=== PATIENT | male | born 1945 | race Caucasian/White ===

== ENCOUNTER 2024-11-03 14:09 | Inpatient (IN) | payer MEDICARE, SELFPAY ==
[2024-11-03] VITALS (10 sets, daily range): BP systolic 109–179; BP diastolic 77–110; PULSE 98–126; RESP 17–32; TEMP 36–40; O2SAT 94–100; BMI 33.7
--- NOTE | 2024-11-03 14:10 | PC.NURSE ---
Pt. arrived from home, pt. taken straight to CT.
--- NOTE | 2024-11-03 14:15 | PC.NURSE ---
Dr. Barrera Valdovinos is on tele monitor, Dr. Valdovinos trying to speak to pt. and pt. just keeps stating Malik.
--- NOTE | 2024-11-03 14:16 | PC.NURSE ---
Pt. in CT on CT table and being combative and uncooperative, called Dr. Flannery to come to CT.
--- NOTE | 2024-11-03 14:16 | EKG_ITS ---
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
--- NOTE | 2024-11-03 14:16 | EDNOTE_ITS ---
Neuro Symptoms Deficit-RME/HPI General Chief Complaint: Neuro Symptoms/Deficit Stated Complaint: STROKE Time Seen by Provider: 11/03/24 14:16 Arrival date/time: 11/03/24 14:09 RME / HPI RME / HPI Narrative: DR. FLANNERY MAIN ED EVALUATION: 79 year old male presents to the Emergency Department [facility] with complaints of altered mental status and slurred speech, sudden onset. Symptoms are moderate. Patient also feels hot to the touch. Last well known time 1100 hours today. 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 Social Hx: No tobacco, alcohol, or substance use. Related Data Home Medications ?Medication ?Instructions ?Recorded ?Confirmed Bromocriptine Mesylate 2.5 mg PO BID ##0 09/15/16 Levothyroxine * (SYNTHROID *) 50 mcg PO QDAY #0 tabs 09/15/16 allopurinol 300 mg tablet 300 mg PO QDAY #0 tabs 09/15/16 (Zyloprim) atorvastatin 80 mg tablet (Lipitor) 80 mg PO HS #0 tabs 09/15/16 fluoxetine 20 mg capsule (Prozac) 20 mg PO QAM #0 caps 09/15/16 lisinopril 20 mg tablet 20 mg PO QDAY #0 tabs 09/15/16 loratadine 10 mg tablet 10 mg PO QDAY ##0 09/15/16 (Allerclear) nitroglycerin 0.4 mg sublingual 0.4 mg SL PRN PRN CHEST PAIN #0 09/15/16 tablet (Nitrostat) tabs omeprazole 40 mg capsule,delayed 40 mg PO QDAY ##0 09/15/16 release clopidogrel 75 mg tablet 75 mg PO DAILY 01/28/23 01/28/23 clopidogrel 75 mg tablet (Plavix) 75 mg PO QDAY 01/28/23 01/28/23 Allergies Allergy/AdvReac Type Severity Reaction Status Date / Time Penicillins Allergy Severe RASH/ Verified 01/25/23 15:32 REDNESS Review of Systems Review of Systems ROS Unobtainable: unobtainable due to mental status Past Medical History Past Medical History CARDIAC: Positive Cardiac Disorders, Myocardial Infarction, Coronary Artery Disease, Hypercholesterolemia, Congestive Heart Failure and Hypertension GENITOURINARY: Positive Genitourinary Disorders, Renal Disease and Benign Prostatic Hyperplasia MUSCULOSKELETAL: Positive Musculoskeletal Disorders, Gout and Carpal Tunnel Syndrome ENDOCRINE: Positive Endocrine Disorders, Hypothyroidism and Pituitary Disease (pituitary tumor) Surgical History SURGICAL: Positive Cardiac Surgery, Open Heart Surgery and Coronary Artery Bypass Graft Social History SMOKING STATUS: Never smoker SUBSTANCE USE: does not use ALCOHOL: Never Past Medical History Comments PMH COMMENT: end stage renal failure on dialysis, fistula, hyperlipidemia, depression, htn ED Exam Narrative Physical exam: Physical Exam: General: The vital signs were reviewed. Patient arrived warm no obvious focal deficit slurring of his words obviously confused felt very warm to touch but the story was a sudden onset of loss of neurologic function just prior to arrival so a stroke alert was called and patient was quickly escorted to the CAT scanner. Patient is an obese male unable to provide any history. He moves his arms and legs around without any obvious deficit. He has a patent airway, no respiratory distress and has no apparent circulatory problems. Head & Scalp: Normocephalic, atraumatic. Face: Appears normal and is without lesions, deformity. Ears: Left external pinna appears normal. Right external pinna appears normal. Eyes: The sclera is anicteric. No obvious photophobia. The Left and Right Orbit/Lid/Conjunctiva appears normal without swelling, discoloration or injection. Nose: The nose is without deformity, discharge or tenderness; Throat: Appears normal. The mucous membranes are pink and moist without exudates, redness or mass seen. The tongue appears normal. Neck: The neck is supple and no apparent mass or adenopathy. Chest: The chest wall is normal in size and symmetry and has no chest wall tenderness or crepitus. The patient displays normal ventilator effort without retractions, accessory muscle use and has adequate air movement bilaterally with no wheezes and no rales. Cardiovascular: Regular rate and rhythm; No murmurs, rubs, or gallops; Gastrointestinal: The abdomen appears normal. No obvious hernias or mass. The abdomen is soft and benign, non-distended, with no pain, no guarding and no rebound tenderness. Bowel sounds are present and normal sounding. No CVA tenderness. Genitourinary: Back/Spine: Nontender Extremities/Musculoskeletal/lymphatic: The bilateral upper and lower extremities are very warm warm. There is no evidence of arterial insufficiency. There is no evidence of venous insufficiency/edema. The patient spontaneously moves bilateral upper and lower extremities with no pain and no limitation of movement. There is no apparent, injury or trauma. Skin: The skin is warm, dry and intact. No rashes. No petechia. No purpura. No abnormal bruising. The color is appropriate with no cyanosis. Mental status/Psychiatric: Mental status is confused slurring his words Neurological: The patient is awake, alert, interactive, confused agitated The patient does not follow any commands. His pupils are equal and react to light. Moves all his extremities spontaneously with purposeful movements in arms and legs as he is trying to get himself off the gurney and off the CT scan table when he was over there. Clearly has an abnormal mental status Course Course Course Narrative: 1406: Stroke alert initiated. Orders made at this time are congruent stroke protocol. 1430: Code dunn was called. Ativan was given for CT, partially worked. 1442: Sepsis alert initiated. Orders made at this time are congruent with ED Adult Sepsis Order List. Re-evaluation is to be completed. 1524: Fluids started. 1600: Sepsis reassessment performed consisting of lab review, vitals, physical exam including auscultation of heart, lungs, and visual evaluation of capillary refills, mucosal membranes and extremities. Quality Measures Current suspected stage: sepsis Possible source: unknown Blood cultures ordered: yes Antibiotic ordered: Yes Pertinent labs: 11/03/24 14:12 Lactic Acid 1.8 mMol/L (0.4-2.0) Procalcitonin 0.27 ng/ml (0.0-0.49) sepsis Orders Category Date Time Status 24 HR Medical Restraints Q2HR Care 11/03/24 18:07 Active Bedside Blood Glucose NOW Care 11/03/24 14:16 Active Applications Project Manager NOW Care 11/03/24 14:16 Active Continuous Pulse Oximetry NOW Care 11/03/24 14:16 Completed EKG (ED ONLY) *Do not use* NOW Care 11/03/24 14:16 Completed In and Out Catheter NEEDED Care 11/03/24 14:16 Completed Insert IV NOW Care 11/03/24 14:16 Active NIH Stroke Scale now Care 11/03/24 14:16 Active NPO NOW Care 11/03/24 14:16 Active Nurse Swallow Screen x1 Care 11/03/24 14:16 Active Consult to Neurology / Tele-Neurology Routine Cons 11/03/24 14:[address] angio stroke protocol Stat Exams 11/03/24 14:[address] stroke protocol Stat Exams 11/03/24 14:16 Completed EKG (ED Only) Stat Exams 11/03/24 14:16 Draft XR chest 1V portable Stat Exams 11/03/24 16:51 Completed Alcohol, Blood Medical Stat Lab 11/03/24 14:12 Completed Ammonia Stat Lab 11/03/24 14:12 Completed Blood Culture (Lab) Stat Lab 11/03/24 15:00 Received CBC Stat Lab 11/03/24 14:12 Completed Comprehensive Metabolic Panel Stat Lab 11/03/24 14:12 Completed Drug Screen,Urine Stat Lab 11/03/24 15:20 Completed Lactate (Lactic Acid) Stat Lab 11/03/24 14:12 Completed Magnesium Stat Lab 11/03/24 14:12 Completed Partial Thromboplastin Time Stat Lab 11/03/24 14:12 Completed Procalcitonin Stat Lab 11/03/24 14:12 Completed Prothrombin Time with INR Stat Lab 11/03/24 14:12 Completed Troponin I Stat Lab 11/03/24 14:12 Completed Urinalysis Stat Lab 11/03/24 15:20 Completed Urine Culture Stat Lab 11/03/24 15:20 Received Venous Blood Gas Stat Lab 11/03/24 14:12 Completed Acetaminophen Supp [Tylenol Supp] Med 11/03/24 14:58 Discontinued 1,000 mg ID X1 ONE LORazepam [Ativan Inj] Med 11/03/24 14:17 Discontinued 2 mg .ROUTE .STK-MED ONE LORazepam [Ativan Inj] Med 11/03/24 14:39 Discontinued 2 mg IVP X1 ONE LORazepam [Ativan Inj] Med 11/03/24 16:48 Discontinued 2 mg IVP X1 ONE LORazepam [Ativan Inj] Med 11/03/24 17:06 Discontinued 2 mg IVP X1 ONE LORazepam [Ativan Inj] Med 11/03/24 17:57 Discontinued 2 mg IVP X1 ONE Meropenem Inj [Merrem Inj] 1,000 mg Med 11/03/24 14:42 Discontinued Sodium Chloride 0.9% (P) [Ns 0.9% (P)] 50 ml IV X1 Morphine Inj Med 11/03/24 17:21 Discontinued 4 mg IVP X1 ONE Ondansetron Inj [Zofran Inj] Med 11/03/24 14:16 Active 4 mg IV Q4HR PRN Ondansetron Inj [Zofran Inj] Med 11/03/24 14:39 Discontinued 4 mg IV X1 ONE Ondansetron Inj [Zofran Inj] Med 11/03/24 17:22 Discontinued 4 mg IV X1 ONE Sodium Chloride 0.9% 500 ml [Ns] 500 ml Med 11/03/24 14:40 Discontinued IV 999 mls/hr Vancomycin Inj 1,000 mg Med 11/03/24 14:41 Discontinued Sodium Chloride 0.9% 250 ml [Ns] 250 ml IV X1 Oxygen Delivery NOW RT 11/03/24 14:16 Active Vital Signs Vital signs: Vital Signs Temperature 104.0 F H 11/03/24 14:10 Pulse Rate 123 H 11/03/24 14:10 Respiratory Rate 19 11/03/24 14:10 Blood Pressure 121/110 H 11/03/24 14:10 Pulse Oximetry (%) 94 L 11/03/24 14:10 Oxygen Delivery Method Room Air 11/03/24 14:10 Neuro Symptoms / Deficit MDM Narrative MDM Narrative:: I, Leanne Hickman am scribing for and in the presence of Dr. Flannery. Initially patient was billed as a stroke alert prior to arriving by EMS. We continued with a stroke alert and patient went to the scanner as soon as possible but over there he was agitated and unable to hold still we brought 2 mg of Ativan stat and it was given IV while he was on the scanner table. He calm down to what appeared to be good enough to get a initial scan. Note detail he teleneurologist was on the line observing are patient at that time. We were able to get a noncontrast scan but there was lots of motion artifact and clearly a repeat will need to be done but we rolled him and did a rectal temp in the x- ray suite and found him to have a temperature 104.2. At this point it is obvious that he is either septic and we initiated septic workup. Because he is a dialysis patient he was given Vanco and Zosyn. I discussion with the telemetry neurologist initially felt there is no reason to do the CTA as he has a fever of [address] scanner he is globally weak with no focal deficits Patient was brought back from the scanner to room for where he continued to have intermittent agitation and thrashing about at times where his came in later and reported this is typical for every time he gets a fever and she is not surprised at this at all. Patient got his Vanco and Zosyn medical workup revealed Because the stroke protocol was used a chest x-ray was missed on the initial round of labs. Patient is an uric. He does have redness around his new I have dialysis port in the left upper chest concerning for a tunnel site infection. White count came back at 9.1 hemoglobin 10.8 PT 12.2 INR of 11 PTT of 25.6 venous blood gas pH is 7.39 sodium 139 potassium 4.2 chloride 102 CO2 25.6 BUN 38 creatinine 3.8 consistent with chronic renal failure. Glucose was 181 magnesium is low at 1.3. Procalcitonin came back at 0.27. Urinalysis reveals specific already of 1017 with 1 red cell 3 white cells and 6 squames. Urine drug screen came back negative ethyl alcohol level came back negative. Again the initial CT of the head we had motion artifact which degraded images but there is no gross hemorrhage seen. Patient required 6 mg of Ativan total to sedate him as of 1900 hrs. including soft restraints. Hospitalist was contacted initially Dr. Soto and then attending Dr. Ulloa was concerned about the need for a CTA. We had much discussion about this and was my definite opinion a CT is not indicated in this septic patient and no reason to send him back at this point. Specially when you are dealing with agitation and a globally ill patient. I spent a consider amount of time including running over the CT scan and sedating the patient to hopefully get his CT scan and at 2045 hrs. patient is more calm he is admitted Heart rate is 109. At the present time and it is important to note that because the still clearly articulated he gets this way with a fever we did not do a spinal tap but we are treating him aggressively and the hospitalist has assumed care. Patient data External records reviewed:: [facility] previous records (Reviewed last ED visit dated 06/13/24, left AMA.) and EMS form Clinical information provided by:: patient and EMS Social determinants that could affect healthcare access:: none Patient has the following chronic illnesses:: Hypertension, end stage renal disease on dialysis, fistula, hyperlipidemia, depression How is presenting disease/condition affected by chronic disease/condition?: exacerbated by Evaluation data The following diagnostics were reviewed and interpreted by me:: lab results, radiology exam(s) and EKG tracing(s) (EKG#1: Dated 11/03/2024 at 1729 hours. Interpreted by me: sinus tachycardia, rate 103, no STEMI) Lab and/or radiology exams considered but not ordered:: none Interpretation Summary: See above under MDM narrative. RADIOLOGY Procedure(s): CT stroke protocol Accession Number(s): [id number] cc: Jf Flannery MD; Merrill Hamilton MD~ Examination: CT brain head without contrast. 2-D sagittal coronal reconstructions Date and time of exam:November 03, 2024 1430 hrs. Comparison February 25, 2023 Indications: Onset stroke alert, onset focal neurologic deficit, slurred speech beginning at 11:00 AM CTDI: vol (mGy):58.5 DLP: (mGycm):1258 Technique: Multiple CT axial sections of the brain have been obtained, 5 mm slice thickness. Contrast has not been administered. 2-D sagittal, coronal reconstructions have been obtained Low dose protocols were performed. One or more of the following dose reduction techniques were used; automated exposure control, adjustment of the mA and/or KV according to patient size, use of iterative reconstruction technique. Findings: Study is severely degraded secondary to patient motion The ventricles are not enlarged No mass effect upon the ventricular system noted No gross hemorrhage is depicted Impression: The study is severely degraded secondary to patient motion The ventricles are not enlarged, no mass effect upon the ventricular system No hemorrhage is identified Dictated By: Merrill Hamilton MD Medications / Prescriptions Medications or Prescriptions considered but not ordered:: none Medication administrations:: Medication Administration History Acetaminophen (Acetaminophen 325 Mg Tablet) 650 mg PO Q6H PRN PRN Reason: PAIN SCALE 1-3 (mild Stop: 12/03/24 19:15 Albuterol/Ipratropium (Albuterol/Ipratropium (Duoneb) Rt Dianne 3 Ml Nebu) 3 ml INH Q4HRRT PRN PRN Reason: SOB or wheezing Stop: 12/03/24 22:59 Heparin Sodium (Porcine) (Heparin Sod Inj 5000 Unit/Ml Vial) 5,000 unit SC Q8HR TARIK Stop: 11/17/24 21:59 Sodium Chloride (Ns) 1,000 mls @ 50 mls/hr IV .Q20H ONE Stop: 11/04/24 15:29 Last Admin: 11/03/24 20:04 Dose: 50 mls/hr Documented By: CLT Cefepime HCl 1 gm/ Sodium (Chloride) 50 mls @ 100 mls/hr IV QDAY TARIK Stop: 11/11/24 08:59 Magnesium Sulfate (Magnesium Sulfate Ivpb) 2 gm in 50 mls @ 25 mls/hr IV X1 ONE Stop: 11/03/24 21:34 Last Admin: 11/03/24 20:04 Dose: 25 mls/hr Documented By: CLT Lorazepam (Lorazepam 2 Mg/Ml Vial) 2 mg IVP Q8H PRN PRN Reason: AGITATION (SEVERE) Stop: 11/08/24 19:44 Ondansetron HCl (Ondansetron Inj 2 Mg/Ml Inj 2 Ml) 4 mg IV Q4HR PRN PRN Reason: NAUSEA OR VOMITING Stop: 12/03/24 14:15 Last Admin: 11/03/24 17:26 Dose: 4 mg Documented By: ED Pharmacy Consult (Vancomycin Pharmacy To Dose 1 Each Each) 1 each IV QDAY TARIK Stop: 12/04/24 08:59 Sennosides (Senna Tablet) 1 tab PO BID PRN; Protocol PRN Reason: CONSTIPATION Stop: 12/03/24 19:15 Discontinued Medications Acetaminophen (Acetaminophen Supp 650 Mg Supp) 1,000 mg ID X1 ONE Stop: 11/03/24 14:59 Last Admin: 11/03/24 15:06 Dose: 1,000 mg Documented By: ED Haloperidol Lactate (Haloperidol Lact Inj 5 Mg/Ml Vial) 2 mg IV X1 ONE Stop: 11/03/24 19:42 Last Admin: 11/03/24 20:04 Dose: 2 mg Documented By: CLT Sodium Chloride (Ns) 500 mls @ 999 mls/hr IV .Q31M ONE Stop: 11/03/24 15:10 Last Admin: 11/03/24 15:24 Dose: 999 mls/hr Documented By: ED Vancomycin HCl 1,000 mg/ (Sodium Chloride) 250 mls @ 150 mls/hr IV X1 ONE Stop: 11/03/24 16:20 Last Admin: 11/03/24 16:09 Dose: 150 mls/hr Documented By: KDC Meropenem 1,000 mg/ Sodium (Chloride) 50 mls @ 100 mls/hr IV X1 ONE Stop: 11/03/24 14:43 Last Infusion: 11/03/24 16:07 Dose: Infused Documented By: Admin: 11/03/24 15:24 Dose: 100 mls/hr Documented By: ED Cefepime HCl 1 gm/ Sodium (Chloride) 50 mls @ 100 mls/hr IV X1 ONE Stop: 11/03/24 19:58 Lorazepam (Lorazepam 2 Mg/Ml Vial) Confirm Administered Dose 2 mg .ROUTE .STK- MED ONE Stop: 11/03/24 14:18 Last Admin: 11/03/24 14:40 Dose: Not Given Documented By: KM Non-Admin Reason: Duplicate Medication on eMAR Lorazepam (Lorazepam 2 Mg/Ml Vial) 2 mg IVP X1 ONE Stop: 11/03/24 14:40 Last Admin: 11/03/24 14:24 Dose: 2 mg Documented By: ED Lorazepam (Lorazepam 2 Mg/Ml Vial) 2 mg IVP X1 ONE Stop: 11/03/24 16:49 Last Admin: 11/03/24 16:52 Dose: 2 mg Documented By: ED Lorazepam (Lorazepam 2 Mg/Ml Vial) 2 mg IVP X1 ONE Stop: 11/03/24 17:07 Last Admin: 11/03/24 17:09 Dose: 2 mg Documented By: ED Lorazepam (Lorazepam 2 Mg/Ml Vial) 2 mg IVP X1 ONE Stop: 11/03/24 17:58 Last Admin: 11/03/24 18:00 Dose: 2 mg Documented By: ED Morphine Sulfate (Morphine Sulf Inj 10 Mg/Ml Vial) 4 mg IVP X1 ONE Stop: 11/03/24 17:22 Last Admin: 11/03/24 17:31 Dose: 4 mg Documented By: ED Ondansetron HCl (Ondansetron Inj 2 Mg/Ml Inj 2 Ml) 4 mg IV X1 ONE; Protocol Stop: 11/03/24 14:40 Last Admin: 11/03/24 14:28 Dose: 4 mg Documented By: ED Ondansetron HCl (Ondansetron Inj 2 Mg/Ml Inj 2 Ml) 4 mg IV X1 ONE; Protocol Stop: 11/03/24 17:23 Last Admin: 11/03/24 20:03 Dose: 4 mg Documented By: CLT see above Consultations Consultation(s) initiated? (list below): Yes Consultation #1 (Physician, Specialty, Details): Discussed test HPI, PMHx, lab, radiology results and/or management with hospitalist Dr. Soto. Will admit for further evaluation and management. Accepts patient for admission. Time: 16:51 Diagnosis Neuro Differential Diagnosis: subarachnoid hemorrhage, cerebrovascular accident and transient cerebral ischemia Most likely diagnosis given after review of the tests above:: As noted below. Admission Indicated Admission indicated?: indicated Admission Request Was there a request for admission?: Yes Admission Attestation Admission request attestation: Discussed case with [] from Hospitalist service regarding admission. Discussed patients ED course, exam findings, labs, and radiology results. The Hospitalist [agrees,declines] to accept the patient for admission. Disposition Plan Disposition Plan: Admit Critical Care Time Critical Care Time Critical Care Time: Yes Total Critical Care Time (min.): 80 Attestation: The high probability of sudden, clinically significant deterioration in the patient?s condition required the highest level of my preparedness to intervene urgently. The services I provided to this patient were to treat and/or prevent clinically significant deterioration. Services included the following: chart data review, reviewing nursing notes and/or old charts, documentation time, sap treasury consultant collaboration regarding findings and treatment options, medication orders and management, direct patient care, vital sign assessments and ordering, interpreting and reviewing diagnostic studies and lab tests. Aggregate critical care time includes only time during which I was engaged in work directly related to the patient?s care, as described above, whether at bedside or elsewhere in the Emergency Department. It did not include time spent performing other reported procedures or the services of residents, students, nurses or physician assistants. Discharge Plan Plan Patient Disposition: Admit Acute Care w/in Hospital Disposition Comment: Hospitalist to admit Problem List Clinical Impression: Altered mental status, Fever, Cellulitis, End stage renal failure on dialysis, Delirium
[2024-11-03 14:23] LABS: Base Excess, Venous 1 (-3-3); Lactate (Lactic Acid) 1.8 mMol/L (0.4-2.0); O2 Saturation, Venous 67 % (96-97); PCO2, Venous 43 mmHg (36-56); PO2, Venous 35 mmHg (15-58); pH, Venous 7.39 (7.33-7.66)
[2024-11-03] MEDS: LORazepam 2 MG/ML VIAL IVP ×5 (14:24→22:13)
[2024-11-03] MEDS: ONDANSETRON INJ 2 MG/ML INJ 2 ML 4 MG IV ×3 (14:28→20:03)
[2024-11-03 14:32] LABS: Basophils % (Auto) 0 % (0-2.5); Eosinophils % (Auto) 0 % (0-10); Hematocrit 32.1 % (41.0-53.0); Hemoglobin 10.8 g/dL (13.5-16.0); Immature Granulocytes % (Auto) 1 % (0-0); Immature Granulocytes Auto 0.05 Thou/mm3 (0.00-0.00); Lymphocytes # (Auto) 0.4 Thou/mm3 (1.0-4.8); Lymphocytes % (Auto) 5 % (10-50); Mean Corpuscular HGB Conc 33.6 g/dl (31.0-37.0); Mean Corpuscular Volume 95 fL (80-100); Monocytes # (Auto) 0.3 Thou/mm3 (0.0-0.8); Monocytes % (Auto) 3 % (0-12); Neutrophils # (Auto) 8.3 Thou/mm3 (1.8-7.7); Neutrophils % (Auto) 92 % (37-80); Nucleated Red Blood Cell % 0 /100 WBC (0); Platelet Count 161 Thou/mm3 (140-440); Red Blood Count 3.38 Miln/mm3 (4.50-5.90); White Blood Count 9.1 Thou/mm3 (3.8-10.6)
--- NOTE | 2024-11-03 14:39 | PC.NURSE ---
Pt. to room [address] pt[address] here from home, per fruit loader pt. was at home and became altered today at 1100, pt. lives with his . Pt. talking but confused and hard to understand.
[2024-11-03 14:46] LABS: Ammonia < 10 uMol/L (11-32)
--- NOTE | 2024-11-03 14:48 | PD.TNEURO ---
Tele Neuro Consultation Consultation Date 11/03/24 Most Recent Vital Signs Last Vital Signs Temp 104.0 F H 11/03/24 14:10 Pulse 123 H 11/03/24 14:10 Resp 19 11/03/24 14:10 BP 121/110 H 11/03/24 14:10 Pulse Ox 94 L 11/03/24 14:10 O2 Del Method Room Air 11/03/24 14:10 Consultation Narrative [facility] Tele[facility]urology Consult Services Patient Name:???Malik Andino Date of :???1945 Identification Number:??? Date of Service:???11/03/2024 14:05:25 Diagnosis:?G93.41 - Encephalopathy Metabolic Impression: ?Hours of progressive mental status decline and associated agitation and confusion, rambling incoherent speech with associated fever to 104F, NIHSS symmetric but largely nondiagnostic due to patient confusion and agitation limiting participation, CT head without acute findings on initial review, in a patient with a history of prior strokes and ESRD and CHF. Suspect toxic-metabolic etiology of encephalopathy possibly due to febrile process e.g., infection. Initial EMS exam reportedly noted some mild left-prominent asymmetry of weakness but this is no longer apparent despite further decompensation in mental status and agitation, making acute ischemic stroke seem less likely as a differential consideration. ?-agree with further neuroimaging e.g., CTA H/N and MRI brain once patient able to tolerate behaviorally ?-infectious / fever E&M per ER staff ?-BP goal target normotension given lower suspicion for acute ischemic stroke Our recommendations are outlined below. Recommendations: ? Neuro Checks ? Bedside Swallow Eval ? DVT Prophylaxis ? IV Fluids, Normal Saline ? Head of Bed 30 Degrees ? Euglycemia and Avoid Hyperthermia (PRN Acetaminophen) Advanced Imaging: Advanced Imaging Deferred because: CTA and other neuroimaging pending behavioral agitation improvement for ability to tolerate scan Metrics: Last Known Well: 11/03/2024 11:00:00 Dispatch Time: 11/03/2024 14:05:25 Arrival Time: 11/03/2024 14:07:00 Initial Response Time: 11/03/2024 14:07:00Symptoms: Confusion, agitation, question of left-sided but bilateral weakness. Initial patient interaction: 11/03/2024 14:07:00 NIHSS Assessment Completed: 11/03/2024 14:11:00Patient is not a candidate for Thrombolytic. Thrombolytic Medical Decision: 11/03/2024 14:11:00Patient was not deemed candidate for Thrombolytic because of following reasons: other diagnosis suspected Fever to 104F and suspected sepsis. CT head showed no acute hemorrhage or acute core infarct. Primary Provider Notified of Diagnostic Impression and Management Plan on: 11/03/2024 14:47:50 History of Present Illness:Patient is a 79 year old Male. Patient was brought by EMS for symptoms of Confusion, agitation, question of left-sided but bilateral weakness. Slurred speech starting at 11am, with at the time who reports he had been normal just before/at this time, decline in mental status since then from normal baseline. EMS noted confusion, inability to speak. Also left-sided weakness. But en route to and in ER, became agitated and thrashing both arms and legs fairly symmetrically. Past Medical History: ?Hypertension ?Hyperlipidemia ?Stroke Other PMH:? ESRD and on HD, CHF Medications: Anticoagulant use:??Unknown Antiplatelet use:?Unknown Reviewed EMR for current medications Other Medications Pertinent To Assessment Include: Family unable to report Allergies:? Reviewed Social History: Unable To Obtain Due To Patient Status :?Patient Is Confused Family History: Family History Cannot Be Obtained Because:Patient Is Confused ROS :?ROS Cannot Be Obtained Because:? Patient Is Confused Past Surgical History: Past Surgical History Cannot Be Obtained Because: Patient Is Confused There Is No Surgical History Contributory To Today?s Visit NIHSS may not be reliable due to: Patient agitated and unable to participate in exam Examination: BP(196/100),?Pulse(126),?Blood Glucose(86) 1A: Level of Consciousness - Alert; keenly responsive?+ 0 1B: Ask Month and Age - Could Not Answer Either Question Correctly?+ 2 1C: Blink Eyes & Squeeze Hands - Performs 0 Tasks?+ 2 2: Test Horizontal Extraocular Movements - Normal?+ 0 3: Test Visual Pascual - No Visual Loss?+ 0 4: Test Facial Palsy (Use Grimace if Obtunded) - Normal symmetry?+ 0 5A: Test Left Arm Motor Drift - No Drift for 10 Seconds?+ 0 5B: Test Right Arm Motor Drift - No Drift for 10 Seconds?+ 0 6A: Test Left Leg Motor Drift - No Drift for 5 Seconds?+ 0 6B: Test Right Leg Motor Drift - No Drift for 5 Seconds?+ 0 7: Test Limb Ataxia (FNF/Heel-Ferguson) - No Ataxia?+ 0 8: Test Sensation - Normal; No sensory loss?+ 0 9: Test Language/Aphasia - Severe Aphasia: Fragmentary Expression, Inference Needed, Cannot Identify Materials?+ 2 10: Test Dysarthria - Normal?+ 0 11: Test Extinction/Inattention - No abnormality?+ 0 NIHSS Score:?6 NIHSS Free Text :?NIHSS interpretability limited. Rambling incoherent nonsensical speech, agitated and thrashing, unable to follow commands or participate Pre-Morbid Modified [place] Scale:0 Points = No symptoms at all Spoke with :?ER Physician This consult was conducted in real time using interactive audio and video technology. Patient was informed of the technology being used for this visit and agreed to proceed. Patient located in hospital and provider located at home/office setting. Patient is being evaluated for possible acute neurologic impairment and high probability of imminent or life-threatening deterioration. I spent total of 45 minutes providing care to this patient, including time for face to face visit via telemedicine, review of medical records, imaging studies and discussion of findings with providers, the patient and/or family. Dr Jaime Bonifacio [facility] For Inpatient follow-up with [facility] physician please call [facility] at . As we are not an outpatient service for any post hospital discharge needs please contact the hospital for assistance. If you have any questions for the [facility] physicians or need to reconsult for clinical or diagnostic changes please contact us via [facility] at .
[2024-11-03 14:51] LABS: INR 1.1 (0.9-1.3); Partial Thromboplastin Time 25.6 Seconds (22.0-36.0); Prothrombin Time 12.2 Seconds (9.0-12.2)
--- NOTE | 2024-11-03 14:52 | PC.NURSE ---
Pt. LKW is 1100, per family.
[2024-11-03 14:56] LABS: Alanine Aminotransferase 21 U/L (10-49); Albumin, Serum 4.8 gm/dL (3.4-4.8); Albumin/Globulin Ratio 2.7 (1.2-2.2); Alcohol, Blood Medical < 3.0 mg/dL (0-10.0); Alkaline Phosphatase 168 U/L (46-116); Anion Gap 11 (7-16); Aspartate Amino Transferase 11 U/L (0-34); BUN/Creatinine Ratio 10 Ratio (12-20); Bilirubin,Total 0.8 mg/dL (0.3-1.2); Blood Urea Nitrogen 38 mg/dL (9-23); Calcium 9.7 mg/dL (8.3-10.6); Calcium (Corrected) 9.7 mg/dL (8.5-10.1); Carbon Dioxide 25.6 mMol/L (20.0-31.0); Chloride 102 mMol/L (98-107); Creatinine (Component) 3.8 mg/dL (0.6-1.3); Estimated Creatinine Clearance 19.6 mL/min (>60); Globulin 1.8 gm/dL (2.3-3.5); Glucose 181 mg/dL (74-106); Magnesium 1.3 mg/dL (1.6-2.6); Osmolality,Calculated 291 (275-295); Potassium 4.4 mMol/L (3.4-5.1); Procalcitonin 0.27 ng/ml (0.0-0.49); Sodium 139 mMol/L (136-145); Total Protein 6.6 gm/dL (5.7-8.2); eGFR 16 See Note
[2024-11-03 15:05] LABS: Troponin I 0.058 ng/mL (0.0-0.045)
[2024-11-03] MEDS: ACETAMINOPHEN SUPP 650 MG SUPP 1000 MG PR (15:06)
[2024-11-03] MEDS: MEROPENEM INJ 1,000 MG in SODIUM CHLORIDE 0.9% (P) 50 ML 100 MG IV (15:24)
[2024-11-03] MEDS: SODIUM CHLORIDE 0.9% 500 ML 500 ML 999 ML IV (15:24)
[2024-11-03 15:32] LABS: Collection Type, Urine Catheter
[2024-11-03 15:42] LABS: Bilirubin,Urine Negative (Negative); Blood,Urine Negative (Negative); Clarity,Urine Clear (Clear/Hazy); Color,Urine Lt-Yellow (Lt Yel-Yel); Glucose, Urine 1+ (Negative); Ketones,Urine Negative (Negative); Leukocyte Esterase,Urine Negative (Negative); Nitrite,Urine Negative (Negative); PH,Urine 8.5 (5.0-7.0); Protein,Urine 3+ (Neg - Trace); RBC,Urine 1 /hpf (0-3); Specific Gravity,Urine 1.017 (1.001-1.035); Squamous Epithelial Cell,Urine 6 /hpf (0-5); Urobilinogen,Urine Negative mg/dL (0.0-1.0); WBC,Urine 3 /hpf (0-5)
[2024-11-03 15:52] LABS: Amphetamine/Methamp Scrn,U Negative (Negative); Barbiturate Screen,Urine Negative (Negative); Benzodiazepines Screen,Urine Negative (Negative); Benzoylecgonine Screen, Ur Negative (Negative); Fentanyl Screen,Urine Negative (Negative); Opiate Screen,Urine Negative (Negative); THC Screen,Urine Negative (Negative)
--- NOTE | 2024-11-03 16:02 | PC.NURSE ---
Pt.'s is bedside and states pt. dialysis access was moved to pt.'s left upper chest because pt. has a blood clot in right lower arm.
[2024-11-03] MEDS: Vancomycin Inj 1,000 MG in SODIUM CHLORIDE 0.9% 250 ML 250 ML 150 MG IV (16:09)
--- NOTE | 2024-11-03 16:51 | XR_ITS ---
Examination: AP chest single view Technique: AP portable semiupright chest single view Exam date and time: November 03, 2024 7054 hours Comparison January 17, 2023 Indications: Onset fever today. Findings: Significant enlargement cardiac contour CABG Left internal jugular dialysis catheter tip satisfactory position Mild opacity left base retrocardiac No pulmonary edema Prominent osteopenia Impression: Suspicious for early left base pneumonia
[2024-11-03] MEDS: MORPHINE SULF INJ 10 MG/ML VIAL 4 MG IVP (17:31)
--- NOTE | 2024-11-03 18:04 | PC.NURSE ---
Pt. very restless, agitated and pulling at lines, pt. removed his gown. Pt. kicking and trying to get out of bed. 2 RN's and security are bedside.
--- NOTE | 2024-11-03 19:34 | ESHP_ITS ---
Documentation for date of: 11/03/24 HPI - Hospitalist History of Present Illness History of present illness: Patient is a 79 years old male with past medical history of ESRD on hemodialysis (MWF), HFrEF (possibly EF of 30), Previous CVA, possible hypothyroidism presented to the ED with complaint of altered mental status. Patient is awake but altered and agitated, unable to participate in history taking and examination. HPI completed with son at bedside. As per the son, the patient was in his usual state of health until 11 am this morning when he started not being himself and agitated. The son had noticed his father to be with AMS in his previous hospitalization for infections . He also had his left sided tunneled dialysis catheter placed couple days ago. And noticed some redness around catheter site this morning. Patient has history of dialysis catheter site infection as well. At baseline patient can complete his ADLs independently. His last hemodialysis session was yesterday. The son denies fever, SOB, chest pain, GI symptoms prior to the AMS. Also denies focal weakness. On arrival patient had BP of 121/110, pulse 123, RR 19, Temp 104.0 meeting 2/4 SIRS criteria. Sepsis alert was called and patient received IV antibiotics. Chemistry panel shows elevated BUN/Creatinine 38/3.8, Glucose 181, lactate 1.8 , magnesium 1.3, ALP 168, Ammonia <10, Troponin 0.058. UA shows 3+ proteinuria. In the ED stroke alert was called, patient underwent head CT which came back negative for acute hemorrhage, mass effect or midline shift. Teleneurology was consulted. As per the ED physician, they discussed with the Tele neurologist regarding his finding and agreed that patient does not need further workup and management of stroke and the altered mentation was secondary to sepsis. Hence the imaging were canceled. I tried to reach the teleneurologist, but unsuccessful. Confirming again with the ED physician regarding his communication with the tele neurologist we will admit the patient for management of AMS and sepsis likely secondary to catheter site cellulitis. Past Medical history : ESRD, CVA, HFrEF, Hypothyroidism Past surgical history: Rotator cuff repair, Fistula placement for HD (Not on use due to clot formation inside the fistula, attempted to remove but unsuccessful) Social history: Denies smoking cigarette, drinking alcohol and using illicit drug. (Son is unsure if patient used there while young). Patient lives with his . Review of Systems Review of Systems ROS Unobtainable: unobtainable due to medical condition Meds Home Medications and Allergies Home Medications ?Medication ?Instructions ?Recorded ?Confirmed ?Type Bromocriptine Mesylate 2.5 mg PO BID ##0 09/15/16 History Levothyroxine * (SYNTHROID *) 50 mcg PO QDAY #0 tabs 09/15/16 History allopurinol 300 mg tablet 300 mg PO QDAY #0 tabs 09/15/16 History (Zyloprim) atorvastatin 80 mg tablet (Lipitor) 80 mg PO HS #0 tabs 09/15/16 History fluoxetine 20 mg capsule (Prozac) 20 mg PO QAM #0 caps 09/15/16 History lisinopril 20 mg tablet 20 mg PO QDAY #0 tabs 09/15/16 History loratadine 10 mg tablet 10 mg PO QDAY ##0 09/15/16 History (Allerclear) nitroglycerin 0.4 mg sublingual 0.4 mg SL PRN PRN CHEST PAIN #0 09/15/16 History tablet (Nitrostat) tabs omeprazole 40 mg capsule,delayed 40 mg PO QDAY ##0 09/15/16 History release clopidogrel 75 mg tablet 75 mg PO DAILY 01/28/23 01/28/23 History clopidogrel 75 mg tablet (Plavix) 75 mg PO QDAY 01/28/23 01/28/23 History Allergies Allergy/AdvReac Type Severity Reaction Status Date / Time Penicillins Allergy Severe RASH/ Verified 01/25/23 15:32 REDNESS Exam Vital Signs Temp Pulse Resp BP Pulse Ox O2 Del Method O2 Flow Rate 99.6 F 110 H 19 120/77 98 Nasal Cannula 2 11/03/24 18:57 11/03/24 18:57 11/03/24 18:57 11/03/24 18:57 11/03/24 18:57 11/03/24 18:57 11/03/24 18:57 Narrative General: Agitated, unable to follow command or communicate HEENT: NCAT, pupils reactive to light, anicteric conjunctivae. Chest: Left sided tunneled dialysis catheter with dressing. Redness above the dressing reaching towards the neck, warm on touch CVS: normal S1 and S2. RRR. No M/R/G. Resp: clear to aucultate bilaterally Abd: soft, mild distention, rashes over the skin MSK/Neurology: Limited exam due to agitation, patient unable to communicate or follow commands, moving all his extremities spontaneously, no pedal edema Results - Hospitalist Labs Diagrams: 11/03/24 14:12 11/03/24 14:12 Labs: Short CBC 11/03/24 Range/Units 14:12 WBC 9.1 (3.8-10.6) Thou/mm3 Hgb 10.8 L (13.5-16.0) g/dL Hct 32.1 L (41.0-53.0) % Plt Count 161 (140-440) Thou/mm3 BMP 11/03/24 14:12 Sodium 139 Potassium 4.4 Chloride 102 Carbon Dioxide 25.6 BUN 38 H Creatinine 3.8 H Glucose 181 H Calcium 9.7 Cardiac Enzymes 11/03/24 Range/Units 14:12 Troponin I 0.058 H* (0.0-0.045) ng/mL Liver Function 11/03/24 Range/Units 14:12 Total Bilirubin 0.8 (0.3-1.2) mg/dL AST 11 (0-34) U/L ALT 21 (10-49) U/L Alkaline Phosphatase 168 H (46-116) U/L Albumin 4.8 (3.4-4.8) gm/dL Urine 11/03/24 Range/Units 15:20 Urine Color Lt-Yellow (Lt Yel-Yel) Urine Clarity Clear (Clear/Hazy) Urine pH 8.5 H (5.0-7.0) Ur Specific [place] 1.017 (1.001-1.035) Urine Protein 3+ A (Neg - Trace) Urine Glucose (UA) 1+ A (Negative) ABG Interpretation ABG results: 11/03/24 14:12 VBG pH 7.39 VBG pCO2 43 VBG pO2 35 VBG Base Excess 1 Assessment & Plan -Hospitalist Additional Plan Additional Plan: Patient is a 79 years old male with past medical history of ESRD on hemodialysis (MWF), HFrEF (possibly EF of 30), Previous CVA, possible hypothyroidism presented to the ED with complaint of altered mental status. Being admitted for management of altered mental status, sepsis secondary to catheter site cellulitis. #Sepsis #Catheter site cellulitis #Concern for Bacteremia Patient meets 2/4 SIRS criteria with tachycardia and elevated temperature. Negative lactate, WBC count of 9.1. Patient received tunneled dialysis catheter couple days ago, has redness with elevated temp above the insertion area Patient received vancomycin and zosyn x1 in the ED Started on renally dosed vancomycin and cefepime Blood and urine cultures ordered Discussed with nephrology, agreed to continue the dialysis catheter until Blood culture results are back as the infection is local and above the insertion site, if the culture is positive we will replace the catheter. 30 mg/kg fluid bolus not given due to concern for fluid overload in setting of ESRD and CHF We will start on careful gentle hydration at 50 cc/hr #Acute encephalopathy #Likely history of dementia Likely toxic in setting of sepsis Patient has history of similar episode in the past while having infections Head CT negative for acute hemorrhage, mass effect or midline shift ED physician had discussion with teleneuro and they agreed on not pursuing stroke workup Moving all his limbs spontaneously on exam Consulted In house neurology We will consider LP if patient's mentation fails to improve Speech and physical therapy ordered Received multiple doses of lorazepam in the ED for agitation Ordered haldon 2mg x1 along with PRN lorazepam for further agitation Patient likely take multiple medications for dementia, we will resume after medrec and when patient is able to swallow #NSTEMI type II In setting of sepsis, likely secondary to demand ischemia We will trend troponin and EKG We will obtain cardiology consult if worsening #Hypomagnesemia Has magnesium of 1.3 Repleted 2gm IV Follow up lab in am and replete as needed #ESRD on HD Patient has dialysis Tuesday, Tuesday, Tuesday We will consult Nephrology for dialysis arrangement Renally dose medication Case discussed with Dr. Padilla #History of CVA #History of CHF Patient noted to be on home Atorvastatin and Clopidogrel We will replace clopidogrel with WI Aspirin until patient is able to swallow We will continue with Atorvastatin 80 We will hold his antihypertensives in setting of sepsis, plan to resume once blood pressure starts going up Echocardiography cordered #Hypothyroidim Patient has been refilling Levothyroxine, which we will resume THS level in am #Normocytic anemia Patient has Hb of 10.8 No obvious source of bleeding We will monitor closely, may need outpatient workup Diet: NPO DVT prophylaxis: Heparin SC Code: Full code (As per the Son, plans to discuss further with mom) Lines: PIVs, Left sided tunneled dialysis catheter Dispo: Telemetry for management of acute enecephalopathy and sepsis secondary to cellulitis Cally Dawson MD Quality Measures Quality Measures sepsis Current suspected stage: sepsis Possible source: unknown Blood cultures ordered: yes Antibiotic ordered: Yes Advance care planning discussed with:: child
--- NOTE | 2024-11-03 19:45 | EKG_ITS ---
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1945 Requested By: Cally Dawson Order Number: [id number] Reading MD: Cally Dawson Measurements Intervals [place] Rate: 109 P: 72 NC: 196 QRS: -55 QRSD: 128 T: 93 QT: 348 QTc: 470 Interpretive Statements SINUS TACHYCARDIA MARKED LEFT AXIS DEVIATION [QRS AXIS < -30] POSSIBLE ANTERIOR MYOCARDIAL INFARCTION , OF INDETERMINATE AGE [30 ms Q WAVE IN V3/V4, OR R < 0.2 mV IN V4] Compared to ECG 11/03/2024 17:29:36 Myocardial infarct finding now present Intraventricular conduction delay no longer present T-wave abnormality no longer present Possible ischemia no longer present /store/S0/[id number].pdf
[2024-11-03] MEDS: Magnesium Sulfate 2 GM Ivpb 2 GM/50 ML BAG IV (20:04)
[2024-11-03] MEDS: HALOPERIDOL LACT INJ 5 MG/ML VIAL 2 MG IV (20:04)
[2024-11-03] MEDS: SODIUM CHLORIDE 0.9% 1000 ML 1,000 ML 50 ML IV (20:04)
[2024-11-03 21:19] LABS: Troponin I 0.094 ng/mL (0.0-0.045)
[2024-11-03] MEDS: ASPIRIN 300 MG SUPP PR (21:36)
[2024-11-03] MEDS: HEPARIN SOD INJ 5000 UNIT/ML VIAL SC (21:36)
[2024-11-03] MEDS: CEFEPIME INJ 1 GM in SODIUM CHLORIDE 0.9% 50 ML IV (22:22)
--- NOTE | 2024-11-03 22:32 | PC.NURSE ---
Patient is very restless and altered. NIHSS stroke scale could not be done due to this
[2024-11-03] MEDS: HALOPERIDOL LACT INJ 5 MG/ML VIAL IM (22:42)
[2024-11-04] VITALS (11 sets, daily range): BP systolic 127–143; BP diastolic 86–105; PULSE 102–120; RESP 3–31; TEMP 36.1–37.2; O2SAT 92–100; BMI 30.9
--- NOTE | 2024-11-04 00:06 | XR_ITS ---
Examination: Abdomen AP single view Technique: AP portable supine abdomen, single view Exam date and time: November 04, 2024 0010 hrs. Indications: Abdominal pain today Findings: Nonobstructive bowel gas pattern. Moderate stool throughout the colon No free air Bilateral moderate to advanced hip osteoarthritis Impression: Moderate stool throughout the colon
--- NOTE | 2024-11-04 00:11 | PC.NURSE ---
notified by Aisha ESTRELLA of patient AMS. pt AMS kicking bed in general and not aimed at anyone. MD Mckinnon notified, 2mg IV ativan given with no effect. 5mg IM Haldol given with no effect. Bladder scan and kub ordered. MD Serrano notified.
[2024-11-04] MEDS: OLANZapine INJ 10 MG, Sterile Water 2.1 ML IM ×2 (00:30→16:14)
--- NOTE | 2024-11-04 01:28 | PC.NURSE ---
Per son, will bring his med list in the AM
--- NOTE | 2024-11-04 03:45 | EKG_ITS ---
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
[2024-11-04 04:09] LABS: Basophils % (Auto) 0 % (0-2.5); Eosinophils % (Auto) 0 % (0-10); Hematocrit 32.2 % (41.0-53.0); Hemoglobin 10.5 g/dL (13.5-16.0); Immature Granulocytes % (Auto) 1 % (0-0); Immature Granulocytes Auto 0.13 Thou/mm3 (0.00-0.00); Lymphocytes # (Auto) 0.8 Thou/mm3 (1.0-4.8); Lymphocytes % (Auto) 5 % (10-50); Mean Corpuscular HGB Conc 32.6 g/dl (31.0-37.0); Mean Corpuscular Hemoglobin 31.7 pg (25.0-35.0); Mean Corpuscular Volume 97 fL (80-100); Monocytes # (Auto) 1.5 Thou/mm3 (0.0-0.8); Monocytes % (Auto) 9 % (0-12); Neutrophils # (Auto) 14.2 Thou/mm3 (1.8-7.7); Neutrophils % (Auto) 85 % (37-80); Nucleated Red Blood Cell % 0 /100 WBC (0); Platelet Count 178 Thou/mm3 (140-440); Red Blood Count 3.31 Miln/mm3 (4.50-5.90); White Blood Count 16.6 Thou/mm3 (3.8-10.6)
[2024-11-04 04:32] LABS: Glucose Estimated Average 123 mg/dL (80-131); Hemoglobin A1C 5.9 % Hgb (4.8-6.0)
[2024-11-04 04:37] LABS: Alanine Aminotransferase 20 U/L (10-49); Albumin, Serum 4.8 gm/dL (3.4-4.8); Albumin/Globulin Ratio 2.5 (1.2-2.2); Alkaline Phosphatase 155 U/L (46-116); Anion Gap 12 (7-16); Aspartate Amino Transferase 24 U/L (0-34); BUN/Creatinine Ratio 10 Ratio (12-20); Bilirubin,Total 0.9 mg/dL (0.3-1.2); Blood Urea Nitrogen 44 mg/dL (9-23); Calcium 10.2 mg/dL (8.3-10.6); Calcium (Corrected) 10.2 mg/dL (8.5-10.1); Carbon Dioxide 25.3 mMol/L (20.0-31.0); Cardiac Risk Estimate 3.4 RATIO (4.0-6.7); Chloride 104 mMol/L (98-107); Cholesterol 108 mg/dL (132-200); Creatinine (Component) 4.6 mg/dL (0.6-1.3); Estimated Creatinine Clearance 16.2 mL/min (>60); Globulin 1.9 gm/dL (2.3-3.5); Glucose 147 mg/dL (74-106); HDL Cholesterol 32 mg/dL (40-60); LDL Cholesterol,Calculated 32 mg/dL (0-130); Magnesium 1.6 mg/dL (1.6-2.6); Osmolality,Calculated 295 (275-295); Phosphorous 3.7 mg/dL (2.4-5.1); Potassium 4.7 mMol/L (3.4-5.1); Sodium 141 mMol/L (136-145); Total Protein 6.7 gm/dL (5.7-8.2); Triglycerides 219 mg/dL (30-150); eGFR 12 See Note
--- NOTE | 2024-11-04 04:41 | PC.NURSE ---
MD Mckinnon notified that patient is starting to get restless again and trying to kick all over the bed.
[2024-11-04 04:44] LABS: Troponin I 0.351 ng/mL (0.0-0.045)
[2024-11-04] MEDS: LORazepam 2 MG/ML VIAL 1 MG IVP (04:53)
[2024-11-04] MEDS: HEPARIN SOD INJ 5000 UNIT/ML VIAL SC ×3 (05:36→21:02)
--- NOTE | 2024-11-04 06:32 | EKG_ITS ---
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
--- NOTE | 2024-11-04 06:32 | PC.NURSE ---
MD Vilchis notified that pt is having frequent PVCs. EKG Stat is ordered
--- NOTE | 2024-11-04 09:34 | PCS.ST ---
ST eval attempted however RT reported MD cancelled evaluation because pt was unable to cooperate or participate and was agitated. Please re-order ST when appropriate.
[2024-11-04] MEDS: ASPIRIN 300 MG SUPP PR (09:46)
[2024-11-04] MEDS: OLANZapine INJ 10 MG, Sterile Water 2.1 ML IV (09:47)
--- NOTE | 2024-11-04 09:59 | PC.SS ---
Patient Malik Andino is a 79 Year old male admitted for Sepsis, AMS. SS contacted patient's , Joann Andino who reports is patient's surrogate decision maker [phone]. She reports patient lives at home with her. Prior to admission patient was alert and oriented and utilized a Rollator walker to assist with ambulation. Patient's reported that patient usually gets altered when he has an infection. She reports patient get dialysis at [facility] on Tuesday's, Tuesday's and Fridays at 9:30AM. Patient's PCP is Rosey Morin. Choice of pharmacy is [facility]. At time of discharge patient's would like for patient to discharge back home however is open to SNF if needed. At the time Discharge plan is pending. Discharge plan: Pending Next of Kin, , Joann Andino [phone]
[2024-11-04] MEDS: VANCOMYCIN/NS 500 MG IVPB 100 ML 120 MG IV (10:03)
[2024-11-04] MEDS: HALOPERIDOL LACT INJ 5 MG/ML VIAL IM (12:47)
[2024-11-04] MEDS: HALOPERIDOL LACT INJ 5 MG/ML VIAL 2.5 MG IM (14:11)
[2024-11-04] MEDS: LORazepam 2 MG/ML VIAL IVP ×3 (15:25→22:27)
--- NOTE | 2024-11-04 15:58 | ESPR_ITS ---
Documentation for date of: 11/04/24 Subjective Subjective Interval history: Patient was examined bedside this morning, blood cultures came back GPC's. Dr Padilla recommended that she will do early dialysis tomorrow morning and then we will remove the dialysis catheter. And put a new TDC by Dr. Ramos. Patient is very agitated he received Zyprexa, Ativan and Haldol. But still agitated ICU was curbside they recommended to continue Haldol for now. If the patient still gets agitated may need ICU upgrade for Precedex drip. Exam Vital Signs Temp Pulse Resp BP Pulse Ox O2 Del Method O2 Flow Rate 97.4 F 120 H 24 H 143/98 H 93 L Nasal Cannula 3 11/04/24 07:53 11/04/24 12:00 11/04/24 09:11 11/04/24 07:53 11/04/24 09:11 11/04/24 07:53 11/04/24 09:11 Narrative Exam General: Agitated, unable to follow command or communicate HEENT: NCAT, pupils reactive to light, anicteric conjunctivae. Chest: Left sided tunneled dialysis catheter with dressing. Redness above the dressing reaching towards the neck, warm on touch CVS: normal S1 and S2. RRR. No M/R/G. Resp: clear to aucultate bilaterally Abd: soft, mild distention, rashes over the skin MSK/Neurology: Limited exam due to agitation, patient unable to communicate or follow commands, moving all his extremities spontaneously, no pedal edema Objective Labs 11/05/24 05:19 11/05/24 05:19 Labs: Laboratory Results - last 24 hr 11/03/24 11/04/24 20:18 03:33 WBC 16.6 H D RBC 3.31 L Hgb 10.5 L Hct 32.2 L MCV 97 MCH 31.7 MCHC 32.6 RDW Std Deviation 54.0 H Plt Count 178 Neut % (Auto) 85 H Lymph % (Auto) 5 L [place] % (Auto) 9 Eos % (Auto) 0 Baso % (Auto) 0 Neut # (Auto) 14.2 H Lymph # (Auto) 0.8 L [place] # (Auto) 1.5 H Eos # (Auto) 0.0 Baso # (Auto) 0.0 Immature Gran # (Auto) 0.13 H Absolute Nucleated RBC 0.00 Immature Gran % 1 H Nucleated RBC % 0 Sodium 141 Potassium 4.7 Chloride 104 Carbon Dioxide 25.3 Anion Gap 12 BUN 44 H Creatinine 4.6 H* D Estim Creat Clear Calc 16.2 L eGFR 12 L* BUN/Creatinine Ratio 10 L Glucose [address] Glu mg/dL 123 Hemoglobin A1c 5.9 Calculated Osmolality 295 Calcium 10.2 Corrected Calcium 10.2 H Phosphorus 3.7 Magnesium 1.6 Total Bilirubin 0.9 AST 24 ALT 20 Alkaline Phosphatase 155 H Troponin I 0.094 H* 0.351 H* D Total Protein 6.7 Albumin 4.8 Globulin 1.9 L Albumin/Globulin Ratio 2.5 H Triglycerides 219 H Cholesterol 108 L LDL Cholesterol, Calc 32 HDL Cholesterol 32 L Cholesterol/HDL Ratio 3.4 L TSH 4.60 ABG Interpretation ABG results: 11/03/24 14:12 VBG pH 7.39 VBG pCO2 43 VBG pO2 35 VBG Base Excess 1 Quality Measures Quality Measures sepsis Current suspected stage: sepsis Possible source: unknown Blood cultures ordered: yes Antibiotic ordered: Yes Advance care planning discussed with:: patient Assessment & Plan Assessment Current Active Medications: Generic Name Dose Route Start Last Admin Trade Name Freq PRN Reason Stop Dose Admin Acetaminophen 650 mg 11/03/24 19:16 Acetaminophen 325 Mg Tablet PO 12/03/24 19:15 Q6H PRN PAIN SCALE 1-3 (mild Acetaminophen 650 mg 11/03/24 21:16 Acetaminophen Supp 650 Mg Supp [place] 12/03/24 21:29 Q6H PRN Fever > 100.4 Albuterol/Ipratropium 3 ml 11/03/24 19:16 Albuterol/Ipratropium (Duoneb) Rt Dianne 3 Ml Nebu INH 12/03/24 22:59 Q4HRRT PRN SOB or wheezing Aspirin 300 mg 11/03/24 21:05 11/04/24 09:46 Aspirin 300 Mg Supp [place] 12/03/24 21:04 300 mg QDAY TARIK Administration Atorvastatin Calcium 80 mg 11/04/24 21:00 Atorvastatin Calcium 20 Mg Tablet PO 12/04/24 20:59 HS TARIK Heparin Sodium (Porcine) 5,000 unit 11/03/24 22:00 11/04/24 14:11 Heparin Sod Inj 5000 Unit/Ml Vial SC 11/17/24 21:59 5,000 unit Q8HR TARIK Administration Cefepime HCl 1 gm/ Sodium 50 mls @ 100 mls/hr 11/04/24 21:00 Chloride IV 11/11/24 20:59 QDAY@2100 TARIK Levothyroxine Sodium 50 mcg 11/04/24 06:00 11/04/24 10:00 Levothyroxine Sodium 25 Mcg Tablet PO 12/04/24 05:59 Not Given QAM TARIK Lorazepam 2 mg 11/04/24 15:16 11/04/24 15:25 Lorazepam 2 Mg/Ml Vial IVP 11/09/24 15:15 2 mg Q2H PRN Administration AGITATION OR ANXIETY Ondansetron HCl 4 mg 11/03/24 14:16 11/03/24 17:26 Ondansetron Inj 2 Mg/Ml Inj 2 Ml IV 12/03/24 14:15 4 mg Q4HR PRN Administration NAUSEA OR VOMITING Pharmacy Consult 1 each 11/04/24 09:00 Vancomycin Pharmacy To Dose 1 Each Each IV 12/04/24 08:59 QDAY PRN CONSULT Pharmacy Consult 1 each 11/03/24 21:18 Pharmacy Renal Dose Adjustment 1 Ea XX 12/03/24 21:17 PRN PRN CONSULT Sennosides 1 tab 11/03/24 19:16 Senna Tablet PO 12/03/24 19:15 BID PRN CONSTIPATION Protocol Plan Patient is a 79 years old male with past medical history of ESRD on hemodialysis (MWF), HFrEF (possibly EF of 30), Previous CVA, possible hypothyroidism presented to the ED with complaint of altered mental status. Being admitted for management of altered mental status, sepsis secondary to catheter site cellulitis. #Sepsis #Catheter site cellulitis #GPC Bacteremia -Patient meets 2/4 SIRS criteria with tachycardia and elevated temperature. Negative lactate, WBC count of 9.1. -Patient received tunneled dialysis catheter couple days ago, has redness with elevated temp above the insertion area -Patient received vancomycin and zosyn x1 in the ED -Continue renally dosed vancomycin and cefazolin -Blood showed GPC and urine cultures -pending -30 mg/kg fluid bolus not given due to concern for fluid overload in setting of ESRD and CHF -We will do early dialysis tomorrow morning and take the dialysis catheter out and we cultured the dialysis catheter tip. He will need a new tunneled dialysis catheter #Acute encephalopathy #Likely history of dementia Likely toxic in setting of sepsis Patient has history of similar episode in the past while having infections Head CT negative for acute hemorrhage, mass effect or midline shift ED physician had discussion with teleneuro and they agreed on not pursuing stroke workup Moving all his limbs spontaneously on exam Consulted In house neurology We will consider LP if patient's mentation fails to improve Speech and physical therapy ordered Received multiple doses of lorazepam in the ED for agitation Ordered haldon 2mg x1 along with PRN lorazepam for further agitation Patient received multiple doses of Haldol, Zyprexa, Ativan. If he is still gets agitated we will upgrade him to ICU for Precedex drip. #NSTEMI type II In setting of sepsis, likely secondary to demand ischemia We will trend troponin and EKG We will obtain cardiology consult if worsening #Hypomagnesemia Has magnesium of 1.3 Repleted 2gm IV Follow up lab in am and replete as needed #ESRD on HD Patient has dialysis Tuesday, Tuesday, Tuesday Renally dose medication Case discussed with Dr. Padilla #History of CVA #History of CHF Patient noted to be on home Atorvastatin and Clopidogrel We will replace clopidogrel with [place] Aspirin until patient is able to swallow We will continue with Atorvastatin 80 We will hold his antihypertensives in setting of sepsis, plan to resume once blood pressure starts going up Echocardiography ordered #Hypothyroidim Patient has been refilling Levothyroxine, which we will resume THS level in am #Normocytic anemia Patient has Hb of 10.8 No obvious source of bleeding We will monitor closely, may need outpatient workup Diet: NPO DVT prophylaxis: Heparin SC Code: Full code (As per the Son, plans to discuss further with mom) Lines: PIVs, Left sided tunneled dialysis catheter Dispo: Telemetry for management of acute enecephalopathy and sepsis secondary to cellulitis Discussed the patient with my attending Kasey Lujan MD,PGY-3 Attending Provider Attestation/Addendum I reviewed labs, imaging, EKG, home medications and prior available records. Face to face evaluation was performed by me. I have personally examined the patient and discussed assessment and plan with the IM team. I reviewed the resident note and agree with the plan with exceptions as below. Hyperactive agitation Sepsis Gram-positive bacteremia Possible line associated infection ESRD on hemodialysis Elevated troponin Patient remains agitated and pulling his lines. 2 point restraint ordered. Gave IV haloperidol. Gave IV Ativan. Discussed with ICU transition program manager: Give more haloperidol and olanzapine. In case patient remains agitated, may upgrade to the ICU for Precedex drip. Continue delirium precautions. Manage constipation as needed. Continue IV vancomycin. Changed cefepime to cefazolin given the gram-positive bacteremia. Follow-up cultures identification and sensitivity: Showed gram-positive cocci ESRD on hemodialysis: Hemodialysis prior to removal of the dialysis line. Nephrology is following. Continue to trend troponin until it speaks. Likely demand ischemia in setting of sepsis and ESRD. Ordered EKG that showed sinus tachycardia
[2024-11-04 16:33] LABS: Troponin I 0.614 ng/mL (0.0-0.045)
[2024-11-04] MEDS: ceFAZolin/D5W 1 GM IVPB 1 GM/50 ML BAG IV (20:36)
--- NOTE | 2024-11-04 23:09 | PD.NEUROPROG ---
Documentation for date of: 11/04/24 Subjective Subjective Interval history: Patient was seen in telemetry today, continue to remain restless despite Zyprexa, Haldol and Ativan. Intermittently trying to come out of bed Exam - Neurology Vital Signs Temp Pulse Resp BP Pulse Ox O2 Del Method O2 Flow Rate 98.2 F 116 H 24 H 137/90 H 94 L Nasal Cannula 3 11/04/24 20:00 11/04/24 22:51 11/04/24 22:51 11/04/24 20:00 11/04/24 22:51 11/04/24 20:00 11/04/24 22:51 Narrative Exam GENERAL APPEARANCE: Well-developed, obese built white male , restless in bed HEENT: Normocephalic, atraumatic, extraocular movements intact. Pupils: Equal reacting to light NECK: Supple, no JVD or bruits. CARDIOVASULAR: Heart: S1, S2 heard, regular without S3-S4 or murmur no rubs or gallops. LUNGS/CHEST: Clear to auscultation bilaterally. No rails, rhonchi, or wheezing. Normal inspection. ABDOMEN: Soft, nontender, with normal bowel sounds. No pulsatile masses. No rebound, rigidity, or guarding. Normal inspection and palpation. EXTREMITIES: Normal inspection and palpation. No edema, clubbing or cyanosis. SKIN: Warm and dry without rashes. Normal inspection. MUSCULOSKELETAL: No cervical, thoracic, lumbar or midline bony tenderness. Normal inspection. NEURO: restless, despite under the effect of Ativan/Zyprexa, moves all 4 extremities purposefully no signs of meningeal irritation noted. PSYCHIATRIC: limited Objective Labs 11/05/24 05:19 11/04/24 03:33 Labs: Laboratory Results - last 24 hr 11/04/24 11/04/24 03:33 15:30 WBC 16.6 H D RBC 3.31 L Hgb 10.5 L Hct 32.2 L MCV 97 MCH 31.7 MCHC 32.6 RDW Std Deviation 54.0 H Plt Count 178 Neut % (Auto) 85 H Lymph % (Auto) [address] [place] % (Auto) 9 Eos % (Auto) 0 Baso % (Auto) 0 Neut # (Auto) 14.2 H Lymph # (Auto) 0.[address] [place] # (Auto) 1.5 H Eos # (Auto) 0.0 Baso # (Auto) 0.0 Immature Gran # (Auto) 0.13 H Absolute Nucleated RBC 0.00 Immature Gran % 1 H Nucleated RBC % 0 Sodium 141 Potassium 4.7 Chloride 104 Carbon Dioxide 25.3 Anion Gap 12 BUN 44 H Creatinine 4.6 H* D Estim Creat Clear Calc 16.2 L eGFR 12 L* BUN/Creatinine Ratio 10 L Glucose [address] Glu mg/dL 123 Hemoglobin A1c 5.9 Calculated Osmolality 295 Calcium 10.2 Corrected Calcium 10.2 H Phosphorus 3.7 Magnesium 1.6 Total Bilirubin 0.9 AST 24 ALT 20 Alkaline Phosphatase 155 H Troponin I 0.351 H* D 0.614 H* D Total Protein 6.7 Albumin 4.8 Globulin 1.9 L Albumin/Globulin Ratio 2.5 H Triglycerides 219 H Cholesterol 108 L LDL Cholesterol, Calc 32 HDL Cholesterol 32 L Cholesterol/HDL Ratio 3.4 L TSH 4.60 ABG Interpretation ABG results: 11/03/24 14:12 VBG pH 7.39 VBG pCO2 43 VBG pO2 35 VBG Base Excess 1 Assessment & Plan Assessment and plan (1) Delirium: Status: Acute Assessment and plan: Likely secondary to metabolic encephalopathy Continue with the symptomatic therapy with Zyprexa or Haldol/Ativan/Benadryl as needed. If not better, will be moved to ICU for Precedex infusion (2) End stage renal failure on dialysis: Status: Chronic Assessment and plan: Continue with hemodialysis (3) Cellulitis: Status: Acute Assessment and plan: Continue with IV antibiotics follow-up with the culture (4) Fever: Status: Acute Assessment and plan: Most likely secondary to infection in the dialysis catheter access Continue with IV antibiotics Dr Padilla recommended to remove the catheter after dialysis tomorrow
[2024-11-04] MEDS: HALOPERIDOL LACT INJ 5 MG/ML VIAL IV (23:51)
[2024-11-05] VITALS (28 sets, daily range): BP systolic 103–186; BP diastolic 56–108; PULSE 52–115; RESP 17–24; TEMP 36.4–37.1; O2SAT 93–98; BMI 35.0
--- NOTE | 2024-11-05 | XR_ITS ---
Examination: Venous access removal permanent tunneled dialysis catheter Exam date and time: November 05, 2024 3:00 PM INDICATIONS: Patient's current permanent tunneled dialysis catheter is infected TECHNIQUE AND FINDINGS: Informed consent provided. Timeout performed. Skin prepped over the entrance site of the permanent tunneled dialysis catheter, sterile drape applied hand hygiene 1% lidocaine administered for local anesthesia Careful dissection around the dialysis catheter was successful removal Estimated blood loss 2 cc IMPRESSION: Successful venous assess removal permanent tunneled dialysis catheter
[2024-11-05] MEDS: LORazepam 2 MG/ML VIAL IVP ×3 (01:38→07:30)
[2024-11-05] MEDS: HEPARIN SOD INJ 5000 UNIT/ML VIAL SC ×2 (05:29→21:06)
[2024-11-05] MEDS: OLANZapine INJ 10 MG, Sterile Water 2.1 ML IM (05:35)
[2024-11-05 06:29] LABS: Basophils % (Auto) 0 % (0-2.5); Eosinophils % (Auto) 0 % (0-10); Hematocrit 30.6 % (41.0-53.0); Hemoglobin 9.6 g/dL (13.5-16.0); Immature Granulocytes % (Auto) 1 % (0-0); Immature Granulocytes Auto 0.09 Thou/mm3 (0.00-0.00); Lymphocytes # (Auto) 0.6 Thou/mm3 (1.0-4.8); Lymphocytes % (Auto) 5 % (10-50); Mean Corpuscular HGB Conc 31.4 g/dl (31.0-37.0); Mean Corpuscular Hemoglobin 31.6 pg (25.0-35.0); Mean Corpuscular Volume 101 fL (80-100); Monocytes # (Auto) 1.5 Thou/mm3 (0.0-0.8); Monocytes % (Auto) 12 % (0-12); Neutrophils # (Auto) 9.7 Thou/mm3 (1.8-7.7); Neutrophils % (Auto) 81 % (37-80); Nucleated Red Blood Cell % 0 /100 WBC (0); Platelet Count 149 Thou/mm3 (140-440); RDW Standard Deviation 55.9 fL (35.1-43.9); Red Blood Count 3.04 Miln/mm3 (4.50-5.90); White Blood Count 11.9 Thou/mm3 (3.8-10.6)
[2024-11-05 06:56] LABS: Alanine Aminotransferase 36 U/L (10-49); Albumin, Serum 4.4 gm/dL (3.4-4.8); Albumin/Globulin Ratio 2.1 (1.2-2.2); Alkaline Phosphatase 144 U/L (46-116); Anion Gap 13 (7-16); Aspartate Amino Transferase 71 U/L (0-34); BUN/Creatinine Ratio 11 Ratio (12-20); Bilirubin,Total 0.5 mg/dL (0.3-1.2); Blood Urea Nitrogen 68 mg/dL (9-23); Calcium 9.7 mg/dL (8.3-10.6); Calcium (Corrected) 9.7 mg/dL (8.5-10.1); Carbon Dioxide 24.9 mMol/L (20.0-31.0); Chloride 107 mMol/L (98-107); Creatinine (Component) 6.2 mg/dL (0.6-1.3); Estimated Creatinine Clearance 12.2 mL/min (>60); Globulin 2.1 gm/dL (2.3-3.5); Glucose 149 mg/dL (74-106); Osmolality,Calculated 311 (275-295); Potassium 5.6 mMol/L (3.4-5.1); Sodium 145 mMol/L (136-145); Total Protein 6.5 gm/dL (5.7-8.2); Vancomycin,Random 10.4 mcg/mL; eGFR 9 See Note
--- NOTE | 2024-11-05 08:01 | ESPR_ITS ---
Documentation for date of: 11/05/24 Subjective Subjective Interval history: Agitation overnight, required multiple meds to calm down. Otherwise doing okay this morning, agitations seems to be improving. Still encephalopathic, does not follow command, does not open eyes, does not answer question. Exam Vital Signs Temp Pulse Resp BP Pulse Ox O2 Del Method O2 Flow Rate 97.8 F 58 L 18 151/108 H 97 Nasal Cannula 2 11/05/24 07:49 11/05/24 07:49 11/05/24 07:49 11/05/24 07:49 11/05/24 07:49 11/05/24 04:00 11/05/24 07:49 Narrative Exam GENERAL * On soft restraint, slightly agitated, does not follow command, does not answer questions. HEENT * NCAT.?NALINI. Oral mucosa is moist. Patent Nares NECK * Supple, nontender, no thyromegaly, no meningismus, no JVD, no step offs * Left-sided tunneled cath noted, dressing in place and intact, skin warm and slightly erythematous. CHEST * RRR, no m/g/r * CTAB, no w/r/r. Symmetrical chest rise. No intercostal subcostal retraction * Atraumatic, nontender, no crepitus, symmetrical expansion. ABDOMEN * Soft, obese, nontender. No guarding/rebound tenderness/masses. * Bowel sounds presents EXTREMITIES * Nontender, no cyanosis, no edema * No edema/cyanosis.? SKIN * Warm and dry, no jaundice/rashes. NEUROMUSCULAR * Limited exam secondary to encephalopathy Objective Labs 11/05/24 05:19 11/05/24 05:19 Labs: Laboratory Results - last 24 hr 11/04/24 11/05/24 15:30 05:19 WBC 11.9 H RBC 3.04 L Hgb 9.6 L Hct 30.6 L MCV 101 H MCH 31.6 MCHC 31.4 RDW Std Deviation 55.9 H Plt Count 149 Neut % (Auto) 81 H Lymph % (Auto) 5 L [place] % (Auto) 12 Eos % (Auto) 0 Baso % (Auto) 0 Neut # (Auto) 9.7 H Lymph # (Auto) 0.6 L [place] # (Auto) 1.5 H Eos # (Auto) 0.0 Baso # (Auto) 0.0 Immature Gran # (Auto) 0.09 H Absolute Nucleated RBC 0.00 Immature Gran % 1 H Nucleated RBC % 0 Sodium 145 Potassium 5.6 H D Chloride 107 Carbon Dioxide 24.9 Anion Gap 13 BUN 68 H Creatinine 6.2 H* D Estim Creat Clear Calc 12.2 L eGFR 9 L* BUN/Creatinine Ratio 11 L Glucose 149 H Calculated Osmolality 311 H Calcium 9.7 Corrected Calcium 9.7 Total Bilirubin 0.5 AST 71 H ALT 36 Alkaline Phosphatase 144 H Troponin I 0.614 H* D Total Protein 6.5 Albumin 4.4 Globulin 2.1 L Albumin/Globulin Ratio 2.1 Random Vancomycin 10.4 ABG Interpretation ABG results: 11/03/24 14:12 VBG pH 7.39 VBG pCO2 43 VBG pO2 35 VBG Base Excess 1 Quality Measures Quality Measures sepsis Current suspected stage: sepsis Possible source: unknown Blood cultures ordered: yes Antibiotic ordered: Yes Advance care planning discussed with:: patient Assessment & Plan Assessment Current Active Medications: Generic Name Dose Route Start Last Admin Trade Name Freq PRN Reason Stop Dose Admin Acetaminophen 650 mg 11/03/24 19:16 Acetaminophen 325 Mg Tablet PO 12/03/24 19:15 Q6H PRN PAIN SCALE 1-3 (mild Acetaminophen 650 mg 11/03/24 21:16 Acetaminophen Supp 650 Mg Supp [place] 12/03/24 21:29 Q6H PRN Fever > 100.4 Albuterol/Ipratropium 3 ml 11/03/24 19:16 Albuterol/Ipratropium (Duoneb) Rt Dianne 3 Ml Nebu INH 12/03/24 22:59 Q4HRRT PRN SOB or wheezing Aspirin 300 mg 11/03/24 21:05 11/04/24 09:46 Aspirin 300 Mg Supp [place] 12/03/24 21:04 300 mg QDAY TARIK Administration Atorvastatin Calcium 80 mg 11/04/24 21:00 11/04/24 20:36 Atorvastatin Calcium 20 Mg Tablet PO 12/04/24 20:59 Not Given HS TARIK Olanzapine 10 mg/ Sterile 0 mg 11/04/24 16:04 11/04/24 16:14 Water 2.1 ml IM 12/04/24 16:03 1 dose QDAY TARIK Administration Heparin Sodium (Porcine) 5,000 unit 11/03/24 22:00 11/05/24 05:29 Heparin Sod Inj 5000 Unit/Ml Vial SC 11/17/24 21:59 5,000 unit Q8HR TARIK Administration Cefazolin Sodium/Dextrose 1 gm in 50 mls @ 100 mls/hr 11/04/24 21:00 11/04/24 20:36 Ancef Ivpb IV 11/11/24 20:59 100 mls/hr HS TARIK Administration Vancomycin/Sodium Chloride 200 mls @ 120 mls/hr 11/05/24 12:00 Vancomycin/Ns 1 Gm Ivpb IV 11/05/24 13:39 X1 ONE Levothyroxine Sodium 50 mcg 11/04/24 06:00 11/04/24 10:00 Levothyroxine Sodium 25 Mcg Tablet PO 12/04/24 05:59 Not Given QAM TARIK Lorazepam 2 mg 11/04/24 23:09 11/05/24 07:30 Lorazepam 2 Mg/Ml Vial IVP 11/09/24 15:15 2 mg Q2H PRN Administration AGITATION OR ANXIETY Ondansetron HCl 4 mg 11/03/24 14:16 11/03/24 17:26 Ondansetron Inj 2 Mg/Ml Inj 2 Ml IV 12/03/24 14:15 4 mg Q4HR PRN Administration NAUSEA OR VOMITING Pharmacy Consult 1 each 11/04/24 09:00 Vancomycin Pharmacy To Dose 1 Each Each IV 12/04/24 08:59 QDAY PRN CONSULT Pharmacy Consult 1 each 11/03/24 21:18 Pharmacy Renal Dose Adjustment 1 Ea XX 12/03/24 21:17 PRN PRN CONSULT Sennosides 1 tab 11/03/24 19:16 Senna Tablet PO 12/03/24 19:15 BID PRN CONSTIPATION Protocol Plan In summary: [id number]-year-old male PMHx of ESRD on HD MWF, HFrEF EF 30%, CVA, hypothyroidism presenting with AMS in setting of CRBSI sepsis. Preliminary blood culture grew GPC, continued on VANCOMYCIN. Persistent agitations despite multiple meds. Currently on scheduled HALOPERIDOL, agitation seems to be improving. Has NSTEMI, likely type II in settings of fluid overload. Troponin peaked at 0.976. Stat EKG was ordered. EKG from yesterday was negative for acute ST changes. Unable to assess for chest pain as he is encephalopathic. Cardiology team consulted. Patient recommendations from cardiology and ID. Sepsis Catheter site cellulitis GPC Bacteremia 2/2 CRBSI Met 2/4 SIRS criteria with tachycardia, fever. LA normal, no leukocytosis. HD tunneled cath erythematous and warm suggesting cellulitis. Afebrile, leukocytosis improving. Prelim blood culture showing GPC. Will remove cath after dialysis. ID recommended VANCO yulisa. CEFAZOLIN discontinued ? Continue CEFAZOLIN (11/04 to present) ? Follow-up blood cultures ? Pending ID recommendations ? Pending IR removal of cath ? Pending cath culture Acute encephalopathy Agitations Likely history of dementia Likely secondary to metabolic encephalopathy. Unclear what baseline is, currently attending, does not follow command, agitated, requiring multiple medications. Continued on soft restraints. Started scheduled HALOPERIDOL. Head CT was negative. No focal neurological deficit. No indication for stroke workup. Neurology consulted, agreed with ANTIPSYCHOTICS for agitation. ? Continue HALOPERIDOL 7.5 mg q.6h. PRN ? Reorientation NSTEMI type II Troponin 0.351 > 0.614 > 0.976. Unable to assess symptoms secondary to encephalopathy. EKG sinus rhythm without acute ST changes. Demand ischemia in settings of sepsis versus volume overload. Anticipate improvement with diuresis and preload reduction. Cardiology consulted, recommended METOPROLOL 50 XL for SBP>130-140, and 1 more troponin. ? Continue ATORVASTATIN 80 mg daily ? Continue ASPIRIN 300 mg daily ? Continue METOPROLOL 50 XL PRN for SBP >130-140 ? Pending stat EKG ? Pending cardiology recommendations ? Trending troponin Hypomagnesemia ? Replete as needed ? Daily CMP ESRD on HD Patient has dialysis Tuesday, Tuesday, Tuesday ? Renally dose meds, avoid overdiuresis and NEPHROTOXINS ? Daily CMP ? Hemodialysis with nephrology team. History of CVA History of CHF ? Continue ASPIRIN 300 mg daily ? Continue ATORVASTATIN 80 mg daily ? Pending echocardiogram Hypothyroidim TSH 4.6 this visit. ? Continue home LEVOTHYROXINE 50 mcg ACBR Normocytic anemia Patient has Hb of 10.8 No obvious source of bleeding We will monitor closely, may need outpatient workup Health maintenance Diet: NPO GI prophylaxis: PROTONIX DVT prophylaxis: HEPARIN Antibiotics: VANCOMYCIN CODE STATUS: Full code Disposition: Pending sepsis Patient case was discussed with attending, Aries Angulo MD and senior resident Dr. Maloney. Greg Angel DO PGYI Attending Provider Attestation/Addendum I reviewed labs, imaging, EKG, home medications and prior available records. Face to face evaluation was performed by me. I have personally examined the patient and discussed assessment and plan with the IM team. I reviewed the resident note and agree with the plan with exceptions as below. Hyperactive agitation Sepsis Gram-positive bacteremia Possible line associated infection ESRD on hemodialysis Non-STEMI Agitation improved. Continue IV haloperidol, Ativan, and olanzapine as needed. Continue management of sepsis as below. Continue delirium precautions. Manage constipation as needed. Continue IV vancomycin. Consulted ID for antibiotic guidance Follow-up cultures identification and sensitivity: Showed gram-positive cocci. Sent dialysis line after removal to culture ESRD on hemodialysis: Hemodialysis prior to removal of the dialysis line. Insert a new dialysis line for 48 hours after negative blood culture Troponin continues to rise. Ordered EKG that showed sinus tachycardia with ectopies and bigeminy. Consulted cardiology: Recommended echocardiogram. Start beta-halima if BP allows. Send 1 more set of troponin. Continue aspirin and atorvastatin
--- NOTE | 2024-11-05 08:08 | PC.NURSE ---
Upon performing drsg change to pt's catheter, drsg noted to have discharge leaking out through the drsg, access entry site swollen, red, brownish discharge, foul odor and with both wet and dry discharge present, pt unablr to answer if pain to site present. Sample taken for cultures, Md Padilla notified.
--- NOTE | 2024-11-05 09:48 | PC.SS ---
Update: Plan is for the patient to have dialysis catheter removed today. Possible d/c today.
[2024-11-05] MEDS: HEPARIN SOD INJ 1000 UNIT/ML VIAL 10 ML 3900 UNIT INDWELLCAT (11:14)
[2024-11-05 11:33] LABS: Troponin I 0.976 ng/mL (0.0-0.045)
[2024-11-05] MEDS: ASPIRIN 300 MG SUPP PR (11:59)
[2024-11-05] MEDS: VANCOMYCIN/NS 1 GM IVPB 200 ML IV (11:59)
[2024-11-05] MEDS: PANTOPRAZOLE INJ 40 MG VIAL IVP (11:59)
[2024-11-05] MEDS: HALOPERIDOL LACT INJ 5 MG/ML VIAL 7.5 MG IM ×2 (12:13→19:54)
--- NOTE | 2024-11-05 12:40 | PD.IDPROG ---
Subjective Subjective Interval history: consulted after my departure from the facility. pos bc, wth gpc noted. on vanco. it will likely take another day for an Id on the gpc in bc Exam Vital Signs Temp Pulse Resp BP Pulse Ox O2 Del Method O2 Flow Rate 98.0 F 97 18 103/70 98 Nasal Cannula 2 11/05/24 11:17 11/05/24 11:17 11/05/24 11:17 11/05/24 11:17 11/05/24 11:17 11/05/24 07:20 11/05/24 11:17 Narrative Exam not seen Objective - Internal Medicine Labs 11/05/24 05:19 11/05/24 05:19 Labs: Laboratory Results - last 24 hr 11/04/24 11/05/24 11/05/24 15:30 05:19 10:43 WBC 11.9 H RBC 3.04 L Hgb 9.6 L Hct 30.6 L MCV 101 H MCH 31.6 MCHC 31.4 RDW Std Deviation 55.9 H Plt Count 149 Neut % (Auto) 81 H Lymph % (Auto) 5 L Sheridan % (Auto) 12 Eos % (Auto) 0 Baso % (Auto) 0 Neut # (Auto) 9.7 H Lymph # (Auto) 0.6 L Sheridan # (Auto) 1.5 H Eos # (Auto) 0.0 Baso # (Auto) 0.0 Immature Gran # (Auto) 0.09 H Absolute Nucleated RBC 0.00 Immature Gran % 1 H Nucleated RBC % 0 Sodium 145 Potassium 5.6 H D Chloride 107 Carbon Dioxide 24.9 Anion Gap 13 BUN 68 H Creatinine 6.2 H* D Estim Creat Clear Calc 12.2 L eGFR 9 L* BUN/Creatinine Ratio 11 L Glucose 149 H Calculated Osmolality 311 H Calcium 9.7 Corrected Calcium 9.7 Total Bilirubin 0.5 AST 71 H ALT 36 Alkaline Phosphatase 144 H Troponin I 0.614 H* D 0.976 H* D Total Protein 6.5 Albumin 4.4 Globulin 2.1 L Albumin/Globulin Ratio 2.1 Random Vancomycin 10.4 ABG Interpretation ABG results: 11/03/24 14:12 VBG pH 7.39 VBG pCO2 43 VBG pO2 35 VBG Base Excess 1 Assessment & Plan A&P Narrative 79 y/o hd pt with pos bc with gpc. not yet identified ckd 5ds chf cva hx recent line placement noted. if coag neg staph, then no need to pull line if staph aureus, then line removal essential same for enterococcus if other gpc (streps for example) we can usually leave in the line. ok to wait on repeat bc till decision on line removal made. echo ok any time though Time Spent With Patient Time: Total time spent is greater than 50% in coordination of care (as documented) at patient's floor/unit and/or counseling patient:
--- NOTE | 2024-11-05 12:54 | ECHO_ITS ---
Transthoracic Echo Report Ht (in): 70 Wt (lb): 244 Exam Location: Echo Lab Status: Inpatient Motion And Time Study Teacher: Mary Gaines Indications: Procedure Performed: BP: 122 / 54 HR: 102 Technical Quality: Technically difficult study MEASUREMENTS (Male / Female) Normal Values 2D ECHO LV Diastolic Diameter PLAX 6.2 cm 4.2 - 5.9 / 3.9 - 5.3 cm LV Systolic Diameter PLAX 5.5 cm IVS Diastolic Thickness 1.2 cm 0.6 - 1.0 / 0.6 - 0.9 cm LVPW Diastolic Thickness 1.2 cm 0.6 - 1.0 / 0.6 - 0.9 cm LV Relative Wall Thickness 0.4 LVOT Diameter 2.2 cm LV Ejection Fraction MOD 4C 19.8 % LV Cardiac Index MOD 4C 1372.8 cm?/min?m? LV Ejection Fraction 4C AL 21.4 % LV Cardiac Index 4C AL 1543.4 cm?/min?m? M-MODE Aortic Root Diameter MM 3.0 cm AV Cusp Separation MM 2.2 cm DOPPLER MV Area PHT 3.4 cm? MR Peak Velocity 452.0 cm/s MR Peak Gradient 81.7 mmHg Mitral E Point Velocity 114.0 cm/s Mitral A Point Velocity 61.1 cm/s Mitral E to A Ratio 1.9 LV E' Lateral Velocity 5.7 cm/s Mitral E to LV E' Lateral Ratio 19.9 LV E' Septal Velocity 3.5 cm/s Mitral E to LV E' Septal Ratio 32.1 TR Peak Velocity 301.0 cm/s TR Peak Gradient 36.2 mmHg PV Peak Velocity 106.0 cm/s PV Peak Gradient 4.5 mmHg FINDINGS Left Ventricle Normal left ventricular size and wall thickness. Global left ventricular systolic function is severely decreased. Normal left ventricular diastolic filling pattern for age. The ejection fraction is visually estimated at 25-30 %. Right Ventricle The right ventricle not well visualized. Left Atrium The left atrium is normal by two-dimensional, color flow and Doppler imaging with no structural abnormalities, no thrombus formation present. Right Atrium The right atrial cavity size is moderately increased. Atrial Septum The interatrial septum appears normal with no evidence of a shunt. Aorta The aorta is normal by two-dimensional, color flow and Doppler interrogation. Mitral Valve The mitral valve is normal by two-dimensional, color flow and Doppler interrogation. There is moderate mitral valve regurgitation, stenosis or prolapse. Aortic Valve The aortic valve is trileaflet and normal by two-dimensional, color flow and Doppler interrogation. There is no significant aortic valve regurgitation. Tricuspid Valve The tricuspid valve is normal by two-dimensional, color flow and Doppler interrogation. There is moderate tricuspid valve regurgitation. Pulmonic Valve The pulmonic valve is not well visualized. There is no significant pulmonic valve regurgitation. Vessels Inferior vena cava not well visualized. Pericardium The pericardium is normal by two-dimensional imaging. There is no significant pericardial effusion. CONCLUSIONS Indication: Bacteremia r/o vegetation No evidence of any clear valvular vegetations but could be missed on TTE. Moderately dilated LV. Mild LVH. Global LV systolic function is severely decreased. Estimated EF 25-30 %. Garde 2 DD. RV function moderately reduced. Mildly dilated RV and moderately dilated RA. Moderate MR and TR. mildly dilated LA. Dilated cardiomyopathy. Bismark Urbina (Electronically Signed) Final Date: 08 November 2024 07:56
--- NOTE | 2024-11-05 14:29 | PC.SS ---
Rounding Note: Cardio is consulting. Physical therapy evaluation is pending.
--- NOTE | 2024-11-05 14:43 | PC.PT ---
Per RN patient is still confused and on restraints so PT was asked to defer treatment. PT evaluation was also attempted yesterday 11/04/24 but patient was unable to participate 2/2 altered mental status and restraints. Will hold PT eval until patient is less confused and no longer requiring restraints.
[2024-11-05] MEDS: fentaNYL CIT INJ 50 mCg/ML AMP 2ML IVP (15:19)
[2024-11-05 15:23] LABS: INR 1.1 (0.9-1.3); Partial Thromboplastin Time 37.3 Seconds (22.0-36.0); Prothrombin Time 12.3 Seconds (9.0-12.2)
--- NOTE | 2024-11-05 16:00 | PC.NURSE ---
Report given to SAMEER Whitlock. Patient transferred to Tele via [facility]. Dressing clean, dry, and intact. No signs of bleeding.
--- NOTE | 2024-11-05 16:10 | PC.SS ---
[employer] SUPERVISOR met with patient's son, Yoel Andino ; to confirm discharge plan home vs SNF. Patient's son informed [employer] SUPERVISOR that patient's spouse will be at bedside tomorrow to confirm d/c plan. Patient's son to speak with mother, patient's spouse; this evening.
--- NOTE | 2024-11-05 16:15 | PC.NURSE ---
PATIENT BACK FROM IR S/P DIALYSIS CATHTER REMOVAL, DRESSING TO LEFT CHEST WALL IS CLEAN, DRY, AND INTACT.
--- NOTE | 2024-11-05 16:28 | ESCONSULT_ITS ---
RE: LUCA DIXON : 1945 DATE OF CONSULTATION: 11/05/2024 REASON FOR REFERRAL: ESRD management, gram-positive bacteremia, most likely from infected dialysis catheter. REFERRING PHYSICIAN: Dr. Dawson. HISTORY OF PRESENT ILLNESS: This patient is a 79-year-old gentleman with past medical history significant for hypertension for more than 20 years. Coronary artery disease status post CABG in 2018. Ischemic cardiomyopathy whose EF is around 30% and ESRD, on dialysis since 01/2023 dialyzing every Tuesday, Tuesday, and Tuesday at [facility] who presented to the hospital on 11/03/2024 with confusion. The patient started becoming agitated in the registered route associate of 11/03/2024. The patient also had a recent clotted left AV fistula, which they tried to declot, but was unsuccessful. He eventually received a tunneled dialysis catheter for dialysis treatment sometime last week. The patient when he presented also was noted to have elevated WBC count and [place]. [place] [id number] upon admission. He was admitted at telemetry and had blood cultures drawn. The next day, blood cultures turned out to be positive for gram-positive cocci. His tunneled dialysis catheter also has some secretion that looks like pus. He was started on IV vancomycin after admitted, but he continues to be altered. The patient was dialyzed earlier today, about 3.5 liters of fluid was removed. He continues to be altered even after dialysis treatment. Review of systems cannot be obtained, but because the patient is still very confused. PAST MEDICAL HISTORY: He has pituitary tumor, which was removed, on bromocriptine, coronary artery disease with coronary artery stent placement and CABG, ischemic cardiomyopathy, hypertension, nephrolithiasis, chronic back pain. SOCIAL HISTORY: Three vessel CABG, left IVC fistula placement, coronary artery stent placement. CURRENT MEDICATIONS: 1. Acetaminophen 2. Albumin 3. Aspirin 300 mg daily 4. Atorvastatin 80 mg at bedtime 5. Haloperidol p.r.n. IV 6. Levothyroxine 50 mcg p.o. daily 7. Lorazepam 8. Metoprolol 50 mg 9. Olanzapine 10 mg IV daily 10. Ondansetron 4 mg IV q.4 p.r.n. 11. Protonix 40 mg IV daily. 12. Senokot. ALLERGIES: PENICILLIN PHYSICAL EXAMINATION: General: He is surrounded by family, very confused. Vital Signs: Blood pressure of 170/90. Heart rate of 88. HEENT: Anicteric sclerae. Normocephalic. Neck: Supple. No JVD. Chest and Lungs: Symmetrical expansion. Clear breath sounds. Cardiac: Without murmur. Abdomen: Soft, nontender. Extremities: No edema. LABORATORY DATA: Hemoglobin 9.6, WBC 11,800, platelet count 149,000, sodium 145, potassium 5.6, chloride 107, CO2 24.9, BUN 68, creatinine 6.2, glucose 149, calcium 9.7 ASSESSMENT: 1. End-stage renal disease. 2. Altered level of consciousness, most likely secondary to septicemia. 3. Septicemia, most likely from infected tunneled dialysis catheter growing gram-positive cocci on both bottles 4. Anemia of chronic disease. 5. History of coronary artery disease, status post coronary artery bypass graft. 6. Ischemic cardiomyopathy with ejection fraction of 30%. 7. Gram-positive cocci septicemia, rule out endocarditis. 8. Obesity. 9. Hypertension. PLAN: I agree with removing his tunneled dialysis catheter today and keep him off of any dialysis catheter until blood cultures are negative. We should do daily blood cultures and if blood cultures have been negative for 48 hours, then tunneled dialysis catheter can be reinserted. We will continue IV vancomycin and obtain levels. Level should be around 15. If it is more than 15, then vancomycin can be held and levels should be monitored once less than 15 then it should be resumed at 1.5 grams. We will continue to monitor his condition. Thank you for allowing me to participate in medical care of the patient. DT: 15:30:50 TT: 16:23:00 Ref: [id number] - TID: [id number] MTDD
--- NOTE | 2024-11-05 18:28 | ESCONSULT_ITS ---
<Statement entered by Bismark Urbina MD - 11/07/24 05:53> I have personally seen and examined the patient separately on the above date of service and discussed the plan of care with the resident. I reviewed the resident Dr. Morris consultation progress note and agree with the resident findings and plan in the note above and have also edited the documentation to reflect my findings and plan. A 79-year-old male with a past medical history of CAD status post CABG x 3, residual severe [place] disease and 100% occluded SVG to LCx, patent HOOK to LAD and SVG to RCA, moderate to severe systolic congestive heart failure with an EF of around 35%, stroke or previous CVA, hypothyroidism, end-stage renal disease on hemodialysis, gout, mild cognitive disturbance with cirrhosis dementia presented to the emergency department for altered mental status in the setting of possible cellulitis and infection of the left-sided tunneled dialysis catheter. Patient has been having recurrent tunneled dialysis catheter infection and he has been able to do some ADLs by himself with he is normal but has more altered mental status and agitated when he has the infection. Patient has significant cardiac history with the initial heart attack at the age of 48 and since then has been following multiple imposer including Dr. Camacho as well as Dr. Caballero in [place]. Patient had previously stents as well as CABG done many years ago. Recently he was seen by his primary imposer Dr. Martin last month and then he had an elective left heart cardiac catheterization on 10/23/2023 which did show patent and large SVG to RCA graft,'s patent small HOOK to LAD graft but 100% occluded SVG to LCx. Patient did have severe [place] disease including LCx, AV delay still RCA but there were no good targets to intervene and hence medical management was recommended. The emergency department patient had a temperature of 104 and was tachycardic at 123 and blood pressure was 120/100 mmHg. Troponin was elevated at 0.058 and the repeat troponins continued to increase to 0.35, 0.6 and eventually peaked at 0.976. EKG showed normal sinus rhythm with no acute ST-T changes suggestive ischemia. CT head was negative. Patient was eventually diagnosed with sepsis secondary to GPC bacteremia from possible catheter related bloodstream infection. Cardiology consulted for elevated troponins. Assessment and plan: 1. Elevated troponins-NSTEMI type II in the setting of supply/demand mismatch from the sepsis and 2. Sepsis secondary to GPC bacteremia from catheter related bloodstream infection 3. CAD status post CABG and multiple PCI and initial heart attack at 48 4. Moderate to severe systolic congestive heart failure with an EF of around 35% 5. NSVT 6. ESRD on HD 7. Hypertension 8. Altered mental status mostly secondary to the acute infection and possible underlying dementia. Patient will continue to have rising troponins which peaked at 0.976 and have trended down. EKG showed normal sinus rhythm without any acute ST-T changes. Patient unable to provide any history but as per the family he did not have any kind of chest pain or chest pressure and basically he was altered which happens every time he is infected. As noted above patient did have a recent echocardiogram as well as cardiac catheterization at [facility] October 2024 which were reviewed by me and showed that patient does have 2/3 of the grafts patent, severe [place] vessel disease which they were unable to intervene due to lack of targets. EF was around 35%. The troponin elevation is mostly secondary to type II NSTEMI with supply/demand mismatch and recommend only recent medical management with aspirin, Plavix, high intensity statin and beta-halima. No need of any heparin drip Review of the telemetry showed that the patient is having frequent PVCs with NSVT and recommended to start metoprolol XL 50 mg once daily. At home is actually on 200 Mg per day and continue to uptitrate metoprolol XL based on the blood pressure as the patient is also septic at the present point of time. Recommend to keep potassium greater than 4 magnesium greater than 2.0 at all times. Regarding CHF patient also has a history of ESRD and HD and further fluid management as per nephrology team more on board. Strict input output Daily weights and 2 g sodium diet. Patient needs to be on goal-directed medical therapy given the severe systolic congestive heart failure which can be started later based on the blood pressure. His altered mental status is mostly secondary to the acute infection which led to the sepsis with GPC bacteremia from catheter related bloodstream infection from the left-sided tunneled dialysis catheter. Patient is on IV antibiotics and primary team managing the same. Management of rest of the medical conditions as per primary team and other consultants. Thank you for the consult and allowing me to participate in the care of the patient. Cardiology will continue to follow. Bismark Jaime Anumandla M.D. Interventional Cardiology HPI Data of Consult Requesting Physician: Aries Angulo MD Admitting Provider: Cally Dawson MD Attending Provider: Aries Angulo MD Primary Care Provider: Rosey Morin DO Consult Narrative History of present illness: As limited as patient is a poor historian Malik is a 79-year-old male past medical history of past medical history of ESRD on hemodialysis (MWF, sees Dr. Padilla), HFrEF (possibly EF of 30), Previous CVA, possible hypothyroidism currently admitted for sepsis secondary to catheter related bloodstream infection which is showing GPC currently. HPI is limited as patient is agitated, has encephalopathy and possible dementia. He has a left- sided tunneled dialysis catheter that was put in a couple of days ago and there was concern for cellulitis and infection related to it. When he does not have an infection per family he is able to do adult daily living activities by himself. He usually gets more agitated and a poor historian when he has an infection. Patient had a heart attack at 48 years old, was seeing Dr. Kern in [place] since then. He apparently has had stent in [place] before and also stents by Dr. Camacho. He apparently also had a cardiac cath about 2 weeks ago which we will need to obtain records for. ED course: He arrived with a temperature of 104, pulse of 123, blood pressure 121/110. He was found to have a BUN/creatinine of 38 and 3.8, lactate 1.8, magnesium 1.3, glucose of 181, troponin 0.058. CT head was done and was negative for hemorrhage mass effect or midline shift. EKG showed sinus tach with possible left axis deviation. He was then admitted for further workup and treatment of his infection. PMHx: As above Past Surgical Hx:Rotator cuff repair, Fistula placement for HD (Not on use due to clot formation inside the fistula, attempted to remove but unsuccessful) Allergies: Pencillins give rash Meds: Awaiting med rec Social history: Denies smoking cigarette, drinking alcohol and using illicit drug. (Son is unsure if patient used there while young), patient currently lives with cc:: cc: Aries Angulo MD Review of Systems Review of Systems Narrative Review of Systems: ROS is limited as patient is poor historian. Exam Vital Signs Temp Pulse Resp BP Pulse Ox O2 Del Method O2 Flow Rate 98.2 F 91 18 120/58 L 94 L Nasal Cannula 2 11/05/24 16:00 11/05/24 16:00 11/05/24 16:00 11/05/24 16:00 11/05/24 16:00 11/05/24 16:00 11/05/24 16:00 Narrative Exam Patient's exam is limited as patient is agitated and does not want to be examined. Patient is actively kicking, is on wrist restraints Results Labs 11/05/24 05:19 11/05/24 05:19 Labs: Short CBC 11/05/24 Range/Units 05:19 WBC 11.9 H (3.8-10.6) Thou/mm3 Hgb 9.6 L (13.5-16.0) g/dL Hct 30.6 L (41.0-53.0) % Plt Count 149 (140-440) Thou/mm3 BMP 11/05/24 05:19 Sodium 145 Potassium 5.6 H D Chloride 107 Carbon Dioxide 24.9 BUN 68 H Creatinine 6.2 H* D Glucose 149 H Calcium 9.7 Cardiac Enzymes 11/05/24 11/05/24 Range/Units 10:43 14:07 Troponin I 0.976 H* D 0.900 H* (0.0-0.045) ng/mL Liver Function 11/05/24 Range/Units 05:19 Total Bilirubin 0.5 (0.3-1.2) mg/dL AST 71 H (0-34) U/L ALT 36 (10-49) U/L Alkaline Phosphatase 144 H (46-116) U/L Albumin 4.4 (3.4-4.8) gm/dL ABG Interpretation ABG results: 11/03/24 14:12 VBG pH 7.39 VBG pCO2 43 VBG pO2 35 VBG Base Excess 1 Quality Measures Quality Measures sepsis Current suspected stage: sepsis Possible source: unknown Blood cultures ordered: yes Antibiotic ordered: Yes Advance care planning discussed with:: patient Medications Home Medications and Allergies Home Medications ?Medication ?Instructions ?Recorded ?Confirmed ?Type Levothyroxine * (SYNTHROID *) 50 mcg PO QDAY #0 tabs 09/15/16 11/04/24 History atorvastatin 80 mg tablet (Lipitor) 80 mg PO HS #0 tabs 09/15/16 11/04/24 History nitroglycerin 0.4 mg sublingual 0.4 mg SL PRN PRN CHEST PAIN #0 09/15/16 11/04/24 History tablet (Nitrostat) tabs clopidogrel 75 mg tablet (Plavix) 75 mg PO QDAY 01/28/23 11/04/24 History allopurinol 100 mg tablet 100 mg PO DAILY 11/04/24 11/04/24 History donepezil 5 mg tablet 5 mg PO QDAY 11/04/24 11/04/24 History hydralazine 50 mg tablet 50 mg PO TID 11/04/24 11/04/24 History metoprolol succinate 200 mg 200 mg PO QDAY 11/04/24 11/04/24 History tablet,extended release 24 hr mirtazapine 30 mg tablet 30 mg PO HS 11/04/24 11/04/24 History ondansetron HCl 4 mg tablet 4 mg PO Q6H PRN nausea and 11/04/24 11/04/24 History vomitting pantoprazole 40 mg tablet,delayed 40 mg PO BID 11/04/24 11/04/24 History release ranolazine 1,000 mg 1,000 mg PO BID 11/04/24 11/04/24 History tablet,extended release,12 hr Allergies Allergy/AdvReac Type Severity Reaction Status Date / Time Penicillins Allergy Severe RASH/ Verified 01/25/23 15:32 REDNESS Visit Medications Acetaminophen (Acetaminophen 325 Mg Tablet) 650 mg PO Q6H PRN PRN Reason: PAIN SCALE 1-3 (mild Stop: 12/03/24 19:15 Acetaminophen (Acetaminophen Supp 650 Mg Supp) 650 mg [place] Q6H PRN PRN Reason: Fever > 100.4 Stop: 12/03/24 21:29 Albuterol/Ipratropium (Albuterol/Ipratropium (Duoneb) Rt Dianne 3 Ml Nebu) 3 ml INH Q4HRRT PRN PRN Reason: SOB or wheezing Stop: 12/03/24 22:59 Aspirin (Aspirin 300 Mg Supp) 300 mg [place] QDAY TARIK Stop: 12/03/24 21:04 Last Admin: 11/05/24 11:59 Dose: 300 mg Atorvastatin Calcium (Atorvastatin Calcium 20 Mg Tablet) 80 mg PO HS TARIK Stop: 12/04/24 20:59 Last Admin: 11/04/24 20:36 Dose: Not Given Haloperidol Lactate (Haloperidol Lact Inj 5 Mg/Ml Vial) 7.5 mg IM Q6H PRN PRN Reason: AGITATION Stop: 12/05/24 10:29 Last Admin: 11/05/24 12:13 Dose: 7.5 mg Heparin Sodium (Porcine) (Heparin Sod Inj 5000 Unit/Ml Vial) 5,000 unit SC Q8HR TARIK Stop: 11/17/24 21:59 Last Admin: 11/05/24 14:51 Dose: Not Given Heparin Sodium (Porcine) (Heparin Sod Inj 1000 Unit/Ml Vial 10 Ml) 3,900 unit INDWELLCAT PRN PRN PRN Reason: DIALYSIS Stop: 11/19/24 10:18 Last Admin: 11/05/24 11:14 Dose: 3,900 unit Albumin Human (Albuminar-25 Ivpb) 25 gm in 100 mls @ 100 mls/min IV QDAY PRN PRN Reason: DIALYSIS Levothyroxine Sodium (Levothyroxine Sodium 25 Mcg Tablet) 50 mcg PO QAM TARIK Stop: 12/04/24 05:59 Last Admin: 11/05/24 11:56 Dose: Not Given Metoprolol Succinate (Metoprolol Succinate Xl 25 Mg Tabcr) 50 mg PO QDAY PRN PRN Reason: For SBP > 130-140 Stop: 12/05/24 14:14 Ondansetron HCl (Ondansetron Inj 2 Mg/Ml Inj 2 Ml) 4 mg IV Q4HR PRN PRN Reason: NAUSEA OR VOMITING Stop: 12/03/24 14:15 Last Admin: 11/03/24 17:26 Dose: 4 mg Pantoprazole Sodium (Pantoprazole Inj 40 Mg Vial) 40 mg IVP QDAY TARIK Stop: 12/05/24 10:44 Last Admin: 11/05/24 11:59 Dose: 40 mg Pharmacy Consult (Vancomycin Pharmacy To Dose 1 Each Each) 1 each IV QDAY PRN PRN Reason: CONSULT Stop: 12/04/24 08:59 Pharmacy Consult (Pharmacy Renal Dose Adjustment 1 Ea) 1 each XX PRN PRN PRN Reason: CONSULT Stop: 12/03/24 21:17 Sennosides (Senna Tablet) 1 tab PO BID PRN; Protocol PRN Reason: CONSTIPATION Stop: 12/03/24 19:15 Discontinued Medications Acetaminophen (Acetaminophen Supp 650 Mg Supp) 1,000 mg AZ X1 ONE Stop: 11/03/24 14:59 Last Admin: 11/03/24 15:06 Dose: 1,000 mg Olanzapine 10 mg/ Sterile (Water 2.1 ml) 0 mg IM X1 ONE Stop: 11/04/24 00:19 Last Admin: 11/04/24 00:30 Dose: 1 dose Olanzapine 10 mg/ Sterile (Water 2.1 ml) 0 mg IV QDAY ONE Stop: 11/04/24 09:31 Last Admin: 11/04/24 09:47 Dose: 1 dose Olanzapine 10 mg/ Sterile (Water 2.1 ml) 0 mg IM QDAY TARIK Stop: 12/04/24 16:03 Last Admin: 11/05/24 16:01 Dose: Not Given Olanzapine 10 mg/ Sterile (Water 2.1 ml) 0 mg IM QDAY TARIK Stop: 12/05/24 04:26 Olanzapine 10 mg/ Sterile (Water 2.1 ml) 0 mg IM X1 ONE Stop: 11/05/24 04:47 Last Admin: 11/05/24 05:35 Dose: 1 dose Fentanyl Citrate (Fentanyl Cit Inj 50 Mcg/Ml Amp 2ml) 50 mcg IVP X1 ONE Stop: 11/05/24 15:20 Last Admin: 11/05/24 15:19 Dose: 50 mcg Haloperidol Lactate (Haloperidol Lact Inj 5 Mg/Ml Vial) 2 mg IV X1 ONE Stop: 11/03/24 19:42 Last Admin: 11/03/24 20:04 Dose: 2 mg Haloperidol Lactate (Haloperidol Lact Inj 5 Mg/Ml Vial) 5 mg IM X1 ONE Stop: 11/03/24 22:36 Last Admin: 11/03/24 22:42 Dose: 5 mg Haloperidol Lactate (Haloperidol Lact Inj 5 Mg/Ml Vial) 5 mg IV X1 ONE Stop: 11/04/24 12:42 Last Admin: 11/04/24 13:01 Dose: Not Given Haloperidol Lactate (Haloperidol Lact Inj 5 Mg/Ml Vial) 5 mg IM X1 ONE Stop: 11/04/24 12:44 Last Admin: 11/04/24 12:47 Dose: 5 mg Haloperidol Lactate (Haloperidol Lact Inj 5 Mg/Ml Vial) 2.5 mg IM X1 ONE Stop: 11/04/24 13:52 Last Admin: 11/04/24 14:11 Dose: 2.5 mg Haloperidol Lactate (Haloperidol Lact Inj 5 Mg/Ml Vial) 5 mg IV X1 ONE Stop: 11/04/24 23:17 Last Admin: 11/04/24 23:51 Dose: 5 mg Sodium Chloride (Ns) 500 mls @ 999 mls/hr IV .Q31M ONE Stop: 11/03/24 15:10 Last Infusion: 11/03/24 19:30 Dose: Infused Vancomycin HCl 1,000 mg/ (Sodium Chloride) 250 mls @ 150 mls/hr IV X1 ONE Stop: 11/03/24 16:20 Last Infusion: 11/03/24 19:30 Dose: Infused Meropenem 1,000 mg/ Sodium (Chloride) 50 mls @ 100 mls/hr IV X1 ONE Stop: 11/03/24 14:43 Last Infusion: 11/03/24 16:07 Dose: Infused Sodium Chloride (Ns) 1,000 mls @ 50 mls/hr IV .Q20H ONE Stop: 11/04/24 15:29 Last Admin: 11/03/24 20:04 Dose: 50 mls/hr Cefepime HCl 1 gm/ Sodium (Chloride) 50 mls @ 100 mls/hr IV X1 ONE Stop: 11/03/24 19:58 Last Admin: 11/03/24 22:22 Dose: 100 mls/hr Cefepime HCl 1 gm/ Sodium (Chloride) 50 mls @ 100 mls/hr IV QDAY@2100 TARIK Stop: 11/11/24 20:59 Magnesium Sulfate (Magnesium Sulfate Ivpb) 2 gm in 50 mls @ 25 mls/hr IV X1 ONE Stop: 11/03/24 21:34 Last Admin: 11/03/24 20:04 Dose: 25 mls/hr Vancomycin/Sodium Chloride (Vancomycin/Ns 500 Mg Ivpb) 100 mls @ 120 mls/hr IV X1 ONE Stop: 11/04/24 10:49 Last Admin: 11/04/24 10:03 Dose: 120 mls/hr Cefazolin Sodium/Dextrose (Ancef Ivpb) 1 gm in 50 mls @ 100 mls/hr IV HS TARIK Stop: 11/11/24 20:59 Last Admin: 11/04/24 20:36 Dose: 100 mls/hr Vancomycin/Sodium Chloride (Vancomycin/Ns 1 Gm Ivpb) 200 mls @ 120 mls/hr IV X1 ONE Stop: 11/05/24 13:39 Last Admin: 11/05/24 11:59 Dose: 120 mls/hr Lactulose (Lactulose Syrup 20 Gm/30 Ml Udc) 10 gm PO X1 ONE; Protocol Stop: 11/04/24 10:06 Last Admin: 11/04/24 12:40 Dose: Not Given Lorazepam (Lorazepam 2 Mg/Ml Vial) 2 mg IVP X1 ONE Stop: 11/03/24 14:40 Last Admin: 11/03/24 14:24 Dose: 2 mg Lorazepam (Lorazepam 2 Mg/Ml Vial) 2 mg IVP X1 ONE Stop: 11/03/24 16:49 Last Admin: 11/03/24 16:52 Dose: 2 mg Lorazepam (Lorazepam 2 Mg/Ml Vial) 2 mg IVP X1 ONE Stop: 11/03/24 17:07 Last Admin: 11/03/24 17:09 Dose: 2 mg Lorazepam (Lorazepam 2 Mg/Ml Vial) 2 mg IVP X1 ONE Stop: 11/03/24 17:58 Last Admin: 11/03/24 18:00 Dose: 2 mg Lorazepam (Lorazepam 2 Mg/Ml Vial) 2 mg IVP Q8H PRN PRN Reason: AGITATION (SEVERE) Stop: 11/08/24 19:44 Last Admin: 11/03/24 22:13 Dose: 2 mg Lorazepam (Lorazepam 2 Mg/Ml Vial) 2 mg IVP X1 ONE Stop: 11/04/24 04:44 Lorazepam (Lorazepam 2 Mg/Ml Vial) 1 mg IVP X1 ONE Stop: 11/04/24 04:44 Last Admin: 11/04/24 04:53 Dose: 1 mg Lorazepam (Lorazepam 2 Mg/Ml Vial) 2 mg IVP Q2H PRN PRN Reason: AGITATION OR ANXIETY Stop: 11/09/24 15:15 Last Admin: 11/04/24 22:27 Dose: 2 mg Lorazepam (Lorazepam 2 Mg/Ml Vial) 2 mg IVP Q2H PRN PRN Reason: AGITATION OR ANXIETY Stop: 11/09/24 15:15 Last Admin: 11/05/24 07:30 Dose: 2 mg Morphine Sulfate (Morphine Sulf Inj 10 Mg/Ml Vial) 4 mg IVP X1 ONE Stop: 11/03/24 17:22 Last Admin: 11/03/24 17:31 Dose: 4 mg Ondansetron HCl (Ondansetron Inj 2 Mg/Ml Inj 2 Ml) 4 mg IV X1 ONE; Protocol Stop: 11/03/24 14:40 Last Admin: 11/03/24 14:28 Dose: 4 mg Ondansetron HCl (Ondansetron Inj 2 Mg/Ml Inj 2 Ml) 4 mg IV X1 ONE; Protocol Stop: 11/03/24 17:23 Last Admin: 11/03/24 20:03 Dose: 4 mg Assessment & Plan Plan Assessment Malik is a 79-year-old male past medical history of past medical history of ESRD on hemodialysis (MWF, sees Dr. Padilla), HFrEF (possibly EF of 30), Previous CVA, possible hypothyroidism currently admitted for sepsis secondary to catheter related bloodstream infection which is showing GPC currently #NSTEMI, likely type II related to demand ischemia, resolved #History of coronary artery disease status post multiple stents and CABG #History of myocardial infarction #Nonsustained supraventricular tachycardia #? CHF Unsure when patient's CABG was, will follow-up with records and family Patient takes home Plavix as well in addition to aspirin as well ranolazine Some bouts of nonsustained supraventricular tachycardia with trigeminy seen on telemetry Plan: ? Primary team resume home Lipitor 80 mg ? Continue with home aspirin suppository 300 mg ? Plavix 75 mg seems to be a home medicine for this patient, recommend restarting ? Recommend resuming ranolazine ? Follow-up with EKG ? Metoprolol XL 50 mg ? Keep magnesium and potassium above 2 and 4 respectively ? Echo ? Telemetry #Sepsis #Catheter site cellulitis #GPC Bacteremia 2/2 CRBSI #ESRD on HD #History of CVA #Hypothyroidim #Normocytic anemia #Acute encephalopathy #Agitations #Likely history of dementia Management above panel by primary hospitalist team Patient seen and care discussed with my attending physician, Dr. Ciara Lau, PGY-1
--- NOTE | 2024-11-05 20:23 | PC.NURSE ---
Addendum entered by Marian Flores RN 11/07/24 02:20: LEFT CHEST WALL Original Note: SHADOWING TO RIGHT CHEST WALL DRESSING NOTED WITH MINIMAL BRUISING SURROUNDING SITE NOTED. DR. MOHR MADE AWARE. OKAYED TO CONTINUE TO GIVE HEPARIN SQ FOR TONIGHT.
--- NOTE | 2024-11-05 21:16 | ESPR_ITS ---
Documentation for date of: 11/05/24 Subjective Subjective Interval history: Patient was seen in telemetry today, continue to remain restless despite Haldol but much better today, on restraints as he is intermittently trying to come out of bed. Got the dialysis catheter changed over. Exam - Neurology Vital Signs Temp Pulse Resp BP Pulse Ox O2 Del Method O2 Flow Rate 98.8 F 96 18 145/96 H 97 Nasal Cannula 2 11/05/24 20:00 11/05/24 20:00 11/05/24 20:00 11/05/24 20:00 11/05/24 20:00 11/05/24 20:00 11/05/24 20:00 Narrative Exam GENERAL APPEARANCE: Well-developed, obese built white male , restless in bed HEENT: Normocephalic, atraumatic, extraocular movements intact. Pupils: Equal reacting to light NECK: Supple, no JVD or bruits. CARDIOVASULAR: Heart: S1, S2 heard, regular without S3-S4 or murmur no rubs or gallops. LUNGS/CHEST: Clear to auscultation bilaterally. No rails, rhonchi, or wheezing. Normal inspection. ABDOMEN: Soft, nontender, with normal bowel sounds. No pulsatile masses. No rebound, rigidity, or guarding. Normal inspection and palpation. EXTREMITIES: Normal inspection and palpation. No edema, clubbing or cyanosis. SKIN: Warm and dry without rashes. Normal inspection. MUSCULOSKELETAL: No cervical, thoracic, lumbar or midline bony tenderness. Normal inspection. NEURO: restless, despite under the effect of Ativan/Zyprexa, moves all 4 extremities purposefully no signs of meningeal irritation noted. PSYCHIATRIC: limited Objective Labs 11/05/24 05:19 11/05/24 05:19 Labs: Laboratory Results - last 24 hr 11/05/24 11/05/24 11/05/24 05:19 10:43 14:07 WBC 11.9 H RBC 3.04 L Hgb 9.6 L Hct 30.6 L MCV 101 H MCH 31.6 MCHC 31.4 RDW Std Deviation 55.9 H Plt Count 149 Neut % (Auto) 81 H Lymph % (Auto) 5 L [place] % (Auto) 12 Eos % (Auto) 0 Baso % (Auto) 0 Neut # (Auto) 9.7 H Lymph # (Auto) 0.6 L [place] # (Auto) 1.5 H Eos # (Auto) 0.0 Baso # (Auto) 0.0 Immature Gran # (Auto) 0.09 H Absolute Nucleated RBC 0.00 Immature Gran % 1 H Nucleated RBC % 0 PT 12.3 H INR 1.1 APTT 37.3 H D Sodium 145 Potassium 5.6 H D Chloride 107 Carbon Dioxide 24.9 Anion Gap 13 BUN 68 H Creatinine 6.2 H* D Estim Creat Clear Calc 12.2 L eGFR 9 L* BUN/Creatinine Ratio 11 L Glucose 149 H Calculated Osmolality 311 H Calcium 9.7 Corrected Calcium 9.7 Total Bilirubin 0.5 AST 71 H ALT 36 Alkaline Phosphatase 144 H Troponin I 0.976 H* D 0.900 H* Total Protein 6.5 Albumin 4.4 Globulin 2.1 L Albumin/Globulin Ratio 2.1 Random Vancomycin 10.4 ABG Interpretation ABG results: 11/03/24 14:12 VBG pH 7.39 VBG pCO2 43 VBG pO2 35 VBG Base Excess 1 Assessment & Plan Assessment and plan (1) Delirium: Status: Acute Assessment and plan: Likely secondary to metabolic encephalopathy Continue with the symptomatic therapy with Zyprexa or Haldol/Ativan/Benadryl as needed. If not better, will be moved to ICU for Precedex infusion (2) End stage renal failure on dialysis: Status: Chronic Assessment and plan: Continue with hemodialysis (3) Cellulitis: Status: Acute Assessment and plan: Continue with IV antibiotics follow-up with the culture (4) Fever: Status: Acute Assessment and plan: Most likely secondary to infection in the dialysis catheter access Continue with IV antibiotics Old access for dialysis was removed and got the new one today.
[2024-11-06] VITALS (7 sets, daily range): BP systolic 131–163; BP diastolic 88–98; PULSE 91–113; RESP 13–22; TEMP 36.2–36.7; O2SAT 95–98
[2024-11-06] MEDS: HALOPERIDOL LACT INJ 5 MG/ML VIAL 7.5 MG IM ×2 (06:25→17:05)
--- NOTE | 2024-11-06 07:46 | ESPR_ITS ---
<Statement entered by Kasey Maloney MD - 11/06/24 14:46> Patient was examined bedside this morning, catheter was taken out yesterday tip sent for culture. New set of blood cultures ordered. Patient is on Haldol 7.5 as needed will order EKG to see QT intervals. He is less agitated than yesterday. Will follow-up blood cultures and he will require tunneled dialysis catheter after 48 hours blood cultures negative. Cardiology started the patient on metoprolol XL 50. Troponin trending down. I discussed with and supervised my co-resident involved in the care of this patient. I agree with the assessment and plan as documented above. Kasey Maloney,PGY-3 Disclaimer: Despite multiple revisions, due to the dictation software being used, the document below may not be free of grammatical errors including phonetic/typographic errors. However, this does not deter from our commitment to providing health care in the patient's best interest in mind. Documentation for date of: 11/06/24 Subjective Subjective Interval history: Overnight required a dose of ATIVAN for agitation. This morning he looks okay. Appears less agitated, following command, answering question, asking for water. was at bedside. She also agrees that there seems to be an improvement in mentation. Continued with management. Exam Vital Signs Temp Pulse Resp BP Pulse Ox O2 Del Method O2 Flow Rate 98.0 F 106 H 20 163/92 H 96 Nasal Cannula 2 11/06/24 00:00 11/06/24 00:00 11/06/24 00:00 11/06/24 00:00 11/06/24 00:00 11/06/24 00:00 11/06/24 00:00 Narrative Exam GENERAL * On soft restraint, slightly agitated, does not follow command, does not answer questions. HEENT * NCAT.?NALINI. Oral mucosa is moist. Patent Nares NECK * Supple, nontender, no thyromegaly, no meningismus, no JVD, no step offs * Left-sided tunneled cath noted, dressing in place and intact, skin warm and slightly erythematous. CHEST * RRR, no m/g/r * CTAB, no w/r/r. Symmetrical chest rise. No intercostal subcostal retraction * Atraumatic, nontender, no crepitus, symmetrical expansion. ABDOMEN * Soft, obese, nontender. No guarding/rebound tenderness/masses. * Bowel sounds presents EXTREMITIES * Nontender, no cyanosis, no edema * No edema/cyanosis.? SKIN * Warm and dry, no jaundice/rashes. NEUROMUSCULAR * Limited exam secondary to encephalopathy Objective Labs 11/05/24 05:19 11/06/24 07:42 Labs: Laboratory Results - last 24 hr 11/05/24 11/05/24 10:43 14:07 PT 12.3 H INR 1.1 APTT 37.3 H D Troponin I 0.976 H* D 0.900 H* ABG Interpretation ABG results: 11/03/24 14:12 VBG pH 7.39 VBG pCO2 43 VBG pO2 35 VBG Base Excess 1 Quality Measures Quality Measures sepsis Current suspected stage: ruled out Possible source: unknown Blood cultures ordered: yes Antibiotic ordered: Yes Advance care planning discussed with:: patient and spouse Assessment & Plan Assessment Current Active Medications: Generic Name Dose Route Start Last Admin Trade Name Freq PRN Reason Stop Dose Admin Acetaminophen 650 mg 11/03/24 19:16 Acetaminophen 325 Mg Tablet PO 12/03/24 19:15 Q6H PRN PAIN SCALE 1-3 (mild Acetaminophen 650 mg 11/03/24 21:16 Acetaminophen Supp 650 Mg Supp MN 12/03/24 21:29 Q6H PRN Fever > 100.4 Albuterol/Ipratropium 3 ml 11/03/24 19:16 Albuterol/Ipratropium (Duoneb) Rt Dianne 3 Ml Nebu INH 12/03/24 22:59 Q4HRRT PRN SOB or wheezing Aspirin 300 mg 11/03/24 21:05 11/05/24 11:59 Aspirin 300 Mg Supp MN 12/03/24 21:04 300 mg QDAY TARIK Administration Atorvastatin Calcium 80 mg 11/04/24 21:00 11/05/24 19:11 Atorvastatin Calcium 20 Mg Tablet PO 12/04/24 20:59 Not Given HS TARIK Haloperidol Lactate 7.5 mg 11/05/24 10:16 11/05/24 19:54 Haloperidol Lact Inj 5 Mg/Ml Vial IM 12/05/24 10:29 7.5 mg Q6H PRN Administration AGITATION Heparin Sodium (Porcine) 5,000 unit 11/03/24 22:00 11/05/24 21:06 Heparin Sod Inj 5000 Unit/Ml Vial SC 11/17/24 21:59 5,000 unit Q8HR TARIK Administration Heparin Sodium (Porcine) 3,900 unit 11/05/24 10:19 11/05/24 11:14 Heparin Sod Inj 1000 Unit/Ml Vial 10 Ml INDWELLCAT 11/19/24 10:18 3,900 unit PRN PRN Administration DIALYSIS Albumin Human 25 gm in 100 mls @ 100 mls/min 11/05/24 10:19 Albuminar-25 Ivpb IV QDAY PRN DIALYSIS Levothyroxine Sodium 50 mcg 11/04/24 06:00 11/05/24 11:56 Levothyroxine Sodium 25 Mcg Tablet PO 12/04/24 05:59 Not Given QAM [facility] Metoprolol Succinate 50 mg 11/05/24 14:15 Metoprolol Succinate Xl 25 Mg Tabcr PO 12/05/24 14:14 QDAY PRN For SBP > 130-140 Ondansetron HCl 4 mg 11/03/24 14:16 11/03/24 17:26 Ondansetron Inj 2 Mg/Ml Inj 2 Ml IV 12/03/24 14:15 4 mg Q4HR PRN Administration NAUSEA OR VOMITING Pantoprazole Sodium 40 mg 11/05/24 10:45 11/05/24 11:59 Pantoprazole Inj 40 Mg Vial IVP 12/05/24 10:44 40 mg QDAY TARIK Administration Pharmacy Consult 1 each 11/04/24 09:00 Vancomycin Pharmacy To Dose 1 Each Each IV 12/04/24 08:59 QDAY PRN CONSULT Pharmacy Consult 1 each 11/03/24 21:18 Pharmacy Renal Dose Adjustment 1 Ea XX 12/03/24 21:17 PRN PRN CONSULT Sennosides 1 tab 11/03/24 19:16 Senna Tablet PO 12/03/24 19:15 BID PRN CONSTIPATION Protocol Plan In summary: 68-fyam-xyd-year-old male PMHx of ESRD on HD MWF, HFrEF EF 30%, CVA, hypothyroidism presenting with AMS in setting of CRBSI sepsis. He continued on VANCOMYCIN for MRSA bacteremia. HD cath removed. Appreciate recommendations from cardiology and ID. Sepsis (improving) Catheter site cellulitis MRSA bacteremia 2/2 CRBSI Met 2/4 SIRS criteria with tachycardia, fever. LA normal, no leukocytosis. HD tunneled cath erythematous and warm suggesting cellulitis. Afebrile, leukocytosis improving. Prelim blood culture showing GPC. Dialysis, significant removed. Continue on VANCOMYCIN. Pending repeat blood culture. ? Continue VANCOMYCIN (11/04 to present) ? Pending cath culture ? Pending repeat blood culture Acute encephalopathy Agitations Likely history of dementia Likely secondary to metabolic encephalopathy. Unclear what baseline is, currently attending, does not follow command, agitated, requiring multiple medications. Continued on soft restraints. Started scheduled HALOPERIDOL. Head CT was negative. No focal neurological deficit. No indication for stroke workup. Neurology consulted, agreed with ANTIPSYCHOTICS for agitation. ? Continue HALOPERIDOL 7.5 mg q.6h. PRN ? QTC 406 ? Reorientation NSTEMI type II Troponin peaked at 0.976. Unable to assess symptoms secondary to encephalopathy. EKG sinus rhythm without acute ST changes. Demand ischemia in settings of sepsis versus volume overload. Anticipate improvement with diuresis and preload reduction. Cardiology consulted, recommendations included below. ? Continue ATORVASTATIN 80 mg daily ? Continue ASPIRIN 300 mg daily ? Continue home PLAVIX 75 mg daily ? Continue METOPROLOL succinate 100 mg daily (home dose 200 mg daily) Hypomagnesemia 11/06 Magnesium 1.9. Will not replete as patient does not have a dialysis line and won't be getting HD today. Low mag may be protective against hyperkalemia at this time. ? Daily CMP ESRD on HD Patient has dialysis Tuesday, Tuesday, Tuesday. Cath removed, will need new cath once 48H blood Cx is negative. ? Renally dose meds, avoid overdiuresis and NEPHROTOXINS ? Daily CMP ? Hemodialysis with nephrology team. History of CVA History of CHF ? Continue ASPIRIN 300 mg daily ? Continue ATORVASTATIN 80 mg daily ? Pending echocardiogram Hypothyroidim TSH 4.6 this visit. ? Continue home LEVOTHYROXINE 50 mcg ACBR Normocytic anemia (stable) Patient has Hb of 10.8 No obvious source of bleeding We will monitor closely, may need outpatient workup Health maintenance Diet: NPO GI prophylaxis: PROTONIX DVT prophylaxis: HEPARIN Antibiotics: VANCOMYCIN CODE STATUS: Full code Disposition: Pending repeat blood culture, cath culture. Will need new cath once 48H blood cx negative. Patient case was discussed with attending, Aries Angulo MD and senior resident Dr. Maloney. Greg Angel DO PGYI Attending Provider Attestation/Addendum I reviewed labs, imaging, EKG, home medications and prior available records. Face to face evaluation was performed by me. I have personally examined the patient and discussed assessment and plan with the IM team. I reviewed the resident note and agree with the plan with exceptions as below. Hyperactive agitation Sepsis MRSA bacteremia Line associated infection ESRD on hemodialysis Non-STEMI HFrEF Agitation improved. Continue IV haloperidol, Ativan, and olanzapine as needed. Remove restraints. Continue management of sepsis as below. Continue delirium precautions. Manage constipation as needed. Continue IV vancomycin. Consulted ID for antibiotic guidance Follow-up cultures identification and sensitivity: Showed gram-positive cocci. Sent dialysis line after removal to culture ESRD on hemodialysis: Hemodialysis prior to removal of the dialysis line. Insert a new dialysis line for 48 hours after negative blood culture Troponin peaked. Ordered EKG that showed sinus tachycardia with ectopies and bigeminy. Consulted cardiology: Recommended echocardiogram: Showed severely reduced EF of 30 to 35%. Started metoprolol XL. Continue aspirin and atorvastatin. Added Plavix
--- NOTE | 2024-11-06 07:55 | EKG_ITS ---
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 : 1945 Requested By: Greg Angel Order Number: [id number] Reading MD: Greg Angel Measurements Intervals [place] Rate: 105 P: 91 NM: 166 QRS: -68 QRSD: 115 T: 102 QT: 345 QTc: 457 Interpretive Statements SINUS TACHYCARDIA WITH FREQUENT VENTRICULAR PREMATURE COMPLEXES MARKED LEFT AXIS DEVIATION PATTERN CONSISTENT WITH PULMONARY DISEASE LEFT VENTRICULAR HYPERTROPHY AND ST-T CHANGE INTERPRETATION BASED ON A DEFAULT AGE OF 40 YEARS Compared to ECG 11/04/2024 06:44:07 Ventricular premature complex(es) now present Left ventricular hypertrophy now present ST (T wave) deviation now present First degree AV block no longer present Myocardial infarct finding no longer present /store/NU/[id number].pdf
[2024-11-06 08:50] LABS: Alanine Aminotransferase 35 U/L (10-49); Albumin, Serum 4.5 gm/dL (3.4-4.8); Albumin/Globulin Ratio 2.3 (1.2-2.2); Alkaline Phosphatase 145 U/L (46-116); Anion Gap 14 (7-16); Aspartate Amino Transferase 61 U/L (0-34); BUN/Creatinine Ratio 12 Ratio (12-20); Bilirubin,Total 0.6 mg/dL (0.3-1.2); Blood Urea Nitrogen 63 mg/dL (9-23); Calcium 9.9 mg/dL (8.3-10.6); Calcium (Corrected) 9.9 mg/dL (8.5-10.1); Carbon Dioxide 25.2 mMol/L (20.0-31.0); Chloride 105 mMol/L (98-107); Creatinine (Component) 5.3 mg/dL (0.6-1.3); Estimated Creatinine Clearance 14.3 mL/min (>60); Glucose 132 mg/dL (74-106); Magnesium 1.9 mg/dL (1.6-2.6); Osmolality,Calculated 306 (275-295); Phosphorous 4.5 mg/dL (2.4-5.1); Potassium 4.4 mMol/L (3.4-5.1); Sodium 144 mMol/L (136-145); Total Protein 6.5 gm/dL (5.7-8.2); Vancomycin,Random 17.6 mcg/mL; eGFR 10 See Note
--- NOTE | 2024-11-06 09:34 | PC.NURSE ---
[facility] 0[facility] 0700.
[2024-11-06] MEDS: HEPARIN SOD INJ 5000 UNIT/ML VIAL SC ×3 (09:37→21:28)
--- NOTE | 2024-11-06 16:11 | PC.PT ---
PT eval attempted again today 11/06/24. Patient was too lethargic to work with PT. Will attempt PT eval again tomorrow 11/07/24.
[2024-11-06] MEDS: METOPROLOL SUCCINATE XL 25 MG TABCR 100 MG PO (17:00)
[2024-11-06] MEDS: CLOPIDOGREL BISULFATE 75 MG TABLET PO (17:01)
[2024-11-06] MEDS: ASPIRIN 300 MG SUPP PR (17:01)
--- NOTE | 2024-11-06 17:13 | ESPR_ITS ---
<Statement entered by Bismark Urbina MD - 11/07/24 05:54> I have personally seen and examined the patient separately on the above date of service and discussed the plan of care with the resident. I reviewed the resident Dr. Morris consultation progress note and agree with the resident findings and plan in the note above and have also edited the documentation to reflect my findings and plan. A 79-year-old male with a past medical history of CAD status post CABG x 3, residual severe [place] disease and 100% occluded SVG to LCx, patent HOOK to LAD and SVG to RCA, moderate to severe systolic congestive heart failure with an EF of around 35%, stroke or previous CVA, hypothyroidism, end-stage renal disease on hemodialysis, gout, mild cognitive disturbance with cirrhosis dementia presented to the emergency department for altered mental status in the setting of possible cellulitis and infection of the left-sided tunneled dialysis catheter. Patient has been having recurrent tunneled dialysis catheter infection and he has been able to do some ADLs by himself with he is normal but has more altered mental status and agitated when he has the infection. Patient has significant cardiac history with the initial heart attack at the age of 48 and since then has been following multiple epoxy specialist including Dr. Camacho as well as Dr. Caballero in [place]. Patient had previously stents as well as CABG done many years ago. Recently he was seen by his primary epoxy specialist Dr. Martin last month and then he had an elective left heart cardiac catheterization on 10/23/2023 which did show patent and large SVG to RCA graft,'s patent small HOOK to LAD graft but 100% occluded SVG to LCx. Patient did have severe [place] disease including LCx, AV delay still RCA but there were no good targets to intervene and hence medical management was recommended. The emergency department patient had a temperature of 104 and was tachycardic at 123 and blood pressure was 120/100 mmHg. Troponin was elevated at 0.058 and the repeat troponins continued to increase to 0.35, 0.6 and eventually peaked at 0.976. EKG showed normal sinus rhythm with no acute ST-T changes suggestive ischemia. CT head was negative. Patient was eventually diagnosed with sepsis secondary to GPC bacteremia from possible catheter related bloodstream infection. Cardiology consulted for elevated troponins. Assessment and plan: 1. Elevated troponins-NSTEMI type II in the setting of supply/demand mismatch from the sepsis and 2. Sepsis secondary to GPC bacteremia from catheter related bloodstream infection 3. CAD status post CABG and multiple PCI and initial heart attack at 48 4. Moderate to severe systolic congestive heart failure with an EF of around 35% 5. NSVT 6. ESRD on HD 7. Hypertension 8. Altered mental status mostly secondary to the acute infection and possible underlying dementia. Patient will continue to have rising troponins which peaked at 0.976 and have trended down. EKG showed normal sinus rhythm without any acute ST-T changes. Patient unable to provide any history but as per the family he did not have any kind of chest pain or chest pressure and basically he was altered which happens every time he is infected. As noted above patient did have a recent echocardiogram as well as cardiac catheterization at [facility] October 2024 which were reviewed by me and showed that patient does have 2/3 of the grafts patent, severe [place] vessel disease which they were unable to intervene due to lack of targets. EF was around 35%. The troponin elevation is mostly secondary to type II NSTEMI with supply/demand mismatch and recommend only recent medical management with aspirin, Plavix, high intensity statin and beta-halima. No need of any heparin drip Review of the telemetry showed that the patient is having frequent PVCs with NSVT and recommended to start metoprolol XL 50 mg once daily. At home is actually on 200 Mg per day and continue to uptitrate metoprolol XL based on the blood pressure as the patient is also septic at the present point of time. Recommend to keep potassium greater than 4 magnesium greater than 2.0 at all times. Regarding CHF patient also has a history of ESRD and HD and further fluid management as per nephrology team more on board. Strict input output Daily weights and 2 g sodium diet. Patient needs to be on goal-directed medical therapy given the severe systolic congestive heart failure which can be started later based on the blood pressure. His altered mental status is mostly secondary to the acute infection which led to the sepsis with GPC bacteremia from catheter related bloodstream infection from the left-sided tunneled dialysis catheter. Patient is on IV antibiotics and primary team managing the same. Management of rest of the medical conditions as per primary team and other consultants. Thank you for the consult and allowing me to participate in the care of the patient. Cardiology will continue to follow. Bismark Jaime Anumandla M.D. Interventional Cardiology Documentation for date of: 11/06/24 Subjective Subjective Interval history: 11/06/2024: Pt examined at bedside today. Overnight events on telemetry included pt having HR in 100s and 110s. Pt still appears to be a bit agitated at this time. He still has some restraints. Family is present at bedside. He was found to have MRSA CRBSI, currently on Vancomycin. CMP and other labs pending. No other complaints at this time. Exam Vital Signs Temp Pulse Resp BP Pulse Ox O2 Del Method O2 Flow Rate 97.1 F 98 17 148/95 H 97 Nasal Cannula 2 11/06/24 12:00 11/06/24 17:00 11/06/24 12:00 11/06/24 17:00 11/06/24 12:00 11/06/24 12:00 11/06/24 12:00 Narrative Exam General: AAOx1, agitated with wrist restraints, wearing diaper HEENT: Moist mucous membranes, conjunctiva clear, EOMI, PERRLA, poor dentition Cardiovascular: Possible murmur heard over SNOW, tachycardic Pulmonary: CTAB bilat no cough, no wheezing GI: No tenderness to light or deep palpitation, no guarding, rigidity, rebound tenderness or distension Extremities: No presence of trace or pitting edema in lower extremities bilaterally, dorsalis pedis pulses +2 bilaterally Neuro: AAOx1, no focal motor or sensory deficits in the UE or LE bilat Objective Labs 11/06/24 05:30 11/06/24 07:42 Labs: Laboratory Results - last 24 hr 11/06/24 07:42 Sodium 144 Potassium 4.4 D Chloride 105 Carbon Dioxide 25.2 Anion Gap 14 BUN 63 H Creatinine 5.3 H* D Estim Creat Clear Calc 14.3 L eGFR 10 L* BUN/Creatinine Ratio 12 Glucose 132 H Calculated Osmolality 306 H Calcium 9.9 Corrected Calcium 9.9 Phosphorus 4.5 Magnesium 1.9 Total Bilirubin 0.6 AST 61 H ALT 35 Alkaline Phosphatase 145 H Total Protein 6.5 Albumin 4.5 Globulin 2.0 L Albumin/Globulin Ratio 2.3 H Random Vancomycin 17.6 ABG Interpretation ABG results: 11/03/24 14:12 VBG pH 7.39 VBG pCO2 43 VBG pO2 35 VBG Base Excess 1 Quality Measures Quality Measures sepsis Current suspected stage: sepsis Possible source: unknown Blood cultures ordered: yes Antibiotic ordered: Yes Advance care planning discussed with:: patient Assessment & Plan Assessment Current Active Medications: Generic Name Dose Route Start Last Admin Trade Name Freq PRN Reason Stop Dose Admin Acetaminophen 650 mg 11/03/24 19:16 Acetaminophen 325 Mg Tablet PO 12/03/24 19:15 Q6H PRN PAIN SCALE 1-3 (mild Acetaminophen 650 mg 11/03/24 21:16 Acetaminophen Supp 650 Mg Supp IN 12/03/24 21:29 Q6H PRN Fever > 100.4 Albuterol/Ipratropium 3 ml 11/03/24 19:16 Albuterol/Ipratropium (Duoneb) Rt Dianne 3 Ml Nebu INH 12/03/24 22:59 Q4HRRT PRN SOB or wheezing Aspirin 300 mg 11/03/24 21:05 11/06/24 11:01 Aspirin 300 Mg Supp IN 12/03/24 21:04 Not Given QDAY TARIK Atorvastatin Calcium 80 mg 11/04/24 21:00 11/05/24 19:11 Atorvastatin Calcium 20 Mg Tablet PO 12/04/24 20:59 Not Given HS TARIK Clopidogrel Bisulfate 75 mg 11/06/24 09:00 11/06/24 10:21 Clopidogrel Bisulfate 75 Mg Tablet PO 12/06/24 08:59 Not Given QDAY TARIK Haloperidol Lactate 7.5 mg 11/05/24 10:16 11/06/24 17:05 Haloperidol Lact Inj 5 Mg/Ml Vial IM 12/05/24 10:29 7.5 mg Q6H PRN Administration AGITATION Heparin Sodium (Porcine) 5,000 unit 11/03/24 22:00 11/06/24 17:01 Heparin Sod Inj 5000 Unit/Ml Vial SC 11/17/24 21:59 5,000 unit Q8HR TARIK Administration Heparin Sodium (Porcine) 3,900 unit 11/05/24 10:19 11/05/24 11:14 Heparin Sod Inj 1000 Unit/Ml Vial 10 Ml INDWELLCAT 11/19/24 10:18 3,900 unit PRN PRN Administration DIALYSIS Albumin Human 25 gm in 100 mls @ 100 mls/min 11/05/24 10:19 Albuminar-25 Ivpb IV QDAY PRN DIALYSIS Levothyroxine Sodium 50 mcg 11/04/24 06:00 11/06/24 10:21 Levothyroxine Sodium 25 Mcg Tablet PO 12/04/24 05:[address] [facility] Metoprolol Succinate 100 mg 11/07/24 09:00 Metoprolol Succinate Xl 25 Mg Tabcr PO 12/07/24 08:59 QDAY [facility] Ondansetron HCl 4 mg 11/03/24 14:16 11/03/24 17:26 Ondansetron Inj 2 Mg/Ml Inj 2 Ml IV 12/03/24 14:15 4 mg Q4HR PRN Administration NAUSEA OR VOMITING Pantoprazole Sodium 40 mg 11/05/24 10:45 11/06/24 11:01 Pantoprazole Inj 40 Mg Vial IVP 12/05/24 10:44 Not Given QDAY [facility] Pharmacy Consult 1 each 11/04/24 09:00 Vancomycin Pharmacy To Dose 1 Each Each IV 12/04/24 08:59 QDAY PRN CONSULT Pharmacy Consult 1 each 11/03/24 21:18 Pharmacy Renal Dose Adjustment 1 Ea XX 12/03/24 21:17 PRN PRN CONSULT Sennosides 1 tab 11/03/24 19:16 Senna Tablet PO 12/03/24 19:15 BID PRN CONSTIPATION Protocol Plan Assessment Malik is a 79-year-old male past medical history of past medical history of ESRD on hemodialysis (MWF, sees Dr. Padilla), HFrEF (possibly EF of 30), Previous CVA, possible hypothyroidism currently admitted for sepsis secondary to catheter related bloodstream infection which is showing GPC currently #NSTEMI, likely type II related to demand ischemia, resolved #History of coronary artery disease status post multiple stents and CABG triple bypass #History of myocardial infarction #Nonsustained supraventricular tachycardia #HFrEF with EF of 35 to 40% #Ischemic cardiomyopathy Unsure when patient's CABG was, will follow-up with records and family Patient takes home Plavix as well in addition to aspirin as well ranolazine Some bouts of nonsustained supraventricular tachycardia with trigeminy seen on telemetry Pt continues to have some tachycardia, but has not been giving home metoprolol doses Pt does have MRSA bactermia, will treat as well Upon review of cardiac catheter records 2 weeks ago at [facility] Saphenous vein graft to left circumflex?occluded whenever send HOOK to LAD?patent [place] LAD?moderate to severe disease Saphenous vein graft to RCA patent with good flow [place] left coronary artery severe proximal disease Not a candidate for PCI EF 35 to 40% Ischemic cardiomyopathy Plan: ? Primary team resume home Lipitor 80 mg ? Continue with home aspirin suppository 300 mg ? Plavix 75 mg seems to be a home medicine for this patient, recommend restarting ? Recommend resuming ranolazine ? Follow-up with EKG ? Recommend to restart patient on home metoprolol which is Metoprolol 100 XL BID ? Keep magnesium and potassium above 2 and 4 respectively ? Follow up Echo ? Telemetry #Sepsis #Catheter site cellulitis #MRSA Bacteremia 2/2 CRBSI #ESRD on HD #History of CVA #Hypothyroidim #Normocytic anemia #Acute encephalopathy #Agitations #Likely history of dementia Management above panel by primary hospitalist team Patient seen and care discussed with my attending physician, Dr. Ciara Lau, PGY-1
[2024-11-06 19:34] LABS: Basophils % (Auto) 0 % (0-2.5); Eosinophils # (Auto) 0.1 Thou/mm3 (0.0-0.5); Eosinophils % (Auto) 1 % (0-10); Hematocrit 31.7 % (41.0-53.0); Immature Granulocytes % (Auto) 0 % (0-0); Immature Granulocytes Auto 0.03 Thou/mm3 (0.00-0.00); Lymphocytes # (Auto) 0.8 Thou/mm3 (1.0-4.8); Lymphocytes % (Auto) 9 % (10-50); Mean Corpuscular HGB Conc 31.5 g/dl (31.0-37.0); Mean Corpuscular Hemoglobin 31.3 pg (25.0-35.0); Mean Corpuscular Volume 99 fL (80-100); Monocytes % (Auto) 12 % (0-12); Neutrophils # (Auto) 6.9 Thou/mm3 (1.8-7.7); Neutrophils % (Auto) 77 % (37-80); Nucleated Red Blood Cell % 0 /100 WBC (0); Platelet Count 178 Thou/mm3 (140-440); RDW Standard Deviation 53.6 fL (35.1-43.9)
[2024-11-06] MEDS: ATORVASTATIN CALCIUM 20 MG TABLET 80 MG PO (20:51)
[2024-11-06] MEDS: OLANZapine INJ 10 MG, Sterile Water 2.1 ML IM (20:52)
--- NOTE | 2024-11-06 23:21 | PD.VPROG1 ---
Telemedicine visit statement This visit was conducted with the use of virtual visit was obtained on 11/06/24 at 2321. Documentation for date of: 11/06/24 Subjective Subjective Interval history: Patient is in telemetry. Continues to remain restless, however much better than from admission. He received dialysis yesterday. He was able to eat few bites of his food and oral medication with a lot of encouragement. Oriented to person. Virtual exam Vital Signs Temp Pulse Resp BP Pulse Ox O2 Del Method O2 Flow Rate 97.1 F 98 13 146/91 H 97 Room Air 2 11/06/24 20:00 11/06/24 20:00 11/06/24 20:00 11/06/24 20:00 11/06/24 20:00 11/06/24 20:00 11/06/24 16:00 Objective Labs 11/06/24 05:30 11/06/24 07:42 Labs: Laboratory Results - last 24 hr 11/06/24 11/06/24 05:30 07:42 WBC 9.0 RBC 3.20 L Hgb 10.0 L Hct 31.7 L MCV 99 MCH 31.3 MCHC 31.5 RDW Std Deviation 53.6 H Plt Count 178 Neut % (Auto) 77 Lymph % (Auto) 9 L Murray % (Auto) 12 Eos % (Auto) 1 Baso % (Auto) 0 Neut # (Auto) 6.9 Lymph # (Auto) 0.8 L Murray # (Auto) 1.0 H Eos # (Auto) 0.1 Baso # (Auto) 0.0 Immature Gran # (Auto) 0.03 H Absolute Nucleated RBC 0.00 Immature Gran % 0 Nucleated RBC % 0 Sodium 144 Potassium 4.4 D Chloride 105 Carbon Dioxide 25.2 Anion Gap 14 BUN 63 H Creatinine 5.3 H* D Estim Creat Clear Calc 14.3 L eGFR 10 L* BUN/Creatinine Ratio 12 Glucose 132 H Calculated Osmolality 306 H Calcium 9.9 Corrected Calcium 9.9 Phosphorus 4.5 Magnesium 1.9 Total Bilirubin 0.6 AST 61 H ALT 35 Alkaline Phosphatase 145 H Total Protein 6.5 Albumin 4.5 Globulin 2.0 L Albumin/Globulin Ratio 2.3 H Random Vancomycin 17.6 ABG Interpretation ABG results: 11/03/24 14:12 VBG pH 7.39 VBG pCO2 43 VBG pO2 35 VBG Base Excess 1 Assessment & Plan Problem List (1) Delirium: Status: Acute Assessment and plan: Secondary to catheter related sepsis/MRSA, on vancomycin with baseline dementia subtle improvement noted in mental status Continue with the symptomatic treatment as needed. Consider physical therapy for range of motion and ambulation as he improves (2) End stage renal failure on dialysis: Status: Chronic Assessment and plan: On maintenance dialysis with a new dialysis access
[2024-11-07] VITALS (9 sets, daily range): BP systolic 124–168; BP diastolic 61–94; PULSE 47–96; RESP 12–97; TEMP 35.8–36.3; O2SAT 96–100; BMI 33.0; BMI 32.9; BMI 13.0
--- NOTE | 2024-11-07 00:40 | ESCONSULT_ITS ---
RE: LUCA DIXON : 1945 DATE OF CONSULTATION: 11/06/2024 HISTORY OF PRESENT ILLNESS: He is a 79-year-old gentleman with hypertension for more than 20 years, coronary artery disease, status post CABG in 2018, ischemic cardiomyopathy with ejection fraction of 30% and ESRD, on dialysis since 01/2023, dialyzing every Tuesday, Tuesday and Tuesday at [facility], who was admitted to the hospital yesterday with confusion. The patient was found with tunneled dialysis catheter infection and also blood culture x2 growing Gram positive cocci species. The patient was started on IV vancomycin 1.5 g x1. The patient also had dialysis yesterday, about 3500 mL of fluid was removed. His tunneled dialysis cath was also removed yesterday He is now without any dialysis catheter. He is less agitated as per his son. PHYSICAL EXAMINATION: GENERAL: Asleep, not as agitated. VITAL SIGNS: Blood pressure of 146/91 and heart rate of 98. HEENT: Anicteric sclerae. Normocephalic. NECK: Supple. No JVD. CHEST AND LUNGS: Symmetrical expansion. Clear breath sounds. CARDIAC: Without murmur. ABDOMEN: Soft and nontender. EXTREMITIES: No edema. LABORATORY DATA: Hemoglobin 10, WBC 9,000, and platelet count 178,000. Sodium 145, potassium 4.4, chloride 105, CO2 of 25.7, BUN 53, creatinine 5.3, glucose 132, and calcium 9.9. ASSESSMENT: 1. End-stage renal disease. 2. Altered level of consciousness secondary to sepsis. 3. Septicemia secondary to infected tunneled dialysis catheter, growing gram- positive cocci on both bottles. 4. Anemia of chronic kidney disease. 5. History of coronary artery bypass graft. 6. Ischemic cardiomyopathy. 7. Gram positive cocci septicemia. 8. Obesity. 9. Hypertension. PLAN: We will not be able to dialyze tomorrow, which is his usual day. Continue IV vancomycin at current dose. Once blood cultures are negative for 48 hours, then a new tunneled dialysis catheter can be inserted by IR and dialysis will resume. DT: 22:11:29 TT: 00:38:00 Ref: [id number] - TID: [id number] [facility]
--- NOTE | 2024-11-07 02:15 | EKG_ITS ---
[facility] Test Date: 2024-11-07 Pat Name: LUCA DIXON [facility] Gender[facility] Male Anglesmith Helper: ANDIE : 1945 Requested By: Josue Mckinnon Order Number: [id number] Reading MD: Josue Mckinnon Measurements Intervals [place] Rate: 90 P: 39 [place]: 179 QRS: -42 QRSD: 118 T: 144 QT: 374 QTc: 458 Interpretive Statements SINUS RHYTHM WITH FREQUENT VENTRICULAR PREMATURE COMPLEXES IN A BIGEMINAL PATTERN MARKED LEFT AXIS DEVIATION POSSIBLE ANTERIOR MYOCARDIAL INFARCTION , PROBABLY OLD MODERATE T-WAVE ABNORMALITY, CONSIDER LATERAL ISCHEMIA Compared to ECG 11/06/2024 08:44:36 Myocardial infarct finding now present T-wave abnormality now present Possible ischemia now present Sinus tachycardia no longer present Left ventricular hypertrophy no longer present ST (T wave) deviation no longer present /store/S0/[id number]/ecg/[id number].pdf
--- NOTE | 2024-11-07 02:20 | PC.NURSE ---
DR. HOYOS MADE AWARE OF CONTINUOUS BIGEMINAL PVC'S. HR 90'S. ORDER FOR EKG TO BE PLACED BY .
[2024-11-07] MEDS: HEPARIN SOD INJ 5000 UNIT/ML VIAL SC ×3 (05:16→21:13)
[2024-11-07 06:22] LABS: Basophils % (Auto) 0 % (0-2.5); Eosinophils # (Auto) 0.3 Thou/mm3 (0.0-0.5); Eosinophils % (Auto) 4 % (0-10); Hematocrit 29.5 % (41.0-53.0); Hemoglobin 9.9 g/dL (13.5-16.0); Immature Granulocytes % (Auto) 1 % (0-0); Immature Granulocytes Auto 0.04 Thou/mm3 (0.00-0.00); Lymphocytes # (Auto) 1.2 Thou/mm3 (1.0-4.8); Lymphocytes % (Auto) 16 % (10-50); Mean Corpuscular HGB Conc 33.6 g/dl (31.0-37.0); Mean Corpuscular Hemoglobin 31.5 pg (25.0-35.0); Mean Corpuscular Volume 94 fL (80-100); Monocytes # (Auto) 0.9 Thou/mm3 (0.0-0.8); Monocytes % (Auto) 13 % (0-12); Neutrophils # (Auto) 4.8 Thou/mm3 (1.8-7.7); Neutrophils % (Auto) 66 % (37-80); Nucleated Red Blood Cell % 0 /100 WBC (0); Platelet Count 183 Thou/mm3 (140-440); RDW Standard Deviation 49.3 fL (35.1-43.9); Red Blood Count 3.14 Miln/mm3 (4.50-5.90); White Blood Count 7.3 Thou/mm3 (3.8-10.6)
[2024-11-07 06:43] LABS: Alanine Aminotransferase 28 U/L (10-49); Albumin, Serum 3.9 gm/dL (3.4-4.8); Alkaline Phosphatase 128 U/L (46-116); Anion Gap 12 (7-16); Aspartate Amino Transferase 52 U/L (0-34); BUN/Creatinine Ratio 13 Ratio (12-20); Bilirubin,Total 0.8 mg/dL (0.3-1.2); Blood Urea Nitrogen 70 mg/dL (9-23); Calcium 10.1 mg/dL (8.3-10.6); Calcium (Corrected) 10.2 mg/dL (8.5-10.1); Carbon Dioxide 24.6 mMol/L (20.0-31.0); Chloride 105 mMol/L (98-107); Creatinine (Component) 5.6 mg/dL (0.6-1.3); Estimated Creatinine Clearance 13.2 mL/min (>60); Glucose 119 mg/dL (74-106); Osmolality,Calculated 304 (275-295); Phosphorous 4.3 mg/dL (2.4-5.1); Potassium 4.2 mMol/L (3.4-5.1); Sodium 142 mMol/L (136-145); Total Protein 5.9 gm/dL (5.7-8.2); eGFR 10 See Note
[2024-11-07 07:26] LABS: Vancomycin,Random 14.3 mcg/mL
[2024-11-07 08:52] LABS: Hepatitis A Antibody IgM Non Reactive (Non React); Hepatitis B Core Antibody IgM Non Reactive (Non React); Hepatitis B Surface Ab NonReact(Not Immune) (Immune); Hepatitis B Surface Antigen Non Reactive (Non React); Hepatitis C Antibody Non Reactive (Non React)
[2024-11-07] MEDS: PANTOPRAZOLE INJ 40 MG VIAL IVP (09:26)
[2024-11-07] MEDS: CLOPIDOGREL BISULFATE 75 MG TABLET PO (09:26)
[2024-11-07] MEDS: LEVOTHYROXINE SODIUM 25 MCG TABLET 50 MCG PO (09:26)
[2024-11-07] MEDS: METOPROLOL SUCCINATE XL 25 MG TABCR 50 MG PO ×2 (09:28→20:24)
--- NOTE | 2024-11-07 09:54 | ESPR_ITS ---
Documentation for date of: 11/07/24 Subjective Subjective Interval history: No acute overnight events. He is showing some progress in settings of his encephalopathic state. More oriented and cooperative. Still limited exam though. Unable to answer questions appropriately. Exam Vital Signs Temp Pulse Resp BP Pulse Ox O2 Del Method O2 Flow Rate 97.1 F 81 17 145/89 H 97 Room Air 2 11/07/24 04:00 11/07/24 09:28 11/07/24 07:54 11/07/24 09:28 11/07/24 07:54 11/07/24 04:00 11/06/24 16:00 Narrative Exam GENERAL * On soft restraint, slightly agitated, does not follow command, does not answer questions. HEENT * NCAT.?NALINI. Oral mucosa is moist. Patent Nares NECK * Supple, nontender, no thyromegaly, no meningismus, no JVD, no step offs * Left-sided tunneled cath noted, dressing in place and intact, skin warm and slightly erythematous. CHEST * RRR, no m/g/r * CTAB, no w/r/r. Symmetrical chest rise. No intercostal subcostal retraction * Atraumatic, nontender, no crepitus, symmetrical expansion. ABDOMEN * Soft, obese, nontender. No guarding/rebound tenderness/masses. * Bowel sounds presents EXTREMITIES * Nontender, no cyanosis, no edema * No edema/cyanosis.? SKIN * Warm and dry, no jaundice/rashes. NEUROMUSCULAR * Limited exam secondary to encephalopathy Objective Labs 11/08/24 04:50 11/08/24 04:50 Labs: Laboratory Results - last 24 hr 11/06/24 11/07/24 11/07/24 05:30 05:53 05:59 WBC 9.0 7.3 RBC 3.20 L 3.14 L Hgb 10.0 L 9.9 L Hct 31.7 L 29.5 L MCV 99 94 MCH 31.3 31.5 MCHC 31.5 33.6 RDW Std Deviation 53.6 H 49.3 H Plt Count 178 183 Neut % (Auto) 77 66 Lymph % (Auto) 9 L 16 [place] % (Auto) 12 13 H Eos % (Auto) 1 4 Baso % (Auto) 0 0 Neut # (Auto) 6.9 4.8 Lymph # (Auto) 0.8 L 1.2 [place] # (Auto) 1.0 H 0.9 H Eos # (Auto) 0.1 0.3 Baso # (Auto) 0.0 0.0 Immature Gran # (Auto) 0.03 H 0.04 H Absolute Nucleated RBC 0.00 0.00 Immature Gran % 0 1 H Nucleated RBC % 0 0 Sodium 142 Potassium 4.2 Chloride 105 Carbon Dioxide 24.6 Anion Gap 12 BUN 70 H Creatinine 5.6 H* Estim Creat Clear Calc 13.2 L eGFR 10 L* BUN/Creatinine Ratio 13 Glucose 119 H Calculated Osmolality 304 H Calcium 10.1 Corrected Calcium 10.2 H Phosphorus 4.3 Magnesium 2.0 Total Bilirubin 0.8 AST 52 H ALT 28 Alkaline Phosphatase 128 H Total Protein 5.9 Albumin 3.9 D Globulin 2.0 L Albumin/Globulin Ratio 2.0 Random Vancomycin 14.3 Hepatitis A IgM Ab Non Reactive Hep Bs Antigen Non Reactive Hep Bs Antibody NonReact(Not Immune) L Hep B Core IgM Ab Non Reactive Hepatitis C Antibody Non Reactive ABG Interpretation ABG results: 11/03/24 14:12 VBG pH 7.39 VBG pCO2 43 VBG pO2 35 VBG Base Excess 1 Quality Measures Quality Measures sepsis Current suspected stage: sepsis Possible source: unknown Blood cultures ordered: yes Antibiotic ordered: Yes Advance care planning discussed with:: patient and spouse Assessment & Plan Assessment Current Active Medications: Generic Name Dose Route Start Last Admin Trade Name Freq PRN Reason Stop Dose Admin Acetaminophen 650 mg 11/03/24 19:16 Acetaminophen 325 Mg Tablet PO 12/03/24 19:15 Q6H PRN PAIN SCALE 1-3 (mild Acetaminophen 650 mg 11/03/24 21:16 Acetaminophen Supp 650 Mg Supp [place] 12/03/24 21:29 Q6H PRN Fever > 100.4 Albuterol/Ipratropium 3 ml 11/03/24 19:16 Albuterol/Ipratropium (Duoneb) Rt Dianne 3 Ml Nebu INH 12/03/24 22:59 Q4HRRT PRN SOB or wheezing Aspirin 300 mg 11/03/24 21:05 11/06/24 11:01 Aspirin 300 Mg Supp LA 12/03/24 21:04 Not Given QDAY TARIK Atorvastatin Calcium 80 mg 11/04/24 21:00 11/06/24 20:51 Atorvastatin Calcium 20 Mg Tablet PO 12/04/24 20:59 80 mg HS TARIK Administration Clopidogrel Bisulfate 75 mg 11/06/24 09:00 11/07/24 09:26 Clopidogrel Bisulfate 75 Mg Tablet PO 12/06/24 08:59 75 mg QDAY TARIK Administration Haloperidol Lactate 7.5 mg 11/05/24 10:16 11/06/24 17:05 Haloperidol Lact Inj 5 Mg/Ml Vial IM 12/05/24 10:29 7.5 mg Q6H PRN Administration AGITATION Heparin Sodium (Porcine) 5,000 unit 11/03/24 22:00 11/07/24 05:16 Heparin Sod Inj 5000 Unit/Ml Vial SC 11/17/24 21:59 5,000 unit Q8HR TARIK Administration Heparin Sodium (Porcine) 3,900 unit 11/05/24 10:19 11/05/24 11:14 Heparin Sod Inj 1000 Unit/Ml Vial 10 Ml INDWELLCAT 11/19/24 10:18 3,900 unit PRN PRN Administration DIALYSIS Albumin Human 25 gm in 100 mls @ 100 mls/min 11/05/24 10:19 Albuminar-25 Ivpb IV QDAY PRN DIALYSIS Vancomycin/Sodium Chloride 100 mls @ 120 mls/hr 11/07/24 16:00 Vancomycin/Ns 500 Mg Ivpb IV 11/07/24 16:49 X1 ONE Levothyroxine Sodium 50 mcg 11/04/24 06:00 11/07/24 09:26 Levothyroxine Sodium 25 Mcg Tablet PO 12/04/24 05:59 50 mcg QAM TARIK Administration Metoprolol Succinate 50 mg 11/07/24 09:00 11/07/24 09:28 Metoprolol Succinate Xl 25 Mg Tabcr PO 12/07/24 08:59 50 mg QDAY TARIK Administration Ondansetron HCl 4 mg 11/03/24 14:16 11/03/24 17:26 Ondansetron Inj 2 Mg/Ml Inj 2 Ml IV 12/03/24 14:15 4 mg Q4HR PRN Administration NAUSEA OR VOMITING Pantoprazole Sodium 40 mg 11/05/24 10:45 11/07/24 09:26 Pantoprazole Inj 40 Mg Vial IVP 12/05/24 10:44 40 mg QDAY TARIK Administration Pharmacy Consult 1 each 11/04/24 09:00 Vancomycin Pharmacy To Dose 1 Each Each IV 12/04/24 08:59 QDAY PRN CONSULT Pharmacy Consult 1 each 11/03/24 21:18 Pharmacy Renal Dose Adjustment 1 Ea XX 12/03/24 21:17 PRN PRN CONSULT Sennosides 1 tab 11/03/24 19:16 Senna Tablet PO 12/03/24 19:15 BID PRN CONSTIPATION Protocol Plan In summary: 71-zlsh-bpl-year-old male PMHx of ESRD on HD MWF, HFrEF EF 30%, CVA, hypothyroidism presenting with AMS in setting of CRBSI sepsis. He continued on VANCOMYCIN for MRSA bacteremia. HD cath removed. If blood culture negative tomorrow (48 hours), will proceed with hemodialysis cath insertion. Appreciate recommendations from cardiology and ID. HOLDING PLAVIX, HEPARIN, ASA for after HD cath insertion tomorrow. Order placed for HD cath inserting tomorrow 11/08. Cancel if 48H blood cx positive. Sepsis (improving) Catheter site cellulitis MRSA bacteremia 2/2 CRBSI Met 2/4 SIRS criteria with tachycardia, fever. LA normal, no leukocytosis. HD tunneled cath erythematous and warm suggesting cellulitis. Afebrile, leukocytosis improving. Prelim blood culture showing GPC. Dialysis, significant removed. Continue on VANCOMYCIN. 24-hour blood culture negative. Catheter site cx grew GPC. MRSA nasal swab positive. Afebrile, no leukocytosis ? Continue VANCOMYCIN (11/04 to present) ? Pending cath culture ? Pending repeat blood culture Acute encephalopathy Agitations Likely history of dementia Likely secondary to metabolic encephalopathy. Unclear what baseline is, currently attending, does not follow command, agitated, requiring multiple medications. Continued on soft restraints. Started scheduled HALOPERIDOL. Head CT was negative. No focal neurological deficit. No indication for stroke workup. Neurology consulted, agreed with ANTIPSYCHOTICS for agitation. ? Continue HALOPERIDOL 5 mg q.6h. PRN ? QTC 406 ? Reorientation NSTEMI type II Hx CAD, CT HFrEF EF 35-40 Troponin peaked at 0.976. Unable to assess symptoms secondary to encephalopathy. EKG sinus rhythm without acute ST changes. Demand ischemia in settings of sepsis versus volume overload. Anticipate improvement with diuresis and preload reduction. Cardiology consulted, recommendations included below. HR in 80s. ? Continue ATORVASTATIN 80 mg daily ? Continue ASPIRIN 300 mg daily ? Continue home PLAVIX 75 mg daily ? Continue METOPROLOL succinate 50 mg BID (home dose 200 mg daily) Hypomagnesemia 1/28 Magnesium 1.9. Will not replete as patient does not have a dialysis line and won't be getting HD today. Low mag may be protective against hyperkalemia at this time. ? Daily CMP ESRD on HD Patient has dialysis Tuesday, Tuesday, Tuesday. Cath removed, will need new cath once 48H blood Cx is negative. ? Renally dose meds, avoid overdiuresis and NEPHROTOXINS ? Daily CMP ? Hemodialysis with nephrology team. History of CVA History of CHF ? Continue ASPIRIN 300 mg daily ? Continue ATORVASTATIN 80 mg daily ? Pending echocardiogram Hypothyroidim TSH 4.6 this visit. ? Continue home LEVOTHYROXINE 50 mcg ACBR Normocytic anemia (stable) Patient has Hb of 10.8 No obvious source of bleeding We will monitor closely, may need outpatient workup Health maintenance Diet: NPO GI prophylaxis: PROTONIX DVT prophylaxis: SCD Antibiotics: VANCOMYCIN CODE STATUS: Full code Disposition: Pending repeat blood culture, cath culture. Will need new cath once 48H blood cx negative. Patient case was discussed with attending, Aries Angulo MD and senior residents Dr. Maloney and Dr. Soto. Greg Angel, PGYI Senior Resident Attestation: The patient was doing better and his mentation has been improving. We will follow up on BCx and if it is negative by [address] HD dialysis catheter tomorrow. I discussed with and supervised the procurement internship physician involved in the care of this patient. I personally saw and examined the patient and discussed the assessment and plan with the entire medicine team, including my attending. I agree with the assessment and plan as documented above. Saeid Soto MD PGY2 Internal Medicine Attending Provider Attestation/Addendum I reviewed labs, imaging, EKG, home medications and prior available records. Face to face evaluation was performed by me. I have personally examined the patient and discussed assessment and plan with the IM team. I reviewed the resident note and agree with the plan with exceptions as below. Hyperactive agitation Sepsis MRSA bacteremia Line associated infection ESRD on hemodialysis Non-STEMI HFrEF Agitation improved. Continue IV haloperidol, Ativan, and olanzapine as needed. Remove restraints. Continue management of sepsis as below. Continue delirium precautions. Manage constipation as needed. Continue IV vancomycin. Consulted ID for antibiotic guidance Follow-up cultures identification and sensitivity: Showed gram-positive cocci. Sent dialysis line after removal to culture ESRD on hemodialysis: Hemodialysis prior to removal of the dialysis line. Insert a new dialysis line for 48 hours after negative blood culture Troponin peaked. Ordered EKG that showed sinus tachycardia with ectopies and bigeminy. Consulted cardiology: Recommended echocardiogram: Showed severely reduced EF of 30 to 35%. Started metoprolol XL. Continue aspirin and atorvastatin. Added Plavix Decreased metoprolol to 50 mg given the bradycardia. Discussed with cardiology: Increase when tolerates
[2024-11-07] MEDS: ASPIRIN EC 81 MG TABEC PO (10:03)
[2024-11-07] MEDS: HALOPERIDOL LACT INJ 5 MG/ML VIAL 7.5 MG IM (10:23)
--- NOTE | 2024-11-07 12:19 | PD.RESPRO ---
Documentation for date of: 11/07/24 Subjective Subjective Interval history: 11/06/2024: Pt examined at bedside today. Overnight events on telemetry included pt having HR in 100s and 110s. Pt still appears to be a bit agitated at this time. He still has some restraints. Family is present at bedside. He was found to have MRSA CRBSI, currently on Vancomycin. CMP and other labs pending. No other complaints at this time. 11/07/2024: Patient examined at bedside today. Overnight events on telemetry included patient being in the rate of 80s to 90s, however still appears to have some occasional PVCs and trigeminy. Patient does seem a bit agitated currently, he is saying that he does not want to answer any questions requesting me for to leave and that he does not want to talk about his medical problems and he does not have any questions for me at this time. He denies having any chest pain, palpitations or shortness of breath. His BUN/creatinine is 75.6 respectively, magnesium 2, phosphorus 4.3, potassium 4.2, white count 7.3, hemoglobin 9.9. Patient to get dialysis catheter tomorrow and to have dialysis tomorrow as well. Patient has no other complaints this time. Exam Vital Signs Temp Pulse Resp BP Pulse Ox O2 Del Method O2 Flow Rate 96.5 F L 81 20 145/89 H 96 Room Air 2 11/07/24 08:00 11/07/24 09:28 11/07/24 08:00 11/07/24 09:28 11/07/24 08:00 11/07/24 08:00 11/06/24 16:00 Narrative Exam General: AAOx2, agitated, wearing diaper HEENT: Moist mucous membranes, conjunctiva clear, EOMI, PERRLA, poor dentition Cardiovascular: Possible murmur heard over SNOW, tachycardic Pulmonary: CTAB bilat no cough, no wheezing GI: No tenderness to light or deep palpitation, no guarding, rigidity, rebound tenderness or distension Extremities: No presence of trace or pitting edema in lower extremities bilaterally, dorsalis pedis pulses +2 bilaterally Neuro: AAOx2, no focal motor or sensory deficits in the UE or LE bilat Psych: Not the most cooperative Objective Labs 11/07/24 05:59 11/07/24 05:59 Labs: Laboratory Results - last 24 hr 11/06/24 11/07/24 11/07/24 05:30 05:53 05:59 WBC 9.0 7.3 RBC 3.20 L 3.14 L Hgb 10.0 L 9.9 L Hct 31.7 L 29.5 L MCV 99 94 MCH 31.3 31.5 MCHC 31.5 33.6 RDW Std Deviation 53.6 H 49.3 H Plt Count 178 183 Neut % (Auto) 77 66 Lymph % (Auto) 9 L 16 [place] % (Auto) 12 13 H Eos % (Auto) 1 4 Baso % (Auto) 0 0 Neut # (Auto) 6.9 4.8 Lymph # (Auto) 0.8 L 1.2 [place] # (Auto) 1.0 H 0.9 H Eos # (Auto) 0.1 0.3 Baso # (Auto) 0.0 0.0 Immature Gran # (Auto) 0.03 H 0.04 H Absolute Nucleated RBC 0.00 0.00 Immature Gran % 0 1 H Nucleated RBC % 0 0 Sodium 142 Potassium 4.2 Chloride 105 Carbon Dioxide 24.6 Anion Gap 12 BUN 70 H Creatinine 5.6 H* Estim Creat Clear Calc 13.2 L eGFR 10 L* BUN/Creatinine Ratio 13 Glucose 119 H Calculated Osmolality 304 H Calcium 10.1 Corrected Calcium 10.2 H Phosphorus 4.3 Magnesium 2.0 Total Bilirubin 0.8 AST 52 H ALT 28 Alkaline Phosphatase 128 H Total Protein 5.9 Albumin 3.9 D Globulin 2.0 L Albumin/Globulin Ratio 2.0 Random Vancomycin 14.3 Hepatitis A IgM Ab Non Reactive Hep Bs Antigen Non Reactive Hep Bs Antibody NonReact(Not Immune) L Hep B Core IgM Ab Non Reactive Hepatitis C Antibody Non Reactive ABG Interpretation ABG results: 11/03/24 14:12 VBG pH 7.39 VBG pCO2 43 VBG pO2 35 VBG Base Excess 1 Quality Measures Quality Measures sepsis Current suspected stage: sepsis Possible source: unknown Blood cultures ordered: yes Antibiotic ordered: Yes Advance care planning discussed with:: patient Assessment & Plan Assessment Current Active Medications: Generic Name Dose Route Start Last Admin Trade Name Freq PRN Reason Stop Dose Admin Acetaminophen 650 mg 11/03/24 19:16 Acetaminophen 325 Mg Tablet PO 12/03/24 19:15 Q6H PRN PAIN SCALE 1-3 (mild Acetaminophen 650 mg 01/25/25 21:16 Acetaminophen Supp 650 Mg Supp [place] 12/03/24 21:29 Q6H PRN Fever > 100.4 Albuterol/Ipratropium 3 ml 11/03/24 19:16 Albuterol/Ipratropium (Duoneb) Rt Dianne 3 Ml Nebu INH 12/03/24 22:59 Q4HRRT PRN SOB or wheezing Aspirin 81 mg 11/07/24 10:00 11/07/24 10:03 Aspirin Ec 81 Mg Tabec PO 12/07/24 09:59 81 mg QDAY TARIK Administration Atorvastatin Calcium 80 mg 11/04/24 21:00 11/06/24 20:51 Atorvastatin Calcium 20 Mg Tablet PO 12/04/24 20:59 80 mg HS TARIK Administration Clopidogrel Bisulfate 75 mg 11/06/24 09:00 11/07/24 09:26 Clopidogrel Bisulfate 75 Mg Tablet PO 12/06/24 08:59 75 mg QDAY TARIK Administration Haloperidol Lactate 7.5 mg 11/05/24 10:16 11/07/24 10:23 Haloperidol Lact Inj 5 Mg/Ml Vial IM 12/05/24 10:29 7.5 mg Q6H PRN Administration AGITATION Heparin Sodium (Porcine) 5,000 unit 11/03/24 22:00 11/07/24 05:16 Heparin Sod Inj 5000 Unit/Ml Vial SC 11/17/24 21:59 5,000 unit Q8HR TARIK Administration Heparin Sodium (Porcine) 3,900 unit 11/05/24 10:19 11/05/24 11:14 Heparin Sod Inj 1000 Unit/Ml Vial 10 Ml INDWELLCAT 11/19/24 10:18 3,900 unit PRN PRN Administration DIALYSIS Albumin Human 25 gm in 100 mls @ 100 mls/min 11/05/24 10:19 Albuminar-25 Ivpb IV QDAY PRN DIALYSIS Vancomycin/Sodium Chloride 100 mls @ 120 mls/hr 11/07/24 16:00 Vancomycin/Ns 500 Mg Ivpb IV 11/07/24 16:49 X1 ONE Levothyroxine Sodium 50 mcg 11/04/24 06:00 11/07/24 09:26 Levothyroxine Sodium 25 Mcg Tablet PO 12/04/24 05:59 50 mcg QAM TARIK Administration Metoprolol Succinate 50 mg 11/07/24 21:00 Metoprolol Succinate Xl 25 Mg Tabcr PO 12/07/24 20:59 BID TARIK Ondansetron HCl 4 mg 11/03/24 14:16 11/03/24 17:26 Ondansetron Inj 2 Mg/Ml Inj 2 Ml IV 12/03/24 14:15 4 mg Q4HR PRN Administration NAUSEA OR VOMITING Pantoprazole Sodium 40 mg 11/05/24 10:45 11/07/24 09:26 Pantoprazole Inj 40 Mg Vial IVP 12/05/24 10:44 40 mg QDAY TARIK Administration Pharmacy Consult 1 each 11/04/24 09:00 Vancomycin Pharmacy To Dose 1 Each Each IV 12/04/24 08:59 QDAY PRN CONSULT Pharmacy Consult 1 each 11/03/24 21:18 Pharmacy Renal Dose Adjustment 1 Ea XX 12/03/24 21:17 PRN PRN CONSULT Sennosides 1 tab 11/03/24 19:16 Senna Tablet PO 12/03/24 19:15 BID PRN CONSTIPATION Protocol Plan Assessment Malik is a 79-year-old male past medical history of past medical history of ESRD on hemodialysis (MWF, sees Dr. Padilla), HFrEF (possibly EF of 30), Previous CVA, possible hypothyroidism currently admitted for sepsis secondary to catheter related bloodstream infection which is showing GPC currently #NSTEMI, likely type II related to demand ischemia, resolved #History of coronary artery disease status post multiple stents and CABG triple bypass #History of myocardial infarction #Nonsustained supraventricular tachycardia #HFrEF with EF of 35 to 40% #Ischemic cardiomyopathy Unsure when patient's CABG was, will follow-up with records and family Patient takes home Plavix as well in addition to aspirin as well ranolazine Some bouts of nonsustained supraventricular tachycardia with trigeminy seen on telemetry Pt continues to have some tachycardia, but has not been giving home metoprolol doses Pt does have MRSA bactermia, will treat as well Upon review of cardiac catheter records 2 weeks ago at [facility] Saphenous vein graft to left circumflex?occluded whenever send HOOK to LAD?patent [place] LAD?moderate to severe disease Saphenous vein graft to RCA patent with good flow [place] left coronary artery severe proximal disease Not a candidate for PCI EF 35 to 40% Ischemic cardiomyopathy We want to uptitrate metoprolol back to 200 mg as patient heart rate and blood pressure will tolerate Plan: ? Primary team resume home Lipitor 80 mg ? Continue with home aspirin suppository 300 mg ? Plavix 75 mg seems to be a home medicine for this patient, recommend restarting ? Recommend resuming ranolazine ? Patient is currently on metoprolol XL 100 mg we recommend to go back to 200 mg as tolerated ? Keep magnesium and potassium above 2 and 4 respectively ? Follow up Echo ? Telemetry ? ID following, appreciate recs #Sepsis #Catheter site cellulitis #MRSA Bacteremia 2/ CRBSI #ESRD on HD #History of CVA #Hypothyroidim #Normocytic anemia #Acute encephalopathy #Agitations #Likely history of dementia Management above panel by primary hospitalist team Patient seen and care discussed with my attending physician, Dr. Ciara Lau, PGY-1 Attending Provider Attestation/Addendum I have personally seen and examined the patient separately on the above date of service and discussed the plan of care with the resident. I reviewed the resident Dr. Morris consultation progress note and agree with the resident findings and plan in the note above and have also edited the documentation to reflect my findings and plan. Bismark Urbina M.D. Interventional Cardiology
[2024-11-07] MEDS: VANCOMYCIN/NS 500 MG IVPB 100 ML 120 MG IV (16:03)
--- NOTE | 2024-11-07 16:32 | PD.IDPROG ---
Subjective Subjective Interval history: initial bc with mrsa. on vanco. line out. repeats pending Exam Vital Signs Temp Pulse Resp BP Pulse Ox O2 Del Method O2 Flow Rate 96.7 F L 77 12 124/82 98 Room Air 2 11/07/24 12:00 11/07/24 12:00 11/07/24 12:00 11/07/24 12:00 11/07/24 12:00 11/07/24 12:00 11/06/24 16:00 Narrative Exam likely iv cath related bacteremia unless his exam shows us something Objective - Internal Medicine Labs 11/07/24 05:59 11/07/24 05:59 Labs: Laboratory Results - last 24 hr 11/06/24 11/07/24 11/07/24 05:30 05:53 05:59 WBC 9.0 7.3 RBC 3.20 L 3.14 L Hgb 10.0 L 9.9 L Hct 31.7 L 29.5 L MCV 99 94 MCH 31.3 31.5 MCHC 31.5 33.6 RDW Std Deviation 53.6 H 49.3 H Plt Count 178 183 Neut % (Auto) 77 66 Lymph % (Auto) 9 L 16 Merrick % (Auto) 12 13 H Eos % (Auto) 1 4 Baso % (Auto) 0 0 Neut # (Auto) 6.9 4.8 Lymph # (Auto) 0.8 L 1.2 Merrick # (Auto) 1.0 H 0.9 H Eos # (Auto) 0.1 0.3 Baso # (Auto) 0.0 0.0 Immature Gran # (Auto) 0.03 H 0.04 H Absolute Nucleated RBC 0.00 0.00 Immature Gran % 0 1 H Nucleated RBC % 0 0 Sodium 142 Potassium 4.2 Chloride 105 Carbon Dioxide 24.6 Anion Gap 12 BUN 70 H Creatinine 5.6 H* Estim Creat Clear Calc 13.2 L eGFR 10 L* BUN/Creatinine Ratio 13 Glucose 119 H Calculated Osmolality 304 H Calcium 10.1 Corrected Calcium 10.2 H Phosphorus 4.3 Magnesium 2.0 Total Bilirubin 0.8 AST 52 H ALT 28 Alkaline Phosphatase 128 H Total Protein 5.9 Albumin 3.9 D Globulin 2.0 L Albumin/Globulin Ratio 2.0 Random Vancomycin 14.3 Hepatitis A IgM Ab Non Reactive Hep Bs Antigen Non Reactive Hep Bs Antibody NonReact(Not Immune) L Hep B Core IgM Ab Non Reactive Hepatitis C Antibody Non Reactive ABG Interpretation ABG results: 11/03/24 14:12 VBG pH 7.39 VBG pCO2 43 VBG pO2 35 VBG Base Excess 1 Assessment & Plan A&P Narrative 79 y/o hd pt with pos bc with mrsa line removed and repeat bc pending (neg so far) ckd 5 chf cva hx recent line placement noted. if pending bc neg at 48h. then ok for vanco with hd thru 2/6 pm (10d from first neg) can finish as outpt and if bc neg at 48h. replace tdc as well. will see tuesday if he remains in house. czn not go home in current condition per son. so if he is not more mobile, then he should stay in house till he is so as his is also 79 and had a cva and is frail. Time Spent With Patient Time: Total time spent is greater than 50% in coordination of care (as documented) at patient's floor/unit and/or counseling patient:
--- NOTE | 2024-11-07 16:53 | ESCONSULT_ITS ---
<Statement entered by Holger Phelps MD - 11/08/24 06:52> pt seen with resident. all findings confirmed HPI Data of Consult Requesting Physician: Aries Angulo MD Admitting Provider: Cally Dawson MD Attending Provider: Aries Angulo MD Primary Care Provider: Rosey Morin DO Consult Narrative History of present illness: 79-year-old man with past medical history of ESRD on hemodialysis, HFrEF, hypothyroidism, history of CVA who was admitted to [facility] on 11/03/2024 due to acute encephalopathy secondary to sepsis in the setting of hemodialysis catheter cellulitis and bacteremia. Infectious disease was consulted. Patient and son at the bedside stated that the patient was in his usual state of health and all of a sudden became altered and that this behavior normally happens every time he has any kind of infection . The son stated that previous days before admission he underwent permanent tunneled catheter for dialysis. Pertinent labs: WBCs 7.3, blood culture grew MRSA, MRSA nasal screen was positive, chest Gram stain and culture preliminary growing GPC, catheter tip was negative, repeated preliminary blood cultures were negative. Past medical history:ESRD on hemodialysis, HFrEF, hypothyroidism, history of CVA, multiple episodes of bacteremia and UTIs per patient's son Past surgical history: CABG Family history: Moderate diabetes Social history: Retired lives with his Travel history: None relevant Allergies: Penicillins Immunization: Unknown cc:: cc: Aries Angulo MD Review of Systems Review of Systems ROS Unobtainable: unobtainable due to mental status Exam Vital Signs Temp Pulse Resp BP Pulse Ox O2 Del Method O2 Flow Rate 96.7 F L 77 12 124/82 98 Room Air 2 11/07/24 12:11/07/24 12:00 11/07/24 12:11/07/24 12:11/07/24 12:11/07/24 12:11/06/24 16:00 Narrative Exam General: No acute distress, AO x 2, confused HEENT: NC/AT, PERRL, EOMI, Good conjugate gaze, moist mucous membranes, oropharynx clear. Neck: Supple, No masses, No adenopathy, carotid pulse 2+ bilaterally without bruits, No JVD, normal range of motion, previous placement of tunneled catheter for dialysis clean no erythema Chest: Symmetrical, atraumatic, and with equal expansion , Nontender on palpation no deformity and no crepitus. CVS: S1 and S2 present, Regular rate and rhythm, No murmurs, rubs or gallops perceived during auscultation. Lungs: Normal respiratory effort, CTAB, no wheezing, rhonchi or rales perceived during auscultation, No intercostal or subcostal retraction. Abdomen : Soft, no tenderness to palpation, no guarding ,no rebound, +BS Extremities: Left upper extremity with AV fistula for dialysis ,no edema, warm well perfused Skin: Intact, no rashes, no lesions, no erythema or jaundice noted Neuro: Difficult to assess the patient altered mental status Psych: Difficult to assess due to patient altered mental status Results Labs 11/07/24 05:59 11/07/24 05:59 Labs: Short CBC 11/06/24 11/07/24 Range/Units 05:30 05:59 WBC 9.0 7.3 (3.8-10.6) Thou/mm3 Hgb 10.0 L 9.9 L (13.5-16.0) g/dL Hct 31.7 L 29.5 L (41.0-53.0) % Plt Count 178 183 (140-440) Thou/mm3 BMP 11/07/24 05:59 Sodium 142 Potassium 4.2 Chloride 105 Carbon Dioxide 24.6 BUN 70 H Creatinine 5.6 H* Glucose 119 H Calcium 10.1 Liver Function 11/07/24 Range/Units 05:59 Total Bilirubin 0.8 (0.3-1.2) mg/dL AST 52 H (0-34) U/L ALT 28 (10-49) U/L Alkaline Phosphatase 128 H (46-116) U/L Albumin 3.9 D (3.4-4.8) gm/dL ABG Interpretation ABG results: 11/03/24 14:12 VBG pH 7.39 VBG pCO2 43 VBG pO2 35 VBG Base Excess 1 Quality Measures Quality Measures sepsis Current suspected stage: sepsis Possible source: unknown Blood cultures ordered: yes Antibiotic ordered: Yes Advance care planning discussed with:: child Medications Home Medications and Allergies Home Medications ?Medication ?Instructions ?Recorded ?Confirmed ?Type Levothyroxine * (SYNTHROID *) 50 mcg PO QDAY #0 tabs 1 11/16/15 11/04/24 History atorvastatin 80 mg tablet (Lipitor) 80 mg PO HS #0 tab s 09/15/16 11/04/24 History nitroglycerin 0.4 mg sublingual 0.4 mg SL PRN PRN CHES T PAIN #0 09/15/16 11/04/24 History tablet (Nitrostat) tabs clopidogrel 75 mg tablet (Plavix) 75 mg PO QDAY 11/04/24 History allopurinol 100 mg tablet 100 mg PO DAILY 11/04/24 History donepezil 5 mg tablet 5 mg PO QDAY 11/04/24 History hydralazine 50 mg tablet 50 mg PO TID 11/04/24 History metoprolol succinate 200 mg 200 mg PO QDAY 11/04/24 History tablet,extended release 24 hr mirtazapine 30 mg tablet 30 mg PO HS 11/04/24 5 History ondansetron HCl 4 mg tablet 4 mg PO Q6H PRN nausea and 11/04/24 11/04/24 History vomitting pantoprazole 40 mg tablet,delayed 40 mg PO BID 5 11/04/24 History release ranolazine 1,000 mg 1,000 mg PO BID 11/04/24 History tablet,extended release,12 hr Allergies Allergy/AdvReac Type Severity Reaction Status Date / Time Penicillins Allergy Severe RASH/ Verified 01/25/23 15:32 REDNESS Visit Medications Acetaminophen (Acetaminophen 325 Mg Tablet) 650 mg PO Q6H PRN PRN Reason: PAIN SCALE 1-3 (mild Stop: 12/03/24 19:15 Acetaminophen (Acetaminophen Supp 650 Mg Supp) 650 mg [place] Q6H PRN PRN Reason: Fever > 100.4 Stop: 12/03/24 21:29 Albuterol/Ipratropium (Albuterol/Ipratropium (Duoneb) Rt Dianne 3 Ml Nebu) 3 ml INH Q4HRRT PRN PRN Reason: SOB or wheezing Stop: 12/03/24 22:59 Aspirin (Aspirin Ec 81 Mg Tabec) 81 mg PO QDAY TARIK Stop: 12/07/24 09:59 Last Admin: 11/07/24 10:03 Dose: 81 mg Atorvastatin Calcium (Atorvastatin Calcium 20 Mg Tablet) 80 mg PO HS [facility] Stop: 12/04/24 20:59 Last Admin: 11/06/24 20:51 Dose: 80 mg Clopidogrel Bisulfate (Clopidogrel Bisulfate 75 Mg Tablet) 75 mg PO QDAY [facility] Stop: 12/06/24 08:59 Last Admin: 11/07/24 09:26 Dose: 75 mg Haloperidol Lactate (Haloperidol Lact Inj 5 Mg/Ml Vial) 5 mg IM Q6H PRN PRN Reason: AGITATION Stop: 12/05/24 10:29 Heparin Sodium (Porcine) (Heparin Sod Inj 5000 Unit/Ml Vial) 5,000 unit SC Q8HR [facility] Stop: 11/17/24 21:59 Last Admin: 11/07/24 13:16 Dose: 5,000 unit Heparin Sodium (Porcine) (Heparin Sod Inj 1000 Unit/Ml Vial 10 Ml) 3,900 unit INDWELLCAT PRN PRN PRN Reason: DIALYSIS Stop: 11/19/24 10:18 Last Admin: 11/05/24 11:14 Dose: 3,900 unit Albumin Human (Albuminar-25 Ivpb) 25 gm in 100 mls @ 100 mls/min IV QDAY PRN PRN Reason: DIALYSIS Levothyroxine Sodium (Levothyroxine Sodium 25 Mcg Tablet) 50 mcg PO QAM [facility] Stop: 12/04/24 05:59 Last Admin: 11/07/24 09:26 Dose: 50 mcg Metoprolol Succinate (Metoprolol Succinate Xl 25 Mg Tabcr) 50 mg PO BID [facility] Stop: 12/07/24 20:59 Ondansetron HCl (Ondansetron Inj 2 Mg/Ml Inj 2 Ml) 4 mg IV Q4HR PRN PRN Reason: NAUSEA OR VOMITING Stop: 12/03/24 14:15 Last Admin: 11/03/24 17:26 Dose: 4 mg Pantoprazole Sodium (Pantoprazole Inj 40 Mg Vial) 40 mg IVP QDAY [facility] Stop: 12/05/24 10:44 Last Admin: 11/07/24 09:26 Dose: 40 mg Pharmacy Consult (Vancomycin Pharmacy To Dose 1 Each Each) 1 each IV QDAY PRN PRN Reason: CONSULT Stop: 12/04/24 08:59 Pharmacy Consult (Pharmacy Renal Dose Adjustment 1 Ea) 1 each XX PRN PRN PRN Reason: CONSULT Stop: 12/03/24 21:17 Sennosides (Senna Tablet) 1 tab PO BID PRN; Protocol PRN Reason: CONSTIPATION Stop: 12/03/24 19:15 Discontinued Medications Acetaminophen (Acetaminophen Supp 650 Mg Supp) 1,000 mg [place] X1 ONE Stop: 11/03/24 14:59 Last Admin: 11/03/24 15:06 Dose: 1,000 mg Aspirin (Aspirin 300 Mg Supp) 300 mg NY QDAY [facility] Stop: 12/03/24 21:04 Last Admin: 11/07/24 10:02 Dose: Not Given Aspirin (Aspirin 300 Mg Supp) 300 mg [place] X1 ONE Stop: 11/06/24 15:22 Last Admin: 11/06/24 17:01 Dose: 300 mg Clopidogrel Bisulfate (Clopidogrel Bisulfate 75 Mg Tablet) 75 mg PO X1 ONE Stop: 11/06/24 15:22 Last Admin: 11/06/24 17:01 Dose: 75 mg Olanzapine 10 mg/ Sterile (Water 2.1 ml) 0 mg IM X1 ONE Stop: 11/04/24 00:19 Last Admin: 11/04/24 00:30 Dose: 1 dose Olanzapine 10 mg/ Sterile (Water 2.1 ml) 0 mg IV QDAY ONE Stop: 11/04/24 09:31 Last Admin: 11/04/24 09:47 Dose: 1 dose Olanzapine 10 mg/ Sterile (Water 2.1 ml) 0 mg IM QDAY [facility] Stop: 12/04/24 16:03 Last Admin: 11/05/24 16:01 Dose: Not Given Olanzapine 10 mg/ Sterile (Water 2.1 ml) 0 mg IM QDAY [facility] Stop: 12/05/24 04:26 Last Admin: 11/05/24 23:57 Dose: Not Given Olanzapine 10 mg/ Sterile (Water 2.1 ml) 0 mg IM X1 ONE Stop: 11/05/24 04:47 Last Admin: 11/05/24 05:35 Dose: 1 dose Olanzapine 10 mg/ Sterile (Water 2.1 ml) 0 mg IM QDAY [facility] Stop: 12/06/24 20:09 Olanzapine 10 mg/ Sterile (Water 2.1 ml) 0 mg IM QDAY ONE Stop: 11/06/24 20:11 Last Admin: 11/06/24 20:52 Dose: 1 dose Fentanyl Citrate (Fentanyl Cit Inj 50 Mcg/Ml Amp 2ml) 50 mcg IVP X1 ONE Stop: 11/05/24 15:20 Last Admin: 11/05/24 15:19 Dose: 50 mcg Haloperidol Lactate (Haloperidol Lact Inj 5 Mg/Ml Vial) 2 mg IV X1 ONE Stop: 11/03/24 19:42 Last Admin: 11/03/24 20:04 Dose: 2 mg Haloperidol Lactate (Haloperidol Lact Inj 5 Mg/Ml Vial) 5 mg IM X1 ONE Stop: 11/03/24 22:36 Last Admin: 11/03/24 22:42 Dose: 5 mg Haloperidol Lactate (Haloperidol Lact Inj 5 Mg/Ml Vial) 5 mg IV X1 ONE Stop: 11/04/24 12:42 Last Admin: 11/04/24 13:01 Dose: Not Given Haloperidol Lactate (Haloperidol Lact Inj 5 Mg/Ml Vial) 5 mg IM X1 ONE Stop: 11/04/24 12:44 Last Admin: 11/04/24 12:47 Dose: 5 mg Haloperidol Lactate (Haloperidol Lact Inj 5 Mg/Ml Vial) 2.5 mg IM X1 ONE Stop: 11/04/24 13:52 Last Admin: 11/04/24 14:11 Dose: 2.5 mg Haloperidol Lactate (Haloperidol Lact Inj 5 Mg/Ml Vial) 5 mg IV X1 ONE Stop: 11/04/24 23:17 Last Admin: 11/04/24 23:51 Dose: 5 mg Haloperidol Lactate (Haloperidol Lact Inj 5 Mg/Ml Vial) 7.5 mg IM Q6H PRN PRN Reason: AGITATION Stop: 12/05/24 10:29 Last Admin: 11/07/24 10:23 Dose: 7.5 mg Sodium Chloride (Ns) 500 mls @ 999 mls/hr IV .Q31M ONE Stop: 11/03/24 15:10 Last Infusion: 11/03/24 19:30 Dose: Infused Vancomycin HCl 1,000 mg/ (Sodium Chloride) 250 mls @ 150 mls/hr IV X1 ONE Stop: 11/03/24 16:20 Last Infusion: 11/03/24 19:30 Dose: Infused Meropenem 1,000 mg/ Sodium (Chloride) 50 mls @ 100 mls/hr IV X1 ONE Stop: 11/03/24 14:43 Last Infusion: 11/03/24 16:07 Dose: Infused Sodium Chloride (Ns) 1,000 mls @ 50 mls/hr IV .Q20H ONE Stop: 11/04/24 15:29 Last Admin: 11/03/24 20:04 Dose: 50 mls/hr Cefepime HCl 1 gm/ Sodium (Chloride) 50 mls @ 100 mls/hr IV X1 ONE Stop: 11/03/24 19:58 Last Admin: 11/03/24 22:22 Dose: 100 mls/hr Cefepime HCl 1 gm/ Sodium (Chloride) 50 mls @ 100 mls/hr IV QDAY@2100 TARIK Stop: 11/11/24 20:59 Magnesium Sulfate (Magnesium Sulfate Ivpb) 2 gm in 50 mls @ 25 mls/hr IV X1 ONE Stop: 11/03/24 21:34 Last Admin: 11/03/24 20:04 Dose: 25 mls/hr Vancomycin/Sodium Chloride (Vancomycin/Ns 500 Mg Ivpb) 100 mls @ 120 mls/hr IV X1 ONE Stop: 11/04/24 10:49 Last Admin: 11/04/24 10:03 Dose: 120 mls/hr Cefazolin Sodium/Dextrose (Ancef Ivpb) 1 gm in 50 mls @ 100 mls/hr IV HS TARIK Stop: 11/11/24 20:59 Last Admin: 11/04/24 20:36 Dose: 100 mls/hr Vancomycin/Sodium Chloride (Vancomycin/Ns 1 Gm Ivpb) 200 mls @ 120 mls/hr IV X1 ONE Stop: 11/05/24 13:39 Last Admin: 11/05/24 11:59 Dose: 120 mls/hr Vancomycin/Sodium Chloride (Vancomycin/Ns 500 Mg Ivpb) 100 mls @ 120 mls/hr IV X1 ONE Stop: 11/07/24 16:49 Last Admin: 11/07/24 16:03 Dose: 120 mls/hr Lactulose (Lactulose Syrup 20 Gm/30 Ml Udc) 10 gm PO X1 ONE; Protocol Stop: 11/04/24 10:06 Last Admin: 11/04/24 12:40 Dose: Not Given Lorazepam (Lorazepam 2 Mg/Ml Vial) 2 mg IVP X1 ONE Stop: 11/03/24 14:40 Last Admin: 11/03/24 14:24 Dose: 2 mg Lorazepam (Lorazepam 2 Mg/Ml Vial) 2 mg IVP X1 ONE Stop: 11/03/24 16:49 Last Admin: 11/03/24 16:52 Dose: 2 mg Lorazepam (Lorazepam 2 Mg/Ml Vial) 2 mg IVP X1 ONE Stop: 11/03/24 17:07 Last Admin: 11/03/24 17:09 Dose: 2 mg Lorazepam (Lorazepam 2 Mg/Ml Vial) 2 mg IVP X1 ONE Stop: 11/03/24 17:58 Last Admin: 11/03/24 18:00 Dose: 2 mg Lorazepam (Lorazepam 2 Mg/Ml Vial) 2 mg IVP Q8H PRN PRN Reason: AGITATION (SEVERE) Stop: 11/08/24 19:44 Last Admin: 11/03/24 22:13 Dose: 2 mg Lorazepam (Lorazepam 2 Mg/Ml Vial) 2 mg IVP X1 ONE Stop: 11/04/24 04:44 Lorazepam (Lorazepam 2 Mg/Ml Vial) 1 mg IVP X1 ONE Stop: 11/04/24 04:44 Last Admin: 11/04/24 04:53 Dose: 1 mg Lorazepam (Lorazepam 2 Mg/Ml Vial) 2 mg IVP Q2H PRN PRN Reason: AGITATION OR ANXIETY Stop: 11/09/24 15:15 Last Admin: 11/04/24 22:27 Dose: 2 mg Lorazepam (Lorazepam 2 Mg/Ml Vial) 2 mg IVP Q2H PRN PRN Reason: AGITATION OR ANXIETY Stop: 11/09/24 15:15 Last Admin: 11/05/24 07:30 Dose: 2 mg Metoprolol Succinate (Metoprolol Succinate Xl 25 Mg Tabcr) 50 mg PO QDAY PRN PRN Reason: For SBP > 130-140 Stop: 12/05/24 14:14 Metoprolol Succinate (Metoprolol Succinate Xl 25 Mg Tabcr) 50 mg PO QDAY [facility] Stop: 12/06/24 09:14 Last Admin: 11/06/24 10:22 Dose: Not Given Metoprolol Succinate (Metoprolol Succinate Xl 25 Mg Tabcr) 100 mg PO QDAY [facility] Stop: 12/07/24 08:59 Metoprolol Succinate (Metoprolol Succinate Xl 25 Mg Tabcr) 100 mg PO X1 ONE Stop: 11/06/24 15:11 Last Admin: 11/06/24 17:00 Dose: 100 mg Metoprolol Succinate (Metoprolol Succinate Xl 25 Mg Tabcr) 50 mg PO QDAY [facility] Stop: 12/07/24 08:59 Last Admin: 11/07/24 09:28 Dose: 50 mg Morphine Sulfate (Morphine Sulf Inj 10 Mg/Ml Vial) 4 mg IVP X1 ONE Stop: 11/03/24 17:22 Last Admin: 11/03/24 17:31 Dose: 4 mg Ondansetron HCl (Ondansetron Inj 2 Mg/Ml Inj 2 Ml) 4 mg IV X1 ONE; Protocol Stop: 11/03/24 14:40 Last Admin: 11/03/24 14:28 Dose: 4 mg Ondansetron HCl (Ondansetron Inj 2 Mg/Ml Inj 2 Ml) 4 mg IV X1 ONE; Protocol Stop: 11/03/24 17:23 Last Admin: 11/03/24 20:03 Dose: 4 mg Assessment & Plan Plan #MRSA bacteremia most likely secondary to HD CLABSI WBCs 7.3, blood culture grew MRSA, MRSA nasal screen was positive, chest Gram stain and culture preliminary growing GPC, catheter tip was negative, repeated preliminary blood cultures were negative. Patient remains afebrile since admission We will recommend: ? If blood cultures from 11/06/2024 remains negative he can continue and finish treatment with vancomycin with dialysis until 11/15/2024 for 10 days from first negative cultures ? If blood cultures remains negative after 48 hours General Dialysis catheter can be replaced. Patient discussed with my attending Dr Mattie Oconnell MD PGY-3 Disclaimer: Despite multiple revisions, due to the dictation software being used, the document bellow may not be free of grammatical errors including phonetic/typographic errors. However, this does not deter from our commitment to providing health care in the patient's best interest in mind.
[2024-11-07] MEDS: HALOPERIDOL LACT INJ 5 MG/ML VIAL IM (18:21)
--- NOTE | 2024-11-07 19:21 | ESCONSULT_ITS ---
RE: LUCA DIXON : 1945 DATE OF CONSULTATION: 11/07/2024 REFERRING PHYSICIAN: Dr. Dawson and the hospitalist team REASON FOR CONSULTATION: Bacteremia. HISTORY OF PRESENT ILLNESS: The patient is an unfortunate 79-year-old man who had bacteremia before according to his son with different infections. He apparently had bacteremic urinary tract infections in the past at another hospital, but not here. He is not diabetic. The cause of his renal failure is not known. He has been on and off dialysis apparently recently. He had a tunneled dialysis catheter placed just recently. It was removed here this admission and he is going to need another one in a day or so if blood cultures remain negative for 48 hours. MEDICAL PROBLEMS: Include heart failure with low ejection fraction, chronic kidney disease cause uncertain and coronary artery disease. He may have a low ejection fraction. I do not know that precisely. His surgical history includes prior coronary artery bypass grafting, dialysis catheter access, and tunneled dialysis catheter placement that has since been removed. ALLERGIES: PENICILLIN REACTION IS UNKNOWN. IMMUNIZATIONS: Immunization is not available. FAMILY HISTORY: Positive for diabetes in his mother. SOCIAL HISTORY: He lives at home with his , who herself is frail. He quit smoking over 50 years ago. He is retired and may have other health problems. PHYSICAL EXAMINATION: On exam, the patient is a poor historian. His son provides much history as well as the record. HEENT: Grossly benign. Heart: Grossly benign. Lungs: Grossly benign. Abdomen: Grossly benign. There is no other source other than the obvious IV which has since been removed. He has been afebrile since admission. It sounds like he has IV catheter related bacteremia that should be treated and if his blood cultures are clear at 48h, he can finish treatment as an outpatient. Please place a new tunneled dialysis tomorrow if blood cultures from yesterday remain negative tomorrow and finish treatment with vancomycin with dialysis. Son is worried about him going home because his is herself is frail and herself is 79 years of age and had a prior stroke, so if he is not up to going home, please send him to rehab facility for few days. I will check on him again superficially Tuesday if he remains. DT: 16:53:51 TT: 17:36:00 Ref: [id number] - TID: [id number] MTDD
[2024-11-07] MEDS: ATORVASTATIN CALCIUM 20 MG TABLET 80 MG PO (20:24)
--- NOTE | 2024-11-07 22:51 | ESPR_ITS ---
RE: LUCA DIXON : 1945 DATE OF SERVICE: 11/07/2024 HISTORY OF PRESENT ILLNESS: Briefly, he is a 79-year-old gentleman with hypertension, coronary artery disease status post CABG in 2018, ischemic cardiomyopathy with EF of 30%-35% and ESRD on dialysis since 01/2023, dialyzing every Tuesday, Tuesday and Tuesday at [facility], who was admitted to the hospital on 11/06/2024 with confusion. He was found with tunneled dialysis catheter infection with blood culture x2 growing gram positive cocci. The patient's dialysis catheter was removed yesterday and he has been doing better since then. He is more awake, but not coherent. CURRENT MEDICATIONS: 1. Acetaminophen. 2. Albumin. 3. Aspirin 81 mg daily. 4. Albuterol nebs. 5. Atorvastatin 80 mg at bedtime. 6. Plavix 75 mg daily. 7. Haloperidol. 8. Levothyroxine 50 mcg daily. 9. Metoprolol 50 mg b.i.d. PHYSICAL EXAMINATION: General: He is more awake and alert, still confused, but able to carry a conversation. Vital Signs: Blood pressure of 154/91 and heart rate of 81. HEENT: Anicteric sclerae. Normocephalic. Neck: Supple. No JVD. Chest and Lungs: Symmetrical expansion. Clear breath sounds. Cardiac: Without murmur. Abdomen: Soft and nontender. Extremities: No edema. LABORATORY DATA: Hemoglobin 9.9, WBC 7,200, and platelet count 183,000. Sodium 142, potassium 4.2, chloride 105, CO2 of 24.6, BUN 70, creatinine 5.6, glucose 119, and calcium 10.2. Blood cultures, no growth after 48 hours. ASSESSMENT: 1. End-stage renal disease. 2. Altered level of consciousness secondary to sepsis, now improving. 3. Gram positive cocci septicemia, most likely secondary to infected tunneled dialysis catheter. 4. Anemia of chronic disease. 5. History of coronary artery disease, status post coronary artery bypass grafting. 6. Ischemic cardiomyopathy. 7. Obesity. 8. Hypertension. PLAN: Continue vancomycin 1.5 g every other day. Blood cultures are now negative for 48 hours and may have reinsertion of tunneled dialysis catheter tomorrow. After the tunneled dialysis catheter placement, then patient will be dialyzed. DT: 22:27:25 TT: 22:50:00 Ref: [id number] - TID: [id number]
--- NOTE | 2024-11-07 23:48 | PD.NEUROPROG ---
Documentation for date of: 11/07/24 Subjective Subjective Interval history: Patient was seen in telemetry today, continue to remain restless but much better today, on restraints as he is intermittently trying to come out of bed. Very poor oral intake noted Exam - Neurology Vital Signs Temp Pulse Resp BP Pulse Ox O2 Del Method O2 Flow Rate 97.0 F 81 17 154/91 H 97 Room Air 2 11/07/24 20:00 11/07/24 20:24 11/07/24 20:00 11/07/24 20:24 11/07/24 20:00 11/07/24 20:00 11/06/24 16:00 Narrative Exam GENERAL APPEARANCE: Well-developed, obese built white male , restless in bed HEENT: Normocephalic, atraumatic, extraocular movements intact. Pupils: Equal reacting to light NECK: Supple, no JVD or bruits. CARDIOVASULAR: Heart: S1, S2 heard, regular without S3-S4 or murmur no rubs or gallops. LUNGS/CHEST: Clear to auscultation bilaterally. No rails, rhonchi, or wheezing. Normal inspection. ABDOMEN: Soft, nontender, with normal bowel sounds. No pulsatile masses. No rebound, rigidity, or guarding. Normal inspection and palpation. EXTREMITIES: Normal inspection and palpation. No edema, clubbing or cyanosis. SKIN: Warm and dry without rashes. Normal inspection. MUSCULOSKELETAL: No cervical, thoracic, lumbar or midline bony tenderness. Normal inspection. NEURO: restless, despite under the effect of Ativan/Zyprexa, moves all 4 extremities purposefully no signs of meningeal irritation noted. PSYCHIATRIC: limited Objective Labs 11/07/24 05:59 11/07/24 05:59 Labs: Laboratory Results - last 24 hr 11/07/24 11/07/24 05:53 05:59 WBC 7.3 RBC 3.14 L Hgb 9.9 L Hct 29.5 L MCV 94 MCH 31.5 MCHC 33.6 RDW Std Deviation 49.3 H Plt Count 183 Neut % (Auto) 66 Lymph % (Auto) 16 [place] % (Auto) 13 H Eos % (Auto) 4 Baso % (Auto) 0 Neut # (Auto) 4.8 Lymph # (Auto) 1.2 [place] # (Auto) 0.9 H Eos # (Auto) 0.3 Baso # (Auto) 0.0 Immature Gran # (Auto) 0.04 H Absolute Nucleated RBC 0.00 Immature Gran % 1 H Nucleated RBC % 0 Sodium 142 Potassium 4.2 Chloride 105 Carbon Dioxide 24.6 Anion Gap 12 BUN 70 H Creatinine 5.6 H* Estim Creat Clear Calc 13.2 L eGFR 10 L* BUN/Creatinine Ratio 13 Glucose 119 H Calculated Osmolality 304 H Calcium 10.1 Corrected Calcium 10.2 H Phosphorus 4.3 Magnesium 2.0 Total Bilirubin 0.8 AST 52 H ALT 28 Alkaline Phosphatase 128 H Total Protein 5.9 Albumin 3.9 D Globulin 2.0 L Albumin/Globulin Ratio 2.0 Random Vancomycin 14.3 Hepatitis A IgM Ab Non Reactive Hep Bs Antigen Non Reactive Hep Bs Antibody NonReact(Not Immune) L Hep B Core IgM Ab Non Reactive Hepatitis C Antibody Non Reactive ABG Interpretation ABG results: 11/03/24 14:12 VBG pH 7.39 VBG pCO2 43 VBG pO2 35 VBG Base Excess 1 Assessment & Plan Assessment and plan (1) Delirium: Status: Acute Assessment and plan: Likely secondary to metabolic encephalopathy Continue with the symptomatic therapy with Zyprexa or Haldol/Ativan/Benadryl as needed. (2) End stage renal failure on dialysis: Status: Chronic Assessment and plan: Continue with hemodialysis (3) Cellulitis: Status: Acute Assessment and plan: Continue with IV antibiotics follow-up with the culture (4) Fever: Status: Acute Assessment and plan: Most likely secondary to infection in the dialysis catheter access Continue with IV antibiotics Old access for dialysis was removed and got the new one today.
[2024-11-08] VITALS (11 sets, daily range): BP systolic 122–176; BP diastolic 62–99; PULSE 59–85; RESP 14–27; TEMP 36–36.7; O2SAT 95–100; BMI 33.3
[2024-11-08] MEDS: HALOPERIDOL LACT INJ 5 MG/ML VIAL IM ×3 (00:56→22:17)
[2024-11-08 05:48] LABS: Basophils % (Auto) 0 % (0-2.5); Eosinophils # (Auto) 0.3 Thou/mm3 (0.0-0.5); Eosinophils % (Auto) 4 % (0-10); Hematocrit 29.8 % (41.0-53.0); Hemoglobin 9.8 g/dL (13.5-16.0); Immature Granulocytes % (Auto) 1 % (0-0); Immature Granulocytes Auto 0.04 Thou/mm3 (0.00-0.00); Lymphocytes # (Auto) 1.1 Thou/mm3 (1.0-4.8); Lymphocytes % (Auto) 17 % (10-50); Mean Corpuscular HGB Conc 32.9 g/dl (31.0-37.0); Mean Corpuscular Hemoglobin 30.8 pg (25.0-35.0); Mean Corpuscular Volume 94 fL (80-100); Monocytes # (Auto) 0.9 Thou/mm3 (0.0-0.8); Monocytes % (Auto) 13 % (0-12); Neutrophils # (Auto) 4.3 Thou/mm3 (1.8-7.7); Neutrophils % (Auto) 66 % (37-80); Nucleated Red Blood Cell % 0 /100 WBC (0); Platelet Count 186 Thou/mm3 (140-440); Red Blood Count 3.18 Miln/mm3 (4.50-5.90); White Blood Count 6.6 Thou/mm3 (3.8-10.6)
[2024-11-08 06:02] LABS: INR 1.1 (0.9-1.3); Prothrombin Time 11.7 Seconds (9.0-12.2)
[2024-11-08 06:24] LABS: Alanine Aminotransferase 26 U/L (10-49); Albumin, Serum 3.9 gm/dL (3.4-4.8); Albumin/Globulin Ratio 2.1 (1.2-2.2); Alkaline Phosphatase 136 U/L (46-116); Anion Gap 13 (7-16); Aspartate Amino Transferase 45 U/L (0-34); BUN/Creatinine Ratio 13 Ratio (12-20); Bilirubin,Total 0.7 mg/dL (0.3-1.2); Blood Urea Nitrogen 77 mg/dL (9-23); Calcium 9.6 mg/dL (8.3-10.6); Calcium (Corrected) 9.7 mg/dL (8.5-10.1); Carbon Dioxide 22.3 mMol/L (20.0-31.0); Chloride 103 mMol/L (98-107); Creatinine (Component) 5.8 mg/dL (0.6-1.3); Estimated Creatinine Clearance 12.8 mL/min (>60); Globulin 1.9 gm/dL (2.3-3.5); Glucose 125 mg/dL (74-106); Osmolality,Calculated 299 (275-295); Phosphorous 4.5 mg/dL (2.4-5.1); Potassium 4.2 mMol/L (3.4-5.1); Sodium 138 mMol/L (136-145); Total Protein 5.8 gm/dL (5.7-8.2); Vancomycin,Random 16.3 mcg/mL; eGFR 9 See Note
--- NOTE | 2024-11-08 08:22 | ESPR_ITS ---
<Statement entered by Bismark Urbina MD - 11/08/24 21:55> I have personally seen and examined the patient separately on the above date of service and discussed the plan of care with the resident. I reviewed the resident Dr. Morris consultation progress note and agree with the resident findings and plan in the note above and have also edited the documentation to reflect my findings and plan. Patient still delirious and agitated. Telemetry reviewed and patient continues to be sinus rhythm, PVCs and NSVT significantly reduced. Recommend to continue to increase the metoprolol XL as blood pressure appears to be stable and his home dose of metoprolol XL 200 Mg once daily. His echocardiogram was completed last night and showed severe systolic dysfunction with an EF of 25 to 30%. No evidence of any clear valvular vegetations but could be missed on TTE. Moderately dilated LV. Mild LVH. Global LV systolic function is severely decreased. Estimated EF 25-30 %. Grade 2 DD. RV function moderately reduced. Mildly dilated RV and moderately dilated RA. Moderate MR and TR. mildly dilated LA. Dilated cardiomyopathy. Discussed with the family and as recommended by his load mixer they did not want any additional interventions. Continue medical management with goal- directed medical therapy as tolerated for now. Primary team to discuss the CODE STATUS for the patient with the family. Rest of the detailed assessment and plan as noted in initial consult. Dr. Jaime will be covering me for the next 3 days and please call him for any additional questions or concerns. Bismark Urbina M.D. Interventional Cardiology Documentation for date of: 11/08/24 Subjective Subjective Interval history: 11/06/2024: Pt examined at bedside today. Overnight events on telemetry included pt having HR in 100s and 110s. Pt still appears to be a bit agitated at this time. He still has some restraints. Family is present at bedside. He was found to have MRSA CRBSI, currently on Vancomycin. CMP and other labs pending. No other complaints at this time. 11/07/2024: Patient examined at bedside today. Overnight events on telemetry included patient being in the rate of 80s to 90s, however still appears to have some occasional PVCs and trigeminy. Patient does seem a bit agitated currently, he is saying that he does not want to answer any questions requesting me for to leave and that he does not want to talk about his medical problems and he does not have any questions for me at this time. He denies having any chest pain, palpitations or shortness of breath. His BUN/creatinine is 75.6 respectively, magnesium 2, phosphorus 4.3, potassium 4.2, white count 7.3, hemoglobin 9.9. Patient to get dialysis catheter tomorrow and to have dialysis tomorrow as well. Patient has no other complaints this time. 11/08/2024: Pt examined at bedside today. Overnight events on telemetry included rate to be 90s/100s, max 121, bigeminy seen. Pt reports that he does not want to be spoken to. He does not want to answer any questions. He denies having any chest pain or palpitations. He feels a bit agitated and has some wrist restraints. BUN/Cr 77 and 5.8 respectively, potassium 4.2, Mag 2.0, WBC 6.6, Hgb ~10, phos 4.5, sodium 138. No other complaints at this time. Exam Vital Signs Temp Pulse Resp BP Pulse Ox O2 Del Method O2 Flow Rate 97.1 F 74 16 122/73 96 Room Air 2 11/08/24 08:00 11/08/24 08:00 11/08/24 08:00 11/08/24 08:00 11/08/24 08:00 11/08/24 08:00 11/06/24 16:00 Narrative Exam General: AAOx2, agitated, wearing diaper, wrist restraints present HEENT: Moist mucous membranes, conjunctiva clear, EOMI, PERRLA, poor dentition Cardiovascular: Possible murmur heard over SNOW, tachycardic Pulmonary: CTAB bilat no cough, no wheezing GI: No tenderness to light or deep palpitation, no guarding, rigidity, rebound tenderness or distension Extremities: No presence of trace or pitting edema in lower extremities bilaterally, dorsalis pedis pulses +2 bilaterally Neuro: AAOx2, no focal motor or sensory deficits in the UE or LE bilat Psych: Not the most cooperative Objective Labs 11/08/24 04:50 11/08/24 04:50 Labs: Laboratory Results - last 24 hr 11/07/24 11/08/24 05:53 04:50 WBC 6.6 RBC 3.18 L Hgb 9.8 L Hct 29.8 L MCV 94 MCH 30.8 MCHC 32.9 RDW Std Deviation 49.0 H Plt Count 186 Neut % (Auto) 66 Lymph % (Auto) 17 [place] % (Auto) 13 H Eos % (Auto) 4 Baso % (Auto) 0 Neut # (Auto) 4.3 Lymph # (Auto) 1.1 [place] # (Auto) 0.9 H Eos # (Auto) 0.3 Baso # (Auto) 0.0 Immature Gran # (Auto) 0.04 H Absolute Nucleated RBC 0.00 Immature Gran % 1 H Nucleated RBC % 0 PT 11.7 INR 1.1 Sodium 138 Potassium 4.2 Chloride 103 Carbon Dioxide 22.3 Anion Gap 13 BUN 77 H Creatinine 5.8 H* Estim Creat Clear Calc 12.8 L eGFR 9 L* BUN/Creatinine Ratio 13 Glucose 125 H Calculated Osmolality 299 H Calcium 9.6 Corrected Calcium 9.7 Phosphorus 4.5 Magnesium 2.0 Total Bilirubin 0.7 AST 45 H ALT 26 Alkaline Phosphatase 136 H Total Protein 5.8 Albumin 3.9 Globulin 1.9 L Albumin/Globulin Ratio 2.1 Random Vancomycin 16.3 Hepatitis A IgM Ab Non Reactive Hep Bs Antigen Non Reactive Hep Bs Antibody NonReact(Not Immune) L Hep B Core IgM Ab Non Reactive Hepatitis C Antibody Non Reactive ABG Interpretation ABG results: 11/03/24 14:12 VBG pH 7.39 VBG pCO2 43 VBG pO2 35 VBG Base Excess 1 Quality Measures Quality Measures sepsis Current suspected stage: sepsis Possible source: unknown Blood cultures ordered: yes Antibiotic ordered: Yes Advance care planning discussed with:: patient Assessment & Plan Assessment Current Active Medications: Generic Name Dose Route Start Last Admin Trade Name Freq PRN Reason Stop Dose Admin Acetaminophen 650 mg 11/03/24 19:16 Acetaminophen 325 Mg Tablet PO 12/03/24 19:15 Q6H PRN PAIN SCALE 1-3 (mild Acetaminophen 650 mg 11/03/24 21:16 Acetaminophen Supp 650 Mg Supp [place] 12/03/24 21:29 Q6H PRN Fever > 100.4 Albuterol/Ipratropium 3 ml 11/03/24 19:16 Albuterol/Ipratropium (Duoneb) Rt Dianne 3 Ml Nebu INH 12/03/24 22:59 Q4HRRT PRN SOB or wheezing Aspirin 81 mg 11/07/24 10:00 11/07/24 10:03 Aspirin Ec 81 Mg Tabec PO 12/07/24 09:59 81 mg QDAY TARIK Administration Atorvastatin Calcium 80 mg 11/04/24 21:00 11/07/24 20:24 Atorvastatin Calcium 20 Mg Tablet PO 12/04/24 20:59 80 mg HS TARIK Administration Clopidogrel Bisulfate 75 mg 11/06/24 09:00 11/07/24 09:26 Clopidogrel Bisulfate 75 Mg Tablet PO 12/06/24 08:59 75 mg QDAY TARIK Administration Haloperidol Lactate 5 mg 11/07/24 13:59 11/08/24 00:56 Haloperidol Lact Inj 5 Mg/Ml Vial IM 12/05/24 10:29 5 mg Q6H PRN Administration AGITATION Heparin Sodium (Porcine) 5,000 unit 11/03/24 22:00 11/07/24 21:13 Heparin Sod Inj 5000 Unit/Ml Vial SC 11/17/24 21:59 5,000 unit Q8HR TARIK Administration Heparin Sodium (Porcine) 3,900 unit 11/05/24 10:19 11/05/24 11:14 Heparin Sod Inj 1000 Unit/Ml Vial 10 Ml INDWELLCAT 11/19/24 10:18 3,900 unit PRN PRN Administration DIALYSIS Albumin Human 25 gm in 100 mls @ 100 mls/min 11/05/24 10:19 Albuminar-25 Ivpb IV QDAY PRN DIALYSIS Vancomycin/Sodium Chloride 100 mls @ 120 mls/hr 11/08/24 10:00 Vancomycin/Ns 500 Mg Ivpb IV 11/08/24 10:49 X1 ONE Levothyroxine Sodium 50 mcg 11/04/24 06:00 11/07/24 09:26 Levothyroxine Sodium 25 Mcg Tablet PO 12/04/24 05:59 50 mcg QAM TARIK Administration Metoprolol Succinate 50 mg 11/07/24 21:00 11/07/24 20:24 Metoprolol Succinate Xl 25 Mg Tabcr PO 12/07/24 20:59 50 mg BID TARIK Administration Ondansetron HCl 4 mg 11/03/24 14:16 11/03/24 17:26 Ondansetron Inj 2 Mg/Ml Inj 2 Ml IV 12/03/24 14:15 4 mg Q4HR PRN Administration NAUSEA OR VOMITING Pantoprazole Sodium 40 mg 11/05/24 10:45 11/07/24 09:26 Pantoprazole Inj 40 Mg Vial IVP 12/05/24 10:44 40 mg QDAY TARIK Administration Pharmacy Consult 1 each 11/04/24 09:00 Vancomycin Pharmacy To Dose 1 Each Each IV 12/04/24 08:59 QDAY PRN CONSULT Pharmacy Consult 1 each 11/03/24 21:18 Pharmacy Renal Dose Adjustment 1 Ea XX 12/03/24 21:17 PRN PRN CONSULT Sennosides 1 tab 11/03/24 19:16 Senna Tablet PO 12/03/24 19:15 BID PRN CONSTIPATION Protocol Plan Assessment Malik is a 79-year-old male past medical history of past medical history of ESRD on hemodialysis (MWF, sees Dr. Padilla), HFrEF (possibly EF of 30), Previous CVA, possible hypothyroidism currently admitted for sepsis secondary to catheter related bloodstream infection which is showing GPC currently #NSTEMI, likely type II related to demand ischemia, resolved #History of coronary artery disease status post multiple stents and CABG triple bypass #History of myocardial infarction #Nonsustained supraventricular tachycardia #HFrEF with EF of 35 to 40% #Ischemic cardiomyopathy Unsure when patient's CABG was, will follow-up with records and family Patient takes home Plavix as well in addition to aspirin as well ranolazine Some bouts of nonsustained supraventricular tachycardia with trigeminy seen on telemetry Pt continues to have some tachycardia, but has not been giving home metoprolol doses Pt does have MRSA bactermia, will treat as well Upon review of cardiac catheter records 2 weeks ago at [facility] Saphenous vein graft to left circumflex?occluded whenever send HOOK to LAD?patent [place] LAD?moderate to severe disease Saphenous vein graft to RCA patent with good flow [place] left coronary artery severe proximal disease Not a candidate for PCI EF 35 to 40% Ischemic cardiomyopathy We want to uptitrate metoprolol back to 200 mg as patient heart rate and blood pressure will tolerate We spoke with family, we recommend for pt not to have any invasive procedures and they agree We also recommend a goals of conversation to be held with primary team and family Plan: ? Primary team resume home Lipitor 80 mg ? Continue with home aspirin suppository 300 mg ? Plavix 75 mg seems to be a home medicine for this patient, recommend restarting ? Recommend resuming ranolazine ? Patient is currently on metoprolol XL 100 mg we recommend to go back to 200 mg as tolerated ? Keep magnesium and potassium above 2 and 4 respectively ? Follow up Echo ? Telemetry ? ID following, appreciate recs #Sepsis #Catheter site cellulitis #MRSA Bacteremia 2/2 CRBSI #ESRD on HD #History of CVA #Hypothyroidim #Normocytic anemia #Acute encephalopathy #Agitations #Likely history of dementia Management above panel by primary hospitalist team Patient seen and care discussed with my attending physician, Dr. Ciara Lau, PGY-1
[2024-11-08] MEDS: PANTOPRAZOLE INJ 40 MG VIAL IVP (10:07)
[2024-11-08] MEDS: METOPROLOL SUCCINATE XL 25 MG TABCR 50 MG PO ×2 (10:07→21:00)
[2024-11-08] MEDS: VANCOMYCIN/NS 500 MG IVPB 100 ML 120 MG IV (10:20)
[2024-11-08] MEDS: LEVOTHYROXINE SODIUM 25 MCG TABLET 50 MCG PO (11:55)
--- NOTE | 2024-11-08 13:18 | PC.SS ---
Update: Plan is for the patient to obtain dialysis catheter. Possible d/c tomorrow.
--- NOTE | 2024-11-08 15:25 | ESPR_ITS ---
Documentation for date of: 11/08/24 Subjective Subjective Interval history: No acute overnight events. He is showing some progress in settings of his encephalopathic state. More oriented and cooperative. Still limited exam though. Unable to answer questions appropriately. Exam Vital Signs Temp Pulse Resp BP Pulse Ox O2 Del Method O2 Flow Rate 97.9 F 75 19 141/93 H 99 Room Air 2 11/08/24 12:00 11/08/24 12:00 11/08/24 12:00 11/08/24 12:00 11/08/24 12:00 11/08/24 12:11/06/24 16:00 Narrative Exam GENERAL * On soft restraint, slightly agitated, does not follow command, does not answer questions. HEENT * NCAT.?NALINI. Oral mucosa is moist. Patent Nares NECK * Supple, nontender, no thyromegaly, no meningismus, no JVD, no step offs * Left-sided tunneled cath noted, dressing in place and intact, skin warm and slightly erythematous. CHEST * RRR, no m/g/r * CTAB, no w/r/r. Symmetrical chest rise. No intercostal subcostal retraction * Atraumatic, nontender, no crepitus, symmetrical expansion. ABDOMEN * Soft, obese, nontender. No guarding/rebound tenderness/masses. * Bowel sounds presents EXTREMITIES * Nontender, no cyanosis, no edema * No edema/cyanosis.? SKIN * Warm and dry, no jaundice/rashes. NEUROMUSCULAR * Limited exam secondary to encephalopathy and agitation Objective Labs 11/08/24 04:50 11/08/24 04:50 Labs: Laboratory Results - last 24 hr 11/08/24 04:50 WBC 6.6 RBC 3.18 L Hgb 9.8 L Hct 29.8 L MCV 94 MCH 30.8 MCHC 32.9 RDW Std Deviation 49.0 H Plt Count 186 Neut % (Auto) 66 Lymph % (Auto) 17 [place] % (Auto) 13 H Eos % (Auto) 4 Baso % (Auto) 0 Neut # (Auto) 4.3 Lymph # (Auto) 1.1 [place] # (Auto) 0.9 H Eos # (Auto) 0.3 Baso # (Auto) 0.0 Immature Gran # (Auto) 0.04 H Absolute Nucleated RBC 0.00 Immature Gran % 1 H Nucleated RBC % 0 PT 11.7 INR 1.1 Sodium 138 Potassium 4.2 Chloride 103 Carbon Dioxide 22.3 Anion Gap 13 BUN 77 H Creatinine 5.8 H* Estim Creat Clear Calc 12.8 L eGFR 9 L* BUN/Creatinine Ratio 13 Glucose 125 H Calculated Osmolality 299 H Calcium 9.6 Corrected Calcium 9.7 Phosphorus 4.5 Magnesium 2.0 Total Bilirubin 0.7 AST 45 H ALT 26 Alkaline Phosphatase 136 H Total Protein 5.8 Albumin 3.9 Globulin 1.9 L Albumin/Globulin Ratio 2.1 Random Vancomycin 16.3 ABG Interpretation ABG results: 11/03/24 14:12 VBG pH 7.39 VBG pCO2 43 VBG pO2 35 VBG Base Excess 1 Quality Measures Quality Measures sepsis Current suspected stage: ruled out Possible source: unknown Blood cultures ordered: yes Antibiotic ordered: Yes Advance care planning discussed with:: patient and spouse Assessment & Plan Assessment Current Active Medications: Generic Name Dose Route Start Last Admin Trade Name Freq PRN Reason Stop Dose Admin Acetaminophen 650 mg 11/03/24 19:16 Acetaminophen 325 Mg Tablet PO 12/03/24 19:15 Q6H PRN PAIN SCALE 1-3 (mild Acetaminophen 650 mg 11/03/24 21:16 Acetaminophen Supp 650 Mg Supp [place] 12/03/24 21:29 Q6H PRN Fever > 100.4 Albuterol/Ipratropium 3 ml 11/03/24 19:16 Albuterol/Ipratropium (Duoneb) Rt Dianne 3 Ml Nebu INH 12/03/24 22:59 Q4HRRT PRN SOB or wheezing Aspirin 81 mg 11/07/24 10:00 11/07/24 10:03 Aspirin Ec 81 Mg Tabec PO 12/07/24 09:59 81 mg QDAY TARIK Administration Atorvastatin Calcium 80 mg 11/04/24 21:00 11/07/24 20:24 Atorvastatin Calcium 20 Mg Tablet PO 12/04/24 20:59 80 mg HS TARIK Administration Clopidogrel Bisulfate 75 mg 11/06/24 09:00 11/07/24 09:26 Clopidogrel Bisulfate 75 Mg Tablet PO 12/06/24 08:59 75 mg QDAY TARIK Administration Haloperidol Lactate 5 mg 11/07/24 13:59 11/08/24 08:25 Haloperidol Lact Inj 5 Mg/Ml Vial IM 12/05/24 10:29 5 mg Q6H PRN Administration AGITATION Heparin Sodium (Porcine) 5,000 unit 11/03/24 22:00 11/07/24 21:13 Heparin Sod Inj 5000 Unit/Ml Vial SC 11/17/24 21:59 5,000 unit Q8HR TARIK Administration Heparin Sodium (Porcine) 3,900 unit 11/05/24 10:19 11/05/24 11:14 Heparin Sod Inj 1000 Unit/Ml Vial 10 Ml INDWELLCAT 11/19/24 10:18 3,900 unit PRN PRN Administration DIALYSIS Albumin Human 25 gm in 100 mls @ 100 mls/min 11/05/24 10:19 Albuminar-25 Ivpb IV QDAY PRN DIALYSIS Levothyroxine Sodium 50 mcg 11/08/24 11:30 11/08/24 11:55 Levothyroxine Sodium 25 Mcg Tablet PO 12/08/24 11:29 50 mcg ACBR TARIK Administration Metoprolol Succinate 50 mg 11/07/24 21:00 11/08/24 10:07 Metoprolol Succinate Xl 25 Mg Tabcr PO 12/07/24 20:59 50 mg BID TARIK Administration Ondansetron HCl 4 mg 11/03/24 14:16 11/03/24 17:26 Ondansetron Inj 2 Mg/Ml Inj 2 Ml IV 12/03/24 14:15 4 mg Q4HR PRN Administration NAUSEA OR VOMITING Pantoprazole Sodium 40 mg 11/05/24 10:45 11/08/24 10:07 Pantoprazole Inj 40 Mg Vial IVP 12/05/24 10:44 40 mg QDAY TARIK Administration Pharmacy Consult 1 each 11/04/24 09:00 Vancomycin Pharmacy To Dose 1 Each Each IV 12/04/24 08:59 QDAY PRN CONSULT Pharmacy Consult 1 each 11/03/24 21:18 Pharmacy Renal Dose Adjustment 1 Ea XX 12/03/24 21:17 PRN PRN CONSULT Sennosides 1 tab 11/03/24 19:16 Senna Tablet PO 12/03/24 19:15 BID PRN CONSTIPATION Protocol Plan In summary: 12-odbf-rdf-year-old male PMHx of ESRD on HD MWF, HFrEF EF 30%, CVA, hypothyroidism presenting with AMS in setting of CRBSI sepsis. He continued on VANCOMYCIN for MRSA bacteremia. HD cath removed. If blood culture negative tomorrow (48 hours), will proceed with hemodialysis cath insertion. Appreciate recommendations from cardiology and ID. HOLDING PLAVIX, HEPARIN, ASA for after HD cath insertion tomorrow. Order placed for HD cath inserting tomorrow 11/09. Sepsis 2/2 catheter site cellulitis (improving) Catheter site cellulitis MRSA bacteremia 2/2 CRBSI Met 2/4 SIRS criteria with tachycardia, fever. LA normal, no leukocytosis. HD tunneled cath erythematous and warm suggesting cellulitis. Afebrile, leukocytosis improving. Prelim blood culture showing GPC. Dialysis, significant removed. Continue on VANCOMYCIN. 24-hour blood culture negative. Catheter site cx grew GPC. MRSA nasal swab positive. Afebrile, no leukocytosis ? Continue VANCOMYCIN (11/04 to present) ? Pending cath culture ? Pending repeat blood culture Acute encephalopathy Agitations Likely history of dementia Likely secondary to metabolic encephalopathy. Unclear what baseline is, currently attending, does not follow command, agitated, requiring multiple medications. Continued on soft restraints. Started scheduled HALOPERIDOL. Head CT was negative. No focal neurological deficit. No indication for stroke workup. Neurology consulted, agreed with ANTIPSYCHOTICS for agitation. ? Continue HALOPERIDOL 5 mg q.6h. PRN ? QTC 406 ? Reorientation NSTEMI type II Hx CAD, CT HFrEF EF 35-40 Troponin peaked at 0.976. Unable to assess symptoms secondary to encephalopathy. EKG sinus rhythm without acute ST changes. Demand ischemia in settings of sepsis versus volume overload. Anticipate improvement with diuresis and preload reduction. Cardiology consulted, recommendations included below. HR in 80s. - Trops down trended ? Continue ATORVASTATIN 80 mg daily ? Continue ASPIRIN 300 mg daily ? Continue home PLAVIX 75 mg daily ? Continue METOPROLOL succinate 50 mg BID (home dose 200 mg daily) Hypomagnesemia, improved 11/06 Magnesium 1.9. Will not replete as patient does not have a dialysis line and won't be getting HD today. Low mag may be protective against hyperkalemia at this time. ? Daily CMP ESRD on HD Patient has dialysis Tuesday, Tuesday, Tuesday. Cath removed, pending new cath placement tomorrow ? Renally dose meds, avoid overdiuresis and NEPHROTOXINS ? Daily CMP ? Hemodialysis with nephrology team. History of CVA History of CHF ? Continue ASPIRIN 300 mg daily ? Continue ATORVASTATIN 80 mg daily ? Pending echocardiogram Hypothyroidim TSH 4.6 this visit. ? Continue home LEVOTHYROXINE 50 mcg ACBR Normocytic anemia (stable) Patient has Hb of 10.8 No obvious source of bleeding We will monitor closely, may need outpatient workup Health maintenance Diet: NPO GI prophylaxis: PROTONIX DVT prophylaxis: SCD Antibiotics: VANCOMYCIN CODE STATUS: Full code Disposition: Pending HD cath placement The patient's management plan was discussed with my attending physician MD Saeid Mc MD, PGY2 Attending Provider Attestation/Addendum I reviewed labs, imaging, EKG, home medications and prior available records. Face to face evaluation was performed by me. I have personally examined the patient and discussed assessment and plan with the IM team. I reviewed the resident note and agree with the plan with exceptions as below. Hyperactive agitation Mild dementia Sepsis MRSA bacteremia Line associated infection ESRD on hemodialysis Non-STEMI HFrEF EF 25 to 30% Ventricular arrhythmia Agitation improved. Continue IV haloperidol, Ativan, and olanzapine as needed. Removed restraints. Continue management of sepsis as below. Continue delirium precautions. Manage constipation as needed. In the setting of baseline dementia with the patient was recently diagnosed with. Continue IV vancomycin. Consulted ID for antibiotic guidance: Recommended total of 10 days from the first negative culture. Can get the dose with each hemodialysis session. Will arrange with nephrology Follow-up cultures identification and sensitivity: Showed gram-positive cocci, later identified as MRSA. ESRD on hemodialysis: Hemodialysis prior to removal of the dialysis line. Insert a new dialysis line for 48 hours after negative blood culture. Discussed with IR: He may not get the new line until 11/09. May dialysis and discharge after if nephrology is okay and if the mental status is stable on IV vancomycin. Troponin peaked. Ordered EKG that showed sinus tachycardia with ectopies and bigeminy. Consulted cardiology: Recommended echocardiogram: Showed severely reduced EF of 25 to 30%. Started metoprolol XL. Continue aspirin and atorvastatin. Added Plavix Decreased metoprolol to 50 mg given the bradycardia. Discussed with cardiology: Increase when tolerates. Increased the dose to 50 mg twice daily. Continue to monitor heart rate.
--- NOTE | 2024-11-08 16:37 | ESPR_ITS ---
RE: LUCA DIXON : 1945 DATE OF SERVICE: 11/08/2024 HISTORY OF PRESENT ILLNESS: Briefly, he is a 79-year-old gentleman with hypertension, coronary artery disease status post CABG in 2018, ischemic cardiomyopathy with EF of 35% and ESRD on dialysis since 01/2023, dialyzing every Tuesday, Tuesday and Tuesday at [facility], who was admitted to the hospital on 11/06/2024 with confusion. He was found with tunneled dialysis catheter infection and blood culture x2, which grew gram positive cocci. The patient's blood culture has been negative in the past 48 hours. He is doing better, more awake, but not as coherent. CURRENT MEDICATIONS: 1. Acetaminophen. 2. Albumin. 3. Aspirin 81 mg daily. 4. Albuterol nebs. 5. Atorvastatin 80 mg at bedtime. 6. Plavix 75 mg daily. 7. Haloperidol. 8. Levothyroxine 50 mcg daily. 9. Metoprolol 50 mg b.i.d. PHYSICAL EXAMINATION: General: Still confused, able to carry some conversation. Vital Signs: Blood pressure of 176/77 and heart rate of 70. HEENT: Anicteric sclerae. Normocephalic. Neck: Supple. No JVD. Extremities: No edema. LABORATORY DATA: Hemoglobin 9.8, WBC 6,600 and platelet count 186,000. Sodium 138, potassium 4.2, chloride 103, CO2 of 22.3, BUN 77, creatinine 5.8, calcium 9.6, glucose 125, and phosphorus 4.5. ASSESSMENT: 1. End-stage renal disease. 2. Altered level of consciousness secondary to sepsis, now improving. 3. Gram-positive septicemia, most likely secondary to infected tunneled dialysis catheter. Repeat blood cultures x48 hours negative for any growth. 4. Anemia of chronic kidney disease. 5. History of coronary artery disease status post coronary artery bypass grafting. 6. Ischemic cardiomyopathy. 7. Obesity. 8. Hypertension. PLAN: The patient's tunneled dialysis catheter insertion was delayed due to being on Plavix. Plavix was discontinued as well as aspirin. Most likely, patient will receive the tunneled dialysis catheter in the morning, followed by dialysis. DT: 16:15:30 TT: 16:36:00 Ref: [id number] - TID: [id number] MTDD
[2024-11-08] MEDS: ATORVASTATIN CALCIUM 20 MG TABLET 80 MG PO (20:58)
--- NOTE | 2024-11-08 23:41 | ESPR_ITS ---
Documentation for date of: 11/08/24 Subjective Subjective Interval history: Patient was seen in telemetry today, continue to remain restless but much better today, on restraints as he is intermittently trying to come out of bed. Very poor oral intake noted Exam - Neurology Vital Signs Temp Pulse Resp BP Pulse Ox O2 Del Method O2 Flow Rate 98.1 F 82 14 134/89 H 96 Room Air 2 11/08/24 20:00 11/08/24 21:00 11/08/24 20:00 11/08/24 21:00 11/08/24 20:00 11/08/24 20:00 11/06/24 16:00 Narrative Exam GENERAL APPEARANCE: Well-developed, obese built white male , restless in bed HEENT: Normocephalic, atraumatic, extraocular movements intact. Pupils: Equal reacting to light NECK: Supple, no JVD or bruits. CARDIOVASULAR: Heart: S1, S2 heard, regular without S3-S4 or murmur no rubs or gallops. LUNGS/CHEST: Clear to auscultation bilaterally. No rails, rhonchi, or wheezing. Normal inspection. ABDOMEN: Soft, nontender, with normal bowel sounds. No pulsatile masses. No rebound, rigidity, or guarding. Normal inspection and palpation. EXTREMITIES: Normal inspection and palpation. No edema, clubbing or cyanosis. SKIN: Warm and dry without rashes. Normal inspection. MUSCULOSKELETAL: No cervical, thoracic, lumbar or midline bony tenderness. Normal inspection. NEURO: Awake, alert, still restless, needing to be on restraints, moves all 4 extremities purposefully no signs of meningeal irritation noted. PSYCHIATRIC: limited Objective Labs 11/09/24 04:53 11/09/24 04:53 Labs: Laboratory Results - last 24 hr 11/08/24 04:50 WBC 6.6 RBC 3.18 L Hgb 9.8 L Hct 29.8 L MCV 94 MCH 30.8 MCHC 32.9 RDW Std Deviation 49.0 H Plt Count 186 Neut % (Auto) 66 Lymph % (Auto) 17 [place] % (Auto) 13 H Eos % (Auto) 4 Baso % (Auto) 0 Neut # (Auto) 4.3 Lymph # (Auto) 1.1 [place] # (Auto) 0.9 H Eos # (Auto) 0.3 Baso # (Auto) 0.0 Immature Gran # (Auto) 0.04 H Absolute Nucleated RBC 0.00 Immature Gran % 1 H Nucleated RBC % 0 PT 11.7 INR 1.1 Sodium 138 Potassium 4.2 Chloride 103 Carbon Dioxide 22.3 Anion Gap 13 BUN 77 H Creatinine 5.8 H* Estim Creat Clear Calc 12.8 L eGFR 9 L* BUN/Creatinine Ratio 13 Glucose 125 H Calculated Osmolality 299 H Calcium 9.6 Corrected Calcium 9.7 Phosphorus 4.5 Magnesium 2.0 Total Bilirubin 0.7 AST 45 H ALT 26 Alkaline Phosphatase 136 H Total Protein 5.8 Albumin 3.9 Globulin 1.9 L Albumin/Globulin Ratio 2.1 Random Vancomycin 16.3 ABG Interpretation ABG results: 11/03/24 14:12 VBG pH 7.39 VBG pCO2 43 VBG pO2 35 VBG Base Excess 1 Assessment & Plan Assessment and plan (1) Delirium: Status: Acute Assessment and plan: Likely secondary to metabolic encephalopathy Continue with the symptomatic therapy with Zyprexa or Haldol/Ativan/Benadryl as needed. (2) End stage renal failure on dialysis: Status: Chronic Assessment and plan: Continue with hemodialysis (3) Cellulitis: Status: Acute Assessment and plan: Continue with IV antibiotics follow-up with the culture (4) Fever: Status: Acute Assessment and plan: Most likely secondary to infection in the dialysis catheter access Continue with IV antibiotics Got the new access for dialysis
[2024-11-09] VITALS (33 sets, daily range): BP systolic 116–183; BP diastolic 64–109; PULSE 59–82; RESP 15–25; TEMP 35.7–36.3; O2SAT 95–100; BMI 33.3
--- NOTE | 2024-11-09 | XR_ITS ---
Ultrasound-guided needle placement right subclavian vein Ultrasound-guided needle placement right common femoral vein Temporary dialysis catheter insertion, percutaneous Fluoroscopy AP chest, portable, single view AP abdomen single view Date and time of procedure: November 09, 2024 at 1438 hours Informed consent provided Technique: A timeout was completed verifying correct patient, procedure, site, positioning, and special equipment if applicable. The patient was placed in a dependent position appropriate for dialysis catheter placement based on the vein to be cannulated. The patient'sright neck and right groin was prepped and draped in sterile fashion. Maximum Sterile Barrier Technique used including cap, mask, sterile gown, sterile gloves, and sterile full body drape. If ultrasound technique used: sterile gel and sterile probe covers. Hand Hygiene performed using proper scrub, soap and water, or alcohol-based hand rub. 1% lidocaine was used to anesthetize the surrounding skin area The Site Rite portable ultrasound utilized to confirm patency of the right subclavian vein Utilizing ultrasonographic guidance successful 20-gauge in contour Right subclavian vein However the wire guide anterior screw collateral vessels and no dialysis catheter could be placed through the collateral vessels into the superior vena cava Attention is directed to the groin Site right portable apparatus utilized to confirm patency of the right common femoral vein Utilizing ultrasonographic guidance successful 21-gauge needle puncture into the right common femoral vein. Ultrasound images were recorded and stored. Vessel micropuncture was performed with 21-gauge needle. 0.18 wire guide is introduced into the vein. 0.18 wire is introduced into the vena cava under fluoroscopy. Catheter introduced over the wire guide followed by a 0.35 wire guide dilators and a temporary dialysis catheter tip in the IVC The catheter is sutured in place to the skin and a sterile dressing applied. Perfusion to the extremity distal to the point of catheter insertion is checked and found to be adequate Attending radiologist was present for the entire procedure Estimated blood loss4 cc. The patient tolerated the procedure well and there were no complications Impression: Successful ultrasound-guided needle placement right subclavian vein Successful ultrasound-guided needle placement right common femoral vein Successful temporary dialysis catheter insertion right common femoral vein Fluoroscopy 2.9 minutes radiation dose 25.04 milligray 1 spot fluoroscopic chest film 1 spot fluoroscopic abdomen films. AP abdomen at completion procedure demonstrates satisfactory position dialysis catheter. May use dialysis catheter.
[2024-11-09 05:32] LABS: Basophils % (Auto) 0 % (0-2.5); Eosinophils # (Auto) 0.3 Thou/mm3 (0.0-0.5); Eosinophils % (Auto) 4 % (0-10); Hematocrit 33.3 % (41.0-53.0); Hemoglobin 11.1 g/dL (13.5-16.0); Immature Granulocytes % (Auto) 1 % (0-0); Immature Granulocytes Auto 0.07 Thou/mm3 (0.00-0.00); Lymphocytes # (Auto) 1.3 Thou/mm3 (1.0-4.8); Lymphocytes % (Auto) 17 % (10-50); Mean Corpuscular HGB Conc 33.3 g/dl (31.0-37.0); Mean Corpuscular Hemoglobin 31.2 pg (25.0-35.0); Mean Corpuscular Volume 94 fL (80-100); Monocytes # (Auto) 0.8 Thou/mm3 (0.0-0.8); Monocytes % (Auto) 10 % (0-12); Neutrophils # (Auto) 5.1 Thou/mm3 (1.8-7.7); Neutrophils % (Auto) 67 % (37-80); Nucleated Red Blood Cell % 0 /100 WBC (0); Platelet Count 217 Thou/mm3 (140-440); RDW Standard Deviation 47.8 fL (35.1-43.9); Red Blood Count 3.56 Miln/mm3 (4.50-5.90); White Blood Count 7.6 Thou/mm3 (3.8-10.6)
[2024-11-09 05:44] LABS: Alanine Aminotransferase 24 U/L (10-49); Albumin/Globulin Ratio 1.9 (1.2-2.2); Alkaline Phosphatase 147 U/L (46-116); Anion Gap 13 (7-16); Aspartate Amino Transferase 34 U/L (0-34); BUN/Creatinine Ratio 15 Ratio (12-20); Bilirubin,Total 0.8 mg/dL (0.3-1.2); Blood Urea Nitrogen 82 mg/dL (9-23); Calcium 9.5 mg/dL (8.3-10.6); Calcium (Corrected) 9.5 mg/dL (8.5-10.1); Carbon Dioxide 23.2 mMol/L (20.0-31.0); Chloride 107 mMol/L (98-107); Creatinine (Component) 5.5 mg/dL (0.6-1.3); Estimated Creatinine Clearance 13.5 mL/min (>60); Globulin 2.1 gm/dL (2.3-3.5); Glucose 109 mg/dL (74-106); Magnesium 2.1 mg/dL (1.6-2.6); Osmolality,Calculated 310 (275-295); Phosphorous 5.4 mg/dL (2.4-5.1); Potassium 4.6 mMol/L (3.4-5.1); Sodium 143 mMol/L (136-145); Total Protein 6.1 gm/dL (5.7-8.2); eGFR 10 See Note
[2024-11-09] MEDS: LEVOTHYROXINE SODIUM 25 MCG TABLET 50 MCG PO (05:54)
[2024-11-09] MEDS: HALOPERIDOL LACT INJ 5 MG/ML VIAL IM ×3 (05:54→19:39)
[2024-11-09 06:34] LABS: Vancomycin,Random 16.3 mcg/mL
--- NOTE | 2024-11-09 08:32 | PC.SS ---
LACE[employer] confirmed with patient's spouse, plan to d/c patient to SNF upon discharge. Preferred SNF is [facility]. Patient established with dialysis services, [facility]. Dr. Padilla is the patient's fur glazer.
--- NOTE | 2024-11-09 08:38 | PC.SS ---
SNF referrals submitted on [facility], [place]. Responses are pending.
--- NOTE | 2024-11-09 08:53 | PC.SS ---
PASSR completed. Patient meets Level I criteria.
--- NOTE | 2024-11-09 09:43 | ESPR_ITS ---
Subjective Subjective Interval history: bc neg on f/u at 48h. echo neg for endocarditis but very low ef noted. Exam Vital Signs Temp Pulse Resp BP Pulse Ox O2 Del Method O2 Flow Rate 97.2 F 82 17 145/64 H 95 Room Air 2 11/09/24 08:00 11/09/24 08:00 11/09/24 08:00 11/09/24 08:00 11/09/24 08:00 11/09/24 08:00 11/09/24 00:00 Narrative Exam limited eval today Objective - Internal Medicine Labs 11/09/24 04:53 11/09/24 04:53 Labs: Laboratory Results - last 24 hr 11/09/24 11/09/24 04:53 04:53 WBC 7.6 RBC 3.56 L Hgb 11.1 L Hct 33.3 L MCV 94 MCH 31.2 MCHC 33.3 RDW Std Deviation 47.8 H Plt Count 217 D Neut % (Auto) 67 Lymph % (Auto) 17 [place] % (Auto) 10 Eos % (Auto) 4 Baso % (Auto) 0 Neut # (Auto) 5.1 Lymph # (Auto) 1.3 [place] # (Auto) 0.8 Eos # (Auto) 0.3 Baso # (Auto) 0.0 Immature Gran # (Auto) 0.07 H Absolute Nucleated RBC 0.00 Immature Gran % 1 H Nucleated RBC % 0 Sodium 143 Potassium 4.6 Chloride 107 Carbon Dioxide 23.2 Anion Gap 13 BUN 82 H Creatinine 5.5 H* Estim Creat Clear Calc 13.5 L eGFR 10 L* BUN/Creatinine Ratio 15 Glucose 109 H Calculated Osmolality 310 H Calcium 9.5 Corrected Calcium 9.5 Phosphorus 5.4 H Magnesium 2.1 Total Bilirubin 0.8 AST 34 ALT 24 Alkaline Phosphatase 147 H Total Protein 6.1 Albumin 4.0 Globulin 2.1 L Albumin/Globulin Ratio 1.9 Random Vancomycin 17.0 16.3 ABG Interpretation ABG results: 11/03/24 14:12 VBG pH 7.39 VBG pCO2 43 VBG pO2 35 VBG Base Excess 1 Assessment & Plan A&P Narrative 79 y/o hd pt with pos bc with mrsa with neg echo and f/u bc neg at 48h line removed and repeat bc pending (neg so far) ckd 5 chf cva hx recent line placement noted. if pending bc neg at 48h. then ok for vanco with hd thru 2/6 pm (10d from first neg) can finish as outpt with bc neg at 48h. ok to replace tdc as well. may need short rehab stay f/u with renal and primary. no need for ID f/u after release if he is not more mobile, then he should stay in house till he is so or go to a rehab as his is also 79 and had a cva and is frail. Time Spent With Patient Time: Total time spent is greater than 50% in coordination of care (as documented) at patient's floor/unit and/or counseling patient:
--- NOTE | 2024-11-09 09:56 | PC.SS ---
Update: Patient to packing house laborer to have tunnel catheter placed.
[2024-11-09] MEDS: LIDOCAINE INJ PF 1% 5 ML VIAL 10 ML INFL (10:00)
[2024-11-09] MEDS: fentaNYL CIT INJ 50 mCg/ML AMP 2ML IVP (10:21)
[2024-11-09] MEDS: MIDAZOLAM INJ 1 MG/ML VIAL 2 ML 4 MG IV (10:21)
[2024-11-09] MEDS: HEPARIN SOD INJ 5000 UNIT/ML VIAL 10 ML 2500 UNIT INTRACATH (11:41)
--- NOTE | 2024-11-09 15:39 | ESPR_ITS ---
<Statement entered by Humberto Hansen MD - 11/13/24 15:41> I reviewed above note and agree with findings and plans. I have also personally examined the patient with medicine team and went over assessment and plan with medical team including geotechnical intern and resident physician. Documentation for date of: 11/09/24 Subjective Subjective Interval history: Patient seen at bedside. No acute overnight events. He had insertion of femoral catheter today for dialysis as he was agitated for TDC placement. Mirror Polisher Dr Padilla consulted for recommendations. Patient to continue on dialysis in the hospital. Per ID, will continue vancomycin through 11/15. Exam Vital Signs Temp Pulse Resp BP Pulse Ox O2 Del Method O2 Flow Rate 97.3 F 64 18 148/108 H 98 Room Air 4 11/09/24 13:51 11/09/24 15:30 11/09/24 13:51 11/09/24 15:30 11/09/24 13:51 11/09/24 12:15 11/09/24 11:25 Narrative Exam General: No acute distress, AO x 2, confused HEENT: NC/AT, PERRL, EOMI, Good conjugate gaze, moist mucous membranes, oropharynx clear. Neck: Supple, No masses, No adenopathy, carotid pulse 2+ bilaterally without bruits, No JVD, normal range of motion, previous placement of tunneled catheter for dialysis clean no erythema Chest: Symmetrical, atraumatic, and with equal expansion , Nontender on palpation no deformity and no crepitus. CVS: S1 and S2 present, Regular rate and rhythm, No murmurs, rubs or gallops perceived during auscultation. Lungs: Normal respiratory effort, CTAB, no wheezing, rhonchi or rales perceived during auscultation, No intercostal or subcostal retraction. Abdomen : Soft, no tenderness to palpation, no guarding ,no rebound, +BS Extremities: Left upper extremity with AV fistula for dialysis ,no edema, warm well perfused Skin: Intact, no rashes, no lesions, no erythema or jaundice noted Objective Labs 11/09/24 04:53 11/09/24 04:53 Labs: Laboratory Results - last 24 hr 11/09/24 11/09/24 04:53 04:53 WBC 7.6 RBC 3.56 L Hgb 11.1 L Hct 33.3 L MCV 94 MCH 31.2 MCHC 33.3 RDW Std Deviation 47.8 H Plt Count 217 D Neut % (Auto) 67 Lymph % (Auto) 17 [place] % (Auto) 10 Eos % (Auto) 4 Baso % (Auto) 0 Neut # (Auto) 5.1 Lymph # (Auto) 1.3 [place] # (Auto) 0.8 Eos # (Auto) 0.3 Baso # (Auto) 0.0 Immature Gran # (Auto) 0.07 H Absolute Nucleated RBC 0.00 Immature Gran % 1 H Nucleated RBC % 0 Sodium 143 Potassium 4.6 Chloride 107 Carbon Dioxide 23.2 Anion Gap 13 BUN 82 H Creatinine 5.5 H* Estim Creat Clear Calc 13.5 L eGFR 10 L* BUN/Creatinine Ratio 15 Glucose 109 H Calculated Osmolality 310 H Calcium 9.5 Corrected Calcium 9.5 Phosphorus 5.4 H Magnesium 2.1 Total Bilirubin 0.8 AST 34 ALT 24 Alkaline Phosphatase 147 H Total Protein 6.1 Albumin 4.0 Globulin 2.1 L Albumin/Globulin Ratio 1.9 Random Vancomycin 17.0 16.3 ABG Interpretation ABG results: 11/03/24 14:12 VBG pH 7.39 VBG pCO2 43 VBG pO2 35 VBG Base Excess 1 Quality Measures Quality Measures sepsis Current suspected stage: sepsis Possible source: unknown Blood cultures ordered: yes Antibiotic ordered: Yes Advance care planning discussed with:: other Assessment & Plan Assessment Current Active Medications: Generic Name Dose Route Start Last Admin Trade Name Freq PRN Reason Stop Dose Admin Acetaminophen 650 mg 11/03/24 19:16 Acetaminophen 325 Mg Tablet PO 12/03/24 19:15 Q6H PRN PAIN SCALE 1-3 (mild Acetaminophen 650 mg 11/03/24 21:16 Acetaminophen Supp 650 Mg Supp ID 12/03/24 21:29 Q6H PRN Fever > 100.4 Albuterol/Ipratropium 3 ml 11/03/24 19:16 Albuterol/Ipratropium (Duoneb) Rt Dianne 3 Ml Nebu INH 12/03/24 22:59 Q4HRRT PRN SOB or wheezing Aspirin 81 mg 11/07/24 10:00 11/07/24 10:03 Aspirin Ec 81 Mg Tabec PO 12/07/24 09:59 81 mg QDAY TARIK Administration Atorvastatin Calcium 80 mg 11/04/24 21:00 11/08/24 20:58 Atorvastatin Calcium 20 Mg Tablet PO 12/04/24 20:59 80 mg HS TARIK Administration Clopidogrel Bisulfate 75 mg 11/06/24 09:00 11/07/24 09:26 Clopidogrel Bisulfate 75 Mg Tablet PO 12/06/24 08:59 75 mg QDAY TARIK Administration Haloperidol Lactate 5 mg 11/09/24 15:07 Haloperidol Lact Inj 5 Mg/Ml Vial IM 12/07/24 13:58 Q6H PRN AGITATION Heparin Sodium (Porcine) 2,500 unit 11/09/24 15:02 Heparin Sod Inj 1000 Unit/Ml Vial 10 Ml INDWELLCAT 11/23/24 15:01 PRN PRN DIALYSIS Heparin Sodium (Porcine) 5,000 unit 11/09/24 22:00 Heparin Sod Inj 5000 Unit/Ml Vial SC 11/17/24 21:59 Q8HR TARIK Albumin Human 25 gm in 100 mls @ 100 mls/min 11/05/24 10:19 Albuminar-25 Ivpb IV QDAY PRN DIALYSIS Vancomycin/Sodium Chloride 100 mls @ 120 mls/hr 11/09/24 16:00 Vancomycin/Ns 500 Mg Ivpb IV 11/09/24 16:49 X1 ONE Levothyroxine Sodium 50 mcg 11/08/24 11:30 11/09/24 05:54 Levothyroxine Sodium 25 Mcg Tablet PO 12/08/24 11:29 50 mcg ACBR TARIK Administration Metoprolol Succinate 50 mg 11/07/24 21:00 11/09/24 12:29 Metoprolol Succinate Xl 25 Mg Tabcr PO 12/07/24 20:59 Not Given BID TARIK Ondansetron HCl 4 mg 11/03/24 14:16 11/03/24 17:26 Ondansetron Inj 2 Mg/Ml Inj 2 Ml IV 12/03/24 14:15 4 mg Q4HR PRN Administration NAUSEA OR VOMITING Pantoprazole Sodium 40 mg 11/05/24 10:45 11/09/24 12:29 Pantoprazole Inj 40 Mg Vial IVP 12/05/24 10:44 Not Given QDAY TARIK Pharmacy Consult 1 each 11/04/24 09:00 Vancomycin Pharmacy To Dose 1 Each Each IV 12/04/24 08:59 QDAY PRN CONSULT Pharmacy Consult 1 each 11/03/24 21:18 Pharmacy Renal Dose Adjustment 1 Ea XX 12/03/24 21:17 PRN PRN CONSULT Sennosides 1 tab 11/03/24 19:16 Senna Tablet PO 12/03/24 19:15 BID PRN CONSTIPATION Protocol Plan Summary: The patient is a 8-eruo-teq-year-old male PMHx of ESRD on HD MWF, HFrEF EF 30%, CVA, hypothyroidism presenting with AMS in setting of CRBSI sepsis. He continued on VANCOMYCIN for MRSA bacteremia. HD cath removed. If blood culture negative tomorrow (48 hours), will proceed with hemodialysis cath insertion. #Sepsis 2/2 catheter site cellulitis (improving) #Catheter site cellulitis #MRSA bacteremia 2/2 CRBSI Met 2/4 SIRS criteria with tachycardia, fever. LA normal, no leukocytosis. HD tunneled cath erythematous and warm suggesting cellulitis. Afebrile, leukocytosis improving. Prelim blood culture showing GPC. Dialysis, significant removed. Continue on VANCOMYCIN. 24-hour blood culture negative. Catheter site cx grew GPC. MRSA nasal swab positive. Repeat blood culture negative Afebrile, no leukocytosis Plan: ? Continue VANCOMYCIN until 11/19/2024 ? Continue to monitor CBC #Acute encephalopathy #Severe agitation #Suspected underlying dementia vs delirium secondary to metabolic encephalopathy Likely secondary to metabolic encephalopathy. Unclear what baseline is, currently attending, does not follow command, agitated, requiring multiple medications. Continued on soft restraints. Started scheduled HALOPERIDOL. Head CT was negative. No focal neurological deficit. No indication for stroke workup. Neurology consulted, agreed with ANTIPSYCHOTICS for agitation. Patient still agitated and was unable to have a new TDC inserted Plan: ? Continue HALOPERIDOL 5 mg q.6h. PRN - Neurology consulted, appreciate recommendations #ESRD on HD M// Patient has dialysis Tuesday, Tuesday, Tuesday. Cath removed, femoral cath placed today as patient was unabe to get TDC inserted today due to agitation. Mirror Polisher Dr Padilla iupdated. ? Renally dose meds, avoid overdiuresis and NEPHROTOXINS ? Daily CMP ? Hemodialysis with nephrology team, scheduled today. #NSTEMI type II #Hx CAD, NC #HFrEF EF 35-40 Troponin peaked at 0.976. Unable to assess symptoms secondary to encephalopathy. EKG sinus rhythm without acute ST changes. Demand ischemia in settings of sepsis versus volume overload. Anticipate improvement with diuresis and preload reduction. Cardiology consulted, recommendations included below. HR in 80s. - Trops down trended ? Continue ATORVASTATIN 80 mg daily ? Continue ASPIRIN 300 mg daily ? Continue home PLAVIX 75 mg daily ? Continue METOPROLOL succinate 50 mg BID (home dose 200 mg daily) #Hypomagnesemia, improved 11/06 Magnesium 1.9. Will not replete as patient does not have a dialysis line and won't be getting HD today. Low mag may be protective against hyperkalemia at this time. ? Daily CMP #History of CVA #History of CHF ? Continue ASPIRIN 300 mg daily ? Continue ATORVASTATIN 80 mg daily ? Pending echocardiogram Hypothyroidim TSH 4.6 this visit. ? Continue home LEVOTHYROXINE 50 mcg ACBR Normocytic anemia (stable) Patient has Hb of 10.8 No obvious source of bleeding We will monitor closely, may need outpatient workup Health maintenance Diet: NPO GI prophylaxis: PROTONIX DVT prophylaxis: SCD Antibiotics: VANCOMYCIN CODE STATUS: Full code Disposition: Pending HD cath placement Case was discussed with Dr Soto PGY-2 and attending physician, Dr Tyrone Shaver MD PGY-1 Senior Resident Attestation: The patient is a 77-ckme-cgd-year-old male PMHx of ESRD on HD MWF, HFrEF EF 30%, CVA, hypothyroidism presenting with AMS in setting of CRBSI sepsis. He continued on VANCOMYCIN for MRSA bacteremia. The patient underwent hemodialysis vascular Instead of tunneled cath because he was uncooperative during the procedure despite conscious sedation. He underwent HD session where he was again agitated and IV Haldol given and restrain was orderd. We will attempt again on Tuesday for tunnel HD catheter. We will hold heparin 1 day prior to procedure. We will continue with vancomycin until 11/19. I discussed with and supervised the geotechnical intern physician involved in the care of this patient. I personally saw and examined the patient and discussed the assessment and plan with the entire medicine team, including my attending. I agree with the assessment and plan as documented above. Saeid Soto MD PGY2 Internal Medicine
[2024-11-09] MEDS: HEPARIN SOD INJ 1000 UNIT/ML VIAL 10 ML 2500 UNIT INDWELLCAT (17:31)
[2024-11-09] MEDS: VANCOMYCIN/NS 500 MG IVPB 100 ML 120 MG IV (17:40)
[2024-11-09] MEDS: HEPARIN SOD INJ 5000 UNIT/ML VIAL SC (21:55)
--- NOTE | 2024-11-09 22:09 | PC.NURSE ---
Patient refusing PO BP medication, patient still restless and spits at staff. notified oncall resident Rosemary, aware of refusal. She stated to call her back if BP still elevated on next check
--- NOTE | 2024-11-09 23:50 | PD.NEUROPROG ---
Documentation for date of: 11/09/24 Subjective Subjective Interval history: Patient was seen in telemetry today with his at the bedside, continue to remain restless but much better today, on restraints as he is intermittently trying to come out of bed. Very poor oral intake noted Exam - Neurology Vital Signs Temp Pulse Resp BP Pulse Ox O2 Del Method O2 Flow Rate 96.3 F L 70 17 141/79 H 99 Room Air 4 11/09/24 20:00 11/09/24 20:00 11/09/24 20:00 11/09/24 20:00 11/09/24 20:00 11/09/24 20:00 11/09/24 11:25 Narrative Exam GENERAL APPEARANCE: Well-developed, obese built white male , restless in bed HEENT: Normocephalic, atraumatic, extraocular movements intact. Pupils: Equal reacting to light NECK: Supple, no JVD or bruits. CARDIOVASULAR: Heart: S1, S2 heard, regular without S3-S4 or murmur no rubs or gallops. LUNGS/CHEST: Clear to auscultation bilaterally. No rails, rhonchi, or wheezing. Normal inspection. ABDOMEN: Soft, nontender, with normal bowel sounds. No pulsatile masses. No rebound, rigidity, or guarding. Normal inspection and palpation. EXTREMITIES: Normal inspection and palpation. No edema, clubbing or cyanosis. SKIN: Warm and dry without rashes. Normal inspection. MUSCULOSKELETAL: No cervical, thoracic, lumbar or midline bony tenderness. Normal inspection. NEURO: Awake, alert, still restless, needing to be on restraints, moves all 4 extremities purposefully no signs of meningeal irritation noted. PSYCHIATRIC: limited Objective Labs 11/10/24 05:24 11/10/24 05:24 Labs: Laboratory Results - last 24 hr 11/09/24 11/09/24 04:53 04:53 WBC 7.6 RBC 3.56 L Hgb 11.1 L Hct 33.3 L MCV 94 MCH 31.2 MCHC 33.3 RDW Std Deviation 47.8 H Plt Count 217 D Neut % (Auto) 67 Lymph % (Auto) 17 [place] % (Auto) 10 Eos % (Auto) 4 Baso % (Auto) 0 Neut # (Auto) 5.1 Lymph # (Auto) 1.3 [place] # (Auto) 0.8 Eos # (Auto) 0.3 Baso # (Auto) 0.0 Immature Gran # (Auto) 0.07 H Absolute Nucleated RBC 0.00 Immature Gran % 1 H Nucleated RBC % 0 Sodium 143 Potassium 4.6 Chloride 107 Carbon Dioxide 23.2 Anion Gap 13 BUN 82 H Creatinine 5.5 H* Estim Creat Clear Calc 13.5 L eGFR 10 L* BUN/Creatinine Ratio 15 Glucose 109 H Calculated Osmolality 310 H Calcium 9.5 Corrected Calcium 9.5 Phosphorus 5.4 H Magnesium 2.1 Total Bilirubin 0.8 AST 34 ALT 24 Alkaline Phosphatase 147 H Total Protein 6.1 Albumin 4.0 Globulin 2.1 L Albumin/Globulin Ratio 1.9 Random Vancomycin 17.0 16.3 ABG Interpretation ABG results: 11/03/24 14:12 VBG pH 7.39 VBG pCO2 43 VBG pO2 35 VBG Base Excess 1 Assessment & Plan Assessment and plan (1) Delirium: Status: Acute Assessment and plan: Likely secondary to metabolic encephalopathy Continue with the symptomatic therapy with Zyprexa or Haldol/Ativan/Benadryl as needed. (2) End stage renal failure on dialysis: Status: Chronic Assessment and plan: Continue with hemodialysis (3) Cellulitis: Status: Acute Assessment and plan: Continue with IV antibiotics follow-up with the culture (4) Fever: Status: Acute Assessment and plan: Most likely secondary to infection in the dialysis catheter access Continue with IV antibiotics Got the new access for dialysis
[2024-11-10] VITALS (11 sets, daily range): BP systolic 109–149; BP diastolic 66–98; PULSE 63–92; RESP 10–21; TEMP 35.8–36.3; O2SAT 94–99; BMI 31.5
[2024-11-10] MEDS: HALOPERIDOL LACT INJ 5 MG/ML VIAL IM ×3 (01:44→21:28)
[2024-11-10 06:25] LABS: Basophils % (Auto) 0 % (0-2.5); Eosinophils # (Auto) 0.3 Thou/mm3 (0.0-0.5); Eosinophils % (Auto) 3 % (0-10); Hematocrit 35.9 % (41.0-53.0); Immature Granulocytes % (Auto) 1 % (0-0); Immature Granulocytes Auto 0.08 Thou/mm3 (0.00-0.00); Lymphocytes # (Auto) 1.3 Thou/mm3 (1.0-4.8); Lymphocytes % (Auto) 16 % (10-50); Mean Corpuscular HGB Conc 33.4 g/dl (31.0-37.0); Mean Corpuscular Volume 93 fL (80-100); Monocytes # (Auto) 0.9 Thou/mm3 (0.0-0.8); Monocytes % (Auto) 11 % (0-12); Neutrophils # (Auto) 5.7 Thou/mm3 (1.8-7.7); Neutrophils % (Auto) 69 % (37-80); Nucleated Red Blood Cell % 0 /100 WBC (0); Platelet Count 216 Thou/mm3 (140-440); RDW Standard Deviation 47.4 fL (35.1-43.9); Red Blood Count 3.87 Miln/mm3 (4.50-5.90); White Blood Count 8.3 Thou/mm3 (3.8-10.6)
[2024-11-10] MEDS: HEPARIN SOD INJ 5000 UNIT/ML VIAL SC ×2 (06:35→14:17)
[2024-11-10] MEDS: LEVOTHYROXINE SODIUM 25 MCG TABLET 50 MCG PO (06:39)
[2024-11-10 06:40] LABS: Alanine Aminotransferase 28 U/L (10-49); Albumin, Serum 4.1 gm/dL (3.4-4.8); Albumin/Globulin Ratio 2.1 (1.2-2.2); Alkaline Phosphatase 163 U/L (46-116); Anion Gap 14 (7-16); Aspartate Amino Transferase 36 U/L (0-34); BUN/Creatinine Ratio 14 Ratio (12-20); Bilirubin,Total 0.8 mg/dL (0.3-1.2); Blood Urea Nitrogen 67 mg/dL (9-23); Calcium 9.8 mg/dL (8.3-10.6); Calcium (Corrected) 9.8 mg/dL (8.5-10.1); Carbon Dioxide 22.7 mMol/L (20.0-31.0); Chloride 105 mMol/L (98-107); Creatinine (Component) 4.8 mg/dL (0.6-1.3); Glucose 99 mg/dL (74-106); Magnesium 2.2 mg/dL (1.6-2.6); Osmolality,Calculated 302 (275-295); Phosphorous 6.4 mg/dL (2.4-5.1); Potassium 4.8 mMol/L (3.4-5.1); Sodium 142 mMol/L (136-145); Total Protein 6.1 gm/dL (5.7-8.2); Vancomycin,Random 18.1 mcg/mL; eGFR 12 See Note
[2024-11-10] MEDS: PANTOPRAZOLE INJ 40 MG VIAL IVP (09:19)
[2024-11-10] MEDS: ASPIRIN EC 81 MG TABEC PO (09:20)
[2024-11-10] MEDS: CLOPIDOGREL BISULFATE 75 MG TABLET PO (09:20)
[2024-11-10] MEDS: METOPROLOL SUCCINATE XL 25 MG TABCR 50 MG PO ×2 (09:20→21:26)
--- NOTE | 2024-11-10 09:49 | ESPR_ITS ---
RE: LUCA DIXON : 1945 DATE OF SERVICE: 11/09/2024 HISTORY OF PRESENT ILLNESS: Briefly, he is a 79-year-old gentleman with hypertension, coronary artery disease status post CABG in 2018, ischemic cardiomyopathy with EF of 35% and ESRD on dialysis since 01/2023, dialysis every Tuesday at the [facility], who was admitted to the hospital on 11/06/2024 with confusion. He was found with tunneled dialysis catheter infection with blood culture X 2 that grew gram positive cocci. The patient's blood culture has been negative in the past 48 hours and was scheduled for a tunnelled dialysis catheter placement. However, the patient kept on moving while on the table at Radiology Unit. The patient according to the interventional radiologist needed to be under general anesthesia to have a tunneled dialysis catheter placed. The patient received a temporary femoral catheter for dialysis today. He is about to do dialysis and currently asleep. ALLERGIES: NO KNOWN DRUG ALLERGIES. MEDICATIONS: 1. Acetaminophen. 2. Aspirin 81 mg p.o. daily. 3. Atorvastatin 80 mg at bedtime. 4. Plavix 75 mg p.o. daily. 5. Fentanyl. 6. Allopurinol. 7. Heparin 1000 units q.8. 8. Levothyroxine 50 mcg p.o. daily. 9. Metoprolol 50 mg p.o. b.i.d. 10. Midazolam. PHYSICAL EXAMINATION: General: He is confused, awake. Vital Signs: Blood pressure of 149/83, heart rate of 69, and O2 saturation of 94%. HEENT: Anicteric sclerae. Normocephalic. Neck: Supple. Lungs: No JVD. Chest and Lungs: Symmetrical expansion. Clear breath sounds. Heart: No murmur. Abdomen: Soft and nontender. Extremities: No edema. LABORATORY Data: Hemoglobin 12, WBC 8,300, platelet count 216,000. Sodium 142, potassium 4.6, chloride 107, CO2 23.2, BUN 82, creatinine 5.5, calcium 9.5, phosphorus 5.4 ASSESSMENT: 1. End-stage renal disease. 2. Altered level of consciousness secondary to sepsis, somehow improved. 3. Gram-positive septicemia, most likely secondary to infected tunneled dialysis catheter. Repeat blood cultures x 48 hours. Negative for any growth. 4. Anemia of chronic kidney disease. 5. History of coronary artery disease status post coronary bypass graft. 6. Ischemic cardiomyopathy. 7. Obesity. 8. Hypertension. PLAN: The patient will be dialyzed any time today . The patient should have a tunneled dialysis catheter before discharge. We may need to hold off on Aspirin and Plavix until we can get a tunnelled dialysis catheter under general anesthesia. DT: 08:45:25 TT: 09:47:00 Ref: [id number] - TID: [id number] MTDD
[2024-11-10] MEDS: SEVELAMER CARBONATE 800 MG TABLET PO (12:39)
--- NOTE | 2024-11-10 14:04 | ESPR_ITS ---
<Statement entered by Humberto Hansen MD - 11/16/24 15:56> I reviewed above note and agree with findings and plans. I have also personally examined the patient with medicine team and went over assessment and plan with medical team including legal intern and resident physician. Documentation for date of: 11/10/24 Subjective Subjective Interval history: Patient seen at bedside today. Overnight was said to have been agitated and was given a dose of Haldol On examination at bedside, patient was calm and in restraints. He still AAO x 1, able to tell his name but unable to respond to anything else. Yesterday, femoral dialysis catheter was inserted for the interim and he had a session of dialysis done with net removal of 2.1 L. Pending TDC reinsertion on Tuesday. Exam Vital Signs Temp Pulse Resp BP Pulse Ox O2 Del Method O2 Flow Rate 97.3 F 75 15 141/66 H 95 Room Air 4 11/10/24 12:00 11/10/24 12:11/10/24 12:11/10/24 12:11/10/24 12:11/10/24 12:11/09/24 11:25 Narrative Exam General: No acute distress, AAO x 1, confused HEENT: NC/AT, PERRL, EOMI, Good conjugate gaze, moist mucous membranes, oropharynx clear. Neck: Supple, No masses, No adenopathy, carotid pulse 2+ bilaterally without bruits, No JVD, normal range of motion Chest: Symmetrical, atraumatic, and with equal expansion , Nontender on palpation no deformity and no crepitus. CVS: S1 and S2 present, Regular rate and rhythm, No murmurs, rubs or gallops perceived during auscultation. Lungs: Normal respiratory effort, CTAB, no wheezing, rhonchi or rales perceived during auscultation, No intercostal or subcostal retraction. Abdomen : Soft, no tenderness to palpation, no guarding ,no rebound, +BS Extremities: Right upper extremity with AV fistula for dialysis ,no edema, warm well perfused Skin: Intact, no rashes, no lesions, no erythema or jaundice noted Objective Labs 11/10/24 05:24 11/10/24 05:24 Labs: Laboratory Results - last 24 hr 11/10/24 05:24 WBC 8.3 RBC 3.87 L Hgb 12.0 L Hct 35.9 L MCV 93 MCH 31.0 MCHC 33.4 RDW Std Deviation 47.4 H Plt Count 216 Neut % (Auto) 69 Lymph % (Auto) 16 [place] % (Auto) 11 Eos % (Auto) 3 Baso % (Auto) 0 Neut # (Auto) 5.7 Lymph # (Auto) 1.3 [place] # (Auto) 0.9 H Eos # (Auto) 0.3 Baso # (Auto) 0.0 Immature Gran # (Auto) 0.08 H Absolute Nucleated RBC 0.00 Immature Gran % 1 H Nucleated RBC % 0 Sodium 142 Potassium 4.8 Chloride 105 Carbon Dioxide 22.7 Anion Gap 14 BUN 67 H Creatinine 4.8 H* D Estim Creat Clear Calc 15.0 L eGFR 12 L* BUN/Creatinine Ratio 14 Glucose 99 Calculated Osmolality 302 H Calcium 9.8 Corrected Calcium 9.8 Phosphorus 6.4 H Magnesium 2.2 Total Bilirubin 0.8 AST 36 H ALT 28 Alkaline Phosphatase 163 H Total Protein 6.1 Albumin 4.1 Globulin 2.0 L Albumin/Globulin Ratio 2.1 Random Vancomycin 18.1 ABG Interpretation ABG results: 11/03/24 14:12 VBG pH 7.39 VBG pCO2 43 VBG pO2 35 VBG Base Excess 1 Quality Measures Quality Measures sepsis Current suspected stage: sepsis Possible source: unknown Blood cultures ordered: yes Antibiotic ordered: Yes Advance care planning discussed with:: other Assessment & Plan Assessment Current Active Medications: Generic Name Dose Route Start Last Admin Trade Name Freq PRN Reason Stop Dose Admin Acetaminophen 650 mg 11/03/24 19:16 Acetaminophen 325 Mg Tablet PO 12/03/24 19:15 Q6H PRN PAIN SCALE 1-3 (mild Acetaminophen 650 mg 11/03/24 21:16 Acetaminophen Supp 650 Mg Supp [place] 12/03/24 21:29 Q6H PRN Fever > 100.4 Albuterol/Ipratropium 3 ml 11/03/24 19:16 Albuterol/Ipratropium (Duoneb) Rt Dianne 3 Ml Nebu INH 12/03/24 22:59 Q4HRRT PRN SOB or wheezing Aspirin 81 mg 11/07/24 10:00 11/10/24 09:20 Aspirin Ec 81 Mg Tabec PO 12/07/24 09:59 81 mg QDAY TARIK Administration Atorvastatin Calcium 80 mg 11/04/24 21:00 11/09/24 22:09 Atorvastatin Calcium 20 Mg Tablet PO 12/04/24 20:59 Not Given HS TARIK Clopidogrel Bisulfate 75 mg 11/06/24 09:00 11/10/24 09:20 Clopidogrel Bisulfate 75 Mg Tablet PO 12/06/24 08:59 75 mg QDAY TARIK Administration Haloperidol Lactate 5 mg 11/09/24 15:07 11/10/24 01:44 Haloperidol Lact Inj 5 Mg/Ml Vial IM 12/07/24 13:58 5 mg Q6H PRN Administration AGITATION Heparin Sodium (Porcine) 2,500 unit 11/09/24 15:02 11/09/24 17:31 Heparin Sod Inj 1000 Unit/Ml Vial 10 Ml INDWELLCAT 11/23/24 15:01 2,500 unit PRN PRN Administration DIALYSIS Heparin Sodium (Porcine) 5,000 unit 11/09/24 22:00 11/10/24 06:35 Heparin Sod Inj 5000 Unit/Ml Vial SC 11/17/24 21:59 5,000 unit Q8HR TARIK Administration Albumin Human 25 gm in 100 mls @ 100 mls/min 11/05/24 10:19 Albuminar-25 Ivpb IV QDAY PRN DIALYSIS Levothyroxine Sodium 50 mcg 11/08/24 11:30 11/10/24 06:39 Levothyroxine Sodium 25 Mcg Tablet PO 12/08/24 11:29 50 mcg ACBR TARIK Administration Metoprolol Succinate 50 mg 11/07/24 21:00 11/10/24 09:20 Metoprolol Succinate Xl 25 Mg Tabcr PO 12/07/24 20:59 50 mg BID TARIK Administration Ondansetron HCl 4 mg 11/03/24 14:16 11/03/24 17:26 Ondansetron Inj 2 Mg/Ml Inj 2 Ml IV 12/03/24 14:15 4 mg Q4HR PRN Administration NAUSEA OR VOMITING Pantoprazole Sodium 40 mg 11/05/24 10:45 11/10/24 09:19 Pantoprazole Inj 40 Mg Vial IVP 12/05/24 10:44 40 mg QDAY TARIK Administration Pharmacy Consult 1 each 11/04/24 09:00 Vancomycin Pharmacy To Dose 1 Each Each IV 12/04/24 08:59 QDAY PRN CONSULT Pharmacy Consult 1 each 11/03/24 21:18 Pharmacy Renal Dose Adjustment 1 Ea XX 12/03/24 21:17 PRN PRN CONSULT Sennosides 1 tab 11/03/24 19:16 Senna Tablet PO 12/03/24 19:15 BID PRN CONSTIPATION Protocol Plan Summary: The patient is a 89-ly[age]-ybp-year-old male PMHx of ESRD on HD MWF, HFrEF EF 30%, CVA, hypothyroidism presenting with AMS in setting of CRBSI sepsis. He continued on VANCOMYCIN for MRSA bacteremia. HD cath removed. If blood culture negative tomorrow (48 hours), will proceed with hemodialysis cath insertion. #Sepsis 2/2 catheter site cellulitis (improving) #Catheter site cellulitis #MRSA bacteremia 2/2 CRBSI Met 2/4 SIRS criteria with tachycardia, fever. LA normal, no leukocytosis. HD tunneled cath erythematous and warm suggesting cellulitis. Afebrile, leukocytosis improving. Prelim blood culture showing GPC. Dialysis, significant removed. Continue on Vancomycin. 24-hour blood culture negative. Catheter site cx grew GPC. MRSA nasal swab positive. Repeat blood culture negative Afebrile, no leukocytosis Plan: ? Continue vancomycin until 11/19/2024 ? Continue to monitor CBC - Continue to monitor vitals #Acute encephalopathy #Severe agitation #Suspected underlying dementia vs delirium secondary to metabolic encephalopathy Likely secondary to metabolic encephalopathy. Unclear what baseline is, currently attending, does not follow command, agitated, requiring multiple medications. Continued on soft restraints. Started scheduled HALOPERIDOL. Head CT was negative. No focal neurological deficit. No indication for stroke workup. Neurology consulted, agreed with ANTIPSYCHOTICS for agitation. Patient still agitated and was unable to have a new TDC inserted Plan: ? Continue HALOPERIDOL 5 mg q.6h. PRN - Neurology consulted, appreciate recommendations #ESRD on HD M// Patient has dialysis Tuesday, Tuesday, Tuesday. Cath removed, femoral cath placed today as patient was unabe to get TDC inserted today due to agitation. Button Maker Dr Padilla updated. Per storage solutions architect, IR thinks that the patient might need general anesthesia for reinsertion of the TDC. Will attempt placement again on Tuesday. In the interim, femoral cath. Plan: ? Renally dose meds, avoid overdiuresis and NEPHROTOXINS ? Daily CMP ? Hemodialysis as scheduled by nephrology #NSTEMI type II #Hx CAD, [place] #HFrEF EF 35-40 Troponin peaked at 0.976. Unable to assess symptoms secondary to encephalopathy. EKG sinus rhythm without acute ST changes. Demand ischemia in settings of sepsis versus volume overload. Anticipate improvement with diuresis and preload reduction. Cardiology consulted, recommendations included below. HR in 80s. - Trops down trended ? Continue ATORVASTATIN 80 mg daily ? Continue ASPIRIN 300 mg daily ? Continue home PLAVIX 75 mg daily ? Continue METOPROLOL succinate 50 mg BID (home dose 200 mg daily) #Hypomagnesemia, improved 11/06 Magnesium 1.9. Will not replete as patient does not have a dialysis line and won't be getting HD today. Low mag may be protective against hyperkalemia at this time. ? Daily CMP #History of CVA #History of CHF ? Continue ASPIRIN 300 mg daily ? Continue ATORVASTATIN 80 mg daily ? Pending echocardiogram Hypothyroidim TSH 4.6 this visit. ? Continue home LEVOTHYROXINE 50 mcg ACBR Normocytic anemia (stable) Patient has Hb of 10.8 No obvious source of bleeding We will monitor closely, may need outpatient workup Health maintenance Diet: NPO GI prophylaxis: PROTONIX DVT prophylaxis: SCD Antibiotics: VANCOMYCIN CODE STATUS: Full code Disposition: Pending HD cath placement Case was discussed with attending physician, Dr Tyrone Shaver MD PGY-1
[2024-11-10] MEDS: ATORVASTATIN CALCIUM 20 MG TABLET 80 MG PO (21:27)
[2024-11-10] MEDS: ENOXAPARIN SOD INJ 30 MG/0.3 ML SYRINGE SC (21:28)
--- NOTE | 2024-11-10 23:56 | PD.VPROG1 ---
Telemedicine visit statement This visit was conducted with the use of interactive audio and video telecommunications system that permits real time communication between the patient and the provider. Patient's verbal consent for virtual visit was obtained on 11/10/24 at 2356. Documentation for date of: 11/10/24 Subjective Subjective Interval history: Patient was in telemetry, remains confused, redirectable, very low oral intake sleep: not good Virtual exam Vital Signs Temp Pulse Resp BP Pulse Ox O2 Del Method O2 Flow Rate 96.9 F 92 10 L 148/97 H 98 Room Air 4 11/10/24 20:00 11/10/24 21:26 11/10/24 20:35 11/10/24 21:26 11/10/24 20:35 11/10/24 15:32 11/09/24 11:25 Objective Labs 11/16/24 04:03 11/16/24 04:03 Labs: Laboratory Results - last 24 hr 11/10/24 05:24 WBC 8.3 RBC 3.87 L Hgb 12.0 L Hct 35.9 L MCV 93 MCH 31.0 MCHC 33.4 RDW Std Deviation 47.4 H Plt Count 216 Neut % (Auto) 69 Lymph % (Auto) 16 [place] % (Auto) 11 Eos % (Auto) 3 Baso % (Auto) 0 Neut # (Auto) 5.7 Lymph # (Auto) 1.3 [place] # (Auto) 0.9 H Eos # (Auto) 0.3 Baso # (Auto) 0.0 Immature Gran # (Auto) 0.08 H Absolute Nucleated RBC 0.00 Immature Gran % 1 H Nucleated RBC % 0 Sodium 142 Potassium 4.8 Chloride 105 Carbon Dioxide 22.7 Anion Gap 14 BUN 67 H Creatinine 4.8 H* D Estim Creat Clear Calc 15.0 L eGFR 12 L* BUN/Creatinine Ratio 14 Glucose 99 Calculated Osmolality 302 H Calcium 9.8 Corrected Calcium 9.8 Phosphorus 6.4 H Magnesium 2.2 Total Bilirubin 0.8 AST 36 H ALT 28 Alkaline Phosphatase 163 H Total Protein 6.1 Albumin 4.1 Globulin 2.0 L Albumin/Globulin Ratio 2.1 Random Vancomycin 18.1 ABG Interpretation ABG results: 11/03/24 14:12 VBG pH 7.39 VBG pCO2 43 VBG pO2 35 VBG Base Excess 1 Assessment & Plan Problem List (1) Delirium: Status: Acute Assessment and plan: Secondary to catheter related sepsis/MRSA, on vancomycin with baseline dementia no improvement noted in mental status Continue with the symptomatic treatment as needed. Consider physical therapy for range of motion and ambulation as he improves (2) End stage renal failure on dialysis: Status: Chronic Assessment and plan: On maintenance dialysis with a new dialysis access
[2024-11-11] VITALS (13 sets, daily range): BP systolic 96–158; BP diastolic 66–94; PULSE 60–86; RESP 11–99; TEMP 35.8–36.7; O2SAT 94–99
[2024-11-11] MEDS: HALOPERIDOL LACT INJ 5 MG/ML VIAL IM ×2 (03:40→21:54)
[2024-11-11] MEDS: LEVOTHYROXINE SODIUM 25 MCG TABLET 50 MCG PO (05:38)
[2024-11-11 05:57] LABS: Basophils % (Auto) 0 % (0-2.5); Eosinophils # (Auto) 0.3 Thou/mm3 (0.0-0.5); Eosinophils % (Auto) 3 % (0-10); Hematocrit 36.3 % (41.0-53.0); Hemoglobin 12.2 g/dL (13.5-16.0); Immature Granulocytes % (Auto) 1 % (0-0); Immature Granulocytes Auto 0.09 Thou/mm3 (0.00-0.00); Lymphocytes # (Auto) 1.4 Thou/mm3 (1.0-4.8); Lymphocytes % (Auto) 17 % (10-50); Mean Corpuscular HGB Conc 33.6 g/dl (31.0-37.0); Mean Corpuscular Hemoglobin 31.4 pg (25.0-35.0); Mean Corpuscular Volume 93 fL (80-100); Monocytes # (Auto) 0.9 Thou/mm3 (0.0-0.8); Monocytes % (Auto) 11 % (0-12); Neutrophils # (Auto) 5.6 Thou/mm3 (1.8-7.7); Neutrophils % (Auto) 67 % (37-80); Nucleated Red Blood Cell % 0 /100 WBC (0); Platelet Count 204 Thou/mm3 (140-440); RDW Standard Deviation 48.8 fL (35.1-43.9); Red Blood Count 3.89 Miln/mm3 (4.50-5.90); White Blood Count 8.4 Thou/mm3 (3.8-10.6)
[2024-11-11 06:17] LABS: Alanine Aminotransferase 23 U/L (10-49); Albumin, Serum 4.1 gm/dL (3.4-4.8); Albumin/Globulin Ratio 1.8 (1.2-2.2); Alkaline Phosphatase 163 U/L (46-116); Anion Gap 14 (7-16); Aspartate Amino Transferase 29 U/L (0-34); BUN/Creatinine Ratio 14 Ratio (12-20); Bilirubin,Total 0.9 mg/dL (0.3-1.2); Blood Urea Nitrogen 71 mg/dL (9-23); Calcium 9.5 mg/dL (8.3-10.6); Calcium (Corrected) 9.5 mg/dL (8.5-10.1); Carbon Dioxide 23.7 mMol/L (20.0-31.0); Chloride 106 mMol/L (98-107); Creatinine (Component) 5.2 mg/dL (0.6-1.3); Estimated Creatinine Clearance 14.1 mL/min (>60); Globulin 2.3 gm/dL (2.3-3.5); Glucose 99 mg/dL (74-106); Magnesium 2.3 mg/dL (1.6-2.6); Osmolality,Calculated 307 (275-295); Phosphorous 5.9 mg/dL (2.4-5.1); Potassium 4.5 mMol/L (3.4-5.1); Sodium 144 mMol/L (136-145); Total Protein 6.4 gm/dL (5.7-8.2); Vancomycin,Random 15.5 mcg/mL; eGFR 11 See Note
[2024-11-11] MEDS: METOPROLOL SUCCINATE XL 25 MG TABCR 50 MG PO ×2 (08:19→20:39)
[2024-11-11] MEDS: PANTOPRAZOLE INJ 40 MG VIAL IVP (08:19)
[2024-11-11] MEDS: VANCOMYCIN/NS 500 MG IVPB 100 ML 120 MG IV (11:58)
[2024-11-11] MEDS: hydrOXYzine HCL 25 MG TABLET PO (11:58)
[2024-11-11 12:37] LABS: Base Excess, Venous -2 (-3-3); O2 Saturation, Venous 67 % (96-97); PCO2, Venous 44 mmHg (36-56); PO2, Venous 38 mmHg (15-58); pH, Venous 7.35 (7.33-7.66)
--- NOTE | 2024-11-11 13:32 | ESPR_ITS ---
<Statement entered by Humberto Hansen MD - 11/16/24 16:21> I reviewed above note and agree with findings and plans. I have also personally examined the patient with medicine team and went over assessment and plan with medical team including nutrition intern and resident physician. Documentation for date of: 11/11/24 Subjective Subjective Interval history: Patient was seen and examined at bedside. No acute overnight events. He continues to have altered mental status and he is AAO x 1. Soft restraints were removed and he was placed on soft mittens. His respiratory rate was low at 10, VBG was done showing pH 7.35, pCO2 44. Plan is to place tunneled dialysis catheter tomorrow. Will continue vancomycin till November 19. Family was updated. Exam Vital Signs Temp Pulse Resp BP Pulse Ox O2 Del Method O2 Flow Rate 97.4 F 72 15 152/88 H 97 Room Air 4 11/11/24 12:00 11/11/24 12:11/11/24 12:11/11/24 12:11/11/24 12:11/11/24 12:00 11/09/24 11:25 Narrative Exam Gen: Well-developed and well-nourished male. HEENT: NCAT, PERRLA, EOMI, MMM, anicteric conjunctivae. CVS: normal S1 and S2. RRR. No M/R/G. Resp: CTA B/L. No rhonchi, rales, crackles or wheezing. Abd: soft, non-tender, non-distended. BS+ in all 4 quadrants. MSK: Good ROM in BUE & BLE. No edema or rash. Fistula in the right upper extremity. Neuro: limited exam due to mental status. Objective Labs 11/11/24 04:52 11/11/24 04:52 Labs: Laboratory Results - last 24 hr 11/11/24 11/11/24 04:52 12:22 WBC 8.4 RBC 3.89 L Hgb 12.2 L Hct 36.3 L MCV 93 MCH 31.4 MCHC 33.6 RDW Std Deviation 48.8 H Plt Count 204 Neut % (Auto) 67 Lymph % (Auto) 17 [place] % (Auto) 11 Eos % (Auto) 3 Baso % (Auto) 0 Neut # (Auto) 5.6 Lymph # (Auto) 1.4 [place] # (Auto) 0.9 H Eos # (Auto) 0.3 Baso # (Auto) 0.0 Immature Gran # (Auto) 0.09 H Absolute Nucleated RBC 0.00 Immature Gran % 1 H Nucleated RBC % 0 VBG pH 7.35 VBG pCO2 44 VBG pO2 38 VBG O2 Sat ([place]) 67 L VBG Base Excess -2 Sodium 144 Potassium 4.5 Chloride 106 Carbon Dioxide 23.7 Anion Gap 14 BUN 71 H Creatinine 5.2 H* Estim Creat Clear Calc 14.1 L eGFR 11 L* BUN/Creatinine Ratio 14 Glucose 99 Calculated Osmolality 307 H Calcium 9.5 Corrected Calcium 9.5 Phosphorus 5.9 H Magnesium 2.3 Total Bilirubin 0.9 AST 29 ALT 23 Alkaline Phosphatase 163 H Total Protein 6.4 Albumin 4.1 Globulin 2.3 Albumin/Globulin Ratio 1.8 Random Vancomycin 15.5 ABG Interpretation ABG results: 11/03/24 11/11/24 14:12 12:22 VBG pH 7.39 7.35 VBG pCO2 43 44 VBG pO2 35 38 VBG Base Excess 1 -2 Quality Measures Quality Measures sepsis Current suspected stage: sepsis Possible source: unknown Blood cultures ordered: yes Antibiotic ordered: Yes Advance care planning discussed with:: patient Assessment & Plan Assessment Current Active Medications: Generic Name Dose Route Start Last Admin Trade Name Freq PRN Reason Stop Dose Admin Acetaminophen 650 mg 11/03/24 19:16 Acetaminophen 325 Mg Tablet PO 12/03/24 19:15 Q6H PRN PAIN SCALE 1-3 (mild Acetaminophen 650 mg 11/03/24 21:16 Acetaminophen Supp 650 Mg Supp [place] 12/03/24 21:29 Q6H PRN Fever > 100.4 Albuterol/Ipratropium 3 ml 11/03/24 19:16 Albuterol/Ipratropium (Duoneb) Rt Dianne 3 Ml Nebu INH 12/03/24 22:59 Q4HRRT PRN SOB or wheezing Atorvastatin Calcium 80 mg 11/04/24 21:00 11/10/24 21:27 Atorvastatin Calcium 20 Mg Tablet PO 12/04/24 20:59 80 mg HS TARIK Administration Haloperidol Lactate 5 mg 11/09/24 15:07 11/11/24 03:40 Haloperidol Lact Inj 5 Mg/Ml Vial IM 12/07/24 13:58 5 mg Q6H PRN Administration AGITATION Heparin Sodium (Porcine) 2,500 unit 11/09/24 15:02 11/09/24 17:31 Heparin Sod Inj 1000 Unit/Ml Vial 10 Ml INDWELLCAT 11/23/24 15:01 2,500 unit PRN PRN Administration DIALYSIS Albumin Human 25 gm in 100 mls @ 100 mls/min 11/05/24 10:19 Albuminar-25 Ivpb IV QDAY PRN DIALYSIS Levothyroxine Sodium 50 mcg 11/08/24 11:30 11/11/24 05:38 Levothyroxine Sodium 25 Mcg Tablet PO 12/08/24 11:29 50 mcg ACBR TARIK Administration Metoprolol Succinate 50 mg 11/07/24 21:00 11/11/24 08:19 Metoprolol Succinate Xl 25 Mg Tabcr PO 12/07/24 20:59 50 mg BID TARIK Administration Mirtazapine 15 mg 11/11/24 21:00 Mirtazapine 15 Mg Tablet PO 12/11/24 20:59 HS TARIK Ondansetron HCl 4 mg 11/03/24 14:16 11/03/24 17:26 Ondansetron Inj 2 Mg/Ml Inj 2 Ml IV 12/03/24 14:15 4 mg Q4HR PRN Administration NAUSEA OR VOMITING Pantoprazole Sodium 40 mg 11/05/24 10:45 11/11/24 08:19 Pantoprazole Inj 40 Mg Vial IVP 12/05/24 10:44 40 mg QDAY TARIK Administration Pharmacy Consult 1 each 11/04/24 09:00 Vancomycin Pharmacy To Dose 1 Each Each IV 12/04/24 08:59 QDAY PRN CONSULT Pharmacy Consult 1 each 11/03/24 21:18 Pharmacy Renal Dose Adjustment 1 Ea XX 12/03/24 21:17 PRN PRN CONSULT Sennosides 1 tab 11/03/24 19:16 Senna Tablet PO 12/03/24 19:15 BID PRN CONSTIPATION Protocol Plan Summary: The patient is a 89-tjae-jeg-year-old male PMHx of ESRD on HD MWF, HFrEF EF 30%, CVA, hypothyroidism presenting with AMS in setting of CRBSI sepsis. He continued on VANCOMYCIN for MRSA bacteremia. HD cath removed. If blood culture negative tomorrow (48 hours), will proceed with hemodialysis cath insertion. #Sepsis 2/2 catheter site cellulitis (improving) #Catheter site cellulitis #MRSA bacteremia 11/11 CRBSI Met 2/4 SIRS criteria with tachycardia, fever. LA normal, no leukocytosis. HD tunneled cath erythematous and warm suggesting cellulitis. Afebrile, leukocytosis improving. Prelim blood culture showing GPC. Dialysis, significant removed. Continue on Vancomycin. 24-hour blood culture negative. Catheter site cx grew GPC. MRSA nasal swab positive. Repeat blood culture negative Afebrile, no leukocytosis Plan: ? Continue vancomycin until 11/19/2024 ? Continue to monitor CBC - Continue to monitor vitals #Acute encephalopathy #Severe agitation #Suspected underlying dementia vs delirium secondary to metabolic encephalopathy Likely secondary to metabolic encephalopathy. Unclear what baseline is, currently attending, does not follow command, agitated, requiring multiple medications. Continued on soft restraints. Started scheduled HALOPERIDOL. Head CT was negative. No focal neurological deficit. No indication for stroke workup. Neurology consulted, agreed with ANTIPSYCHOTICS for agitation. Patient still agitated and was unable to have a new TDC inserted Plan: ? Continue HALOPERIDOL 5 mg q.6h. PRN - Neurology consulted, appreciate recommendations #ESRD on HD M/W/F Patient has dialysis Tuesday, Tuesday, Tuesday. Cath removed, femoral cath placed today as patient was unabe to get TDC inserted today due to agitation. Petroleum Supply Specialist Dr Padilla updated. Per billet driller, IR thinks that the patient might need general anesthesia for reinsertion of the TDC. Will attempt placement again on Tuesday. In the interim, femoral cath. Plan: ? Renally dose meds, avoid overdiuresis and NEPHROTOXINS ? Daily CMP ? Hemodialysis as scheduled by nephrology #NSTEMI type II #Hx CAD, [place] #HFrEF EF 35-40 Troponin peaked at 0.976. Unable to assess symptoms secondary to encephalopathy. EKG sinus rhythm without acute ST changes. Demand ischemia in settings of sepsis versus volume overload. Anticipate improvement with diuresis and preload reduction. Cardiology consulted, recommendations included below. HR in 80s. - Trops down trended Plan: ? Continue ATORVASTATIN 80 mg daily. ? Continue ASPIRIN 300 mg daily. ? Continue home PLAVIX 75 mg daily. ? Continue METOPROLOL succinate 50 mg BID (home dose 200 mg daily). #Hypomagnesemia, improved 11/06 Magnesium 1.9. Will not replete as patient does not have a dialysis line and won't be getting HD today. Low mag may be protective against hyperkalemia at this time. Plan: ? Daily CMP. #History of CVA #History of CHF echo showed Moderately dilated LV. Mild LVH. Global LV systolic function is severely decreased. Estimated EF 25-30 %. Garde 2 DD. Plan: ? Continue ASPIRIN 300 mg daily. ? Continue ATORVASTATIN 80 mg daily. #Hypothyroidim TSH 4.6 this visit. Plan: ? Continue home LEVOTHYROXINE 50 mcg ACBR. #Normocytic anemia (stable) Patient has Hb of 10.8 No obvious source of bleeding Plan: - We will monitor closely, may need outpatient workup. Health maintenance Diet: NPO GI prophylaxis: PROTONIX DVT prophylaxis: SCD Antibiotics: VANCOMYCIN CODE STATUS: Full code Disposition: Pending HD cath placement Plan of care discussed with attending Dr. Hansen. Nick Lundberg MD, PGY 2. Disclaimer: This note was dictated by speech recognition. Minor errors in weather teacher may be present due to voice recognition software.
[2024-11-11] MEDS: MIRTAZAPINE 15 MG TABLET PO (20:40)
[2024-11-11] MEDS: ATORVASTATIN CALCIUM 20 MG TABLET 80 MG PO (20:40)
--- NOTE | 2024-11-11 22:53 | VVPN_ITS ---
Telemedicine visit statement This visit was conducted with the use of interactive audio and video telecommunications system that permits real time communication between the patient and the provider. Patient's verbal consent for virtual visit was obtained on 11/11/24 at 2253. Documentation for date of: 11/11/24 Subjective Subjective Interval history: Patient is in telemetry, continue to remian confused, redirectable, very low oral intake sleep: not good, still restless, needing restraints. Virtual exam Vital Signs Temp Pulse Resp BP Pulse Ox O2 Del Method O2 Flow Rate 97.0 F 73 13 158/90 H 99 Room Air 4 11/11/24 19:50 11/11/24 20:52 11/11/24 20:52 11/11/24 20:39 11/11/24 20:52 11/11/24 19:50 11/09/24 11:25 Objective Labs 11/11/24 04:52 11/11/24 04:52 Labs: Laboratory Results - last 24 hr 11/11/24 11/11/24 04:52 12:22 WBC 8.4 RBC 3.89 L Hgb 12.2 L Hct 36.3 L MCV 93 MCH 31.4 MCHC 33.6 RDW Std Deviation 48.8 H Plt Count 204 Neut % (Auto) 67 Lymph % (Auto) 17 [facility] % (Auto) 11 Eos % (Auto) 3 Baso % (Auto) 0 Neut # (Auto) 5.6 Lymph # (Auto) 1.4 [facility] # (Auto) 0.9 H Eos # (Auto) 0.3 Baso # (Auto) 0.0 Immature Gran # (Auto) 0.09 H Absolute Nucleated RBC 0.00 Immature Gran % 1 H Nucleated RBC % 0 VBG pH 7.35 VBG pCO2 44 VBG pO2 38 VBG O2 Sat ([place]) 67 L VBG Base Excess -2 Sodium 144 Potassium 4.5 Chloride 106 Carbon Dioxide 23.7 Anion Gap 14 BUN 71 H Creatinine 5.2 H* Estim Creat Clear Calc 14.1 L eGFR 11 L* BUN/Creatinine Ratio 14 Glucose 99 Calculated Osmolality 307 H Calcium 9.5 Corrected Calcium 9.5 Phosphorus 5.9 H Magnesium 2.3 Total Bilirubin 0.9 AST 29 ALT 23 Alkaline Phosphatase 163 H Total Protein 6.4 Albumin 4.1 Globulin 2.3 Albumin/Globulin Ratio 1.8 Random Vancomycin 15.5 ABG Interpretation ABG results: 11/03/24 11/11/24 14:12 12:22 VBG pH 7.39 7.35 VBG pCO2 43 44 VBG pO2 35 38 VBG Base Excess 1 -2 Assessment & Plan Problem List (1) Delirium: Status: Acute Assessment and plan: Secondary to catheter related sepsis/MRSA, on vancomycin with baseline dementia subtle improvement noted in mental status Continue with the symptomatic treatment as needed. Consider physical therapy for range of motion and ambulation as he improves (2) End stage renal failure on dialysis: Status: Chronic Assessment and plan: On maintenance dialysis with a new dialysis access
[2024-11-11] MEDS: LORazepam 2 MG/ML VIAL 1 MG IVP (23:58)
[2024-11-12] VITALS (21 sets, daily range): BP systolic 96–168; BP diastolic 51–107; PULSE 53–120; RESP 12–20; TEMP 36.1–36.8; O2SAT 96–100
--- NOTE | 2024-11-12 01:42 | PC.NURSE ---
Patient is still restless and agitated. Patient has mittens on but keeps attempting to take his cardiac leads off, IV's, and trying to get out of bed. He did already receive 1 mg of ativan and 5 mg haldol during this shift but had little effect on him. MD Dwyer is aware and said he will put orders in
[2024-11-12] MEDS: LORazepam 2 MG/ML VIAL 1 MG IVP (01:55)
--- NOTE | 2024-11-12 04:30 | PC.NURSE ---
MD Angel said ok to give PO morning meds even if NPO
[2024-11-12] MEDS: LEVOTHYROXINE SODIUM 25 MCG TABLET 50 MCG PO (05:19)
[2024-11-12 06:20] LABS: Basophils % (Auto) 0 % (0-2.5); Eosinophils # (Auto) 0.3 Thou/mm3 (0.0-0.5); Eosinophils % (Auto) 3 % (0-10); Hematocrit 37.5 % (41.0-53.0); Hemoglobin 12.5 g/dL (13.5-16.0); Immature Granulocytes % (Auto) 1 % (0-0); Immature Granulocytes Auto 0.08 Thou/mm3 (0.00-0.00); Lymphocytes # (Auto) 1.4 Thou/mm3 (1.0-4.8); Lymphocytes % (Auto) 17 % (10-50); Mean Corpuscular HGB Conc 33.3 g/dl (31.0-37.0); Mean Corpuscular Hemoglobin 31.3 pg (25.0-35.0); Mean Corpuscular Volume 94 fL (80-100); Monocytes # (Auto) 0.9 Thou/mm3 (0.0-0.8); Monocytes % (Auto) 11 % (0-12); Neutrophils # (Auto) 5.5 Thou/mm3 (1.8-7.7); Neutrophils % (Auto) 68 % (37-80); Nucleated Red Blood Cell % 0 /100 WBC (0); Platelet Count 231 Thou/mm3 (140-440); RDW Standard Deviation 49.5 fL (35.1-43.9); Red Blood Count 3.99 Miln/mm3 (4.50-5.90); White Blood Count 8.2 Thou/mm3 (3.8-10.6)
[2024-11-12 07:05] LABS: Alanine Aminotransferase 21 U/L (10-49); Albumin, Serum 4.4 gm/dL (3.4-4.8); Albumin/Globulin Ratio 2.1 (1.2-2.2); Alkaline Phosphatase 164 U/L (46-116); Anion Gap 14 (7-16); Aspartate Amino Transferase 31 U/L (0-34); BUN/Creatinine Ratio 14 Ratio (12-20); Blood Urea Nitrogen 76 mg/dL (9-23); Calcium 9.9 mg/dL (8.3-10.6); Calcium (Corrected) 9.9 mg/dL (8.5-10.1); Carbon Dioxide 23.2 mMol/L (20.0-31.0); Chloride 108 mMol/L (98-107); Creatinine (Component) 5.3 mg/dL (0.6-1.3); Estimated Creatinine Clearance 13.9 mL/min (>60); Globulin 2.1 gm/dL (2.3-3.5); Glucose 106 mg/dL (74-106); Magnesium 2.3 mg/dL (1.6-2.6); Osmolality,Calculated 311 (275-295); Potassium 4.6 mMol/L (3.4-5.1); Sodium 145 mMol/L (136-145); Total Protein 6.5 gm/dL (5.7-8.2); eGFR 10 See Note
[2024-11-12 07:20] LABS: Vancomycin,Random 19.1 mcg/mL
--- NOTE | 2024-11-12 09:09 | PD.IDPROG ---
Subjective Subjective Interval history: line removed. repeat bc neg. guidelines favor 10d rx from first neg if line removed and echo neg Exam Vital Signs Temp Pulse Resp BP Pulse Ox O2 Del Method O2 Flow Rate 97.8 F 53 L 18 144/72 H 98 Room Air 4 11/12/24 08:48 11/12/24 08:48 11/12/24 08:48 11/12/24 08:48 11/12/24 08:48 11/12/24 08:00 11/09/24 11:25 Narrative Exam limited eval. Objective - Internal Medicine Labs 11/12/24 05:20 11/12/24 05:20 Labs: Laboratory Results - last 24 hr 11/11/24 11/12/24 12:22 05:20 WBC 8.2 RBC 3.99 L Hgb 12.5 L Hct 37.5 L MCV 94 MCH 31.3 MCHC 33.3 RDW Std Deviation 49.5 H Plt Count 231 Neut % (Auto) 68 Lymph % (Auto) 17 [place] % (Auto) 11 Eos % (Auto) 3 Baso % (Auto) 0 Neut # (Auto) 5.5 Lymph # (Auto) 1.4 [place] # (Auto) 0.9 H Eos # (Auto) 0.3 Baso # (Auto) 0.0 Immature Gran # (Auto) 0.08 H Absolute Nucleated RBC 0.00 Immature Gran % 1 H Nucleated RBC % 0 VBG pH 7.35 VBG pCO2 44 VBG pO2 38 VBG O2 Sat ([place]) 67 L VBG Base Excess -2 Sodium 145 Potassium 4.6 Chloride 108 H Carbon Dioxide 23.2 Anion Gap 14 BUN 76 H Creatinine 5.3 H* Estim Creat Clear Calc 13.9 L eGFR 10 L* BUN/Creatinine Ratio 14 Glucose 106 Calculated Osmolality 311 H Calcium 9.9 Corrected Calcium 9.9 Magnesium 2.3 Total Bilirubin 1.0 AST 31 ALT 21 Alkaline Phosphatase 164 H Total Protein 6.5 Albumin 4.4 Globulin 2.1 L Albumin/Globulin Ratio 2.1 Random Vancomycin 19.1 ABG Interpretation ABG results: 11/03/24 11/11/24 14:12 12:22 VBG pH 7.39 7.35 VBG pCO2 43 44 VBG pO2 35 38 VBG Base Excess 1 -2 Assessment & Plan A&P Narrative 79 y/o hd pt with pos bc with mrsa with neg echo and f/u bc neg at 48h line removed and repeat bc pending (neg so far) ckd 5 chf cva hx recent line placement noted. if pending bc neg at 48h. then ok for vanco with hd thru 2/6 pm (10d from first neg) can finish as outpt with bc neg at 48h. ok to replace tdc as well. may need short rehab stay f/u with renal and primary. no need for ID f/u after release will see again prn if he is not more mobile, then he should stay in house till he is so or go to a rehab as his is also 79 and had a cva and is frail. Time Spent With Patient Time: Total time spent is greater than 50% in coordination of care (as documented) at patient's floor/unit and/or counseling patient:
[2024-11-12] MEDS: HALOPERIDOL LACT INJ 5 MG/ML VIAL IM ×2 (09:10→22:44)
--- NOTE | 2024-11-12 10:17 | PC.NURSE ---
BFR to 275 d/t increased BOOKING CLERK despite all interventions will cont. to monitor
--- NOTE | 2024-11-12 10:36 | EKG_ITS ---
[facility] Test Date: 2024-11-12 Pat Name: LUCA DIXON Department: Room: 71A Gender: Male Manager Spring: RTSCM : 1945 Requested By: Arturo Lau Order Number: [id number] Reading MD: Arturo Lau Measurements Intervals [place] Rate: 70 P: 15 DE: 175 QRS: -41 QRSD: 116 T: 202 QT: 421 QTc: 457 Interpretive Statements SINUS RHYTHM WITH OCCASIONAL VENTRICULAR PREMATURE COMPLEXES MARKED LEFT AXIS DEVIATION LEFT VENTRICULAR HYPERTROPHY AND ST-T CHANGE Compared to ECG 11/07/2024 02:39:54 Left ventricular hypertrophy now present ST (T wave) deviation now present Myocardial infarct finding no longer present T-wave abnormality no longer present Possible ischemia no longer present /store/S0/[id number]/ecg/[id number].pdf
--- NOTE | 2024-11-12 11:27 | PD.IMPROG ---
Documentation for date of: 11/12/24 Subjective Subjective Interval history: Patient seen and examined the bedside. Patient still is confused and appears to be having intermittent delirium from the infection/sepsis superimposed on the dementia. Patient received haloperidol this afternoon after which he is less agitated. Patient blood pressure is well-controlled on the present regimen but on telemetry patient still continues to have frequent PVCs but no evidence of any NSVT. Patient is on metoprolol XL 50 mg twice daily and continue to uptitrate the metoprolol if blood pressure permissible and metoprolol XL 200 mg once daily was his home dose and recommended to increase it to at least 100 mg in the morning and 50 mg in the evening. Keep potassium between 4 and 5 and magnesium greater than 2.0 at all times. Continue to monitor on telemetry. Regarding his NSTEMI patient mildly elevated troponins with a peak of 0.976 is mostly secondary to demand ischemia. As noted previously he did have a cardiac catheterization performed recently which showed 2 out of 3 11 with severe [place] vessel CAD but no lesions that could be intervened and hence medical management was recommended. Echo completed during this admission showed severe systolic CHF with an EF of 25 to 30% with dilated cardiomyopathy including dilated LV RV RV and LA. Moderate MR and TR. Grade 2 diastolic dysfunction, moderately reduced RV function. Given his overall presentation and his primary cashier wrapper recommendations. Only medical management for his cardiac disease at the present point of time and patient previously and also the family now indicate that they do not want any further invasive procedures. Primary team to discuss with the family about goals of care including any DNR/DNI status His hemodialysis catheter was removed as patient had MRSA bacteremia secondary to the previous dialysis catheter. Patient blood cultures are now negative for more than 24 hours and plan to have and new tunneled dialysis catheter in place today by IR. Exam Vital Signs Temp Pulse Resp BP Pulse Ox O2 Del Method O2 Flow Rate 97.8 F 120 H 18 164/74 H 98 Room Air 4 11/12/24 08:48 11/12/24 11:15 11/12/24 08:48 11/12/24 11:15 11/12/24 08:48 11/12/24 08:00 11/09/24 11:25 Narrative Exam General: AAOx2, agitated, wearing diaper, wrist restraints present HEENT: Moist mucous membranes, conjunctiva clear, EOMI, PERRLA, poor dentition Cardiovascular: Possible murmur heard over SNOW, tachycardic Pulmonary: CTAB bilat no cough, no wheezing GI: No tenderness to light or deep palpitation, no guarding, rigidity, rebound tenderness or distension Extremities: No presence of trace or pitting edema in lower extremities bilaterally, dorsalis pedis pulses +2 bilaterally Neuro: AAOx2, no focal motor or sensory deficits in the UE or LE bilat Psych: Not the most cooperative Objective Labs 11/12/24 05:20 11/12/24 05:20 Labs: Laboratory Results - last 24 hr 11/11/24 11/12/24 12:22 05:20 WBC 8.2 RBC 3.99 L Hgb 12.5 L Hct 37.5 L MCV 94 MCH 31.3 MCHC 33.3 RDW Std Deviation 49.5 H Plt Count 231 Neut % (Auto) 68 Lymph % (Auto) 17 [place] % (Auto) 11 Eos % (Auto) 3 Baso % (Auto) 0 Neut # (Auto) 5.5 Lymph # (Auto) 1.4 [place] # (Auto) 0.9 H Eos # (Auto) 0.3 Baso # (Auto) 0.0 Immature Gran # (Auto) 0.08 H Absolute Nucleated RBC 0.00 Immature Gran % 1 H Nucleated RBC % 0 VBG pH 7.35 VBG pCO2 44 VBG pO2 38 VBG O2 Sat ([place]) 67 L VBG Base Excess -2 Sodium 145 Potassium 4.6 Chloride 108 H Carbon Dioxide 23.2 Anion Gap 14 BUN 76 H Creatinine 5.3 H* Estim Creat Clear Calc 13.9 L eGFR 10 L* BUN/Creatinine Ratio 14 Glucose 106 Calculated Osmolality 311 H Calcium 9.9 Corrected Calcium 9.9 Phosphorus 6.0 H Magnesium 2.3 Total Bilirubin 1.0 AST 31 ALT 21 Alkaline Phosphatase 164 H Total Protein 6.5 Albumin 4.4 Globulin 2.1 L Albumin/Globulin Ratio 2.1 Random Vancomycin 19.1 ABG Interpretation ABG results: 11/03/24 11/11/24 14:12 12:22 VBG pH 7.39 7.35 VBG pCO2 43 44 VBG pO2 35 38 VBG Base Excess 1 -2 Assessment & Plan A&P Vadim Gan is a 79-year-old male past medical history of past medical history of ESRD on hemodialysis (MWF, sees Dr. Padilla), HFrEF (possibly EF of 30), Previous CVA, possible hypothyroidism currently admitted for sepsis secondary to catheter related bloodstream infection which is showing GPC currently #NSTEMI, likely type II related to demand ischemia, resolved #History of coronary artery disease status post multiple stents and CABG triple bypass #Nonsustained supraventricular tachycardia #HFrEF with EF of 35 to 40% #Ischemic dilated cardiomyopathy Unsure when patient's CABG was, will follow-up with records and family Patient takes home Plavix as well in addition to aspirin as well ranolazine Some bouts of nonsustained supraventricular tachycardia with trigeminy seen on telemetry Pt continues to have some tachycardia, but has not been giving home metoprolol doses Pt does have MRSA bactermia, will treat as well Upon review of cardiac catheter records 2 weeks ago at [facility] Saphenous vein graft to left circumflex?occluded whenever send HOOK to LAD?patent [place] LAD?moderate to severe disease Saphenous vein graft to RCA patent with good flow [place] left coronary artery severe proximal disease Not a candidate for PCI EF 35 to 40% Ischemic cardiomyopath Plan: ? Primary team resume home Lipitor 80 mg ? Continue with home aspirin suppository 300 mg ? Plavix 75 mg seems to be a home medicine for this patient, recommend restarting ? Recommend resuming ranolazine ? Patient is currently on metoprolol XL 100 mg we recommend to uptitrate to 200 mg once daily which is his home dose as tolerated ? Keep magnesium and potassium above 2 and 4 respectively Patient blood pressure is well-controlled on the present regimen but on telemetry patient still continues to have frequent PVCs but no evidence of any NSVT. Patient is on metoprolol XL 50 mg twice daily and continue to uptitrate the metoprolol if blood pressure permissible and metoprolol XL 200 mg once daily was his home dose and recommended to increase it to at least 100 mg in the morning and 50 mg in the evening. Keep potassium between 4 and 5 and magnesium greater than 2.0 at all times. Continue to monitor on telemetry. Regarding his NSTEMI patient mildly elevated troponins with a peak of 0.976 is mostly secondary to demand ischemia. As noted previously he did have a cardiac catheterization performed recently which showed 2 out of 3 11 with severe [place] vessel CAD but no lesions that could be intervened and hence medical management was recommended. Echo completed during this admission showed severe systolic CHF with an EF of 25 to 30% with dilated cardiomyopathy including dilated LV RV RV and LA. Moderate MR and TR. Grade 2 diastolic dysfunction, moderately reduced RV function. Given his overall presentation and his primary cashier wrapper recommendations. Only medical management for his cardiac disease at the present point of time and patient previously and also the family now indicate that they do not want any further invasive procedures. Primary team to discuss with the family about goals of care including any DNR/DNI status #Sepsis #Catheter site cellulitis #MRSA Bacteremia 2/2 CRBSI His hemodialysis catheter was removed as patient had MRSA bacteremia secondary to the previous dialysis catheter. Patient blood cultures are now negative for more than 24 hours and plan to have and new tunneled dialysis catheter in place today by IR. #ESRD on HD #History of CVA #Hypothyroidim #Normocytic anemia #Acute encephalopathy Patient still is confused and appears to be having intermittent delirium from the infection/sepsis superimposed on the dementia. Patient received haloperidol this afternoon after which he is less agitated. Further management as primary team #Agitations #Likely history of dementia Management of rest of the medical conditions as per primary team and other consultants. Thank you for the consult and allowing me to participate in the care of the patient. Cardiology will continue to follow. Bismark Urbina M.D. Interventional Cardiology Time Spent With Patient Time: Total time spent is greater than 50% in coordination of care (as documented) at patient's floor/unit and/or counseling patient:
--- NOTE | 2024-11-12 11:35 | PC.SS ---
DATA INTEGRITY CONSULTANT met with patient's spouse to provide updated that [facility] has declined for placement. [facility] has accepted and [facility] is pending bedside visit with patient.
--- NOTE | 2024-11-12 11:53 | PC.NURSE ---
tx terminated 40 min early d/t malfumctioning catheter, all blood returned. MD Padilla notified w/ order to alteplase both ports overnight so it can work efficiently on tue tx. will carry out order
--- NOTE | 2024-11-12 11:54 | ESPR_ITS ---
<Statement entered by Humberto Hansen MD - 11/16/24 16:21> I reviewed above note and agree with findings and plans. I have also personally examined the patient with medicine team and went over assessment and plan with medical team including music intern and resident physician. <Statement entered by Nick Lundberg MD - 11/12/24 17:13> Senior Resident Attestation: I supervised/discussed management plan with music intern physician Dr. Lau, and was involved in the care of this patient. I personally saw and examined the patient and discussed the assessment and plan with the entire medicine team, including my attending. I agree with the assessment and plan as documented. Patient continues to be agitated, overnight was given haloperidol and Ativan with minimal response. Today during dialysis he required medical restraint. He was planned for tunneled dialysis catheter insertion by IR however procedure was canceled due to agitation. General surgery is unable to do this procedure. Spoke with IR, they will try again tomorrow afternoon. Patient's care was discussed with attending physician, Dr. Hansen. Nick Lundberg MD PGY-2. Documentation for date of: 11/12/24 Subjective Subjective Interval history: 11/12/2024: Pt examined at bedside dialysis today. Pt appears to still be agitated was given Ativan overnight. He is kicking his legs in a dialysis bed and it is hard to have him still for dialysis to be proceeded. we will place leg restraints to stabilize patient for dialysis session. He is still unable to answer questions fully at this time and appears to be agitated his BUN/creatinine 76 and 5.3, white count 8.2, hemoglobin 12.5, potassium 4.6, magnesium 2.3, 6 this morning. Blood pressure still appears to be stable however it is 137/51, telemetry reviewed rate appears to be in the 80s, however still has some trigeminy occurring. He is currently on metoprolol 50 mg twice a day. No other complaints at this time. Exam Vital Signs Temp Pulse Resp BP Pulse Ox O2 Del Method O2 Flow Rate 97.1 F 64 18 114/68 98 Room Air 4 11/12/24 11:49 11/12/24 11:49 11/12/24 11:49 11/12/24 11:49 11/12/24 11:49 11/12/24 08:00 11/09/24 11:25 Narrative Exam General: AAOx1, agitated, wearing diaper, soft mittens present HEENT: Moist mucous membranes, conjunctiva clear, EOMI, PERRLA, poor dentition Cardiovascular: Possible murmur heard over SNOW, tachycardic Pulmonary: CTAB bilat no cough, no wheezing GI: No tenderness to light or deep palpitation, no guarding, rigidity, rebound tenderness or distension Extremities: No presence of trace or pitting edema in lower extremities bilaterally, dorsalis pedis pulses +2 bilaterally Neuro: AAOx1, no focal motor or sensory deficits in the UE or LE bilat Psych: Not cooperative Objective Labs 11/12/24 05:20 11/12/24 05:20 Labs: Laboratory Results - last 24 hr 11/11/24 11/12/24 12:22 05:20 WBC 8.2 RBC 3.99 L Hgb 12.5 L Hct 37.5 L MCV 94 MCH 31.3 MCHC 33.3 RDW Std Deviation 49.5 H Plt Count 231 Neut % (Auto) 68 Lymph % (Auto) 17 [place] % (Auto) 11 Eos % (Auto) 3 Baso % (Auto) 0 Neut # (Auto) 5.5 Lymph # (Auto) 1.4 [place] # (Auto) 0.9 H Eos # (Auto) 0.3 Baso # (Auto) 0.0 Immature Gran # (Auto) 0.08 H Absolute Nucleated RBC 0.00 Immature Gran % 1 H Nucleated RBC % 0 VBG pH 7.35 VBG pCO2 44 VBG pO2 38 VBG O2 Sat ([place]) 67 L VBG Base Excess -2 Sodium 145 Potassium 4.6 Chloride 108 H Carbon Dioxide 23.2 Anion Gap 14 BUN 76 H Creatinine 5.3 H* Estim Creat Clear Calc 13.9 L eGFR 10 L* BUN/Creatinine Ratio 14 Glucose 106 Calculated Osmolality 311 H Calcium 9.9 Corrected Calcium 9.9 Phosphorus 6.0 H Magnesium 2.3 Total Bilirubin 1.0 AST 31 ALT 21 Alkaline Phosphatase 164 H Total Protein 6.5 Albumin 4.4 Globulin 2.1 L Albumin/Globulin Ratio 2.1 Random Vancomycin 19.1 ABG Interpretation ABG results: 11/03/24 11/11/24 14:12 12:22 VBG pH 7.39 7.35 VBG pCO2 43 44 VBG pO2 35 38 VBG Base Excess 1 -2 Quality Measures Quality Measures sepsis Current suspected stage: sepsis Possible source: unknown Blood cultures ordered: yes Antibiotic ordered: Yes Advance care planning discussed with:: patient Assessment & Plan Assessment Current Active Medications: Generic Name Dose Route Start Last Admin Trade Name Freq PRN Reason Stop Dose Admin Acetaminophen 650 mg 11/03/24 19:16 Acetaminophen 325 Mg Tablet PO 12/03/24 19:15 Q6H PRN PAIN SCALE 1-3 (mild Acetaminophen 650 mg 11/03/24 21:16 Acetaminophen Supp 650 Mg Supp IA 12/03/24 21:29 Q6H PRN Fever > 100.4 Albuterol/Ipratropium 3 ml 11/03/24 19:16 Albuterol/Ipratropium (Duoneb) Rt Dianne 3 Ml Nebu INH 12/03/24 22:59 Q4HRRT PRN SOB or wheezing Atorvastatin Calcium 80 mg 11/04/24 21:00 11/11/24 20:40 Atorvastatin Calcium 20 Mg Tablet PO 12/04/24 20:59 80 mg HS TARIK Administration Haloperidol Lactate 5 mg 11/09/24 15:07 11/12/24 09:10 Haloperidol Lact Inj 5 Mg/Ml Vial IM 12/07/24 13:58 5 mg Q6H PRN Administration AGITATION Heparin Sodium (Porcine) 2,500 unit 11/09/24 15:02 11/09/24 17:31 Heparin Sod Inj 1000 Unit/Ml Vial 10 Ml INDWELLCAT 11/23/24 15:01 2,500 unit PRN PRN Administration DIALYSIS Albumin Human 25 gm in 100 mls @ 100 mls/min 11/05/24 10:19 Albuminar-25 Ivpb IV QDAY PRN DIALYSIS Levothyroxine Sodium 50 mcg 11/08/24 11:30 11/12/24 05:19 Levothyroxine Sodium 25 Mcg Tablet PO 12/08/24 11:29 50 mcg ACBR TARIK Administration Metoprolol Succinate 50 mg 11/07/24 21:00 11/12/24 09:48 Metoprolol Succinate Xl 25 Mg Tabcr PO 12/07/24 20:59 Not Given BID TARIK Mirtazapine 15 mg 11/11/24 21:00 11/11/24 20:40 Mirtazapine 15 Mg Tablet PO 12/11/24 20:59 15 mg HS TARIK Administration Ondansetron HCl 4 mg 11/03/24 14:16 11/03/24 17:26 Ondansetron Inj 2 Mg/Ml Inj 2 Ml IV 12/03/24 14:15 4 mg Q4HR PRN Administration NAUSEA OR VOMITING Pantoprazole Sodium 40 mg 11/05/24 10:45 11/12/24 09:48 Pantoprazole Inj 40 Mg Vial IVP 12/05/24 10:44 Not Given QDAY TARIK Pharmacy Consult 1 each 11/04/24 09:00 Vancomycin Pharmacy To Dose 1 Each Each IV 12/04/24 08:59 QDAY PRN CONSULT Pharmacy Consult 1 each 11/03/24 21:18 Pharmacy Renal Dose Adjustment 1 Ea XX 12/03/24 21:17 PRN PRN CONSULT Sennosides 1 tab 11/03/24 19:16 Senna Tablet PO 12/03/24 19:15 BID PRN CONSTIPATION Protocol Plan Summary: The patient is a 11-vrcc-iyo-year-old male PMHx of ESRD on HD MWF, HFrEF EF 30%, CVA, hypothyroidism presenting with AMS in setting of CRBSI sepsis. He continued on VANCOMYCIN for MRSA bacteremia. HD cath removed. If blood culture negative tomorrow (48 hours), will proceed with hemodialysis cath insertion. #Sepsis 2/2 catheter site cellulitis (improving) #Catheter site cellulitis #MRSA bacteremia 2/2 CRBSI Met 2/4 SIRS criteria with tachycardia, fever. LA normal, no leukocytosis. HD tunneled cath erythematous and warm suggesting cellulitis. Afebrile, leukocytosis improving. Prelim blood culture showing GPC. Dialysis, significant removed. Continue on Vancomycin. 24-hour blood culture negative. Catheter site cx grew GPC. MRSA nasal swab positive. Repeat blood culture negative Afebrile, no leukocytosis Plan: ? Continue vancomycin until 11/19/2024 ? Continue to monitor CBC - Continue to monitor vitals #Acute encephalopathy #Severe agitation #Suspected underlying dementia vs delirium secondary to metabolic encephalopathy Likely secondary to metabolic encephalopathy. Unclear what baseline is, currently attending, does not follow command, agitated, requiring multiple medications. Continued on soft restraints. Started scheduled HALOPERIDOL. Head CT was negative. No focal neurological deficit. No indication for stroke workup. Neurology consulted, agreed with ANTIPSYCHOTICS for agitation. Patient still agitated and was unable to have a new TDC inserted Will order EKG to see QT Will switch from Haldol to Seroquel based on QT Plan: ? Will consider switching from haloperidol to Seroquel - Neurology consulted, appreciate recommendations #ESRD on HD M/W/ Patient has dialysis Tuesday, Tuesday, Tuesday. Cath removed, femoral cath placed today as patient was unabe to get TDC inserted today due to agitation. Composing Room Machinist Dr Padilla updated. Per hook loader, IR thinks that the patient might need general anesthesia for reinsertion of the TDC. IR to attempt to place TDC tomorrow, in interim temp femoral cath present Plan: ? Renally dose meds, avoid overdiuresis and NEPHROTOXINS ? Daily CMP ? Hemodialysis as scheduled by nephrology #NSTEMI type II #Hx CAD, SD #HFrEF EF 35-40 Troponin peaked at 0.976. Unable to assess symptoms secondary to encephalopathy. EKG sinus rhythm without acute ST changes. Demand ischemia in settings of sepsis versus volume overload. Anticipate improvement with diuresis and preload reduction. Cardiology consulted, recommendations included below. HR in 80s. - Trops down trended Plan: ? Continue ATORVASTATIN 80 mg daily. ? Continue ASPIRIN 300 mg daily. ? Continue home PLAVIX 75 mg daily. ? Continue METOPROLOL succinate 50 mg BID (home dose 200 mg daily). #Hypomagnesemia, improved 11/06 Magnesium 1.9. Will not replete as patient does not have a dialysis line and won't be getting HD today. Low mag may be protective against hyperkalemia at this time. Plan: ? Daily CMP. #History of CVA #History of CHF echo showed Moderately dilated LV. Mild LVH. Global LV systolic function is severely decreased. Estimated EF 25-30 %. Garde 2 DD. Plan: ? Continue ASPIRIN 300 mg daily. ? Continue ATORVASTATIN 80 mg daily. #Hypothyroidim TSH 4.6 this visit. Plan: ? Continue home LEVOTHYROXINE 50 mcg ACBR. #Normocytic anemia (stable) Patient has Hb of 10.8 No obvious source of bleeding Plan: - We will monitor closely, may need outpatient workup. #Health Maintenance Disposition: Tentatively pending hemodialysis catheter placement DVT prophylaxis: SCDs GI prophylaxis: Protonix Diet: N.p.o. CODE STATUS: Full Patient seen and care discussed with my senior resident, Dr. Lundberg , and my attending physician, Dr. Tyrone Lau, PGY-1
[2024-11-12] MEDS: CATHFLO (ALTEPLASE) INJ 4 MG, Sterile Water 4.4 ML INDWELLCAT (12:24)
--- NOTE | 2024-11-12 14:07 | ESPR_ITS ---
RE: LUCA DIXON : 1945 DATE OF SERVICE: 11/09/2024 I am covering for Dr. Bismark Urbina. HISTORY OF PRESENT ILLNESS: The patient is 79-year-old male with a past medical history of ESRD, hemodialysis, HFrEF, ejection fraction of 30%, previous strokes, multiple problems, admitted to the hospital with sepsis secondary to catheter-related infection and also has slight troponin elevation and _ demand ischemia, known history of CAD, bypass graft surgery, previous myocardial infraction, cardiac arrhythmias. The patient appears to be clinically stable, not have any chest pain, shortness of breath, cardiac cath SHOWED circumflex artery is occluded, HOOK to LAD was patent. [place] LAD has severe disease. hook was patent, managed medically, was not found to be a good candidate for PCI, ischemic cardiomyopathy. The patient still has significant altered mental status, followed by Dr. Riley who felt that HE HAS_ metabolic encephalopathy. OBJECTIVE: gENERAL: Drowsy, lethargic, not responding today, this evening. Vital Signs: Blood pressure 140/70, pulse 78_ , respirations 16, temperature normal. HEENT: Head is atraumatic and normocephalic. Eyes normal. Neck: Supple. No JVD or carotid pulses felt well. No bruits. Chest: Symmetrical. Lungs: Decreased breath sounds. Heart sounds distant. Abdomen: Thin and soft. Extremities: Mild edema. IMPRESSION: 1. Ischemic cardiomyopathy, chronic systolic heart failure. 2. Status post BYPASS surgery. 3. Sepsis and TYPE 2 NSTEMI. 4. Alternate mental status due to metabolic encephalopathy. RECOMMENDATIONS: Continue to monitor the patient. Currently, he is still not responding that well this evening. The patient continued antibiotic therapy and dialysis as well. DT: 23:57:38 TT: 02:02:00 Ref: [id number] - TID: [id number] [facility]
--- NOTE | 2024-11-12 14:08 | ESPR_ITS ---
RE: LUCA ANDINO : 1945 DATE OF SERVICE: 11/11/2024 SUBJECTIVE: Luca Andino has a history of multiple medical problems. He came to the hospital with diagnosis of congestive heart failure with ejection fraction, altered mental status, and sepsis. The patient continues to be altered today, not very arousable. The patient has a longstanding history of multiple medical problems, HFrEF and chronic kidney disease, on hemodialysis, previous stroke, and admitted to the hospital differently with sepsis and multiple medical issues. He has known history of CAD, bypass graft surgery, and multiple stents placed, but no evidence of any acute coronary artery syndrome. The patient did have significant multivessel disease and bypass was performed. Cardiac yang stable, though he had mild troponin elevation, possibly not having any acute ischemic event. OBJECTIVE: General: Clinically, this evening, the patient appears to be quite disoriented and lethargic, not responding that well. Vital Signs: Blood pressure is 140/90, pulse 90. Neck: Supple. No JVD. Lungs: Decreased breath sounds. Heart: S1 and S2 regular, distant. Abdomen: Soft. Extremities: Chronic edema of both feet. Genitourinary and Rectal: Not performed. Rectal: Not performed. LABORATORY DATA: Showed white count is normal. Creatinine is 4.8 since the patient has CKD. IMPRESSION: 1. Altered mental status and metabolic encephalopathy. 2. Possible dementia. 3. End-stage renal disease, on hemodialysis. 4. Mild troponin elevation, initially type II troponin elevation, possibly not due to myocardial infarction. 5. Coronary artery disease status post bypass graft surgery. 6. Congestive heart failure with reduced ejection fraction, stable. 7. History of previous stroke. RECOMMENDATIONS: Continue to have conservative medical management. Definitely no need for any cardiac intervention. DT: 00:07:55 TT: 02:52:00 Ref: [id number] - TID: [id number]
[2024-11-12] MEDS: METOPROLOL SUCCINATE XL 25 MG TABCR 50 MG PO (20:12)
[2024-11-12] MEDS: MIRTAZAPINE 15 MG TABLET PO (20:12)
[2024-11-12] MEDS: ATORVASTATIN CALCIUM 20 MG TABLET 80 MG PO (20:12)
--- NOTE | 2024-11-12 23:51 | ESPR_ITS ---
Documentation for date of: 11/12/24 Subjective Subjective Interval history: Patient was seen in telemetry today with his family at the bedside, continue to remain restless but much better today, on restraints as he is intermittently trying to come out of bed. Very poor oral intake noted Exam - Neurology Vital Signs Temp Pulse Resp BP Pulse Ox O2 Del Method O2 Flow Rate 97.0 F 78 14 145/72 H 97 Room Air 4 11/12/24 20:00 11/12/24 20:12 11/12/24 20:00 11/12/24 20:12 11/12/24 20:00 11/12/24 20:00 11/09/24 11:25 Narrative Exam GENERAL APPEARANCE: Well-developed, obese built white male , restless in bed HEENT: Normocephalic, atraumatic, extraocular movements intact. Pupils: Equal reacting to light NECK: Supple, no JVD or bruits. CARDIOVASULAR: Heart: S1, S2 heard, regular without S3-S4 or murmur no rubs or gallops. LUNGS/CHEST: Clear to auscultation bilaterally. No rails, rhonchi, or wheezing. Normal inspection. ABDOMEN: Soft, nontender, with normal bowel sounds. No pulsatile masses. No rebound, rigidity, or guarding. Normal inspection and palpation. EXTREMITIES: Normal inspection and palpation. No edema, clubbing or cyanosis. SKIN: Warm and dry without rashes. Normal inspection. MUSCULOSKELETAL: No cervical, thoracic, lumbar or midline bony tenderness. Normal inspection. NEURO: Awake, alert, still restless, needing to be on restraints, moves all 4 extremities purposefully no signs of meningeal irritation noted. PSYCHIATRIC: limited Objective Labs 11/12/24 05:20 11/12/24 05:20 Labs: Laboratory Results - last 24 hr 11/12/24 05:20 WBC 8.2 RBC 3.99 L Hgb 12.5 L Hct 37.5 L MCV 94 MCH 31.3 MCHC 33.3 RDW Std Deviation 49.5 H Plt Count 231 Neut % (Auto) 68 Lymph % (Auto) 17 [place] % (Auto) 11 Eos % (Auto) 3 Baso % (Auto) 0 Neut # (Auto) 5.5 Lymph # (Auto) 1.4 [place] # (Auto) 0.9 H Eos # (Auto) 0.3 Baso # (Auto) 0.0 Immature Gran # (Auto) 0.08 H Absolute Nucleated RBC 0.00 Immature Gran % 1 H Nucleated RBC % 0 Sodium 145 Potassium 4.6 Chloride 108 H Carbon Dioxide 23.2 Anion Gap 14 BUN 76 H Creatinine 5.3 H* Estim Creat Clear Calc 13.9 L eGFR 10 L* BUN/Creatinine Ratio 14 Glucose 106 Calculated Osmolality 311 H Calcium 9.9 Corrected Calcium 9.9 Phosphorus 6.0 H Magnesium 2.3 Total Bilirubin 1.0 AST 31 ALT 21 Alkaline Phosphatase 164 H Total Protein 6.5 Albumin 4.4 Globulin 2.1 L Albumin/Globulin Ratio 2.1 Random Vancomycin 19.1 ABG Interpretation ABG results: 11/03/24 11/11/24 14:12 12:22 VBG pH 7.39 7.35 VBG pCO2 43 44 VBG pO2 35 38 VBG Base Excess 1 -2 Assessment & Plan Assessment and plan (1) Delirium: Status: Acute Assessment and plan: Likely secondary to metabolic encephalopathy Continue with the symptomatic therapy with Zyprexa or Haldol/Ativan/Benadryl as needed. (2) End stage renal failure on dialysis: Status: Chronic Assessment and plan: Continue with hemodialysis (3) Cellulitis: Status: Acute Assessment and plan: Continue with IV antibiotics follow-up with the culture (4) Fever: Status: Acute Assessment and plan: Most likely secondary to infection in the dialysis catheter access Continue with IV antibiotics Got the new access for dialysis Additional Assessment & Plan Additional Plan: Will try low-dose of pramipexole to help with restless legs which is commonly seen in patients with kidney disease
[2024-11-13] VITALS (16 sets, daily range): BP systolic 93–147; BP diastolic 34–98; PULSE 60–90; RESP 12–99; TEMP 36.3–37.1; O2SAT 96–100; BMI 30.3
--- NOTE | 2024-11-13 | XR_ITS ---
Venous assess removal temporary dialysis catheter Permanent tunneled dialysis catheter insertion, percutaneous Fluoroscopy AP abdomen 2 views IV conscious sedation Date and time of procedure: November 13, 2024 at 10:19 AM Informed consent provided Technique: Under physician supervision, Versnicolas 2 fentanyl 50 mcg administered intravenously for moderate sedation. Pulse oximetry, heart rate, blood pressure continuously monitored with an independent training observer present. The physician spent 15 minutes of [id number] sedation time with the patient A timeout was completed verifying correct patient, procedure, site, positioning, and special equipment if applicable. The patient was placed in a dependent position appropriate for dialysis catheter placement based on the vein to be cannulated. The patient'sright groin was prepped and draped in sterile fashion. Maximum Sterile Barrier Technique used including cap, mask, sterile gown, sterile gloves, and sterile full body drape. If ultrasound technique used: sterile gel and sterile probe covers. Hand Hygiene performed using proper scrub, soap and water, or alcohol-based hand rub. 1% lidocaine was used to anesthetize the surrounding skin area 0.35 wire guide placed through the temporary dialysis catheter Subcutaneous tunnel formed in the right groin. Permanent tunneled dialysis catheter placed in the subcutaneous tunnel. Dilators were introduced over the J-wire guide. Tunneled dialysis catheter is introduced through a dilator with venous sheath into the superior vena cava under fluoroscopic guidance. The catheter is sutured in place to the skin and a sterile dressing applied. Perfusion to the extremity distal to the point of catheter insertion is checked and found to be adequate Attending radiologist was present for the entire procedure Estimated blood loss2 cc. The patient tolerated the procedure well and there were no complications Impression: Venous access removal temporary dialysis catheter Successful permanent tunneled dialysis catheter insertion, percutaneous Fluoroscopy 0.5 minute radiation dose 9.16 milligray. Abdomen at completion procedure demonstrates satisfactory position dialysis catheter. May use dialysis catheter.
--- NOTE | 2024-11-13 01:03 | ESPR_ITS ---
RE: LUCA DIXON : 1945 DATE OF SERVICE: 11/12/2024 HISTORY OF PRESENT ILLNESS: Briefly, he is a 79-year-old gentleman with hypertension and coronary artery disease, status post CABG in 2018, ischemic cardiomyopathy with EF of 35% and ESRD on dialysis every Tuesday, Tuesday, and Tuesday since 01/2023, who was admitted to the hospital on 11/06/2024 with confusion. He was found with dialysis catheter infection with blood culture x2 that grew gram positive cocci. His TDC was removed. The patient's blood culture has been negative in the past 48 hours and had a schedule for tunneled dialysis catheter placement. However, the patient kept on moving while on the table at Radiology Unit that they have to cancel a tunnelled dialysis catheter placement. Instead, he got a temporary femoral catheter for dialysis. He was dialyzed earlier today, about 2.2 L of fluid was removed. CURRENT MEDICATIONS: 1. Acetaminophen. 2. Aspirin. 3. Atorvastatin. 4. Plavix. 5. Fentanyl. 6. Allopurinol. 7. Heparin. 8. Levothyroxine. 9. Metoprolol. 10. Midazolam. PHYSICAL EXAMINATION: General: He is asleep, not in respiratory distress. Vital Signs: Blood pressure of 145/72 and heart rate of 78. HEENT: Anicteric sclerae. Normocephalic. Neck: Supple. Lungs: No JVD. Chest and Lungs: Symmetrical expansion. Clear breath sounds. Heart: Without murmur. Abdomen: Soft and nontender. Extremities: No edema. LABORATORY DATA: Hemoglobin 12.5, WBC 8200, platelet count 231,000. Sodium 145, potassium 4.6, chloride 108, BUN 76, creatinine 5.3, calcium 9.9, and phosphorus 6. ASSESSMENT: 1. End-stage renal disease. 2. Altered level of consciousness secondary to sepsis. 3. Gram positive septicemia secondary to infected tunnelled dialysis catheter. Repeat blood cultures x48 hours negative for any growth. 4. Anemia of chronic disease. 5. History of coronary artery disease, status post coronary artery bypass graft. 6. Ischemic cardiomyopathy. 7. Obesity. 8. Hypertension. PLAN: The patient had dialysis today. We will need a tunnelled dialysis catheter before discharge. DT: 22:32:40 TT: 22:56:00 Ref: [id number] - TID: [id number] [facility]
[2024-11-13 06:31] LABS: Basophils % (Auto) 0 % (0-2.5); Eosinophils # (Auto) 0.2 Thou/mm3 (0.0-0.5); Eosinophils % (Auto) 2 % (0-10); Hematocrit 42.1 % (41.0-53.0); Hemoglobin 14.2 g/dL (13.5-16.0); Immature Granulocytes % (Auto) 1 % (0-0); Immature Granulocytes Auto 0.07 Thou/mm3 (0.00-0.00); Lymphocytes # (Auto) 1.8 Thou/mm3 (1.0-4.8); Lymphocytes % (Auto) 16 % (10-50); Mean Corpuscular HGB Conc 33.7 g/dl (31.0-37.0); Mean Corpuscular Hemoglobin 31.3 pg (25.0-35.0); Mean Corpuscular Volume 93 fL (80-100); Monocytes # (Auto) 1.1 Thou/mm3 (0.0-0.8); Monocytes % (Auto) 9 % (0-12); Neutrophils # (Auto) 8.2 Thou/mm3 (1.8-7.7); Neutrophils % (Auto) 72 % (37-80); Nucleated Red Blood Cell % 0 /100 WBC (0); Platelet Count 237 Thou/mm3 (140-440); RDW Standard Deviation 49.1 fL (35.1-43.9); Red Blood Count 4.54 Miln/mm3 (4.50-5.90); White Blood Count 11.5 Thou/mm3 (3.8-10.6)
[2024-11-13 07:06] LABS: Alanine Aminotransferase 22 U/L (10-49); Albumin, Serum 4.9 gm/dL (3.4-4.8); Alkaline Phosphatase 186 U/L (46-116); Anion Gap 17 (7-16); Aspartate Amino Transferase 27 U/L (0-34); BUN/Creatinine Ratio 12 Ratio (12-20); Bilirubin,Total 1.1 mg/dL (0.3-1.2); Blood Urea Nitrogen 70 mg/dL (9-23); Calcium 10.4 mg/dL (8.3-10.6); Calcium (Corrected) 10.4 mg/dL (8.5-10.1); Chloride 106 mMol/L (98-107); Creatinine (Component) 5.7 mg/dL (0.6-1.3); Estimated Creatinine Clearance 12.4 mL/min (>60); Globulin 2.4 gm/dL (2.3-3.5); Glucose 104 mg/dL (74-106); Magnesium 2.2 mg/dL (1.6-2.6); Osmolality,Calculated 307 (275-295); Phosphorous 7.4 mg/dL (2.4-5.1); Potassium 4.9 mMol/L (3.4-5.1); Sodium 144 mMol/L (136-145); Total Protein 7.3 gm/dL (5.7-8.2); eGFR 10 See Note
[2024-11-13 07:20] LABS: Vancomycin,Random 16.4 mcg/mL
--- NOTE | 2024-11-13 08:42 | PC.NURSE ---
consulted wit Dr. Lau regarding order for dialysis catheter insertion, new order will be placed with today's date. MD wants insertion of tunneled dialysis catheter, if successful we can remove temporary dialysis catheter
--- NOTE | 2024-11-13 09:33 | XR_ITS ---
Ultrasound-guided needle placement left internal jugular vein Permanent tunneled dialysis catheter insertion, percutaneous Fluoroscopy AP chest, portable, single view. AP abdomen single view Exam date and time: November 13 2024 0954 hours INDICATIONS: Renal failure, need for long-term dialysis Informed consent provided Technique: A timeout was completed verifying correct patient, procedure, site, positioning, and special equipment if applicable. The patient was placed in a dependent position appropriate for dialysis catheter placement based on the vein to be cannulated. The patient'sleft neck was prepped and draped in sterile fashion. Maximum Sterile Barrier Technique used including cap, mask, sterile gown, sterile gloves, and sterile full body drape. If ultrasound technique used: sterile gel and sterile probe covers. Hand Hygiene performed using proper scrub, soap and water, or alcohol-based hand rub. 1% lidocaine was used to anesthetize the surrounding skin area Local anesthesia obtained with 1% lidocaine in the right groin 0.35 wire guide is introduced into the patient's temporary dialysis catheter into the inferior vena cava Subcutaneous tunnel formed in the right groin Permanent tunneled dialysis catheter placed in the subcutaneous tunnel. Dilators were introduced over the J-wire guide. Tunneled dialysis catheter is introduced through a dilator with venous sheath into the inferior vena cava under fluoroscopic guidance. The catheter is sutured in place to the skin and a sterile dressing applied. Perfusion to the extremity distal to the point of catheter insertion is checked and found to be adequate Attending radiologist was present for the entire procedure Estimated blood loss2 cc. The patient tolerated the procedure well and there were no complications Impression: Venous access removal temporary dialysis catheter right common femoral vein Successful permanent tunneled dialysis catheter insertion, percutaneous Fluoroscopy 20 seconds 1 spot fluoroscopic chest film, 1 spot fluoroscopic abdomen films. May use dialysis catheter.
--- NOTE | 2024-11-13 09:44 | PC.SS ---
ANGELIKA confirmed with patient's spouse that she will be available for Goals of Care meeting today at 11:00 am. In addition patient's son, Yoel; will also be present.
[2024-11-13] MEDS: fentaNYL CIT INJ 50 mCg/ML AMP 2ML 25 MCG IV (09:46)
[2024-11-13] MEDS: MIDAZOLAM INJ 1 MG/ML VIAL 2 ML IV (09:46)
[2024-11-13] MEDS: fentaNYL CIT INJ 50 mCg/ML AMP 2ML IVP (09:51)
[2024-11-13] MEDS: MIDAZOLAM INJ 1 MG/ML VIAL 2 ML 2 MG IV (09:51)
[2024-11-13] MEDS: LIDOCAINE INJ PF 1% 30 ML VIAL 17 ML INFL (09:52)
--- NOTE | 2024-11-13 09:52 | PD.RESPRO ---
Documentation for date of: 11/13/24 Subjective Subjective Interval history: 11/13: no acute overnight changes. 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 Pt's dialysis cath was removed on 11/05. Pt repeat BC have no growth and new tunneled dialysis cath is placed today. Telemetry reviewed, no arrhythmias noted. Goals of care discussion is held between the patients family and primary hospitalist team and pts. code status is changed to DNR/DNI. Although pts. home metoprolol dose is ER 200mg daily, Pts current blood pressure and HR is unable to to tolerate increased dose therefore will continue the patient on metoprolol ER 100mg daily until able to uptitrate the dose. No cardiac intervention is needed at this time. Will continue to monitor. Keep K+ > 4 and Mg above 2 at all times. recommended to increase it to at least 100 mg in the morning and 50 mg in the evening. no other complaints at this time. Exam Vital Signs Temp Pulse Resp BP Pulse Ox O2 Del Method O2 Flow Rate 97.6 F 74 16 106/61 98 Nasal Cannula 3 11/13/24 08:00 11/13/24 09:45 11/13/24 09:45 11/13/24 09:45 11/13/24 09:45 11/13/24 09:45 11/13/24 09:45 Narrative Exam General: AAOx2, agitated, wearing diaper, wrist restraints present HEENT: Moist mucous membranes, conjunctiva clear, EOMI, PERRLA, poor dentition Cardiovascular: Possible murmur heard over SNOW, tachycardic Pulmonary: CTAB bilat no cough, no wheezing GI: No tenderness to light or deep palpitation, no guarding, rigidity, rebound tenderness or distension Extremities: No presence of trace or pitting edema in lower extremities bilaterally, dorsalis pedis pulses +2 bilaterally Neuro: AAOx2, no focal motor or sensory deficits in the UE or LE bilat Psych: Not the most cooperative Objective Labs 11/13/24 04:56 11/13/24 04:56 Labs: Laboratory Results - last 24 hr 11/13/24 04:56 WBC 11.5 H D RBC 4.54 Hgb 14.2 Hct 42.1 MCV 93 MCH 31.3 MCHC 33.7 RDW Std Deviation 49.1 H Plt Count 237 Neut % (Auto) 72 Lymph % (Auto) 16 Elliott % (Auto) 9 Eos % (Auto) 2 Baso % (Auto) 0 Neut # (Auto) 8.2 H Lymph # (Auto) 1.8 Elliott # (Auto) 1.1 H Eos # (Auto) 0.2 Baso # (Auto) 0.0 Immature Gran # (Auto) 0.07 H Absolute Nucleated RBC 0.00 Immature Gran % 1 H Nucleated RBC % 0 Sodium 144 Potassium 4.9 Chloride 106 Carbon Dioxide 21.0 Anion Gap 17 H BUN 70 H Creatinine 5.7 H* Estim Creat Clear Calc 12.4 L eGFR 10 L* BUN/Creatinine Ratio 12 Glucose 104 Calculated Osmolality 307 H Calcium 10.4 Corrected Calcium 10.4 H Phosphorus 7.4 H Magnesium 2.2 Total Bilirubin 1.1 AST 27 ALT 22 Alkaline Phosphatase 186 H D Total Protein 7.3 Albumin 4.9 H D Globulin 2.4 Albumin/Globulin Ratio 2.0 Random Vancomycin 16.4 ABG Interpretation ABG results: 11/03/24 11/11/24 14:12 12:22 VBG pH 7.39 7.35 VBG pCO2 43 44 VBG pO2 35 38 VBG Base Excess 1 -2 Quality Measures Quality Measures sepsis Current suspected stage: ruled out Possible source: unknown Blood cultures ordered: yes Antibiotic ordered: Yes Advance care planning discussed with:: child Assessment & Plan Assessment Current Active Medications: Generic Name Dose Route Start Last Admin Trade Name Freq PRN Reason Stop Dose Admin Acetaminophen 650 mg 11/03/24 19:16 Acetaminophen 325 Mg Tablet PO 12/03/24 19:15 Q6H PRN PAIN SCALE 1-3 (mild Acetaminophen 650 mg 11/03/24 21:16 Acetaminophen Supp 650 Mg Supp [place] 12/03/24 21:29 Q6H PRN Fever > 100.4 Albuterol/Ipratropium 3 ml 11/03/24 19:16 Albuterol/Ipratropium (Duoneb) Rt Dianne 3 Ml Nebu INH 12/03/24 22:59 Q4HRRT PRN SOB or wheezing Atorvastatin Calcium 80 mg 11/04/24 21:00 11/12/24 20:12 Atorvastatin Calcium 20 Mg Tablet PO 12/04/24 20:59 80 mg HS TARIK Administration Heparin Sodium (Porcine) 2,500 unit 11/09/24 15:02 11/09/24 17:31 Heparin Sod Inj 1000 Unit/Ml Vial 10 Ml INDWELLCAT 11/23/24 15:01 2,500 unit PRN PRN Administration DIALYSIS Albumin Human 25 gm in 100 mls @ 100 mls/min 11/05/24 10:19 Albuminar-25 Ivpb IV QDAY PRN DIALYSIS Vancomycin/Sodium Chloride 100 mls @ 120 mls/hr 11/13/24 10:00 Vancomycin/Ns 500 Mg Ivpb IV 11/13/24 10:49 X1 ONE Levothyroxine Sodium 50 mcg 11/08/24 11:30 11/13/24 05:07 Levothyroxine Sodium 25 Mcg Tablet PO 12/08/24 11:29 Not Given ACBR TARIK Metoprolol Succinate 100 mg 11/14/24 09:00 Metoprolol Succinate Xl 25 Mg Tabcr PO 12/14/24 08:59 QDAY TARIK Mirtazapine 15 mg 11/11/24 21:00 11/12/24 20:12 Mirtazapine 15 Mg Tablet PO 12/11/24 20:59 15 mg HS TARIK Administration Ondansetron HCl 4 mg 11/03/24 14:16 11/03/24 17:26 Ondansetron Inj 2 Mg/Ml Inj 2 Ml IV 12/03/24 14:15 4 mg Q4HR PRN Administration NAUSEA OR VOMITING Pantoprazole Sodium 40 mg 11/05/24 10:45 11/12/24 09:48 Pantoprazole Inj 40 Mg Vial IVP 12/05/24 10:44 Not Given QDAY TARIK Pharmacy Consult 1 each 11/04/24 09:00 Vancomycin Pharmacy To Dose 1 Each Each IV 12/04/24 08:59 QDAY PRN CONSULT Pharmacy Consult 1 each 11/03/24 21:18 Pharmacy Renal Dose Adjustment 1 Ea XX 12/03/24 21:17 PRN PRN CONSULT Pramipexole Dihydrochloride 0.25 mg 11/13/24 09:00 Pramipexole 0.25 Mg Tablet PO 12/13/24 08:59 BID TARIK Sennosides 1 tab 11/03/24 19:16 Senna Tablet PO 12/03/24 19:15 BID PRN CONSTIPATION Protocol Plan Malik is a 79-year-old male past medical history of past medical history of ESRD on hemodialysis (MWF, sees Dr. Padilla), HFrEF (possibly EF of 30), Previous CVA, possible hypothyroidism currently admitted for sepsis secondary to catheter related bloodstream infection which is showing GPC currently. repeat blood cultures on 11/05 have no growth for more than 24 hours. 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 Saphenous vein graft to left circumflex?occluded whenever send HOOK to LAD?patent [place] LAD?moderate to severe disease Saphenous vein graft to RCA patent with good flow [place] left coronary artery severe proximal disease Not a candidate for PCI EF 35 to 40% Ischemic cardiomyopath Plan: ? Primary team resume home Lipitor 80 mg ? Continue with home aspirin suppository 300 mg ? Plavix 75 mg seems to be a home medicine for this patient, recommend restarting ? Recommend resuming ranolazine ? Patient is currently on metoprolol XL 100 mg we recommend to uptitrate to 200 mg once daily which is his home dose as tolerated ? Keep magnesium and potassium above 2 and 4 respectively Patient blood pressure is well-controlled on the present regimen but on telemetry patient still continues to have frequent PVCs but no evidence of any NSVT. Patient is on metoprolol XL 50 mg twice daily and continue to uptitrate the metoprolol if blood pressure permissible and metoprolol XL 200 mg once daily was his home dose and recommended to increase it to at least 100 mg in the morning and 50 mg in the evening. Keep potassium between 4 and 5 and magnesium greater than 2.0 at all times. Continue to monitor on telemetry. Regarding his NSTEMI patient mildly elevated troponins with a peak of 0.976 is mostly secondary to demand ischemia. As noted previously he did have a cardiac catheterization performed recently which showed 2 out of 3 11 with severe [place] vessel CAD but no lesions that could be intervened and hence medical management was recommended. Echo completed during this admission showed severe systolic CHF with an EF of 25 to 30% with dilated cardiomyopathy including dilated LV RV RV and LA. Moderate MR and TR. Grade 2 diastolic dysfunction, moderately reduced RV function. 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 Only medical management for his cardiac disease at the present point of time and patient previously and also the family now indicate that they do not want any further invasive procedures. Primary team t held goals of care discussion on 11/13/2024 and changed the CODE STATUS to DNR/DNI #Sepsis #Catheter site cellulitis #MRSA Bacteremia 11/11 CRBSI His hemodialysis catheter was removed as patient had MRSA bacteremia secondary to the previous dialysis catheter. Patient blood cultures are now negative for more than 24 hours patient underwent new tunneled dialysis catheter placed on 11/13/2024 #ESRD on HD #History of CVA #Hypothyroidim #Normocytic anemia #Acute encephalopathy Patient still is confused and appears to be having intermittent delirium from the infection/sepsis superimposed on the dementia. Patient received haloperidol this afternoon after which he is less agitated. Further management as primary team #Agitations #Likely history of dementia Assessment and plan discussed with my attending physician Dr. Ciara Ireland (PGY-1)- Internal medicine resident Attending Provider Attestation/Addendum I have personally seen and examined the patient separately on the above date of service and discussed the plan of care with the resident. I reviewed the resident Dr. Brennon Ireland consultation progress note and agree with the resident findings and plan in the note above and have also edited the documentation to reflect my findings and plan. Patient still continues to have altered mental status and delirious at the present moment. Patient is due for tunneled dialysis catheter placement today for his hemodialysis. Still continues to have significant PVCs but unfortunately his blood pressures soft this morning and will continue with metoprolol XL 100 mg once daily. If the blood pressure improves then patient medical access should be upgraded to 150 mg XL once daily and later on to 200 mg XL once daily which is his home dosage. Keep potassium between 4 and 5 magnesium greater than 2.0 at all times. Patient already had a recent angiogram which showed no lesions that could be intervened and was only recommended medical therapy and he has severe systolic congestive heart failure which is mostly secondary to ischemic cardiomyopathy. Family does not want any further invasive procedures at the present point of time and only want medical treatment. Recommend to continue to aggressively treat CAD as well as CHF with goal-directed medical therapy. Given his overall poor prognosis recommend to the primary team to discuss the goals of care with the family which was completed today and patient is now DNR/DNI. Bismark Urbina M.D. Interventional Cardiology
--- NOTE | 2024-11-13 10:03 | PC.NURSE ---
Unsuccessful attempt to insert perm cath on right or left upper chest. Dr. Hamilton recommending perm cath to be in groin. Called Dr. Lundberg and the team agreed to insertion of the perm cath in the groin.
--- NOTE | 2024-11-13 10:05 | ESPR_ITS ---
<Statement entered by Humberto Hansen MD - 11/20/24 11:50> I reviewed above note and agree with findings and plans. I have also personally examined the patient with medicine team and went over assessment and plan with medical team including university internship and resident physician. <Statement entered by Nick Lundberg MD - 11/14/24 10:58> Senior Resident Attestation: I supervised/discussed management plan with university internship physician Dr. Lau, and was involved in the care of this patient. I personally saw and examined the patient and discussed the assessment and plan with the entire medicine team, including my attending. I agree with the assessment and plan as documented. Patient continues to be agitated. TDC was placed today, plan for HD tomorrow. Had family meeting with his and children, condition of Mr. Andino was explain to the along with the plan. Code status was changed to DNR/DNI, POLST form was signed. Patient's care was discussed with attending physician, Dr. Hansen. Nick Lundberg MD PGY-2. Documentation for date of: 11/13/24 Subjective Subjective Interval history: 11/12/2024: Pt examined at bedside dialysis today. Pt appears to still be agitated was given Ativan overnight. He is kicking his legs in a dialysis bed and it is hard to have him still for dialysis to be proceeded. we will place leg restraints to stabilize patient for dialysis session. He is still unable to answer questions fully at this time and appears to be agitated his BUN/creatinine 76 and 5.3, white count 8.2, hemoglobin 12.5, potassium 4.6, magnesium 2.3, 6 this morning. Blood pressure still appears to be stable however it is 137/51, telemetry reviewed rate appears to be in the 80s, however still has some trigeminy occurring. He is currently on metoprolol 50 mg twice a day. No other complaints at this time. 11/13/2024: Patient examined at bedside today. Patient still appears to be agitated and does not want to be directly examined. He is to get tunneled dialysis catheter today to be done by IR. Goals of care discussion to be held with family today. Will hold on sedating medicines at this time. No other complaints at this time. Exam Vital Signs Temp Pulse Resp BP Pulse Ox O2 Del Method O2 Flow Rate 97.6 F 80 18 135/29 H 100 Nasal Cannula 3 11/13/24 08:00 11/13/24 10:00 11/13/24 10:00 11/13/24 10:00 11/13/24 10:00 11/13/24 10:00 11/13/24 10:00 Narrative Exam General: AAOx1, agitated, wearing diaper, soft mittens present HEENT: Moist mucous membranes, conjunctiva clear, EOMI, PERRLA, poor dentition Cardiovascular: Possible murmur heard over SNOW, tachycardic Pulmonary: CTAB bilat no cough, no wheezing GI: No tenderness to light or deep palpitation, no guarding, rigidity, rebound tenderness or distension Extremities: No presence of trace or pitting edema in lower extremities bilaterally, dorsalis pedis pulses +2 bilaterally Neuro: AAOx1, no focal motor or sensory deficits in the UE or LE bilat Psych: Not cooperative Objective Labs 11/13/24 04:56 11/13/24 04:56 Labs: Laboratory Results - last 24 hr 11/13/24 04:56 WBC 11.5 H D RBC 4.54 Hgb 14.2 Hct 42.1 MCV 93 MCH 31.3 MCHC 33.7 RDW Std Deviation 49.1 H Plt Count 237 Neut % (Auto) 72 Lymph % (Auto) 16 Becker % (Auto) 9 Eos % (Auto) 2 Baso % (Auto) 0 Neut # (Auto) 8.2 H Lymph # (Auto) 1.8 Becker # (Auto) 1.1 H Eos # (Auto) 0.2 Baso # (Auto) 0.0 Immature Gran # (Auto) 0.07 H Absolute Nucleated RBC 0.00 Immature Gran % 1 H Nucleated RBC % 0 Sodium 144 Potassium 4.9 Chloride 106 Carbon Dioxide 21.0 Anion Gap 17 H BUN 70 H Creatinine 5.7 H* Estim Creat Clear Calc 12.4 L eGFR 10 L* BUN/Creatinine Ratio 12 Glucose 104 Calculated Osmolality 307 H Calcium 10.4 Corrected Calcium 10.4 H Phosphorus 7.4 H Magnesium 2.2 Total Bilirubin 1.1 AST 27 ALT 22 Alkaline Phosphatase 186 H D Total Protein 7.3 Albumin 4.9 H D Globulin 2.4 Albumin/Globulin Ratio 2.0 Random Vancomycin 16.4 ABG Interpretation ABG results: 11/03/24 11/11/24 14:12 12:22 VBG pH 7.39 7.35 VBG pCO2 43 44 VBG pO2 35 38 VBG Base Excess 1 -2 Quality Measures Quality Measures sepsis Current suspected stage: sepsis Possible source: unknown Blood cultures ordered: yes Antibiotic ordered: Yes Advance care planning discussed with:: patient Assessment & Plan Assessment Current Active Medications: Generic Name Dose Route Start Last Admin Trade Name Freq PRN Reason Stop Dose Admin Acetaminophen 650 mg 11/03/24 19:16 Acetaminophen 325 Mg Tablet PO 12/03/24 19:15 Q6H PRN PAIN SCALE 1-3 (mild Acetaminophen 650 mg 11/03/24 21:16 Acetaminophen Supp 650 Mg Supp [place] 12/03/24 21:29 Q6H PRN Fever > 100.4 Albuterol/Ipratropium 3 ml 11/03/24 19:16 Albuterol/Ipratropium (Duoneb) Rt Dianne 3 Ml Nebu INH 12/03/24 22:59 Q4HRRT PRN SOB or wheezing Atorvastatin Calcium 80 mg 11/04/24 21:00 11/12/24 20:12 Atorvastatin Calcium 20 Mg Tablet PO 12/04/24 20:59 80 mg HS TARIK Administration Heparin Sodium (Porcine) 2,500 unit 11/09/24 15:02 11/09/24 17:31 Heparin Sod Inj 1000 Unit/Ml Vial 10 Ml INDWELLCAT 11/23/24 15:01 2,500 unit PRN PRN Administration DIALYSIS Albumin Human 25 gm in 100 mls @ 100 mls/min 11/05/24 10:19 Albuminar-25 Ivpb IV QDAY PRN DIALYSIS Vancomycin/Sodium Chloride 100 mls @ 120 mls/hr 11/13/24 10:00 Vancomycin/Ns 500 Mg Ivpb IV 11/13/24 10:49 X1 ONE Levothyroxine Sodium 50 mcg 11/08/24 11:30 11/13/24 05:07 Levothyroxine Sodium 25 Mcg Tablet PO 12/08/24 11:29 Not Given ACBR TARIK Metoprolol Succinate 100 mg 11/14/24 09:00 Metoprolol Succinate Xl 25 Mg Tabcr PO 12/14/24 08:59 QDAY TARIK Mirtazapine 15 mg 11/11/24 21:00 11/12/24 20:12 Mirtazapine 15 Mg Tablet PO 12/11/24 20:59 15 mg HS TARIK Administration Ondansetron HCl 4 mg 11/03/24 14:16 11/03/24 17:26 Ondansetron Inj 2 Mg/Ml Inj 2 Ml IV 12/03/24 14:15 4 mg Q4HR PRN Administration NAUSEA OR VOMITING Pantoprazole Sodium 40 mg 11/05/24 10:45 11/12/24 09:48 Pantoprazole Inj 40 Mg Vial IVP 12/05/24 10:44 Not Given QDAY TARIK Pharmacy Consult 1 each 11/04/24 09:00 Vancomycin Pharmacy To Dose 1 Each Each IV 12/04/24 08:59 QDAY PRN CONSULT Pharmacy Consult 1 each 11/03/24 21:18 Pharmacy Renal Dose Adjustment 1 Ea XX 12/03/24 21:17 PRN PRN CONSULT Pramipexole Dihydrochloride 0.25 mg 11/13/24 09:00 Pramipexole 0.25 Mg Tablet PO 12/13/24 08:59 BID TARIK Sennosides 1 tab 11/03/24 19:16 Senna Tablet PO 12/03/24 19:15 BID PRN CONSTIPATION Protocol Plan Summary: The patient is a 30-azxm-xmc-year-old male PMHx of ESRD on HD MWF, HFrEF EF 30%, CVA, hypothyroidism presenting with AMS in setting of CRBSI sepsis. He continued on VANCOMYCIN for MRSA bacteremia. HD cath removed. If blood culture negative tomorrow (48 hours), will proceed with hemodialysis cath insertion. #Sepsis 2/2 catheter site cellulitis (improving) #Catheter site cellulitis #MRSA bacteremia 2/2 CRBSI Met 2/4 SIRS criteria with tachycardia, fever. LA normal, no leukocytosis. HD tunneled cath erythematous and warm suggesting cellulitis. Afebrile, leukocytosis improving. Prelim blood culture showing GPC. Dialysis, significant removed. Continue on Vancomycin. 24-hour blood culture negative. Catheter site cx grew GPC. MRSA nasal swab positive. Repeat blood culture negative TDC exchange to be done today Plan: ? Continue vancomycin until 11/19/2024 ? Continue to monitor CBC - Continue to monitor vitals #Acute encephalopathy #Severe agitation #Suspected underlying dementia vs delirium secondary to metabolic encephalopathy Likely secondary to metabolic encephalopathy. Unclear what baseline is, currently attending, does not follow command, agitated, requiring multiple medications. Continued on soft restraints. Started scheduled HALOPERIDOL. Head CT was negative. No focal neurological deficit. No indication for stroke workup. Neurology consulted, agreed with ANTIPSYCHOTICS for agitation. Patient still agitated and was unable to have a new TDC inserted QT 420, previous ~370s At this time will hold sedating medicines at this time Will need to see if pt can swallow for nutrition. If pt fails swallow eval, will need NG tube Goals of care conversation to be held with patient and patient's family Plan: ? Will reconsider resuming antipsychotics at a later time - Speech eval - Neurology consulted, appreciate recommendations #ESRD on HD M/W/F Patient has dialysis Tuesday, Tuesday, Tuesday. Cath removed, femoral cath placed today as patient was unabe to get TDC inserted today due to agitation. Administrative Dietitian Dr Padilla updated. Per airport shuttle driver, IR thinks that the patient might need general anesthesia for reinsertion of the TDC. TDC exchange today Plan: ? Renally dose meds, avoid overdiuresis and NEPHROTOXINS ? Daily CMP ? Hemodialysis as scheduled by nephrology - TDC exchange today #NSTEMI type II #Hx CAD, [place] #HFrEF EF 35-40 Troponin peaked at 0.976. Unable to assess symptoms secondary to encephalopathy. EKG sinus rhythm without acute ST changes. Demand ischemia in settings of sepsis versus volume overload. Anticipate improvement with diuresis and preload reduction. Cardiology consulted, recommendations included below. HR in 80s. - Trops down trended Plan: ? Continue ATORVASTATIN 80 mg daily. ? Continue ASPIRIN 300 mg daily. ? Continue home PLAVIX 75 mg daily. ? Continue METOPROLOL succinate 50 mg BID (home dose 200 mg daily). #Hypomagnesemia, improved 11/06 Magnesium 1.9. Will not replete as patient does not have a dialysis line and won't be getting HD today. Low mag may be protective against hyperkalemia at this time. Plan: ? Daily CMP. #History of CVA #History of CHF echo showed Moderately dilated LV. Mild LVH. Global LV systolic function is severely decreased. Estimated EF 25-30 %. Issa 2 DD. Plan: ? Continue ASPIRIN 300 mg daily. ? Continue ATORVASTATIN 80 mg daily. #Hypothyroidim TSH 4.6 this visit. Plan: ? Continue home LEVOTHYROXINE 50 mcg ACBR. #Normocytic anemia (stable) Patient has Hb of 10.8 No obvious source of bleeding Plan: - We will monitor closely, may need outpatient workup. #Health Maintenance Disposition: Tentatively pending hemodialysis catheter placement DVT prophylaxis: SCDs GI prophylaxis: Protonix Diet: N.p.o. CODE STATUS: Full Patient seen and care discussed with my senior resident, Dr. Lundberg , and my attending physician, Dr. Tyrone Lau, PGY-1
--- NOTE | 2024-11-13 10:50 | PC.NURSE ---
1050 patient s/p tunneled hemodialysis catheter insertion to right femoral and temporary dialysis catheter removal in IR, no need for recovery in label maker since its been 30 minutes since last sedation dose. Patient transferred to tele room 271 and bedside report given to Allyson ESTRELLA and Zakiya ESTRELLA.
[2024-11-13] MEDS: HEPARIN SOD INJ 1000 UNIT/ML VIAL 3500 UNIT INDWELLCAT (11:06)
[2024-11-13] MEDS: HEPARIN SOD LOCK SYR 100 UNIT/ML 500 UNIT STFIELD (11:07)
[2024-11-13] MEDS: PANTOPRAZOLE INJ 40 MG VIAL IVP (11:27)
[2024-11-13] MEDS: VANCOMYCIN/NS 500 MG IVPB 100 ML 120 MG IV (11:29)
--- NOTE | 2024-11-13 11:30 | PC.SS ---
Goals of care discussion conducted with patient?s family.? Present at discussion were patient?s spouse sons (Yoel and Jean) and their respective spouses.? Dr. Hansen provided the patient?s family with an overview on the patient?s condition, treatment plan and prognosis.? Attending physician reviewed with the family the patient?s issues regarding MRSA, nourishment and AMS.? Attending discussed possible source of infection.? In regards to MRSA family informed that patient is on 2 week course of antibiotics.? In regards to nourishment concern due to AMS patient is unable to participate in a swallow evaluation thereby holding P.O. feeds.? Patient is at risk for aspiration.? Attending answered family?s questions.? Family has agreed to make patient DNR with selective treatment.? Family has agreed to begin trial period of artificial nutrition.? In addition, patient?s spouse has agreed to designate sonJean as point of contact.? Chago Pena will be the designated family member to receive medical updates as it pertains to the patient to reduce miscommunication between family and medical team.? POLST form completed and charted.?
--- NOTE | 2024-11-13 14:04 | EVENTNT_ITS ---
<Statement entered by Humberto Hansen MD - 11/20/24 11:50> I reviewed above note and agree with findings and plans. I have also personally examined the patient with medicine team and went over assessment and plan with medical team including international marketing specialist and resident physician. Documentation for date of: 11/13/2024: Event Note Event Note: Spoke with patient and patient's family were present for goals of care discussion. Patient's condition explained to family including MRSA bacteremia and possible worsening of dementia. Family had agreed to have one direct point of contact which is patient's son Jose Antonio, and also POLST form was signed and patient's CODE STATUS was changed to DNR/DNI.
--- NOTE | 2024-11-13 17:00 | PC.NURSE ---
Nurse worked with patient to clear him to have ice chips, Dr. Lau notified that patient is swallowing 1 chip at a time without cough. Patient is cleared to have small bits at a time. Nurse found son giving ice chips by the spoon fulls while patients eyes are closed. Son was educated on the risk of aspirations. The son was continuing to feed large abounts of ice while educating given. Dr. Lau notified, md to order NG tube to start feedings so patient will be at lower risk for aspiration
--- NOTE | 2024-11-13 17:22 | PC.NURSE ---
Son is at bedside, he was informed that we will start NG tube and feedings, Son stated that his father hungry and wants to eat. I explained the risk of aspiration, Son is asking to see the MD. I called Dr. Rosenberg who is coving for the team, She and a attending will come to bedside and answer questions that the son has.
--- NOTE | 2024-11-13 17:39 | PC.NURSE ---
Dr. Rosenberg came to bedside and spoke with the son, He is wanting the patient to eat and is upset that we have not started a meal tray. Education for aspiration given, the son does not want to wait for speech therapy. Dr. Rosenberg to speak with attending via phone. At this time, the son does not want NG tube.
--- NOTE | 2024-11-13 18:08 | PC.RT ---
Tried to collect ABG at 1400. Pt would not be still. RT could not draw ABG.
--- NOTE | 2024-11-13 18:45 | PC.NURSE ---
DURING SHIFT CHANGE PATIENT'S SON IS FEEDING THE PATIENT ICE CHIPS, PATIENTS SON IS PROVIDED WITH ADDITIONAL EDUCATION ON RISK OF ASPIRATION. PATIENT SON STATES HE UNDERSTANDS
--- NOTE | 2024-11-13 20:59 | PC.RT ---
ABG attempted, unable to obtain RT Uma assited. Called MD, VBG ordered TORB.
[2024-11-13 22:01] LABS: Base Excess, Venous -5 (-3-3); O2 Saturation, Venous 51 % (96-97); PCO2, Venous 35 mmHg (36-56); PO2, Venous 29 mmHg (15-58); pH, Venous 7.37 (7.33-7.66)
--- NOTE | 2024-11-13 23:49 | PD.NEUROPROG ---
Documentation for date of: 11/13/24 Subjective Subjective Interval history: Patient was seen in telemetry today with his family at the bedside, continue to remain restless but much better today, on restraints as he is intermittently trying to come out of bed. Very poor oral intake noted Exam - Neurology Vital Signs Temp Pulse Resp BP Pulse Ox O2 Del Method O2 Flow Rate 98.8 F 60 16 135/67 H 99 Room Air 3 11/13/24 20:00 11/13/24 21:06 11/13/24 21:06 11/13/24 20:00 11/13/24 21:11/13/24 20:00 11/13/24 10:25 Narrative Exam GENERAL APPEARANCE: Well-developed, obese built white male , restless in bed HEENT: Normocephalic, atraumatic, extraocular movements intact. Pupils: Equal reacting to light NECK: Supple, no JVD or bruits. CARDIOVASULAR: Heart: S1, S2 heard, regular without S3-S4 or murmur no rubs or gallops. LUNGS/CHEST: Clear to auscultation bilaterally. No rails, rhonchi, or wheezing. Normal inspection. ABDOMEN: Soft, nontender, with normal bowel sounds. No pulsatile masses. No rebound, rigidity, or guarding. Normal inspection and palpation. EXTREMITIES: Normal inspection and palpation. No edema, clubbing or cyanosis. SKIN: Warm and dry without rashes. Normal inspection. MUSCULOSKELETAL: No cervical, thoracic, lumbar or midline bony tenderness. Normal inspection. NEURO: Awake, alert, still restless, needing to be on restraints, moves all 4 extremities purposefully no signs of meningeal irritation noted. PSYCHIATRIC: limited Objective Labs 11/13/24 04:56 11/13/24 04:56 Labs: Laboratory Results - last 24 hr 11/13/24 11/13/24 04:56 21:50 WBC 11.5 H D RBC 4.54 Hgb 14.2 Hct 42.1 MCV 93 MCH 31.3 MCHC 33.7 RDW Std Deviation 49.1 H Plt Count 237 Neut % (Auto) 72 Lymph % (Auto) 16 [place] % (Auto) 9 Eos % (Auto) 2 Baso % (Auto) 0 Neut # (Auto) 8.2 H Lymph # (Auto) 1.8 [place] # (Auto) 1.1 H Eos # (Auto) 0.2 Baso # (Auto) 0.0 Immature Gran # (Auto) 0.07 H Absolute Nucleated RBC 0.00 Immature Gran % 1 H Nucleated RBC % 0 VBG pH 7.37 VBG pCO2 35 L VBG pO2 29 VBG O2 Sat ([place]) 51 L D VBG Base Excess -5 L Sodium 144 Potassium 4.9 Chloride 106 Carbon Dioxide 21.0 Anion Gap 17 H BUN 70 H Creatinine 5.7 H* Estim Creat Clear Calc 12.4 L eGFR 10 L* BUN/Creatinine Ratio 12 Glucose 104 Calculated Osmolality 307 H Calcium 10.4 Corrected Calcium 10.4 H Phosphorus 7.4 H Magnesium 2.2 Total Bilirubin 1.1 AST 27 ALT 22 Alkaline Phosphatase 186 H D Total Protein 7.3 Albumin 4.9 H D Globulin 2.4 Albumin/Globulin Ratio 2.0 Random Vancomycin 16.4 ABG Interpretation ABG results: 11/03/24 11/11/24 11/13/24 14:12 12:22 21:50 VBG pH 7.39 7.35 7.37 VBG pCO2 43 44 35 L VBG pO2 35 38 29 VBG Base Excess 1 -2 -5 L Assessment & Plan Assessment and plan (1) Delirium: Status: Acute Assessment and plan: No significant improvement noted in the last several days. The family has agreed with changed to DNR/DNI, is waiting for bedside swallow evaluation so she can be restarted on her (2) End stage renal failure on dialysis: Status: Chronic Assessment and plan: He got the tunneled catheter via interventional radiology today (3) Cellulitis: Status: Acute (4) Fever: Status: Acute Additional Assessment & Plan Additional Plan: Will try low-dose of pramipexole to help with restless legs which is commonly seen in patients with kidney disease
[2024-11-13] MEDS: DiphenhydrAMINE INJ 50 MG/ML VIAL 25 MG IVP (23:52)
[2024-11-14] VITALS (29 sets, daily range): BP systolic 91–154; BP diastolic 48–98; PULSE 58–95; RESP 12–97; TEMP 36.1–36.6; O2SAT 94–99; BMI 30.3
[2024-11-14 06:16] LABS: Basophils % (Auto) 0 % (0-2.5); Eosinophils # (Auto) 0.1 Thou/mm3 (0.0-0.5); Eosinophils % (Auto) 1 % (0-10); Hemoglobin 13.2 g/dL (13.5-16.0); Immature Granulocytes % (Auto) 1 % (0-0); Immature Granulocytes Auto 0.07 Thou/mm3 (0.00-0.00); Lymphocytes # (Auto) 1.7 Thou/mm3 (1.0-4.8); Lymphocytes % (Auto) 14 % (10-50); Mean Corpuscular HGB Conc 33.8 g/dl (31.0-37.0); Mean Corpuscular Hemoglobin 31.2 pg (25.0-35.0); Mean Corpuscular Volume 92 fL (80-100); Monocytes # (Auto) 1.1 Thou/mm3 (0.0-0.8); Monocytes % (Auto) 9 % (0-12); Neutrophils # (Auto) 9.1 Thou/mm3 (1.8-7.7); Neutrophils % (Auto) 75 % (37-80); Nucleated Red Blood Cell % 0 /100 WBC (0); Platelet Count 226 Thou/mm3 (140-440); RDW Standard Deviation 48.7 fL (35.1-43.9); Red Blood Count 4.23 Miln/mm3 (4.50-5.90); White Blood Count 12.1 Thou/mm3 (3.8-10.6)
[2024-11-14 06:56] LABS: Alanine Aminotransferase 19 U/L (10-49); Albumin, Serum 4.5 gm/dL (3.4-4.8); Alkaline Phosphatase 176 U/L (46-116); Anion Gap 19 (7-16); Aspartate Amino Transferase 19 U/L (0-34); BUN/Creatinine Ratio 13 Ratio (12-20); Bilirubin,Total 0.9 mg/dL (0.3-1.2); Blood Urea Nitrogen 96 mg/dL (9-23); Calcium 9.8 mg/dL (8.3-10.6); Calcium (Corrected) 9.8 mg/dL (8.5-10.1); Carbon Dioxide 19.1 mMol/L (20.0-31.0); Chloride 107 mMol/L (98-107); Creatinine (Component) 7.4 mg/dL (0.6-1.3); Estimated Creatinine Clearance 9.6 mL/min (>60); Globulin 2.3 gm/dL (2.3-3.5); Glucose 109 mg/dL (74-106); Magnesium 2.3 mg/dL (1.6-2.6); Osmolality,Calculated 319 (275-295); Phosphorous 8.9 mg/dL (2.4-5.1); Potassium 4.9 mMol/L (3.4-5.1); Sodium 145 mMol/L (136-145); Total Protein 6.8 gm/dL (5.7-8.2); Vancomycin,Random 24.2 mcg/mL; eGFR 7 See Note
--- NOTE | 2024-11-14 09:16 | PC.NURSE ---
bp trending down pt remains asymptomatic will admin prn albumin and cont. to monitor
[2024-11-14] MEDS: ALBUMIN HUMAN 25% IVPB 25 GM/100 ML BTL IV (09:18)
--- NOTE | 2024-11-14 09:24 | PC.NURSE ---
UF goal lowered to 1.5L as tolerated. Will cont. to monitor.
--- NOTE | 2024-11-14 10:21 | PC.NURSE ---
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 to monitor
--- NOTE | 2024-11-14 10:22 | PD.RESPRO ---
Documentation for date of: 11/14/24 Subjective Subjective Interval history: 11/14: no acute overnight events reported. Patient is seen and examined during dialysis patient currently has restraining mittens put on during dialysis as patient was a bit agitated and pulling at lines per dialysis nurse. initial BP before dialysis was 142/88 and during dialysis 98/57 Patient underwent Retort Furnace Operator yesterday to place a tunneled dialysis catheter but because patient was unable to lie flat and stay still a tunneled dialysis catheter was unsuccessful therefore patient had another temporary dialysis catheter placed. Patient continues to have PVCs but this time morning 20 therefore less than 5% which has significantly decreased from previous reading. Patient will continue metoprolol ER 100 Mg daily if patient's blood pressure is able to tolerate will uptitrate the dose as able. Highly recommend to keep potassium above 4 and magnesium above 2 at all times. Patient has no other complaints. Exam Vital Signs Temp Pulse Resp BP Pulse Ox O2 Del Method O2 Flow Rate 97.5 F 87 18 114/52 L 97 Room Air 3 11/14/24 07:59 11/14/24 10:15 11/14/24 09:03 11/14/24 10:15 11/14/24 07:59 11/14/24 07:59 11/14/24 04:00 Objective Labs 11/14/24 04:52 11/14/24 04:52 Labs: Laboratory Results - last 24 hr 11/13/24 11/14/24 21:50 04:52 WBC 12.1 H RBC 4.23 L Hgb 13.2 L Hct 39.0 L MCV 92 MCH 31.2 MCHC 33.8 RDW Std Deviation 48.7 H Plt Count 226 Neut % (Auto) 75 Lymph % (Auto) 14 [place] % (Auto) 9 Eos % (Auto) 1 Baso % (Auto) 0 Neut # (Auto) 9.1 H Lymph # (Auto) 1.7 [place] # (Auto) 1.1 H Eos # (Auto) 0.1 Baso # (Auto) 0.0 Immature Gran # (Auto) 0.07 H Absolute Nucleated RBC 0.00 Immature Gran % 1 H Nucleated RBC % 0 VBG pH 7.37 VBG pCO2 35 L VBG pO2 29 VBG O2 Sat ([place]) 51 L D VBG Base Excess -5 L Sodium 145 Potassium 4.9 Chloride 107 Carbon Dioxide 19.1 L Anion Gap 19 H BUN 96 H Creatinine 7.4 H* D Estim Creat Clear Calc 9.6 L eGFR 7 L* BUN/Creatinine Ratio 13 Glucose 109 H Calculated Osmolality 319 H Calcium 9.8 Corrected Calcium 9.8 Phosphorus 8.9 H Magnesium 2.3 Total Bilirubin 0.9 AST 19 ALT 19 Alkaline Phosphatase 176 H Total Protein 6.8 Albumin 4.5 Globulin 2.3 Albumin/Globulin Ratio 2.0 Random Vancomycin 24.2 ABG Interpretation ABG results: 11/03/24 11/11/24 11/13/24 14:12 12:22 21:50 VBG pH 7.39 7.35 7.37 VBG pCO2 43 44 35 L VBG pO2 35 38 29 VBG Base Excess 1 -2 -5 L Quality Measures Quality Measures sepsis Current suspected stage: sepsis Possible source: unknown Blood cultures ordered: yes Antibiotic ordered: Yes Advance care planning discussed with:: legal surragate Assessment & Plan Assessment Current Active Medications: Generic Name Dose Route Start Last Admin Trade Name Freq PRN Reason Stop Dose Admin Acetaminophen 650 mg 11/03/24 19:16 Acetaminophen 325 Mg Tablet PO 12/03/24 19:15 Q6H PRN PAIN SCALE 1-3 (mild Acetaminophen 650 mg 11/03/24 21:16 Acetaminophen Supp 650 Mg Supp ME 12/03/24 21:29 Q6H PRN Fever > 100.4 Albuterol/Ipratropium 3 ml 11/03/24 19:16 Albuterol/Ipratropium (Duoneb) Rt Dianne 3 Ml Nebu INH 12/03/24 22:59 Q4HRRT PRN SOB or wheezing Atorvastatin Calcium 80 mg 11/04/24 21:00 11/13/24 21:37 Atorvastatin Calcium 20 Mg Tablet PO 12/04/24 20:59 Not Given HS TARIK Heparin Sodium (Porcine) 2,500 unit 11/09/24 15:02 11/09/24 17:31 Heparin Sod Inj 1000 Unit/Ml Vial 10 Ml INDWELLCAT 11/23/24 15:01 2,500 unit PRN PRN Administration DIALYSIS Albumin Human 25 gm in 100 mls @ 100 mls/min 11/05/24 10:19 11/14/24 09:18 Albuminar-25 Ivpb IV 100 mls/min QDAY PRN Administration DIALYSIS Levothyroxine Sodium 50 mcg 11/08/24 11:30 11/14/24 05:26 Levothyroxine Sodium 25 Mcg Tablet PO 12/08/24 11:29 Not Given ACBR TARIK Levothyroxine Sodium 25 mcg 11/14/24 09:00 Levothyroxine Inj 100 Mcg Vial IV 12/14/24 08:59 QDAY TARIK Metoprolol Succinate 100 mg 11/14/24 09:00 Metoprolol Succinate Xl 25 Mg Tabcr PO 12/14/24 08:59 QDAY TARIK Mirtazapine 15 mg 11/11/24 21:00 11/13/24 21:38 Mirtazapine 15 Mg Tablet PO 12/11/24 20:59 Not Given HS TARIK Ondansetron HCl 4 mg 11/03/24 14:16 11/03/24 17:26 Ondansetron Inj 2 Mg/Ml Inj 2 Ml IV 12/03/24 14:15 4 mg Q4HR PRN Administration NAUSEA OR VOMITING Pantoprazole Sodium 40 mg 11/05/24 10:45 11/13/24 11:27 Pantoprazole Inj 40 Mg Vial IVP 12/05/24 10:44 40 mg QDAY TARIK Administration Pharmacy Consult 1 each 11/04/24 09:00 Vancomycin Pharmacy To Dose 1 Each Each IV 12/04/24 08:59 QDAY PRN CONSULT Pharmacy Consult 1 each 11/03/24 21:18 Pharmacy Renal Dose Adjustment 1 Ea XX 12/03/24 21:17 PRN PRN CONSULT Pramipexole Dihydrochloride 0.25 mg 11/13/24 09:00 11/13/24 21:38 Pramipexole 0.25 Mg Tablet PO 12/13/24 08:59 Not Given BID TARIK Quetiapine Fumarate 25 mg 11/14/24 10:05 Quetiapine Fumarate 25 Mg Tablet PO 12/14/24 10:04 QDAY TARIK Sennosides 1 tab 11/03/24 19:16 Senna Tablet PO 12/03/24 19:15 BID PRN CONSTIPATION Protocol Plan Malik is a 79-year-old male past medical history of past medical history of ESRD on hemodialysis (MWF, sees Dr. Padilla), HFrEF (possibly EF of 30), Previous CVA, possible hypothyroidism currently admitted for sepsis secondary to catheter related bloodstream infection which is showing GPC currently. repeat blood cultures on 11/05 have no growth for more than 24 hours. #Sepsis secondary to # MRSA bacteremia -Patient underwent catheter holiday and hemodialysis catheter was removed and multiple attempts have been made since to replace patient's tunnel catheter since patient's blood cultures have been negative for 5 days however due to patient's agitation and inability to stay still a permanent tunneled catheter have not been placed. Patient have undergone 2 temporary dialysis catheter. -Patient is on vancomycin until 11/19/2024 #PVCs-patient's PVC frequency have decreased to about 5%, will continue metoprolol 100 Mg daily if patient's blood pressure permits then will increase metoprolol when able # NSTEMI type II-likely demand ischemia in the setting of sepsis -Initial troponins0.058 ->peaked at 0.976 and downtrended to 0.900 -Keep potassium above 4 and magnesium above 2 at all times -Patient underwent cardiac catheterization which showed 2 of the 3 severe CAD however no intervention can be done at this time due to patient's current condition therefore we will continue medical management #CHF -Echocardiogram during this hospital admission showed ejection fraction of EF of 25 to 30% with dilated cardiomyopathy including dilated LV RV RV and LA. Moderate MR and TR. Grade 2 diastolic dysfunction, moderately reduced RV function. -Per family's decision patient's CODE STATUS have been changed to DNR/DNI therefore they do not wish any further invasive procedures or interventions to be done as patient's current condition is unstable. # Acute encephalopathy #Severe agitation # Dementia -Patient continues to be confused and appears to be agitated therefore often put on restraints using soft mittens. -Patient's home antipsychotics have been on hold as per primary hospitalist team. -Neurologist is consulted and following # End-stage renal disease on hemodialysis Tuesday. -Patient continues to undergo dialysis as per schedule through temporary dialysis catheter. -Plans to reattempt a tunneled dialysis catheter would be at a later time Assessment and plan discussed with my attending physician Dr. Ciara Ireland ([id number])- Internal medicine resident Attending Provider Attestation/Addendum I have personally seen and examined the patient separately on the above date of service and discussed the plan of care with the resident. I reviewed the resident Dr. Brennon Ireland consultation progress note and agree with the resident findings and plan in the note above and have also edited the documentation to reflect my findings and plan. Bismark Urbina M.D. Interventional Cardiology
--- NOTE | 2024-11-14 11:05 | PC.DIETICIAN ---
Nutrition prescription If EN is within plan of care, consider: Nepro at 20 ml/hr via OG/NG tube by pump. Advance 10 ml every 8 hrs to goal rate of 50 ml/hr x 22 hrs. If no IV fluids, water flushes of 20 ml/hr (or per MD). -Hold TF for one hour before and after levothyroxine administration-
[2024-11-14] MEDS: HEPARIN SOD INJ 1000 UNIT/ML VIAL 10 ML 3500 UNIT INDWELLCAT (11:37)
--- NOTE | 2024-11-14 12:01 | PCS.ST ---
Swallow Re-Evaluation completed. See report for details. Recommend Dysphagia 1/Reg liquids with strict PO guidelines: FULLY awake, responsive to cues, sitting upright. ST will follow up
--- NOTE | 2024-11-14 12:06 | ESPR_ITS ---
Documentation for date of: 11/14/24 Subjective Subjective Interval history: 11/12/2024: Pt examined at bedside dialysis today. Pt appears to still be agitated was given Ativan overnight. He is kicking his legs in a dialysis bed and it is hard to have him still for dialysis to be proceeded. we will place leg restraints to stabilize patient for dialysis session. He is still unable to answer questions fully at this time and appears to be agitated his BUN/creatinine 76 and 5.3, white count 8.2, hemoglobin 12.5, potassium 4.6, magnesium 2.3, 6 this morning. Blood pressure still appears to be stable however it is 137/51, telemetry reviewed rate appears to be in the 80s, however still has some trigeminy occurring. He is currently on metoprolol 50 mg twice a day. No other complaints at this time. 11/13/2024: Patient examined at bedside today. Patient still appears to be agitated and does not want to be directly examined. He is to get tunneled dialysis catheter today to be done by IR. Goals of care discussion to be held with family today. Will hold on sedating medicines at this time. No other complaints at this time. 11/14/2024: Patient examined at bedside today. Patient still appears to be in bigeminy rate controlled in 90s seen on telemetry. Patient is undergoing dialysis today with new TDC, got 1.5 L removed. Patient still appears to be slightly agitated, however patient was able to pass swallow eval by speech therapy. Will start on recommended diet. Patient's white count today 2.1, hemoglobin 13.2, BUN/creatinine 96 and 7.4 respectively, phosphorus 8.9, magnesium 2.3, potassium 4.9, calcium 9.8. No other complaints this time Exam Vital Signs Temp Pulse Resp BP Pulse Ox O2 Del Method O2 Flow Rate 97.1 F 89 18 140/69 H 99 Room Air 3 11/14/24 11:11/14/24 11:11/14/24 11:11/14/24 11:11/14/24 11:11/14/24 07:59 11/14/24 04:00 Narrative Exam General: AAOx1, agitated, wearing diaper, soft mittens present HEENT: Moist mucous membranes, conjunctiva clear, EOMI, PERRLA, poor dentition Cardiovascular: Possible murmur heard over SNOW, tachycardic Pulmonary: CTAB bilat no cough, no wheezing GI: No tenderness to light or deep palpitation, no guarding, rigidity, rebound tenderness or distension Extremities: No presence of trace or pitting edema in lower extremities bilaterally, dorsalis pedis pulses +2 bilaterally Neuro: AAOx1, no focal motor or sensory deficits in the UE or LE bilat Psych: Not cooperative Objective Labs 11/15/24 05:20 11/15/24 05:20 Labs: Laboratory Results - last 24 hr 11/13/24 11/14/24 21:50 04:52 WBC 12.1 H RBC 4.23 L Hgb 13.2 L Hct 39.0 L MCV 92 MCH 31.2 MCHC 33.8 RDW Std Deviation 48.7 H Plt Count 226 Neut % (Auto) 75 Lymph % (Auto) 14 [place] % (Auto) 9 Eos % (Auto) 1 Baso % (Auto) 0 Neut # (Auto) 9.1 H Lymph # (Auto) 1.7 [place] # (Auto) 1.1 H Eos # (Auto) 0.1 Baso # (Auto) 0.0 Immature Gran # (Auto) 0.07 H Absolute Nucleated RBC 0.00 Immature Gran % 1 H Nucleated RBC % 0 VBG pH 7.37 VBG pCO2 35 L VBG pO2 29 VBG O2 Sat ([place]) 51 L D VBG Base Excess -5 L Sodium 145 Potassium 4.9 Chloride 107 Carbon Dioxide 19.1 L Anion Gap 19 H BUN 96 H Creatinine 7.4 H* D Estim Creat Clear Calc 9.6 L eGFR 7 L* BUN/Creatinine Ratio 13 Glucose 109 H Calculated Osmolality 319 H Calcium 9.8 Corrected Calcium 9.8 Phosphorus 8.9 H Magnesium 2.3 Total Bilirubin 0.9 AST 19 ALT 19 Alkaline Phosphatase 176 H Total Protein 6.8 Albumin 4.5 Globulin 2.3 Albumin/Globulin Ratio 2.0 Random Vancomycin 24.2 ABG Interpretation ABG results: 11/03/24 11/11/24 11/13/24 14:12 12:22 21:50 VBG pH 7.39 7.35 7.37 VBG pCO2 43 44 35 L VBG pO2 35 38 29 VBG Base Excess 1 -2 -5 L Quality Measures Quality Measures sepsis Current suspected stage: sepsis Possible source: unknown Blood cultures ordered: yes Antibiotic ordered: Yes Advance care planning discussed with:: patient Assessment & Plan Assessment Current Active Medications: Generic Name Dose Route Start Last Admin Trade Name Freq PRN Reason Stop Dose Admin Acetaminophen 650 mg 11/03/24 19:16 Acetaminophen 325 Mg Tablet PO 12/03/24 19:15 Q6H PRN PAIN SCALE 1-3 (mild Acetaminophen 650 mg 11/03/24 21:16 Acetaminophen Supp 650 Mg Supp TX 12/03/24 21:29 Q6H PRN Fever > 100.4 Albuterol/Ipratropium 3 ml 11/03/24 19:16 Albuterol/Ipratropium (Duoneb) Rt Dianne 3 Ml Nebu INH 12/03/24 22:59 Q4HRRT PRN SOB or wheezing Atorvastatin Calcium 80 mg 11/04/24 21:00 11/13/24 21:37 Atorvastatin Calcium 20 Mg Tablet PO 12/04/24 20:59 Not Given HS TARIK Heparin Sodium (Porcine) 3,500 unit 11/14/24 10:00 11/14/24 11:37 Heparin Sod Inj 1000 Unit/Ml Vial 10 Ml INDWELLCAT 11/28/24 09:59 3,500 unit X1 PRN Administration DIALYSIS Albumin Human 25 gm in 100 mls @ 100 mls/min 11/05/24 10:19 11/14/24 09:18 Albuminar-25 Ivpb IV 100 mls/min QDAY PRN Administration DIALYSIS Levothyroxine Sodium 50 mcg 11/08/24 11:30 11/14/24 05:26 Levothyroxine Sodium 25 Mcg Tablet PO 12/08/24 11:29 Not Given ACBR TARIK Levothyroxine Sodium 25 mcg 11/14/24 09:00 Levothyroxine Inj 100 Mcg Vial IV 12/14/24 08:59 QDAY TARIK Metoprolol Succinate 100 mg 11/14/24 09:00 11/14/24 07:15 Metoprolol Succinate Xl 25 Mg Tabcr PO 12/14/24 08:59 Not Given QDAY TARIK Mirtazapine 15 mg 11/11/24 21:00 11/13/24 21:38 Mirtazapine 15 Mg Tablet PO 12/11/24 20:59 Not Given HS TARIK Ondansetron HCl 4 mg 11/03/24 14:16 11/03/24 17:26 Ondansetron Inj 2 Mg/Ml Inj 2 Ml IV 12/03/24 14:15 4 mg Q4HR PRN Administration NAUSEA OR VOMITING Pantoprazole Sodium 40 mg 11/05/24 10:45 11/13/24 11:27 Pantoprazole Inj 40 Mg Vial IVP 12/05/24 10:44 40 mg QDAY TARIK Administration Pharmacy Consult 1 each 11/04/24 09:00 Vancomycin Pharmacy To Dose 1 Each Each IV 12/04/24 08:59 QDAY PRN CONSULT Pharmacy Consult 1 each 11/03/24 21:18 Pharmacy Renal Dose Adjustment 1 Ea XX 12/03/24 21:17 PRN PRN CONSULT Pramipexole Dihydrochloride 0.25 mg 11/13/24 09:00 11/14/24 11:39 Pramipexole 0.25 Mg Tablet PO 12/13/24 08:59 Not Given BID TARIK Quetiapine Fumarate 25 mg 11/14/24 10:05 11/14/24 11:40 Quetiapine Fumarate 25 Mg Tablet PO 12/14/24 10:04 Not Given QDAY TARIK Sennosides 1 tab 11/03/24 19:16 Senna Tablet PO 12/03/24 19:15 BID PRN CONSTIPATION Protocol Plan Summary: The patient is a 29-fmb[age]-eb[age]-year-old male PMHx of ESRD on HD MWF, HFrEF EF 30%, CVA, hypothyroidism presenting with AMS in setting of CRBSI sepsis. He continued on VANCOMYCIN for MRSA bacteremia. HD cath removed. If blood culture negative tomorrow (48 hours), will proceed with hemodialysis cath insertion. #Sepsis 2/2 catheter site cellulitis (improving) #Catheter site cellulitis #MRSA bacteremia 2/2 CRBSI Met 2/4 SIRS criteria with tachycardia, fever. LA normal, no leukocytosis. HD tunneled cath erythematous and warm suggesting cellulitis. Afebrile, leukocytosis improving. Prelim blood culture showing GPC. Dialysis, significant removed. Continue on Vancomycin. 24-hour blood culture negative. Catheter site cx grew GPC. MRSA nasal swab positive. Repeat blood culture negative TDC exchange to be done today Plan: ? Continue vancomycin until 11/19/2024 ? Continue to monitor CBC - Continue to monitor vitals #Acute encephalopathy #Severe agitation #Suspected underlying dementia vs delirium secondary to metabolic encephalopathy Likely secondary to metabolic encephalopathy. Unclear what baseline is, currently attending, does not follow command, agitated, requiring multiple medications. Continued on soft restraints. Started scheduled HALOPERIDOL. Head CT was negative. No focal neurological deficit. No indication for stroke workup. Neurology consulted, agreed with ANTIPSYCHOTICS for agitation. Patient still agitated and was unable to have a new TDC inserted QT 420, previous ~370s At this time will hold sedating medicines at this time Goals of care conversation held with family, see notes Speech eval recommended dysphagia 1 diet only patient is awake Plan: ? Resumed Seroquel 25 mg twice daily as needed - Dysphagia diet as long as patient is awake - Neurology consulted, appreciate recommendations #ESRD on HD M/W/ Patient has dialysis Tuesday, Tuesday, Tuesday. 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 Renally dose meds, avoid overdiuresis and NEPHROTOXINS ? Daily CMP ? Hemodialysis as scheduled by nephrology ? Continue with dialysis with TDC #NSTEMI type II #Hx CAD, MO #HFrEF EF 35-40 Troponin peaked at 0.976. Unable to assess symptoms secondary to encephalopathy. EKG sinus rhythm without acute ST changes. Demand ischemia in settings of sepsis versus volume overload. Anticipate improvement with diuresis and preload reduction. Cardiology consulted, recommendations included below. HR in 80s. - Trops down trended Plan: ? Continue ATORVASTATIN 80 mg daily. ? Continue ASPIRIN 300 mg daily. ? Continue home PLAVIX 75 mg daily. ? Continue METOPROLOL succinate 50 mg BID (home dose 200 mg daily). #Hypomagnesemia, improved 11/06 Magnesium 1.9. Will not replete as patient does not have a dialysis line and won't be getting HD today. Low mag may be protective against hyperkalemia at this time. Plan: ? Daily CMP. #History of CVA #History of CHF echo showed Moderately dilated LV. Mild LVH. Global LV systolic function is severely decreased. Estimated EF 25-30 %. Issa 2 DD. Plan: ? Continue ASPIRIN 300 mg daily. ? Continue ATORVASTATIN 80 mg daily. #Hypothyroidim TSH 4.6 this visit. Plan: ? Continue home LEVOTHYROXINE 50 mcg ACBR. #Normocytic anemia (stable) Patient has Hb of 10.8 No obvious source of bleeding Plan: - We will monitor closely, may need outpatient workup. #Health Maintenance Disposition: Tentatively pending hemodialysis catheter placement DVT prophylaxis: SCDs GI prophylaxis: Protonix Diet: N.p.o. CODE STATUS: Full Patient seen and care discussed with my senior resident, Dr. Lundberg , and my attending physician, Dr. Adele Lau, PGY-1 Attending Provider Attestation/Addendum I reviewed labs, imaging, EKG, home medications and prior available records. Face to face evaluation was performed by me. I have personally examined the patient and discussed assessment and plan with the IM team. I reviewed the resident note and agree with the plan with exceptions as below. Acute encephalopathy/hyperactive agitation: Likely hyperactive delirium in the setting of baseline dementia. Possibly multifactorial in the setting of MRSA infection, pain, sleep deprivation, hunger/thirst, anxiety. Management of infection as below. Delirium precautions. Ordered swallow evaluation and started the patient on diet. Okay to ice chips Consulted neurology: Recommended pramipexole for possible restless leg. Started quetiapine. Continue haloperidol as needed MRSA dialysis line infection: Continue IV vancomycin. Status post insertion of a new right femoral dialysis catheter ESRD on hemodialysis: He is receiving hemodialysis via the new right femoral dialysis catheter that was inserted after 48 hours of negative blood cultures. Nephrology is following Non-STEMI: No active chest complaints. Continue aspirin and atorvastatin Ventricular tachycardia: Nonsustained. Continue metoprolol XL. Cardiology is following
[2024-11-14] MEDS: LEVOTHYROXINE INJ 100 mCg VIAL 25 MCG IV (12:20)
[2024-11-14] MEDS: PANTOPRAZOLE INJ 40 MG VIAL IVP (12:20)
--- NOTE | 2024-11-14 13:49 | ESPR_ITS ---
RE: LUCA DIXON : 1945 DATE OF SERVICE: 11/14/2024 HISTORY OF PRESENT ILLNESS: Briefly, he is a 79-year-old gentleman with hypertension, coronary artery disease, status post CABG in 2018, ischemic cardiomyopathy with EF of 35% and ESRD on dialysis every Tuesday, Tuesday, Tuesday since 01/2023. He was admitted to the hospital on 10/17/2024 with confusion. He was found with dialysis catheter infection with blood culture x2 that grew gram positive cocci. His TDC was removed. The patient's blood culture has been negative in the past 48 hours or more and had a right groin tunnelled dialysis catheter placed yesterday. The patient also had dialysis this morning about 1.5 liters of fluid was removed. The patient is currently with speech pathologist and voluntarily open his mouth and eats a spoonful being provided by speech pathologist. CURRENT MEDICATIONS: 1. Acetaminophen. 2. Aspirin. 3. Atorvastatin. 4. Plavix. 5. Fentanyl. 6. Allopurinol. 7. Heparin. 8. Levothyroxine. 9. Metoprolol. 10. Midazolam p.r.n. PHYSICAL EXAMINATION: General: Awake, but does not respond to questions with meaningful answers . Automatically eats when a spoon is placed in his mouth by the speech pathologist. Vital Signs: Blood pressure of 140/69, heart rate of 89. HEENT: Anicteric sclerae, normocephalic. Neck: Supple. no JVD. Chest and Lungs: Symmetrical expansion. Clear breath sounds. Cardiovascular: Without murmur. Abdomen: Soft, nontender. Extremities: No edema. Laboratory Data: platelet count 226,000. Sodium 145, potassium 4.9, chloride 107, CO2 of 19.1, BUN 96, creatinine 7.4, glucose 109, albumin 4.5. ASSESSMENT: 1. End stage renal disease. 2. Altered level of consciousness secondary to sepsis, now improving. 3. Gram positive septicemia secondary to infected tunnel dialysis catheter. 4. Anemia of chronic kidney disease. 5. History of coronary artery disease, status post coronary artery bypass graft. 6. Ischemic cardiomyopathy. 7. Obesity. 8. Weight loss of 40 pounds since admission. 9. Hypertension. PLAN: The patient had dialysis today about 1.5 liters of fluid was removed. The patient is dialyzing through his right groin tunneled dialysis catheter. DT: 11:48:57 TT: 12:53:00 Ref: [id number] - TID: [id number] MTDD
--- NOTE | 2024-11-14 14:26 | PC.SS ---
Rounding Note: Patient has passed swallow evaluation.
[2024-11-14] MEDS: PRAMIPEXOLE 0.25 MG TABLET PO (22:01)
[2024-11-14] MEDS: ATORVASTATIN CALCIUM 20 MG TABLET 80 MG PO (22:02)
[2024-11-14] MEDS: MIRTAZAPINE 15 MG TABLET PO (22:02)
--- NOTE | 2024-11-14 22:24 | ESPR_ITS ---
Documentation for date of: 11/14/24 Subjective Subjective Interval history: Patient was seen in telemetry today with his family at the bedside, continue to remain restless but much better today, on restraints as he is intermittently trying to come out of bed. He started eating better, as he passed swallow evaluation this morning, got dialyzed today. Exam - Neurology Vital Signs Temp Pulse Resp BP Pulse Ox O2 Del Method O2 Flow Rate 97.9 F 86 17 124/93 H 94 L Room Air 3 11/14/24 20:00 11/14/24 20:00 11/14/24 20:00 11/14/24 20:00 11/14/24 20:00 11/14/24 20:00 11/14/24 04:00 Narrative Exam GENERAL APPEARANCE: Well-developed, obese built white male , restless in bed HEENT: Normocephalic, atraumatic, extraocular movements intact. Pupils: Equal reacting to light NECK: Supple, no JVD or bruits. CARDIOVASULAR: Heart: S1, S2 heard, regular without S3-S4 or murmur no rubs or gallops. LUNGS/CHEST: Clear to auscultation bilaterally. No rails, rhonchi, or wheezing. Normal inspection. ABDOMEN: Soft, nontender, with normal bowel sounds. No pulsatile masses. No rebound, rigidity, or guarding. Normal inspection and palpation. EXTREMITIES: Normal inspection and palpation. No edema, clubbing or cyanosis. SKIN: Warm and dry without rashes. Normal inspection. MUSCULOSKELETAL: No cervical, thoracic, lumbar or midline bony tenderness. Normal inspection. NEURO: Awake, alert, still restless, needing to be on restraints, moves all 4 extremities purposefully no signs of meningeal irritation noted. PSYCHIATRIC: limited Objective Labs 11/16/24 04:03 11/16/24 04:03 Labs: Laboratory Results - last 24 hr 11/14/24 04:52 WBC 12.1 H RBC 4.23 L Hgb 13.2 L Hct 39.0 L MCV 92 MCH 31.2 MCHC 33.8 RDW Std Deviation 48.7 H Plt Count 226 Neut % (Auto) 75 Lymph % (Auto) 14 [place] % (Auto) 9 Eos % (Auto) 1 Baso % (Auto) 0 Neut # (Auto) 9.1 H Lymph # (Auto) 1.7 [place] # (Auto) 1.1 H Eos # (Auto) 0.1 Baso # (Auto) 0.0 Immature Gran # (Auto) 0.07 H Absolute Nucleated RBC 0.00 Immature Gran % 1 H Nucleated RBC % 0 Sodium 145 Potassium 4.9 Chloride 107 Carbon Dioxide 19.1 L Anion Gap 19 H BUN 96 H Creatinine 7.4 H* D Estim Creat Clear Calc 9.6 L eGFR 7 L* BUN/Creatinine Ratio 13 Glucose 109 H Calculated Osmolality 319 H Calcium 9.8 Corrected Calcium 9.8 Phosphorus 8.9 H Magnesium 2.3 Total Bilirubin 0.9 AST 19 ALT 19 Alkaline Phosphatase 176 H Total Protein 6.8 Albumin 4.5 Globulin 2.3 Albumin/Globulin Ratio 2.0 Random Vancomycin 24.2 ABG Interpretation ABG results: 11/03/24 11/11/24 11/13/24 14:12 12:22 21:50 VBG pH 7.39 7.35 7.37 VBG pCO2 43 44 35 L VBG pO2 35 38 29 VBG Base Excess 1 -2 -5 L Assessment & Plan Assessment and plan (1) Delirium: Status: Acute Assessment and plan: No significant improvement noted in the last several days. The family has agreed with changed to DNR/DNI, is waiting for bedside swallow evaluation so he can be restarted on diet. (2) End stage renal failure on dialysis: Status: Chronic Assessment and plan: He got the tunneled catheter via interventional radiology today (3) Cellulitis: Status: Acute (4) Fever: Status: Acute Additional Assessment & Plan Additional Plan: Will try low-dose of pramipexole to help with restless legs which is commonly seen in patients with kidney disease
[2024-11-15] VITALS (7 sets, daily range): BP systolic 97–130; BP diastolic 57–85; PULSE 73–89; RESP 14–23; TEMP 35.6–36.7; O2SAT 91–100; BMI 30.6
[2024-11-15 06:07] LABS: Basophils % (Auto) 0 % (0-2.5); Eosinophils # (Auto) 0.2 Thou/mm3 (0.0-0.5); Eosinophils % (Auto) 2 % (0-10); Hematocrit 42.8 % (41.0-53.0); Hemoglobin 14.6 g/dL (13.5-16.0); Immature Granulocytes % (Auto) 1 % (0-0); Immature Granulocytes Auto 0.08 Thou/mm3 (0.00-0.00); Lymphocytes % (Auto) 15 % (10-50); Mean Corpuscular HGB Conc 34.1 g/dl (31.0-37.0); Mean Corpuscular Hemoglobin 31.1 pg (25.0-35.0); Mean Corpuscular Volume 91 fL (80-100); Monocytes # (Auto) 1.2 Thou/mm3 (0.0-0.8); Monocytes % (Auto) 9 % (0-12); Neutrophils # (Auto) 10.1 Thou/mm3 (1.8-7.7); Neutrophils % (Auto) 74 % (37-80); Nucleated Red Blood Cell % 0 /100 WBC (0); Platelet Count 217 Thou/mm3 (140-440); RDW Standard Deviation 47.9 fL (35.1-43.9); Red Blood Count 4.69 Miln/mm3 (4.50-5.90); White Blood Count 13.6 Thou/mm3 (3.8-10.6)
[2024-11-15 06:44] LABS: Alanine Aminotransferase 19 U/L (10-49); Albumin, Serum 5.3 gm/dL (3.4-4.8); Albumin/Globulin Ratio 2.3 (1.2-2.2); Alkaline Phosphatase 183 U/L (46-116); Anion Gap 18 (7-16); Aspartate Amino Transferase 17 U/L (0-34); BUN/Creatinine Ratio 11 Ratio (12-20); Blood Urea Nitrogen 81 mg/dL (9-23); Calcium 10.5 mg/dL (8.3-10.6); Calcium (Corrected) 10.5 mg/dL (8.5-10.1); Carbon Dioxide 23.5 mMol/L (20.0-31.0); Chloride 100 mMol/L (98-107); Creatinine (Component) 7.2 mg/dL (0.6-1.3); Estimated Creatinine Clearance 9.9 mL/min (>60); Globulin 2.3 gm/dL (2.3-3.5); Glucose 139 mg/dL (74-106); Magnesium 2.3 mg/dL (1.6-2.6); Osmolality,Calculated 307 (275-295); Phosphorous 8.5 mg/dL (2.4-5.1); Potassium 4.4 mMol/L (3.4-5.1); Sodium 141 mMol/L (136-145); Total Protein 7.6 gm/dL (5.7-8.2); Vancomycin,Random 18.3 mcg/mL; eGFR 7 See Note
--- NOTE | 2024-11-15 08:19 | PD.RESPRO ---
Documentation for date of: 11/15/24 Subjective Subjective Interval history: 11/12/2024: Pt examined at bedside dialysis today. Pt appears to still be agitated was given Ativan overnight. He is kicking his legs in a dialysis bed and it is hard to have him still for dialysis to be proceeded. we will place leg restraints to stabilize patient for dialysis session. He is still unable to answer questions fully at this time and appears to be agitated his BUN/creatinine 76 and 5.3, white count 8.2, hemoglobin 12.5, potassium 4.6, magnesium 2.3, 6 this morning. Blood pressure still appears to be stable however it is 137/51, telemetry reviewed rate appears to be in the 80s, however still has some trigeminy occurring. He is currently on metoprolol 50 mg twice a day. No other complaints at this time. 11/13/2024: Patient examined at bedside today. Patient still appears to be agitated and does not want to be directly examined. He is to get tunneled dialysis catheter today to be done by IR. Goals of care discussion to be held with family today. Will hold on sedating medicines at this time. No other complaints at this time. 11/14/2024: Patient examined at bedside today. Patient still appears to be in bigeminy rate controlled in 90s seen on telemetry. Patient is undergoing dialysis today with new TDC, got 1.5 L removed. Patient still appears to be slightly agitated, however patient was able to pass swallow eval by speech therapy. Will start on recommended diet. Patient's white count today 2.1, hemoglobin 13.2, BUN/creatinine 96 and 7.4 respectively, phosphorus 8.9, magnesium 2.3, potassium 4.9, calcium 9.8. No other complaints this time 11/15/2024: Patient examined at bedside today. Patient still appears to be in bigeminy rate controlled CAD and 80s seen on telemetry. Patient was able to pass swallow eval yesterday, has been intermittently using on dysphagia diet, however has been a bit agitated as well. Has been able to respond to some commands but does not answer all questions. White count 13.6, hemoglobin 14.6, potassium 4.4, phosphorus 8.5, magnesium 2.3, BUN/creatinine 81 7.2. Blood pressure 120/70 and heart rate 83. Exam Vital Signs Temp Pulse Resp BP Pulse Ox O2 Del Method O2 Flow Rate 97.7 F 83 23 H 128/75 91 L Room Air 2 11/15/24 04:00 11/15/24 04:00 11/15/24 04:00 11/15/24 04:00 11/15/24 04:00 11/15/24 04:00 11/15/24 03:40 Narrative Exam General: AAOx1, agitated, wearing diaper, soft mittens present HEENT: Moist mucous membranes, conjunctiva clear, EOMI, PERRLA, poor dentition Cardiovascular: Possible murmur heard over SNOW, tachycardic Pulmonary: CTAB bilat no cough, no wheezing GI: No tenderness to light or deep palpitation, no guarding, rigidity, rebound tenderness or distension Extremities: No presence of trace or pitting edema in lower extremities bilaterally, dorsalis pedis pulses +2 bilaterally Neuro: AAOx1, no focal motor or sensory deficits in the UE or LE bilat Psych: Not cooperative Objective Labs 11/16/24 04:03 11/16/24 04:03 Labs: Laboratory Results - last 24 hr 11/15/24 05:20 WBC 13.6 H RBC 4.69 Hgb 14.6 Hct 42.8 MCV 91 MCH 31.1 MCHC 34.1 RDW Std Deviation 47.9 H Plt Count 217 Neut % (Auto) 74 Lymph % (Auto) 15 [place] % (Auto) 9 Eos % (Auto) 2 Baso % (Auto) 0 Neut # (Auto) 10.1 H Lymph # (Auto) 2.0 [place] # (Auto) 1.2 H Eos # (Auto) 0.2 Baso # (Auto) 0.0 Immature Gran # (Auto) 0.08 H Absolute Nucleated RBC 0.00 Immature Gran % 1 H Nucleated RBC % 0 Sodium 141 Potassium 4.4 D Chloride 100 Carbon Dioxide 23.5 Anion Gap 18 H BUN 81 H Creatinine 7.2 H* Estim Creat Clear Calc 9.9 L eGFR 7 L* BUN/Creatinine Ratio 11 L Glucose 139 H Calculated Osmolality 307 H Calcium 10.5 Corrected Calcium 10.5 H Phosphorus 8.5 H Magnesium 2.3 Total Bilirubin 1.0 AST 17 ALT 19 Alkaline Phosphatase 183 H Total Protein 7.6 Albumin 5.3 H D Globulin 2.3 Albumin/Globulin Ratio 2.3 H Random Vancomycin 18.3 ABG Interpretation ABG results: 11/03/24 11/11/24 11/13/24 14:12 12:22 21:50 VBG pH 7.39 7.35 7.37 VBG pCO2 43 44 35 L VBG pO2 35 38 29 VBG Base Excess 1 -2 -5 L Quality Measures Quality Measures sepsis Current suspected stage: sepsis Possible source: unknown Blood cultures ordered: yes Antibiotic ordered: Yes Advance care planning discussed with:: patient Assessment & Plan Assessment Current Active Medications: Generic Name Dose Route Start Last Admin Trade Name Freq PRN Reason Stop Dose Admin Acetaminophen 650 mg 11/03/24 19:16 Acetaminophen 325 Mg Tablet PO 12/03/24 19:15 Q6H PRN PAIN SCALE 1-3 (mild Acetaminophen 650 mg 11/03/24 21:16 Acetaminophen Supp 650 Mg Supp TN 12/03/24 21:29 Q6H PRN Fever > 100.4 Albuterol/Ipratropium 3 ml 11/03/24 19:16 Albuterol/Ipratropium (Duoneb) Rt Dianne 3 Ml Nebu INH 12/03/24 22:59 Q4HRRT PRN SOB or wheezing Atorvastatin Calcium 80 mg 11/04/24 21:00 11/14/24 22:02 Atorvastatin Calcium 20 Mg Tablet PO 12/04/24 20:59 80 mg HS TARIK Administration Heparin Sodium (Porcine) 3,500 unit 11/14/24 10:00 11/14/24 11:37 Heparin Sod Inj 1000 Unit/Ml Vial 10 Ml INDWELLCAT 11/28/24 09:59 3,500 unit X1 PRN Administration DIALYSIS Albumin Human 25 gm in 100 mls @ 100 mls/min 11/05/24 10:19 11/14/24 09:18 Albuminar-25 Ivpb IV 100 mls/min QDAY PRN Administration DIALYSIS Levothyroxine Sodium 50 mcg 11/08/24 11:30 11/14/24 05:26 Levothyroxine Sodium 25 Mcg Tablet PO 12/08/24 11:29 Not Given ACBR TARIK Levothyroxine Sodium 25 mcg 11/14/24 09:00 11/14/24 12:20 Levothyroxine Inj 100 Mcg Vial IV 12/14/24 08:59 25 mcg QDAY TARIK Administration Metoprolol Succinate 100 mg 11/14/24 09:00 11/14/24 07:15 Metoprolol Succinate Xl 25 Mg Tabcr PO 12/14/24 08:59 Not Given QDAY TARIK Mirtazapine 15 mg 11/11/24 21:00 11/14/24 22:02 Mirtazapine 15 Mg Tablet PO 12/11/24 20:59 15 mg HS TARIK Administration Ondansetron HCl 4 mg 11/03/24 14:16 11/03/24 17:26 Ondansetron Inj 2 Mg/Ml Inj 2 Ml IV 12/03/24 14:15 4 mg Q4HR PRN Administration NAUSEA OR VOMITING Pantoprazole Sodium 40 mg 11/05/24 10:45 11/14/24 12:20 Pantoprazole Inj 40 Mg Vial IVP 12/05/24 10:44 40 mg QDAY TARIK Administration Pharmacy Consult 1 each 11/04/24 09:00 Vancomycin Pharmacy To Dose 1 Each Each IV 12/04/24 08:59 QDAY PRN CONSULT Pharmacy Consult 1 each 11/03/24 21:18 Pharmacy Renal Dose Adjustment 1 Ea XX 12/03/24 21:17 PRN PRN CONSULT Pramipexole Dihydrochloride 0.25 mg 11/13/24 09:00 11/14/24 22:01 Pramipexole 0.25 Mg Tablet PO 12/13/24 08:59 0.25 mg BID TARIK Administration Quetiapine Fumarate 25 mg 11/14/24 12:32 Quetiapine Fumarate 25 Mg Tablet PO 12/14/24 20:59 BID PRN AGITATION Sennosides 1 tab 11/03/24 19:16 Senna Tablet PO 12/03/24 19:15 BID PRN CONSTIPATION Protocol Plan Assessment The patient is a 45-eg[age]-year-old male PMHx of ESRD on HD MWF, HFrEF EF 30%, CVA, hypothyroidism presenting with AMS in setting of CRBSI sepsis. He continued on VANCOMYCIN for MRSA bacteremia. HD cath removed. If blood culture negative tomorrow (48 hours), will proceed with hemodialysis cath insertion. #Sepsis 2/2 catheter site cellulitis (improving) #Catheter site cellulitis #MRSA bacteremia 2/2 CRBSI Met 2/4 SIRS criteria with tachycardia, fever. LA normal, no leukocytosis. HD tunneled cath erythematous and warm suggesting cellulitis. Afebrile, leukocytosis improving. Prelim blood culture showing GPC. Dialysis, significant removed. Continue on Vancomycin. 24-hour blood culture negative. Catheter site cx grew GPC. MRSA nasal swab positive. Repeat blood culture negative Patient will likely finish up antibiotic at SNF Currently finding SNF facility as patient is close to being medically cleared for discharge Plan: ? Continue vancomycin until 11/19/2024 ? Continue to monitor CBC - Continue to monitor vitals #Acute encephalopathy #Severe agitation #Suspected underlying dementia vs delirium secondary to metabolic encephalopathy Likely secondary to metabolic encephalopathy. Unclear what baseline is, currently attending, does not follow command, agitated, requiring multiple medications. Continued on soft restraints. Started scheduled HALOPERIDOL. Head CT was negative. No focal neurological deficit. No indication for stroke workup. Neurology consulted, agreed with ANTIPSYCHOTICS for agitation. Patient still agitated and was unable to have a new TDC inserted QT 420, previous ~370s At this time will hold sedating medicines at this time Goals of care conversation held with family, see notes Speech eval recommended dysphagia 1 diet only patient is awake Spoke with patient point of contact for family in regards to updates for patient Agreeable for SNF at this time, as [facility] Plan: ? Resumed Seroquel 25 mg twice daily as needed - Dysphagia diet as long as patient is awake - Neurology consulted, appreciate recommendations #ESRD on HD // #Hypomagnesemia, resolved #Hyperphosphatemia Patient has dialysis Tuesday, Tuesday, Tuesday. Continue with dialysis TDC Software Writer Dr Padilla Plan: ?Sevelamer 800 mg daily ? Renally dose meds, avoid overdiuresis and NEPHROTOXINS ? Daily CMP ? Hemodialysis as scheduled by nephrology ? Continue with dialysis with TDC #NSTEMI type II #Hx CAD, GA #HFrEF EF 35-40 Troponin peaked at 0.976. Unable to assess symptoms secondary to encephalopathy. EKG sinus rhythm without acute ST changes. Demand ischemia in settings of sepsis versus volume overload. Anticipate improvement with diuresis and preload reduction. Cardiology consulted, recommendations included below. HR in 80s. - Trops down trended Plan: ? Continue ATORVASTATIN 80 mg daily. ? Continue ASPIRIN 300 mg daily. ? Continue home PLAVIX 75 mg daily. ? Continue METOPROLOL succinate 50 mg BID (home dose 200 mg daily). #History of CVA #History of CHF echo showed Moderately dilated LV. Mild LVH. Global LV systolic function is severely decreased. Estimated EF 25-30 %. Garde 2 DD. Plan: ? Continue ASPIRIN 300 mg daily. ? Continue ATORVASTATIN 80 mg daily. #Hypothyroidim TSH 4.6 this visit. Plan: ? Continue home LEVOTHYROXINE 50 mcg ACBR. #Normocytic anemia (stable) Patient has Hb of 10.8 No obvious source of bleeding Plan: - We will monitor closely, may need outpatient workup. #Health Maintenance Disposition: Tentatively pending hemodialysis catheter placement DVT prophylaxis: SCDs GI prophylaxis: Protonix Diet: N.p.o. CODE STATUS: Full Patient seen and care discussed with my senior resident, Dr. Uriostegui , and my attending physician, Dr. Adele Lau, PGY-1 Attending Provider Attestation/Addendum I reviewed labs, imaging, EKG, home medications and prior available records. Face to face evaluation was performed by me. I have personally examined the patient and discussed assessment and plan with the IM team. I reviewed the resident note and agree with the plan with exceptions as below. Acute encephalopathy/hyperactive agitation: Likely hyperactive delirium in the setting of baseline dementia. Possibly multifactorial in the setting of MRSA infection, pain, sleep deprivation, hunger/thirst, anxiety. Management of infection as below. Delirium precautions. Ordered swallow evaluation and started the patient on diet. Okay to ice chips Consulted neurology: Recommended pramipexole for possible restless leg. Started quetiapine. Continue haloperidol as needed MRSA dialysis line infection: Continue IV vancomycin. Status post insertion of a new right femoral dialysis catheter ESRD on hemodialysis: He is receiving hemodialysis via the new right femoral dialysis catheter that was inserted after 48 hours of negative blood cultures. Nephrology is following Non-STEMI: No active chest complaints. Continue aspirin and atorvastatin Ventricular tachycardia: Nonsustained. Continue metoprolol XL. Cardiology is following Debility: PT recommended SNF. Discussed with son: Okay to proceed.
[2024-11-15] MEDS: PRAMIPEXOLE 0.25 MG TABLET PO (08:38)
[2024-11-15] MEDS: SEVELAMER CARBONATE 800 MG TABLET PO (08:38)
[2024-11-15] MEDS: LEVOTHYROXINE INJ 100 mCg VIAL 25 MCG IV (08:38)
[2024-11-15] MEDS: PANTOPRAZOLE INJ 40 MG VIAL IVP (08:38)
--- NOTE | 2024-11-15 13:12 | ESPR_ITS ---
Documentation for date of: 11/15/24 Subjective Subjective Interval history: Patient seen and examined at the bedside. Still appears to be altered and agitated. Unfortunately tunneled dialysis catheter could not be placed yesterday and patient does have femoral Vas-Cath in place for the dialysis needs. Telemetry reviewed and patient appears to still have frequent PVCs along with bigeminy. He is only on metoprolol XL 100 mg once daily as patient unable to tolerate higher doses as his blood pressure is in the 90s during the days of the dialysis. His home dose previously was 2 metoprolol XL 200 mg once daily. If the patient still continues to be in bigeminy and any further NSVT's then we will consider amiodarone for the patient. Recommend to continue to keep potassium greater than 4 and magnesium greater than 2.0 at all times. Exam Vital Signs Temp Pulse Resp BP Pulse Ox O2 Del Method O2 Flow Rate 96.1 F L 73 18 97/57 L 99 Room Air 2 11/15/24 08:00 11/15/24 08:00 11/15/24 08:00 11/15/24 08:00 11/15/24 08:00 11/15/24 08:00 11/15/24 03:40 Objective Labs 11/16/24 04:03 11/15/24 05:20 Labs: Laboratory Results - last 24 hr 11/15/24 05:20 WBC 13.6 H RBC 4.69 Hgb 14.6 Hct 42.8 MCV 91 MCH 31.1 MCHC 34.1 RDW Std Deviation 47.9 H Plt Count 217 Neut % (Auto) 74 Lymph % (Auto) 15 [place] % (Auto) 9 Eos % (Auto) 2 Baso % (Auto) 0 Neut # (Auto) 10.1 H Lymph # (Auto) 2.0 [place] # (Auto) 1.2 H Eos # (Auto) 0.2 Baso # (Auto) 0.0 Immature Gran # (Auto) 0.08 H Absolute Nucleated RBC 0.00 Immature Gran % 1 H Nucleated RBC % 0 Sodium 141 Potassium 4.4 D Chloride 100 Carbon Dioxide 23.5 Anion Gap 18 H BUN 81 H Creatinine 7.2 H* Estim Creat Clear Calc 9.9 L eGFR 7 L* BUN/Creatinine Ratio 11 L Glucose 139 H Calculated Osmolality 307 H Calcium 10.5 Corrected Calcium 10.5 H Phosphorus 8.5 H Magnesium 2.3 Total Bilirubin 1.0 AST 17 ALT 19 Alkaline Phosphatase 183 H Total Protein 7.6 Albumin 5.3 H D Globulin 2.3 Albumin/Globulin Ratio 2.3 H Random Vancomycin 18.3 ABG Interpretation ABG results: 11/03/24 11/11/24 11/13/24 14:12 12:22 21:50 VBG pH 7.39 7.35 7.37 VBG pCO2 43 44 35 L VBG pO2 35 38 29 VBG Base Excess 1 -2 -5 L Assessment & Plan A&P Vadim Gan is a 79-year-old male past medical history of past medical history of ESRD on hemodialysis (MWF, sees Dr. Padilla), HFrEF (possibly EF of 30), Previous CVA, possible hypothyroidism currently admitted for sepsis secondary to catheter related bloodstream infection which is showing GPC currently. repeat blood cultures on 11/05 have no growth for more than 24 hours. #Sepsis secondary to # MRSA bacteremia -Patient underwent catheter holiday and hemodialysis catheter was removed and multiple attempts have been made since to replace patient's tunnel catheter since patient's blood cultures have been negative for 5 days however due to patient's agitation and inability to stay still a permanent tunneled catheter have not been placed. Patient have undergone 2 temporary dialysis catheter. -Patient is on vancomycin until 11/19/2024 #PVCs and NSVT: Patient was initially found to have 3-4 beats NSVT as well as PVCs admission and patient was not on his home dose of metoprolol. Patient was initially started on metoprolol XL 50 mg once daily which was later increased to metoprolol XL 100 mg once daily Telemetry reviewed and patient appears to still have frequent PVCs along with bigeminy. He is only on metoprolol XL 100 mg once daily as patient unable to tolerate higher doses as his blood pressure is in the 90s during the days of the dialysis. His home dose previously was 2 metoprolol XL 200 mg once daily. If the patient still continues to be in bigeminy and any further NSVT's then we will consider amiodarone for the patient. Recommend to continue to keep potassium greater than 4 and magnesium greater than 2.0 at all times. # NSTEMI type II-likely demand ischemia in the setting of sepsis -Initial troponins0.058 ->peaked at 0.976 and downtrended to 0.900 -Keep potassium above 4 and magnesium above 2 at all times -Patient underwent cardiac catheterization which showed 2 of the 3 severe CAD however no intervention can be done at this time due to patient's current condition therefore we will continue medical management #CHF -Echocardiogram during this hospital admission showed ejection fraction of EF of 25 to 30% with dilated cardiomyopathy including dilated LV RV RV and LA. Moderate MR and TR. Grade 2 diastolic dysfunction, moderately reduced RV function. -Per family's decision patient's CODE STATUS have been changed to DNR/DNI therefore they do not wish any further invasive procedures or interventions to be done as patient's current condition is unstable. # Acute encephalopathy #Severe agitation # Dementia -Patient continues to be confused and appears to be agitated therefore often put on restraints using soft mittens. -Patient's home antipsychotics have been on hold as per primary hospitalist team. -Neurologist is consulted and following # End-stage renal disease on hemodialysis Tuesday. -Patient continues to undergo dialysis as per schedule through temporary dialysis catheter. -Plans to reattempt a tunneled dialysis catheter would be at a later time Unfortunately tunneled dialysis catheter could not be placed yesterday and patient does have femoral Vas-Cath in place for the dialysis needs. Management of rest of the medical conditions as per primary team and other consultants. Thank you for the consult and allowing me to participate in the care of the patient. Cardiology will continue to follow. Bismark Urbina M.D. Interventional Cardiology Time Spent With Patient Time: Total time spent is greater than 50% in coordination of care (as documented) at patient's floor/unit and/or counseling patient:
[2024-11-15] MEDS: QUEtiapine FUMARATE 25 MG TABLET PO (14:29)
--- NOTE | 2024-11-15 15:42 | PC.SS ---
Follow up note: SS spoke to patient's via p/c re: placement. states she is agreeable with [facility]. She requested d/c tomorrow. Family states they are not ready. Family aware of Medicare rights. SS updated [facility] and spoke to Erika in admissions. [place] [facility] [place].
--- NOTE | 2024-11-15 17:10 | ESPR_ITS ---
RE: LUCA DIXON : 1945 DATE OF SERVICE: 11/15/2024 SUBJECTIVE: Briefly, he is a 79-year-old gentleman with hypertension, coronary artery disease status post CABG in 2018, ischemic cardiomyopathy with EF of 35% and ESRD on dialysis every Tuesday, Tuesday, Tuesday since 01/2023, who was admitted to the hospital on 10/17/2024 with confusion. He was found with dialysis catheter infection with blood culture x2 which grew MRSA. He is currently on IV Vancomycin 1.5gms for 1 week now. His TDC was removed and he had a right groin tunnel dialysis catheter placed. The patient also passed his swallowing eval with speech pathologist. CURRENT MEDICATIONS: 1. Acetaminophen 2. Aspirin 3. Atorvastatin 4. Plavix 5. Fentanyl 6. Allopurinol 7. Heparin 8. Levothyroxine 9. Metoprolol 10. Midazolam p.r.n. PHYSICAL EXAMINATION: General: He mumbles, does not follow commands. Vital Signs: Blood pressure of 112/75, heart rate of 80, temperature 97.5. HEENT: Anicteric sclerae, normocephalic. Neck: Supple. No JVD. Chest and Lungs: Symmetrical expansion. Clear breath sounds. Cardiac: Without murmur. Abdomen: Soft, nontender. Extremities: No edema. LABORATORY DATA: Hemoglobin 14.6, WBC 13,600, plate count 217,000. Sodium 141, potassium 4.4, chloride 100, CO2 of 23.5, BUN 81, creatinine 7.2, glucose 139. ASSESSMENT: 1. End-stage renal disease. 2. Altered level of consciousness secondary to sepsis. 3. Gram-positive septicemia secondary to infected dialysis catheter. 4. Anemia of chronic kidney disease. 5. History of coronary artery disease status post coronary artery bypass graft. 6. Ischemic cardiomyopathy. 7. Obesity. 8. Weight loss of 40 pounds since admission. 9. Hypertension. PLAN: The patient will be dialyzed again tomorrow. He is now DNR. He may need SNF placement. DT: 16:39:03 TT: 17:08:00 Ref: [id number] - TID: [id number] MTDD
--- NOTE | 2024-11-15 22:15 | PD.NEUROPROG ---
Documentation for date of: 11/15/24 Subjective Subjective Interval history: Patient was seen in telemetry today with his family at the bedside, continue to remain restless but much better today, on restraints as he is intermittently trying to come out of bed. Continues to have very poor oral intake. Exam - Neurology Vital Signs Temp Pulse Resp BP Pulse Ox O2 Del Method O2 Flow Rate 97.1 F 78 19 118/78 98 Room Air 2 11/15/24 20:00 11/15/24 20:00 11/15/24 20:00 11/15/24 20:00 11/15/24 20:00 11/15/24 08:00 11/15/24 03:40 Narrative Exam GENERAL APPEARANCE: Well-developed, obese built white male , restless in bed HEENT: Normocephalic, atraumatic, extraocular movements intact. Pupils: Equal reacting to light NECK: Supple, no JVD or bruits. CARDIOVASULAR: Heart: S1, S2 heard, regular without S3-S4 or murmur no rubs or gallops. LUNGS/CHEST: Clear to auscultation bilaterally. No rails, rhonchi, or wheezing. Normal inspection. ABDOMEN: Soft, nontender, with normal bowel sounds. No pulsatile masses. No rebound, rigidity, or guarding. Normal inspection and palpation. EXTREMITIES: Normal inspection and palpation. No edema, clubbing or cyanosis. SKIN: Warm and dry without rashes. Normal inspection. MUSCULOSKELETAL: No cervical, thoracic, lumbar or midline bony tenderness. Normal inspection. NEURO: Awake, alert, still restless, needing to be on restraints, moves all 4 extremities purposefully no signs of meningeal irritation noted. PSYCHIATRIC: limited Objective Labs 11/15/24 05:20 11/15/24 05:20 Labs: Laboratory Results - last 24 hr 11/15/24 05:20 WBC 13.6 H RBC 4.69 Hgb 14.6 Hct 42.8 MCV 91 MCH 31.1 MCHC 34.1 RDW Std Deviation 47.9 H Plt Count 217 Neut % (Auto) 74 Lymph % (Auto) 15 [place] % (Auto) 9 Eos % (Auto) 2 Baso % (Auto) 0 Neut # (Auto) 10.1 H Lymph # (Auto) 2.0 [place] # (Auto) 1.2 H Eos # (Auto) 0.2 Baso # (Auto) 0.0 Immature Gran # (Auto) 0.08 H Absolute Nucleated RBC 0.00 Immature Gran % 1 H Nucleated RBC % 0 Sodium 141 Potassium 4.4 D Chloride 100 Carbon Dioxide 23.5 Anion Gap 18 H BUN 81 H Creatinine 7.2 H* Estim Creat Clear Calc 9.9 L eGFR 7 L* BUN/Creatinine Ratio 11 L Glucose 139 H Calculated Osmolality 307 H Calcium 10.5 Corrected Calcium 10.5 H Phosphorus 8.5 H Magnesium 2.3 Total Bilirubin 1.0 AST 17 ALT 19 Alkaline Phosphatase 183 H Total Protein 7.6 Albumin 5.3 H D Globulin 2.3 Albumin/Globulin Ratio 2.3 H Random Vancomycin 18.3 ABG Interpretation ABG results: 11/03/24 11/11/24 11/13/24 14:12 12:22 21:50 VBG pH 7.39 7.35 7.37 VBG pCO2 43 44 35 L VBG pO2 35 38 29 VBG Base Excess 1 -2 -5 L Assessment & Plan Assessment and plan (1) Delirium: Status: Acute Assessment and plan: some improvement noted in the last few days. continue with symptomatic treatment. (2) End stage renal failure on dialysis: Status: Chronic Assessment and plan: He got the tunneled catheter via interventional radiology today Additional Assessment & Plan Additional Plan: Will try low-dose of pramipexole to help with restless legs which is commonly seen in patients with kidney disease
[2024-11-16] VITALS (26 sets, daily range): BP systolic 79–192; BP diastolic 52–127; PULSE 62–101; RESP 12–20; TEMP 35.9–36.3; O2SAT 91–100
[2024-11-16 05:35] LABS: Basophils % (Auto) 0 % (0-2.5); Eosinophils # (Auto) 0.2 Thou/mm3 (0.0-0.5); Eosinophils % (Auto) 2 % (0-10); Hematocrit 42.1 % (41.0-53.0); Hemoglobin 14.2 g/dL (13.5-16.0); Immature Granulocytes % (Auto) 1 % (0-0); Immature Granulocytes Auto 0.07 Thou/mm3 (0.00-0.00); Lymphocytes # (Auto) 2.2 Thou/mm3 (1.0-4.8); Lymphocytes % (Auto) 15 % (10-50); Mean Corpuscular HGB Conc 33.7 g/dl (31.0-37.0); Mean Corpuscular Hemoglobin 30.9 pg (25.0-35.0); Mean Corpuscular Volume 92 fL (80-100); Monocytes # (Auto) 1.3 Thou/mm3 (0.0-0.8); Monocytes % (Auto) 9 % (0-12); Neutrophils # (Auto) 10.5 Thou/mm3 (1.8-7.7); Neutrophils % (Auto) 74 % (37-80); Nucleated Red Blood Cell % 0 /100 WBC (0); Platelet Count 236 Thou/mm3 (140-440); RDW Standard Deviation 48.5 fL (35.1-43.9); White Blood Count 14.2 Thou/mm3 (3.8-10.6)
[2024-11-16 06:19] LABS: Alanine Aminotransferase 14 U/L (10-49); Albumin, Serum 4.9 gm/dL (3.4-4.8); Albumin/Globulin Ratio 2.3 (1.2-2.2); Alkaline Phosphatase 172 U/L (46-116); Anion Gap 19 (7-16); Aspartate Amino Transferase 13 U/L (0-34); BUN/Creatinine Ratio 11 Ratio (12-20); Bilirubin,Total 0.8 mg/dL (0.3-1.2); Blood Urea Nitrogen 99 mg/dL (9-23); Calcium 10.2 mg/dL (8.3-10.6); Calcium (Corrected) 10.2 mg/dL (8.5-10.1); Carbon Dioxide 21.9 mMol/L (20.0-31.0); Chloride 99 mMol/L (98-107); Estimated Creatinine Clearance 7.9 mL/min (>60); Globulin 2.1 gm/dL (2.3-3.5); Glucose 134 mg/dL (74-106); Magnesium 2.2 mg/dL (1.6-2.6); Osmolality,Calculated 312 (275-295); Potassium 4.8 mMol/L (3.4-5.1); Sodium 140 mMol/L (136-145); Vancomycin,Random 17.9 mcg/mL; eGFR 6 See Note
[2024-11-16 06:27] LABS: Phosphorous 9.8 mg/dL (2.4-5.1)
[2024-11-16] MEDS: ALBUMIN HUMAN 25% IVPB 25 GM/100 ML BTL IV ×2 (09:42→12:49)
--- NOTE | 2024-11-16 10:13 | ESPR_ITS ---
Documentation for date of: 11/16/24 Subjective Subjective Interval history: 11/16: No acute overnight events reported patient seen and examined this morning. Patient is getting dialysis and he appears to be agitated and is pulling on the dialysis line however patient is still has mittens. Unsure when patient will be able to receive a permanent tunneled dialysis catheter currently patient is undergoing dialysis via femoral Vas-Cath. Patient is still on metoprolol XL 100 and Mg daily due to his blood pressure patient has been unable to tolerate a higher dose. Leukocytosis is up trending potassium is 4.8 and magnesium is 2.2 primary team is advised to always keep potassium above 4 and magnesium above 2 at all times. Exam Vital Signs Temp Pulse Resp BP Pulse Ox O2 Del Method O2 Flow Rate 97.1 F 752 H 19 86/72 L 96 Nasal Cannula 3 11/16/24 08:08 11/16/24 10:02 11/16/24 08:08 11/16/24 10:02 11/16/24 08:08 11/16/24 08:00 11/16/24 08:08 Narrative Exam GENERAL:AAOx0, agitated, wearing diaper, wrist restraints present NEURO: unable to asses due to Pts mental status HEENT: Atraumatic, Normocephalic. mucous membranes moist. Eyes open, symmetrical, & clear HEART: Normal Heart Sounds LUNGS: Clear to auscultation with no wheezing or crackles. ABDOMEN: soft, non-distended, non-tender, bowel sounds heard, no guarding or rebound tenderness SKIN: No Rash or ecchymoses EXTREMITIES: No edema, tenderness, able to move all 4 extremities, pedal pulses palpated Objective Labs 11/17/24 05:29 11/17/24 05:29 Labs: Laboratory Results - last 24 hr 11/16/24 04:03 WBC 14.2 H RBC 4.60 Hgb 14.2 Hct 42.1 MCV 92 MCH 30.9 MCHC 33.7 RDW Std Deviation 48.5 H Plt Count 236 Neut % (Auto) 74 Lymph % (Auto) 15 [place] % (Auto) 9 Eos % (Auto) 2 Baso % (Auto) 0 Neut # (Auto) 10.5 H Lymph # (Auto) 2.2 [place] # (Auto) 1.3 H Eos # (Auto) 0.2 Baso # (Auto) 0.0 Immature Gran # (Auto) 0.07 H Absolute Nucleated RBC 0.00 Immature Gran % 1 H Nucleated RBC % 0 Sodium 140 Potassium 4.8 Chloride 99 Carbon Dioxide 21.9 Anion Gap 19 H BUN 99 H Creatinine 9.0 H* D Estim Creat Clear Calc 7.9 L eGFR 6 L* BUN/Creatinine Ratio 11 L Glucose 134 H Calculated Osmolality 312 H Calcium 10.2 Corrected Calcium 10.2 H Phosphorus 9.8 H Magnesium 2.2 Total Bilirubin 0.8 AST 13 ALT 14 Alkaline Phosphatase 172 H Total Protein 7.0 Albumin 4.9 H Globulin 2.1 L Albumin/Globulin Ratio 2.3 H Random Vancomycin 17.9 ABG Interpretation ABG results: 11/03/24 11/11/24 11/13/24 14:12 12:22 21:50 VBG pH 7.39 7.35 7.37 VBG pCO2 43 44 35 L VBG pO2 35 38 29 VBG Base Excess 1 -2 -5 L Quality Measures Quality Measures sepsis Current suspected stage: ruled out Possible source: unknown Blood cultures ordered: yes Antibiotic ordered: Yes Advance care planning discussed with:: other Assessment & Plan Assessment Current Active Medications: Generic Name Dose Route Start Last Admin Trade Name Freq PRN Reason Stop Dose Admin Acetaminophen 650 mg 11/03/24 19:16 Acetaminophen 325 Mg Tablet PO 12/03/24 19:15 Q6H PRN PAIN SCALE 1-3 (mild Acetaminophen 650 mg 11/03/24 21:16 Acetaminophen Supp 650 Mg Supp [place] 12/03/24 21:29 Q6H PRN Fever > 100.4 Albuterol/Ipratropium 3 ml 11/03/24 19:16 Albuterol/Ipratropium (Duoneb) Rt Dianne 3 Ml Nebu INH 12/03/24 22:59 Q4HRRT PRN SOB or wheezing Atorvastatin Calcium 80 mg 11/04/24 21:00 11/15/24 22:59 Atorvastatin Calcium 20 Mg Tablet PO 12/04/24 20:59 Not Given HS TARIK Heparin Sodium (Porcine) 3,500 unit 11/14/24 10:00 11/14/24 11:37 Heparin Sod Inj 1000 Unit/Ml Vial 10 Ml INDWELLCAT 11/28/24 09:59 3,500 unit X1 PRN Administration DIALYSIS Albumin Human 25 gm in 100 mls @ 100 mls/min 11/05/24 10:19 11/16/24 09:42 Albuminar-25 Ivpb IV 100 mls/min QDAY PRN Administration DIALYSIS Vancomycin/Sodium Chloride 100 mls @ 120 mls/hr 11/16/24 14:00 Vancomycin/Ns 500 Mg Ivpb IV 11/16/24 14:49 X1 ONE Levothyroxine Sodium 50 mcg 11/08/24 11:30 11/14/24 05:26 Levothyroxine Sodium 25 Mcg Tablet PO 12/08/24 11:29 Not Given ACBR TARIK Levothyroxine Sodium 25 mcg 11/14/24 09:00 11/15/24 08:38 Levothyroxine Inj 100 Mcg Vial IV 12/14/24 08:59 25 mcg QDAY TARIK Administration Metoprolol Succinate 100 mg 11/14/24 09:00 11/15/24 08:53 Metoprolol Succinate Xl 25 Mg Tabcr PO 12/14/24 08:59 Not Given QDAY TARIK Mirtazapine 15 mg 11/11/24 21:00 11/15/24 23:00 Mirtazapine 15 Mg Tablet PO 12/11/24 20:59 Not Given HS TARIK Ondansetron HCl 4 mg 11/03/24 14:16 11/03/24 17:26 Ondansetron Inj 2 Mg/Ml Inj 2 Ml IV 12/03/24 14:15 4 mg Q4HR PRN Administration NAUSEA OR VOMITING Pantoprazole Sodium 40 mg 11/05/24 10:45 11/15/24 08:38 Pantoprazole Inj 40 Mg Vial IVP 12/05/24 10:44 40 mg QDAY TARIK Administration Pharmacy Consult 1 each 11/04/24 09:00 Vancomycin Pharmacy To Dose 1 Each Each IV 12/04/24 08:59 QDAY PRN CONSULT Pharmacy Consult 1 each 11/03/24 21:18 Pharmacy Renal Dose Adjustment 1 Ea XX 12/03/24 21:17 PRN PRN CONSULT Pramipexole Dihydrochloride 0.25 mg 11/13/24 09:00 11/15/24 23:00 Pramipexole 0.25 Mg Tablet PO 12/13/24 08:59 Not Given BID TARIK Quetiapine Fumarate 25 mg 11/14/24 12:32 11/15/24 14:29 Quetiapine Fumarate 25 Mg Tablet PO 12/14/24 20:59 25 mg BID PRN Administration AGITATION Sennosides 1 tab 11/03/24 19:16 Senna Tablet PO 12/03/24 19:15 BID PRN CONSTIPATION Protocol Sevelamer Carbonate 800 mg 11/16/24 09:00 Sevelamer Carbonate 800 Mg Tablet PO 12/16/24 08:59 BID TARIK Gan is a 79-year-old male past medical history of past medical history of ESRD on hemodialysis (MWF, sees Dr. Padilla), HFrEF (possibly EF of 30), Previous CVA, possible hypothyroidism currently admitted for sepsis secondary to catheter related bloodstream infection which is showing GPC currently. repeat blood cultures on 11/05 have no growth for more than 24 hours. #Sepsis secondary to # MRSA bacteremia -Patient underwent catheter holiday and hemodialysis catheter was removed and multiple attempts have been made since to replace patient's tunnel catheter since patient's blood cultures have been negative for 5 days however due to patient's agitation and inability to stay still a permanent tunneled catheter have not been placed. Patient have undergone 2 temporary dialysis catheter. -Patient is on vancomycin until 11/19/2024 #PVCs-patient's PVC frequency have decreased to about 5%, will continue metoprolol 100 Mg daily if patient's blood pressure permits then will increase metoprolol when able # NSTEMI type II-likely demand ischemia in the setting of sepsis -Initial troponins0.058 ->peaked at 0.976 and downtrended to 0.900 -Keep potassium above 4 and magnesium above 2 at all times -Patient underwent cardiac catheterization which showed 2 of the 3 severe CAD however no intervention can be done at this time due to patient's current condition therefore we will continue medical management #CHF -Echocardiogram during this hospital admission showed ejection fraction of EF of 25 to 30% with dilated cardiomyopathy including dilated LV RV RV and LA. Moderate MR and TR. Grade 2 diastolic dysfunction, moderately reduced RV function. -Per family's decision patient's CODE STATUS have been changed to DNR/DNI therefore they do not wish any further invasive procedures or interventions to be done as patient's current condition is unstable. # Acute encephalopathy #Severe agitation # Dementia -Patient continues to be confused and appears to be agitated therefore often put on restraints using soft mittens. -Patient's home antipsychotics have been on hold as per primary hospitalist team. -Neurologist is consulted and following # End-stage renal disease on hemodialysis Tuesday. -Patient continues to undergo dialysis as per schedule through temporary dialysis catheter. -Plans to reattempt a tunneled dialysis catheter would be at a later time Assessment and plan discussed with my attending physician Dr. Ciara Ireland (PGY-1)- Internal medicine resident Attending Provider Attestation/Addendum I have personally seen and examined the patient separately on the above date of service and discussed the plan of care with the resident. I reviewed the resident Dr. Brennon Ireland consultation progress note and agree with the resident findings and plan in the note above and have also edited the documentation to reflect my findings and plan. Bismark Urbina M.D. Interventional Cardiology
[2024-11-16] MEDS: SODIUM CHLORIDE 0.9% 500 ML 500 ML 999 ML IV (12:35)
[2024-11-16] MEDS: PANTOPRAZOLE INJ 40 MG VIAL IVP (12:39)
--- NOTE | 2024-11-16 12:48 | PC.SS ---
Patient participated with dialysis today. Patient has not had bowel movement.
--- NOTE | 2024-11-16 12:51 | PC.SS ---
Rapid response initiated on the patient due to low blood pressure.
--- NOTE | 2024-11-16 13:41 | PD.RESPRO ---
Documentation for date of: 11/16/24 Exam Vital Signs Temp Pulse Resp BP Pulse Ox O2 Del Method O2 Flow Rate 97.2 F 89 12 79/59 L 100 Nasal Cannula 3 11/16/24 12:00 11/16/24 12:37 11/16/24 12:00 11/16/24 12:37 11/16/24 12:00 11/16/24 12:00 11/16/24 12:00 Objective Labs 11/16/24 04:03 11/16/24 04:03 Labs: Laboratory Results - last 24 hr 11/16/24 04:03 WBC 14.2 H RBC 4.60 Hgb 14.2 Hct 42.1 MCV 92 MCH 30.9 MCHC 33.7 RDW Std Deviation 48.5 H Plt Count 236 Neut % (Auto) 74 Lymph % (Auto) 15 [place] % (Auto) 9 Eos % (Auto) 2 Baso % (Auto) 0 Neut # (Auto) 10.5 H Lymph # (Auto) 2.2 [place] # (Auto) 1.3 H Eos # (Auto) 0.2 Baso # (Auto) 0.0 Immature Gran # (Auto) 0.07 H Absolute Nucleated RBC 0.00 Immature Gran % 1 H Nucleated RBC % 0 Sodium 140 Potassium 4.8 Chloride 99 Carbon Dioxide 21.9 Anion Gap 19 H BUN 99 H Creatinine 9.0 H* D Estim Creat Clear Calc 7.9 L eGFR 6 L* BUN/Creatinine Ratio 11 L Glucose 134 H Calculated Osmolality 312 H Calcium 10.2 Corrected Calcium 10.2 H Phosphorus 9.8 H Magnesium 2.2 Total Bilirubin 0.8 AST 13 ALT 14 Alkaline Phosphatase 172 H Total Protein 7.0 Albumin 4.9 H Globulin 2.1 L Albumin/Globulin Ratio 2.3 H Random Vancomycin 17.9 ABG Interpretation ABG results: 11/03/24 11/11/24 11/13/24 14:12 12:22 21:50 VBG pH 7.39 7.35 7.37 VBG pCO2 43 44 35 L VBG pO2 35 38 29 VBG Base Excess 1 -2 -5 L Quality Measures Quality Measures sepsis Possible source: unknown Blood cultures ordered: yes Assessment & Plan Assessment Current Active Medications: Generic Name Dose Route Start Last Admin Trade Name Freq PRN Reason Stop Dose Admin Acetaminophen 650 mg 11/03/24 19:16 Acetaminophen 325 Mg Tablet PO 12/03/24 19:15 Q6H PRN PAIN SCALE 1-3 (mild Acetaminophen 650 mg 11/03/24 21:16 Acetaminophen Supp 650 Mg Supp [place] 12/03/24 21:29 Q6H PRN Fever > 100.4 Albuterol/Ipratropium 3 ml 11/03/24 19:16 Albuterol/Ipratropium (Duoneb) Rt Dianne 3 Ml Nebu INH 12/03/24 22:59 Q4HRRT PRN SOB or wheezing Atorvastatin Calcium 80 mg 11/04/24 21:00 11/15/24 22:59 Atorvastatin Calcium 20 Mg Tablet PO 12/04/24 20:59 Not Given HS TARIK Buspirone HCl 10 mg 11/16/24 14:00 11/16/24 12:38 Buspirone Hcl 5 Mg Tablet PO 12/16/24 13:59 Not Given TID TARIK Heparin Sodium (Porcine) 3,500 unit 11/14/24 10:00 11/14/24 11:37 Heparin Sod Inj 1000 Unit/Ml Vial 10 Ml INDWELLCAT 11/28/24 09:59 3,500 unit X1 PRN Administration DIALYSIS Albumin Human 25 gm in 100 mls @ 100 mls/min 11/05/24 10:19 11/16/24 09:42 Albuminar-25 Ivpb IV 100 mls/min QDAY PRN Administration DIALYSIS Vancomycin/Sodium Chloride 100 mls @ 120 mls/hr 11/16/24 14:00 Vancomycin/Ns 500 Mg Ivpb IV 11/16/24 14:49 X1 ONE Albumin Human 25 gm in 100 mls @ 100 mls/hr 11/16/24 12:32 11/16/24 12:49 Albuminar-25 Ivpb IV 11/19/24 12:31 100 mls/hr QDAY TARIK Administration Levothyroxine Sodium 50 mcg 11/08/24 11:30 11/14/24 05:26 Levothyroxine Sodium 25 Mcg Tablet PO 12/08/24 11:29 Not Given ACBR TARIK Levothyroxine Sodium 25 mcg 11/16/24 13:00 Levothyroxine Inj 100 Mcg Vial IV 12/14/24 08:59 QDAY TARIK Metoprolol Succinate 100 mg 11/14/24 09:00 11/16/24 12:37 Metoprolol Succinate Xl 25 Mg Tabcr PO 12/14/24 08:59 Not Given QDAY TARIK Midodrine 5 mg 11/16/24 12:36 Midodrine 5 Mg Tablet PO 12/16/24 13:59 TID PRN For SBP<100 Mirtazapine 15 mg 11/11/24 21:00 11/15/24 23:00 Mirtazapine 15 Mg Tablet PO 12/11/24 20:59 Not Given HS TARIK Ondansetron HCl 4 mg 11/03/24 14:16 11/03/24 17:26 Ondansetron Inj 2 Mg/Ml Inj 2 Ml IV 12/03/24 14:15 4 mg Q4HR PRN Administration NAUSEA OR VOMITING Pantoprazole Sodium 40 mg 11/05/24 10:45 11/16/24 12:39 Pantoprazole Inj 40 Mg Vial IVP 12/05/24 10:44 40 mg QDAY TARIK Administration Pharmacy Consult 1 each 11/04/24 09:00 Vancomycin Pharmacy To Dose 1 Each Each IV 12/04/24 08:59 QDAY PRN CONSULT Pharmacy Consult 1 each 11/03/24 21:18 Pharmacy Renal Dose Adjustment 1 Ea XX 12/03/24 21:17 PRN PRN CONSULT Pramipexole Dihydrochloride 0.25 mg 11/13/24 09:00 11/16/24 12:38 Pramipexole 0.25 Mg Tablet PO 12/13/24 08:59 Not Given BID TARIK Quetiapine Fumarate 25 mg 11/14/24 12:32 11/15/24 14:29 Quetiapine Fumarate 25 Mg Tablet PO 12/14/24 20:59 25 mg BID PRN Administration AGITATION Sennosides 1 tab 11/03/24 19:16 Senna Tablet PO 12/03/24 19:15 BID PRN CONSTIPATION Protocol Sevelamer Carbonate 800 mg 11/16/24 09:00 11/16/24 12:38 Sevelamer Carbonate 800 Mg Tablet PO 12/16/24 08:59 Not Given BID TARIK
--- NOTE | 2024-11-16 13:42 | PD.RESEVENT ---
Documentation for date of: 11/16/24 Event Note Event Note: Rapid response was called at 1230 due to patient having low blood pressure. Patient just came back from hemodialysis, his MAP 65, patient appears to be confused, unchanged from previous findings. He was given 250 cc of NS, 25 g of albumin and 5 mg of midodrine x 1. Repeat blood pressure showed MAP of 67. Plan of care discussed with attending Dr. Angulo. Nick Lundberg MD, PGY 2. Disclaimer: This note was dictated by speech recognition. Minor errors in ranch hand supervisor may be present due to voice recognition software.
--- NOTE | 2024-11-16 13:45 | PD.RESDS ---
Planned Discharge Date 11/16/24 DS: Providers Provider Date of admission: 11/03/24 19:16 Primary care physician: Rosey Morin DO Admitting Provider: Cally Dawson MD Attending Provider on Admission: Aries Angulo MD Consults: 11/03/24 14:16 Consult to Neurology / Tele-Neurology Routine Comment: Altered mental status Consulting Provider: Steve Riley 11/03/24 19:21 Referral Physical Therapy Routine Comment: Physician Instructions: Referral Speech Therapy Routine Comment: 11/03/24 19:32 Consult to Nephrology Routine Comment: ESRD on HD Consulting Provider: Radha Padilla 11/05/24 10:12 Consult to Infectious Diseases Routine Comment: GPC, CRBSI Consulting Provider: Holger Phelps 11/05/24 11:42 Consult to Cardiology Routine Comment: Consulting Provider: Bismark Urbina 11/13/24 14:32 Referral Speech Therapy Routine Comment: 11/13/24 17:06 Referral Registered Dietitian Routine Comment: 11/15/24 11:24 Referral Speech Therapy Routine Comment: Patient choking on water Attending Provider on DC: Nick Lundberg MD Discharging Provider: Nick Lundberg MD DS: Diagnosis Problem List Completed Was Problem List Reviewed/Reconciled?: Yes Hospital Course Hospital Course Hospital course: Patient is a 79 years old male with past medical history of ESRD on hemodialysis (M/W/F), HFrEF (EF 35%), Previous CVA, hypothyroidism and dementia presented to the ED with complaint of altered mental status. On arrival patient had BP of 121/110, pulse 123, RR 19, Temp 104.0 meeting 2/4 SIRS criteria. Sepsis alert was called and patient received IV vancomycin and Zosyn. Chemistry panel showed lactate 1.8, magnesium 1.3, ALP 168, Ammonia <10, Troponin 0.058. UA shows 3+ proteinuria. In the ED stroke alert was called, patient underwent head CT which came back negative for acute hemorrhage, mass effect or midline shift. Teleneurology was consulted. As per the ED physician, they discussed with the Tele neurologist regarding his finding and agreed that patient does not need further workup and management of stroke and the altered mentation was secondary to sepsis. He was admitted to the hospital and was started on cefepime and vancomycin IV. Blood cultures showed MRSA bacteremia. Culture from catheter insertion site grew MRSA. Cefepime was discontinued. TDC was removed and temporary dialysis catheter was placed. Repeat blood culture from 11/05/2024 was negative and new tunneled dialysis catheter was inserted to femoral due to right upper extremity old fistula and unsuccessful placement of TDC on the left side. During hospital stay patient's mentation was not improving significantly requiring multiple administrations of antipsychotics and benzodiazepines along with restraints because patient was pulling on lines and was combative. Neurology was consulted. Primary team had multiple discussions with the family regarding patient's condition and mental status, his CODE STATUS was changed to DNR/DNI in presence of his and 2 sons. Today his mentation has improved however he is not at the baseline, likely due to worsening dementia. Patient is stable for discharge to SNF today. Patient will need infusions of vancomycin 1.5g M/W/ until 11/19/24. Start taking buspirone 10 mg 3 times a day, pramipexole 0.25 mg 2 times a day. Take quetiapine 25 mg as needed for agitation up to 2 times a day. Continue home medications as prescribed. Monitor CBC, repeat in 1 week. Follow up with PCP, neurology and nephrology within 2 weeks. Continue hemodialysis as scheduled //. #Sepsis 2/2 catheter site cellulitis, improving. #Catheter site cellulitis. #MRSA bacteremia 2/2 CRBSI. #Acute encephalopathy. #Severe agitation, improved. #Suspected underlying dementia vs delirium secondary to metabolic encephalopathy. #ESRD on HD M/W/. #Hypomagnesemia, resolved. #Hyperphosphatemia. #NSTEMI type II. #Hx CAD, CO. #HFrEF with EF 35-40%. #History of CVA. #History of CHF. #Hypothyroidism. #Normocytic anemia. Plan of care discussed with attending Dr. Angulo. Nick Lundberg MD, PGY 2. Disclaimer: This note was dictated by speech recognition. Minor errors in prepress specialist may be present due to voice recognition software. Time Spent with Patient Time attestation: Total time spent providing and/or coordinating discharge services: 40 min Exam Vital Signs Temp Pulse Resp BP Pulse Ox O2 Del Method O2 Flow Rate 97.2 F 89 12 79/59 L 100 Nasal Cannula 3 11/16/24 12:00 11/16/24 12:37 11/16/24 12:00 11/16/24 12:37 11/16/24 12:00 11/16/24 12:00 11/16/24 12:00 Narrative Exam Gen: Well-developed and well-nourished elderly male. HEENT: NCAT, PERRLA, EOMI, MMM, anicteric conjunctivae. CVS: normal S1 and S2. Regular tachycardia. No M/R/G. Resp: Decreased breath sounds B/L bases. No rhonchi, rales, crackles or wheezing. Abd: soft, non-tender, non-distended. BS+ in all 4 quadrants. MSK: Good ROM in BUE & BLE. No edema or rash. TDC in right femoral area, appears clean. Neuro: Patient is refusing examination. Able to move all 4 extremities Discharge Plan Plan Patient Disposition: Xfer Skilled Nsg Fac (SNF) Care Plan Goals: Vancomycin 1.5g MWF until 11/19/24. Start taking buspirone 10 mg 3 times a day, pramipexole 0.25 mg 2 times a day. Take quetiapine 25 mg as needed for agitation up to 2 times a day. Continue home medications as prescribed. Monitor CBC, repeat in 1 week. Follow up with PCP, neurology and nephrology within 2 weeks. Continue hemodialysis as scheduled. Prescriptions/Referrals Prescriptions/Med Rec: New vancomycin 1.5 gram recon soln 1.5 g IV .QMWF 7 Days Rx Instructions: Until 11/15/2024 buspirone 10 mg tablet 10 mg PO TID Qty: 90 0RF quetiapine 25 mg tablet 25 mg PO BID PRN (Reason: agitation) Qty: 60 0RF pramipexole 0.25 mg tablet 0.25 mg PO BID Qty: 60 0RF Continued atorvastatin [Lipitor] 80 MG tablet 80 mg PO HS Qty: 0 nitroglycerin [Nitrostat] 0.4 MG tablet, sublingual 0.4 mg SL PRN PRN (Reason: CHEST PAIN) Qty: 0 Levothyroxine * (SYNTHROID *) 50 MCG tablet 50 mcg PO QDAY Qty: 0 clopidogrel [Plavix] 75 mg Tablet 75 mg PO QDAY allopurinol 100 mg tablet 100 mg PO DAILY Patient Comments: TAKE 1 TABLET BY MOUTH ONCE DAILY donepezil 5 mg Tablet 5 mg PO QDAY metoprolol succinate 200 mg tablet extended release 24 hr 200 mg PO QDAY Patient Comments: TAKE 1 TABLET BY MOUTH ONCE DAILY hydralazine 50 mg Tablet 50 mg PO TID ondansetron HCl 4 mg tablet 4 mg PO Q6H PRN (Reason: nausea and vomitting) Patient Comments: TAKE 1 TABLET BY MOUTH EVERY 6 HOURS NEEDED pantoprazole 40 mg Tablet,Delayed Release (Dr/Ec) 40 mg PO BID mirtazapine 30 mg tablet 30 mg PO HS Patient Comments: TAKE 1 TABLET BY MOUTH ONCE DAILY BEFORE BEDTIME ranolazine 1,000 mg tablet extended release 12 hr 1,000 mg PO BID Patient Comments: TAKE 1 TABLET BY MOUTH TWICE DAILY Referrals: Rosey Morin DO [Primary Care Provider] - Patient/Caregiver Discharge Instructions Education Materials: Hemodialysis Print Language: Estonian Stand Alone Forms: Marla Award Info., Patient Portal Info Letter Quality Discharge Quality Measures VTE prophylaxis
[2024-11-16] MEDS: MIDODRINE 5 MG TABLET PO (14:19)
[2024-11-16] MEDS: LEVOTHYROXINE INJ 100 mCg VIAL 25 MCG IV (14:19)
[2024-11-16] MEDS: VANCOMYCIN/NS 500 MG IVPB 100 ML 120 MG IV (14:20)
--- NOTE | 2024-11-16 14:24 | PD.RESPRO ---
Documentation for date of: 11/16/24 Subjective Subjective Interval history: Patient was seen and examined at bedside. No acute overnight events. Patient was set for discharge to SNF today however had rapid response due to hypotension after dialysis, blood pressure improved after starting midodrine and giving him IVF with albumin. His mentation is fluctuating. Sevelamer 800 mg was increased to twice daily due to worsening hyperphosphatemia despite of hemodialysis. Will monitor patient for today, anticipate discharge tomorrow if no acute changes. Exam Vital Signs Temp Pulse Resp BP Pulse Ox O2 Del Method O2 Flow Rate 97.2 F 90 12 106/75 100 Nasal Cannula 3 11/16/24 12:00 11/16/24 14:19 11/16/24 12:00 11/16/24 14:19 11/16/24 12:00 11/16/24 12:00 11/16/24 12:00 Narrative Exam Gen: Well-developed and well-nourished elderly male. HEENT: NCAT, PERRLA, EOMI, MMM, anicteric conjunctivae. CVS: normal S1 and S2. Regular tachycardia. No M/R/G. Resp: Decreased breath sounds B/L bases. No rhonchi, rales, crackles or wheezing. Abd: soft, non-tender, non-distended. BS+ in all 4 quadrants. MSK: Good ROM in BUE & BLE. No edema or rash. TDC in right femoral area, appears clean. Neuro: Patient is refusing examination. Able to move all 4 extremities Objective Labs 11/17/24 05:29 11/17/24 05:29 Labs: Laboratory Results - last 24 hr 11/16/24 04:03 WBC 14.2 H RBC 4.60 Hgb 14.2 Hct 42.1 MCV 92 MCH 30.9 MCHC 33.7 RDW Std Deviation 48.5 H Plt Count 236 Neut % (Auto) 74 Lymph % (Auto) 15 [place] % (Auto) 9 Eos % (Auto) 2 Baso % (Auto) 0 Neut # (Auto) 10.5 H Lymph # (Auto) 2.2 [place] # (Auto) 1.3 H Eos # (Auto) 0.2 Baso # (Auto) 0.0 Immature Gran # (Auto) 0.07 H Absolute Nucleated RBC 0.00 Immature Gran % 1 H Nucleated RBC % 0 Sodium 140 Potassium 4.8 Chloride 99 Carbon Dioxide 21.9 Anion Gap 19 H BUN 99 H Creatinine 9.0 H* D Estim Creat Clear Calc 7.9 L eGFR 6 L* BUN/Creatinine Ratio 11 L Glucose 134 H Calculated Osmolality 312 H Calcium 10.2 Corrected Calcium 10.2 H Phosphorus 9.8 H Magnesium 2.2 Total Bilirubin 0.8 AST 13 ALT 14 Alkaline Phosphatase 172 H Total Protein 7.0 Albumin 4.9 H Globulin 2.1 L Albumin/Globulin Ratio 2.3 H Random Vancomycin 17.9 ABG Interpretation ABG results: 11/03/24 11/11/24 11/13/24 14:12 12:22 21:50 VBG pH 7.39 7.35 7.37 VBG pCO2 43 44 35 L VBG pO2 35 38 29 VBG Base Excess 1 -2 -5 L Quality Measures Quality Measures sepsis Current suspected stage: sepsis Possible source: CLABSI Blood cultures ordered: yes Antibiotic ordered: Yes Advance care planning discussed with:: patient and child Assessment & Plan Assessment Current Active Medications: Generic Name Dose Route Start Last Admin Trade Name Freq PRN Reason Stop Dose Admin Acetaminophen 650 mg 11/03/24 19:16 Acetaminophen 325 Mg Tablet PO 12/03/24 19:15 Q6H PRN PAIN SCALE 1-3 (mild Acetaminophen 650 mg 11/03/24 21:16 Acetaminophen Supp 650 Mg Supp HI 12/03/24 21:29 Q6H PRN Fever > 100.4 Albuterol/Ipratropium 3 ml 11/03/24 19:16 Albuterol/Ipratropium (Duoneb) Rt Dianne 3 Ml Nebu INH 12/03/24 22:59 Q4HRRT PRN SOB or wheezing Atorvastatin Calcium 80 mg 11/04/24 21:00 11/15/24 22:59 Atorvastatin Calcium 20 Mg Tablet PO 12/04/24 20:59 Not Given HS TARIK Buspirone HCl 10 mg 11/16/24 14:00 11/16/24 12:38 Buspirone Hcl 5 Mg Tablet PO 12/16/24 13:59 Not Given TID TARIK Heparin Sodium (Porcine) 3,500 unit 11/14/24 10:00 11/14/24 11:37 Heparin Sod Inj 1000 Unit/Ml Vial 10 Ml INDWELLCAT 11/28/24 09:59 3,500 unit X1 PRN Administration DIALYSIS Albumin Human 25 gm in 100 mls @ 100 mls/min 11/05/24 10:19 11/16/24 09:42 Albuminar-25 Ivpb IV 100 mls/min QDAY PRN Administration DIALYSIS Vancomycin/Sodium Chloride 100 mls @ 120 mls/hr 11/16/24 14:00 11/16/24 14:20 Vancomycin/Ns 500 Mg Ivpb IV 11/16/24 14:49 120 mls/hr X1 ONE Administration Albumin Human 25 gm in 100 mls @ 100 mls/hr 11/16/24 12:32 11/16/24 12:49 Albuminar-25 Ivpb IV 11/19/24 12:31 100 mls/hr QDAY TARIK Administration Levothyroxine Sodium 50 mcg 11/08/24 11:30 11/14/24 05:26 Levothyroxine Sodium 25 Mcg Tablet PO 12/08/24 11:29 Not Given ACBR TARIK Levothyroxine Sodium 25 mcg 11/16/24 13:00 11/16/24 14:19 Levothyroxine Inj 100 Mcg Vial IV 12/14/24 08:59 25 mcg QDAY TARIK Administration Metoprolol Succinate 100 mg 11/14/24 09:00 11/16/24 12:37 Metoprolol Succinate Xl 25 Mg Tabcr PO 12/14/24 08:59 Not Given QDAY TARIK Midodrine 5 mg 11/16/24 12:36 Midodrine 5 Mg Tablet PO 12/16/24 13:59 TID PRN For SBP<100 Mirtazapine 15 mg 11/11/24 21:00 11/15/24 23:00 Mirtazapine 15 Mg Tablet PO 12/11/24 20:59 Not Given HS TARIK Ondansetron HCl 4 mg 11/03/24 14:16 11/03/24 17:26 Ondansetron Inj 2 Mg/Ml Inj 2 Ml IV 12/03/24 14:15 4 mg Q4HR PRN Administration NAUSEA OR VOMITING Pantoprazole Sodium 40 mg 11/05/24 10:45 11/16/24 12:39 Pantoprazole Inj 40 Mg Vial IVP 12/05/24 10:44 40 mg QDAY TARIK Administration Pharmacy Consult 1 each 11/04/24 09:00 Vancomycin Pharmacy To Dose 1 Each Each IV 12/04/24 08:59 QDAY PRN CONSULT Pharmacy Consult 1 each 11/03/24 21:18 Pharmacy Renal Dose Adjustment 1 Ea XX 12/03/24 21:17 PRN PRN CONSULT Pramipexole Dihydrochloride 0.25 mg 11/13/24 09:00 11/16/24 12:38 Pramipexole 0.25 Mg Tablet PO 12/13/24 08:59 Not Given BID TARIK Quetiapine Fumarate 25 mg 11/14/24 12:32 11/15/24 14:29 Quetiapine Fumarate 25 Mg Tablet PO 12/14/24 20:59 25 mg BID PRN Administration AGITATION Sennosides 1 tab 11/03/24 19:16 Senna Tablet PO 12/03/24 19:15 BID PRN CONSTIPATION Protocol Sevelamer Carbonate 800 mg 11/16/24 09:00 11/16/24 12:38 Sevelamer Carbonate 800 Mg Tablet PO 12/16/24 08:59 Not Given BID TARIK Plan The patient is a 71-year-old male PMHx of ESRD on HD MWF, HFrEF EF 30%, CVA, hypothyroidism presenting with AMS in setting of CRBSI sepsis. He continued on VANCOMYCIN for MRSA bacteremia. HD cath removed. If blood culture negative tomorrow (48 hours), will proceed with hemodialysis cath insertion. #Sepsis 2/2 catheter site cellulitis (improving) #Catheter site cellulitis #MRSA bacteremia 2/2 CRBSI Met 2/4 SIRS criteria with tachycardia, fever. LA normal, no leukocytosis. HD tunneled cath erythematous and warm suggesting cellulitis. Afebrile, leukocytosis improving. Prelim blood culture showing GPC. Dialysis, significant removed. Continue on Vancomycin. 24-hour blood culture negative. Catheter site cx grew GPC. MRSA nasal swab positive. Repeat blood culture negative Patient will likely finish up antibiotic at SNF Currently finding SNF facility as patient is close to being medically cleared for discharge Plan: ? Continue vancomycin until 11/19/2024. ? Continue to monitor CBC. - Continue to monitor vitals. #Acute encephalopathy. #Severe agitation, improved. #Suspected underlying dementia vs delirium secondary to metabolic encephalopathy. Likely secondary to metabolic encephalopathy. Unclear what baseline is, currently attending, does not follow command, agitated, requiring multiple medications. Continued on soft restraints. Started scheduled HALOPERIDOL. Head CT was negative. No focal neurological deficit. No indication for stroke workup. Neurology consulted, agreed with ANTIPSYCHOTICS for agitation. Patient still agitated and was unable to have a new TDC inserted QT 420, previous ~370s At this time will hold sedating medicines at this time Goals of care conversation held with family, see notes Speech eval recommended dysphagia 1 diet only patient is awake Spoke with patient point of contact for family in regards to updates for patient Agreeable for SNF at this time, as they prefer [facility] or [facility] [place] [facility] Plan: ? Resumed Seroquel 25 mg twice daily as needed. - Dysphagia diet as long as patient is awake. - Neurology consulted, appreciate recommendations. - Mirtazapine 15 mg every night. - Started on buspirone 10 mg daily. #ESRD on HD //. #Hypomagnesemia, resolved. #Hyperphosphatemia. Patient has dialysis Tuesday, Tuesday, Tuesday. Continue with dialysis TDC [employer] Dr Padilla Plan: ? Sevelamer 800 mg daily increased to BID. ? Renally dose meds, avoid overdiuresis and NEPHROTOXINS ? Daily CMP ? Hemodialysis as scheduled by nephrology ? Continue with dialysis with TDC - Started on midodrine 5 mg 3 times daily for hypotension. #NSTEMI type II. #Hx CAD, AR. #HFrEF EF 35-40%. Troponin peaked at 0.976. Unable to assess symptoms secondary to encephalopathy. EKG sinus rhythm without acute ST changes. Demand ischemia in settings of sepsis versus volume overload. Anticipate improvement with diuresis and preload reduction. Cardiology consulted, recommendations included below. HR in 80s. Trops down trended Plan: ? Continue ATORVASTATIN 80 mg daily. ? Continue ASPIRIN 300 mg daily. ? Continue home PLAVIX 75 mg daily. ? Continue METOPROLOL succinate 50 mg BID (home dose 200 mg daily). #History of CVA. #History of CHF. echo showed Moderately dilated LV. Mild LVH. Global LV systolic function is severely decreased. Estimated EF 25-30 %. Samye 2 DD. Plan: ? Continue ASPIRIN 300 mg daily. ? Continue ATORVASTATIN 80 mg daily. #Hypothyroidism. TSH 4.6 this visit. Plan: ? Continue home LEVOTHYROXINE 50 mcg ACBR. #Normocytic anemia (stable). Patient has Hb of 10.8 No obvious source of bleeding Plan: - We will monitor closely, may need outpatient workup. Health Maintenance: Disposition: Telemetry. DVT prophylaxis: SCDs. GI prophylaxis: Protonix. Diet: Dysphagia 1. CODE STATUS: DNR/DNI. Plan of care discussed with attending Dr. Angulo. Nick Lundberg MD, PGY 2. Disclaimer: This note was dictated by speech recognition. Minor errors in administrative project coordinator may be present due to voice recognition software. Attending Provider Attestation/Addendum I reviewed labs, imaging, EKG, home medications and prior available records. Face to face evaluation was performed by me. I have personally examined the patient and discussed assessment and plan with the IM team. I reviewed the resident note and agree with the plan with exceptions as below. Acute hypotension: New complication on 11/16. Happened after hemodialysis. Rapid response was called. Gave 250 cc bolus. Gave IV albumin. Gave midodrine. Acute encephalopathy/hyperactive agitation: Likely hyperactive delirium in the setting of baseline dementia. Possibly multifactorial in the setting of MRSA infection, pain, sleep deprivation, hunger/thirst, anxiety. Management of infection as below. Delirium precautions. Ordered swallow evaluation and started the patient on diet. Okay to ice chips. Consulted neurology: Recommended pramipexole for possible restless leg. Started quetiapine 25 mg twice daily as needed. Started buspirone. Started mirtazapine. MRSA dialysis line infection: Continue IV vancomycin. Status post insertion of a new right femoral dialysis catheter ESRD on hemodialysis: He is receiving hemodialysis via the new right femoral dialysis catheter that was inserted after 48 hours of negative blood cultures. Nephrology is following Non-STEMI: No active chest complaints. Continue aspirin and atorvastatin Ventricular tachycardia: Nonsustained. Continue metoprolol XL. Cardiology is following Debility: PT recommended SNF. Discussed with son: Okay to proceed.
--- NOTE | 2024-11-16 15:41 | PC.NURSE ---
Spoke with Dr Lundberg regarding bowel movement. Enema only produced small amount of stool. Discharge cancelled. Family at bedside updated on the plan. No questions from family at this time
--- NOTE | 2024-11-16 23:38 | PD.NEUROPROG ---
Documentation for date of: 11/16/24 Subjective Subjective Interval history: Patient was seen in telemetry today with his family at the bedside, continue to remain restless, on restraints as he is intermittently trying to come out of bed. Continues to have very poor oral intake. Exam - Neurology Vital Signs Temp Pulse Resp BP Pulse Ox O2 Del Method O2 Flow Rate 97.2 F 92 18 128/72 95 Nasal Cannula 2 11/16/24 20:00 11/16/24 20:00 11/16/24 20:00 11/16/24 20:00 11/16/24 20:00 11/16/24 20:00 11/16/24 20:00 Narrative Exam GENERAL APPEARANCE: Well-developed, obese built white male , restless in bed HEENT: Normocephalic, atraumatic, extraocular movements intact. Pupils: Equal reacting to light NECK: Supple, no JVD or bruits. CARDIOVASULAR: Heart: S1, S2 heard, regular without S3-S4 or murmur no rubs or gallops. LUNGS/CHEST: Clear to auscultation bilaterally. No rails, rhonchi, or wheezing. Normal inspection. ABDOMEN: Soft, nontender, with normal bowel sounds. No pulsatile masses. No rebound, rigidity, or guarding. Normal inspection and palpation. EXTREMITIES: Normal inspection and palpation. No edema, clubbing or cyanosis. SKIN: Warm and dry without rashes. Normal inspection. MUSCULOSKELETAL: No cervical, thoracic, lumbar or midline bony tenderness. Normal inspection. NEURO: Awake, alert, still restless, needing to be on restraints, moves all 4 extremities purposefully no signs of meningeal irritation noted. PSYCHIATRIC: limited Objective Labs 11/16/24 04:03 11/16/24 04:03 Labs: Laboratory Results - last 24 hr 11/16/24 04:03 WBC 14.2 H RBC 4.60 Hgb 14.2 Hct 42.1 MCV 92 MCH 30.9 MCHC 33.7 RDW Std Deviation 48.5 H Plt Count 236 Neut % (Auto) 74 Lymph % (Auto) 15 [place] % (Auto) 9 Eos % (Auto) 2 Baso % (Auto) 0 Neut # (Auto) 10.5 H Lymph # (Auto) 2.2 [place] # (Auto) 1.3 H Eos # (Auto) 0.2 Baso # (Auto) 0.0 Immature Gran # (Auto) 0.07 H Absolute Nucleated RBC 0.00 Immature Gran % 1 H Nucleated RBC % 0 Sodium 140 Potassium 4.8 Chloride 99 Carbon Dioxide 21.9 Anion Gap 19 H BUN 99 H Creatinine 9.0 H* D Estim Creat Clear Calc 7.9 L eGFR 6 L* BUN/Creatinine Ratio 11 L Glucose 134 H Calculated Osmolality 312 H Calcium 10.2 Corrected Calcium 10.2 H Phosphorus 9.8 H Magnesium 2.2 Total Bilirubin 0.8 AST 13 ALT 14 Alkaline Phosphatase 172 H Total Protein 7.0 Albumin 4.9 H Globulin 2.1 L Albumin/Globulin Ratio 2.3 H Random Vancomycin 17.9 ABG Interpretation ABG results: 11/03/24 11/11/24 11/13/24 14:12 12:22 21:50 VBG pH 7.39 7.35 7.37 VBG pCO2 43 44 35 L VBG pO2 35 38 29 VBG Base Excess 1 -2 -5 L Assessment & Plan Assessment and plan (1) Delirium: Status: Acute Assessment and plan: still altered, very poor oral intake, BP is down, Rapid response was called Will hold off on Pramipexole Continue with Seroquel as needed. (2) End stage renal failure on dialysis: Status: Chronic Assessment and plan: Got dialyzed today. (3) Dementia: Status: Chronic Assessment and plan: Progression noted, continue with the memantine
[2024-11-17] VITALS (9 sets, daily range): BP systolic 90–121; BP diastolic 57–90; PULSE 79–100; RESP 12–18; TEMP 35.9–36.7; O2SAT 94–99; BMI 30.6
[2024-11-17 06:00] LABS: Basophils # (Auto) 0.1 Thou/mm3 (0.0-0.2); Basophils % (Auto) 0 % (0-2.5); Eosinophils # (Auto) 0.1 Thou/mm3 (0.0-0.5); Eosinophils % (Auto) 1 % (0-10); Hematocrit 40.8 % (41.0-53.0); Immature Granulocytes % (Auto) 1 % (0-0); Immature Granulocytes Auto 0.14 Thou/mm3 (0.00-0.00); Lymphocytes # (Auto) 1.8 Thou/mm3 (1.0-4.8); Lymphocytes % (Auto) 8 % (10-50); Mean Corpuscular HGB Conc 34.3 g/dl (31.0-37.0); Mean Corpuscular Hemoglobin 31.6 pg (25.0-35.0); Mean Corpuscular Volume 92 fL (80-100); Monocytes # (Auto) 1.6 Thou/mm3 (0.0-0.8); Monocytes % (Auto) 7 % (0-12); Neutrophils # (Auto) 17.7 Thou/mm3 (1.8-7.7); Neutrophils % (Auto) 83 % (37-80); Nucleated Red Blood Cell % 0 /100 WBC (0); Platelet Count 148 Thou/mm3 (140-440); RDW Standard Deviation 48.5 fL (35.1-43.9); Red Blood Count 4.43 Miln/mm3 (4.50-5.90); White Blood Count 21.3 Thou/mm3 (3.8-10.6)
[2024-11-17 06:36] LABS: Alanine Aminotransferase 12 U/L (10-49); Albumin, Serum 5.2 gm/dL (3.4-4.8); Albumin/Globulin Ratio 2.6 (1.2-2.2); Alkaline Phosphatase 154 U/L (46-116); Anion Gap 17 (7-16); Aspartate Amino Transferase 15 U/L (0-34); BUN/Creatinine Ratio 10 Ratio (12-20); Bilirubin,Total 0.8 mg/dL (0.3-1.2); Blood Urea Nitrogen 82 mg/dL (9-23); Calcium 10.2 mg/dL (8.3-10.6); Calcium (Corrected) 10.2 mg/dL (8.5-10.1); Chloride 102 mMol/L (98-107); Creatinine (Component) 8.2 mg/dL (0.6-1.3); Estimated Creatinine Clearance 8.7 mL/min (>60); Glucose 137 mg/dL (74-106); Osmolality,Calculated 304 (275-295); Potassium 4.7 mMol/L (3.4-5.1); Sodium 139 mMol/L (136-145); Total Protein 7.2 gm/dL (5.7-8.2); Vancomycin,Random 21.7 mcg/mL; eGFR 6 See Note
[2024-11-17] MEDS: ALBUMIN HUMAN 25% IVPB 25 GM/100 ML BTL IV (09:02)
[2024-11-17] MEDS: LEVOTHYROXINE INJ 100 mCg VIAL 25 MCG IV (09:03)
[2024-11-17] MEDS: SEVELAMER CARBONATE 800 MG TABLET PO ×2 (09:04→20:44)
[2024-11-17] MEDS: PANTOPRAZOLE INJ 40 MG VIAL IVP (09:04)
--- NOTE | 2024-11-17 10:08 | XR_ITS ---
Examination: CT chest with intravenous contrast CT abdomen with intravenous contrast CT pelvis with intravenous contrast 2-D coronal and sagittal reconstructions Time of exam: November 17, 2024 1432 hrs. Indications: Abdominal pain several days with leukocytosis CTDI: vol (mGy) : 23 DLP: (mGycm): 1835 Technique: Multiple axial images of the chest, abdomen and pelvis with intravenous contrast, 3.0 mm slice thickness. Images obtained post intravenous injection Isovue 370 60 cc. 2-D sagittal and coronal reconstructions. Low dose protocols were performed. One or more of the following dose reduction techniques were used; automated exposure control, adjustment of the mA and/or KV according to patient size, use of iterative reconstruction technique. Findings: No thoracic aortic aneurysm dilatation Pulmonary artery segments are not enlarged Heavy calcification left anterior descending left circumflex right coronary arteries No paratracheal tracheobronchial or bronchopulmonary adenopathy Atelectasis versus mild pneumonia left base No visualized liver or splenic lesion No gallstones No pancreatic or adrenal mass Atrophic bilateral kidneys with significant renal parenchymal scar formation, benign right renal cyst Heavy abdominal aortic calcification including heavy calcification origin renal arteries Normal appendix 17 mm fat-containing umbilical hernia Colonic diverticulosis, no diverticulitis Large amounts of stool in the rectum with thickening the rectal wall Transverse prostate dimension 3.5 cm Contracted urinary bladder Fat-containing inguinal hernias Diffuse advanced lumbar degenerative disc disease Moderate narrowing hip joints Impression: Atelectasis versus mild pneumonia left base Atrophic bilateral kidneys with significant renal parenchymal scar formation Normal appendix No abdominal or pelvic abscess Large amounts of stool in the rectum with proctitis pattern
--- NOTE | 2024-11-17 10:11 | PD.RESPRO ---
Documentation for date of: 11/17/24 Subjective Subjective Interval history: 11/12/2024: Pt examined at bedside dialysis today. Pt appears to still be agitated was given Ativan overnight. He is kicking his legs in a dialysis bed and it is hard to have him still for dialysis to be proceeded. we will place leg restraints to stabilize patient for dialysis session. He is still unable to answer questions fully at this time and appears to be agitated his BUN/creatinine 76 and 5.3, white count 8.2, hemoglobin 12.5, potassium 4.6, magnesium 2.3, 6 this morning. Blood pressure still appears to be stable however it is 137/51, telemetry reviewed rate appears to be in the 80s, however still has some trigeminy occurring. He is currently on metoprolol 50 mg twice a day. No other complaints at this time. 11/13/2024: Patient examined at bedside today. Patient still appears to be agitated and does not want to be directly examined. He is to get tunneled dialysis catheter today to be done by IR. Goals of care discussion to be held with family today. Will hold on sedating medicines at this time. No other complaints at this time. 11/14/2024: Patient examined at bedside today. Patient still appears to be in bigeminy rate controlled in 90s seen on telemetry. Patient is undergoing dialysis today with new TDC, got 1.5 L removed. Patient still appears to be slightly agitated, however patient was able to pass swallow eval by speech therapy. Will start on recommended diet. Patient's white count today 2.1, hemoglobin 13.2, BUN/creatinine 96 and 7.4 respectively, phosphorus 8.9, magnesium 2.3, potassium 4.9, calcium 9.8. No other complaints this time 11/15/2024: Patient examined at bedside today. Patient still appears to be in bigeminy rate controlled CAD and 80s seen on telemetry. Patient was able to pass swallow eval yesterday, has been intermittently using on dysphagia diet, however has been a bit agitated as well. Has been able to respond to some commands but does not answer all questions. White count 13.6, hemoglobin 14.6, potassium 4.4, phosphorus 8.5, magnesium 2.3, BUN/creatinine 81 7.2. Blood pressure 120/70 and heart rate 83. 11/17/2024: Pt examined at bedside today. Pt still appears to be in bigeminy at this time, rate controlled in 90s. Pt appears more alert today, however is unable to communicate well with his words. Unable to fully understand patient all the time. BUN/Cr today 82 and 8.2, potassium 4.7, phos ~8, WBC count 21.3, no fevers overnight. No other complaints at this time. Exam Vital Signs Temp Pulse Resp BP Pulse Ox O2 Del Method O2 Flow Rate 97.5 F 94 15 108/90 H 99 Nasal Cannula 2 11/17/24 08:00 11/17/24 09:03 11/17/24 08:00 11/17/24 09:03 11/17/24 08:00 11/17/24 08:00 11/17/24 08:00 Narrative Exam General: AAOx1, awake, able to answer some questions, NAD HEENT: Moist mucous membranes, conjunctiva clear, EOMI, PERRLA, poor dentition Cardiovascular: Possible murmur heard over SNOW, tachycardic Pulmonary: CTAB bilat no cough, no wheezing GI: No tenderness to light or deep palpitation, no guarding, rigidity, rebound tenderness or distension Extremities: No presence of trace or pitting edema in lower extremities bilaterally, dorsalis pedis pulses +2 bilaterally Neuro: AAOx1, no focal motor or sensory deficits in the UE or LE bilat Psych: Not cooperative Objective Labs 11/18/24 04:33 11/18/24 04:33 Labs: Laboratory Results - last 24 hr 11/17/24 05:29 WBC 21.3 H D RBC 4.43 L Hgb 14.0 Hct 40.8 L MCV 92 MCH 31.6 MCHC 34.3 RDW Std Deviation 48.5 H Plt Count 148 D Neut % (Auto) 83 H Lymph % (Auto) 8 L Cavalier % (Auto) 7 Eos % (Auto) 1 Baso % (Auto) 0 Neut # (Auto) 17.7 H Lymph # (Auto) 1.8 Cavalier # (Auto) 1.6 H Eos # (Auto) 0.1 Baso # (Auto) 0.1 Immature Gran # (Auto) 0.14 H Absolute Nucleated RBC 0.00 Immature Gran % 1 H Nucleated RBC % 0 Sodium 139 Potassium 4.7 Chloride 102 Carbon Dioxide 20.0 Anion Gap 17 H BUN 82 H Creatinine 8.2 H* D Estim Creat Clear Calc 8.7 L eGFR 6 L* BUN/Creatinine Ratio 10 L Glucose 137 H Calculated Osmolality 304 H Calcium 10.2 Corrected Calcium 10.2 H Total Bilirubin 0.8 AST 15 ALT 12 Alkaline Phosphatase 154 H Total Protein 7.2 Albumin 5.2 H Globulin 2.0 L Albumin/Globulin Ratio 2.6 H Random Vancomycin 21.7 ABG Interpretation ABG results: 11/03/24 11/11/24 11/13/24 14:12 12:22 21:50 VBG pH 7.39 7.35 7.37 VBG pCO2 43 44 35 L VBG pO2 35 38 29 VBG Base Excess 1 -2 -5 L Quality Measures Quality Measures sepsis Current suspected stage: sepsis Possible source: CLABSI Blood cultures ordered: yes Antibiotic ordered: Yes Advance care planning discussed with:: patient Assessment & Plan Assessment Current Active Medications: Generic Name Dose Route Start Last Admin Trade Name Freq PRN Reason Stop Dose Admin Acetaminophen 650 mg 11/03/24 19:16 Acetaminophen 325 Mg Tablet PO 12/03/24 19:15 Q6H PRN PAIN SCALE 1-3 (mild Acetaminophen 650 mg 11/03/24 21:16 Acetaminophen Supp 650 Mg Supp CO 12/03/24 21:29 Q6H PRN Fever > 100.4 Albuterol/Ipratropium 3 ml 11/03/24 19:16 Albuterol/Ipratropium (Duoneb) Rt Dianne 3 Ml Nebu INH 12/03/24 22:59 Q4HRRT PRN SOB or wheezing Atorvastatin Calcium 80 mg 11/04/24 21:00 11/16/24 22:30 Atorvastatin Calcium 20 Mg Tablet PO 12/04/24 20:59 Not Given HS TARIK Buspirone HCl 10 mg 11/16/24 14:00 11/17/24 05:09 Buspirone Hcl 5 Mg Tablet PO 12/16/24 13:59 Not Given TID TARIK Heparin Sodium (Porcine) 3,500 unit 11/14/24 10:00 11/14/24 11:37 Heparin Sod Inj 1000 Unit/Ml Vial 10 Ml INDWELLCAT 11/28/24 09:59 3,500 unit X1 PRN Administration DIALYSIS Albumin Human 25 gm in 100 mls @ 100 mls/min 11/05/24 10:19 11/16/24 09:42 Albuminar-25 Ivpb IV 100 mls/min QDAY PRN Administration DIALYSIS Albumin Human 25 gm in 100 mls @ 100 mls/hr 11/16/24 12:32 11/17/24 09:02 Albuminar-25 Ivpb IV 11/19/24 12:31 100 mls/hr QDAY TARIK Administration Levothyroxine Sodium 50 mcg 11/08/24 11:30 11/14/24 05:26 Levothyroxine Sodium 25 Mcg Tablet PO 12/08/24 11:29 Not Given ACBR TARIK Levothyroxine Sodium 25 mcg 11/16/24 13:00 11/17/24 09:03 Levothyroxine Inj 100 Mcg Vial IV 12/14/24 08:59 25 mcg QDAY TARIK Administration Metoprolol Succinate 100 mg 11/14/24 09:00 11/17/24 09:03 Metoprolol Succinate Xl 25 Mg Tabcr PO 12/14/24 08:59 Not Given QDAY TARIK Midodrine 5 mg 11/16/24 12:36 Midodrine 5 Mg Tablet PO 12/16/24 13:59 TID PRN For SBP<100 Mirtazapine 15 mg 11/11/24 21:00 11/16/24 22:30 Mirtazapine 15 Mg Tablet PO 12/11/24 20:59 Not Given HS TARIK Ondansetron HCl 4 mg 11/03/24 14:16 11/03/24 17:26 Ondansetron Inj 2 Mg/Ml Inj 2 Ml IV 12/03/24 14:15 4 mg Q4HR PRN Administration NAUSEA OR VOMITING Pantoprazole Sodium 40 mg 11/05/24 10:45 11/17/24 09:04 Pantoprazole Inj 40 Mg Vial IVP 12/05/24 10:44 40 mg QDAY TAIRK Administration Pharmacy Consult 1 each 11/04/24 09:00 Vancomycin Pharmacy To Dose 1 Each Each IV 12/04/24 08:59 QDAY PRN CONSULT Pharmacy Consult 1 each 11/03/24 21:18 Pharmacy Renal Dose Adjustment 1 Ea XX 12/03/24 21:17 PRN PRN CONSULT Quetiapine Fumarate 25 mg 11/14/24 12:32 11/15/24 14:29 Quetiapine Fumarate 25 Mg Tablet PO 12/14/24 20:59 25 mg BID PRN Administration AGITATION Sennosides 1 tab 11/03/24 19:16 Senna Tablet PO 12/03/24 19:15 BID PRN CONSTIPATION Protocol Sevelamer Carbonate 800 mg 11/16/24 09:00 11/17/24 09:04 Sevelamer Carbonate 800 Mg Tablet PO 12/16/24 08:59 800 mg BID TARIK Administration Plan The patient is a 71-year-old male PMHx of ESRD on HD MWF, HFrEF EF 30%, CVA, hypothyroidism presenting with AMS in setting of CRBSI sepsis. He continued on VANCOMYCIN for MRSA bacteremia. HD cath removed. If blood culture negative tomorrow (48 hours), will proceed with hemodialysis cath insertion. #Sepsis 2/2 catheter site cellulitis (improving) #Catheter site cellulitis #MRSA bacteremia 2/2 CRBSI Met 2/4 SIRS criteria with tachycardia, fever. LA normal, no leukocytosis. HD tunneled cath erythematous and warm suggesting cellulitis. Afebrile, leukocytosis improving. Prelim blood culture showing GPC. Dialysis, significant removed. Continue on Vancomycin. 24-hour blood culture negative. Catheter site cx grew GPC. MRSA nasal swab positive. Repeat blood culture negative Patient will likely finish up antibiotic at SNF Currently finding SNF facility as patient is close to being medically cleared for discharge Concern for abscess or other infection , WBC 21, however no fevers Pt is unable to communicate much information at this time, so we will continue with broad workup Plan: ? Continue vancomycin until 11/19/2024. ? Continue to monitor CBC. - Continue to monitor vitals - CT CAP w/ contrast and repeat blood cultures #Acute encephalopathy. #Severe agitation, improved. #Suspected underlying dementia vs delirium secondary to metabolic encephalopathy. Likely secondary to metabolic encephalopathy. Unclear what baseline is, currently attending, does not follow command, agitated, requiring multiple medications. Continued on soft restraints. Started scheduled HALOPERIDOL. Head CT was negative. No focal neurological deficit. No indication for stroke workup. Neurology consulted, agreed with ANTIPSYCHOTICS for agitation. Patient still agitated and was unable to have a new TDC inserted QT 420, previous ~370s At this time will hold sedating medicines at this time Goals of care conversation held with family, see notes Speech eval recommended dysphagia 1 diet only patient is awake Spoke with patient point of contact for family in regards to updates for patient Agreeable for SNF at this time, as they prefer [facility] or [facility] rehab centers Plan: ? Resumed Seroquel 25 mg twice daily as needed. - Dysphagia diet as long as patient is awake. - Neurology consulted, appreciate recommendations. - Mirtazapine 15 mg every night. - Started on buspirone 10 mg daily. #ESRD on HD //. #Hypomagnesemia, resolved. #Hyperphosphatemia. Patient has dialysis Tuesday, Tuesday, Tuesday. Continue with dialysis TDC Home Dem[employer] Agent Dr Padilla Phosphorous ~8 Plan: ? Sevelamer 800 mg daily increased to BID. ? Renally dose meds, avoid overdiuresis and NEPHROTOXINS ? Daily CMP ? Hemodialysis as scheduled by nephrology ? Continue with dialysis with TDC - Started on midodrine 5 mg 3 times daily PRN for hypotension #NSTEMI, likely type II related to demand ischemia, resolved #History of coronary artery disease status post multiple stents and CABG triple bypass #History of myocardial infarction #Nonsustained supraventricular tachycardia #HFrEF with EF of 35 to 40% #Ischemic cardiomyopathy #Hypotension Unsure when patient's CABG was, will follow-up with records and family Patient takes home Plavix as well in addition to aspirin as well ranolazine Some bouts of nonsustained supraventricular tachycardia with trigeminy seen on telemetry Pt continues to have some tachycardia, but has not been giving home metoprolol doses Pt does have MRSA bactermia, will treat as well Upon review of cardiac catheter records 2 weeks ago at [facility] Saphenous vein graft to left circumflex?occluded whenever send HOOK to LAD?patent Stebbins LAD?moderate to severe disease Saphenous vein graft to RCA patent with good flow Stebbins left coronary artery severe proximal disease Not a candidate for PCI EF 35 to 40% Ischemic cardiomyopathy We want to uptitrate metoprolol back to 200 mg as patient heart rate and blood pressure will tolerate We spoke with family, we recommend for pt not to have any invasive procedures and they agree We also recommend a goals of conversation to be held with primary team and family At this time of concern with hypotension, we will continue with metoprolol XL 100 mg despite risk of hypotension as we want to control the rate Plan: ? Primary team resume home Lipitor 80 mg ? Continue with home ASA 81 ? Patient is currently on metoprolol XL 100 mg ? Keep magnesium and potassium above 2 and 4 respectively ? Continue with midodrine 5 mg TID as needed for hypotension related to dialysis #Hypothyroidism. TSH 4.6 this visit. Plan: ? Continue home LEVOTHYROXINE 50 mcg ACBR. #Normocytic anemia (stable). Patient has Hb of 10.8 No obvious source of bleeding Plan: - We will monitor closely, may need outpatient workup. #Health Maintenance Disposition: Telemetry. DVT prophylaxis: SCDs. GI prophylaxis: Protonix. Diet: Dysphagia 1. CODE STATUS: DNR/DNI. Patient seen and care discussed with my senior resident, Dr. Lundberg, and my attending physician, Dr. Adele Lau, PGY-1 Attending Provider Attestation/Addendum I reviewed labs, imaging, EKG, home medications and prior available records. Face to face evaluation was performed by me. I have personally examined the patient and discussed assessment and plan with the IM team. I reviewed the resident note and agree with the plan with exceptions as below. Leukocytosis: Getting worse. Etiology is unclear however patient is being treated for infection. Ordered CT scan of the chest, abdomen, and pelvis to look for source of infection. Ordered a new set of blood cultures. Acute hypotension: Required rapid response 11/16. BP is now stable. Continue midodrine as needed. Decreased the dose of metoprolol. Continue to monitor BP. Acute encephalopathy/hyperactive agitation: Likely hyperactive delirium in the setting of baseline dementia. Possibly multifactorial in the setting of MRSA infection, pain, sleep deprivation, hunger/thirst, anxiety. Management of infection as below. Delirium precautions. Ordered swallow evaluation and started the patient on diet. Okay to ice chips. Discussed with neurology: Discontinue pramipexole. Started quetiapine 25 mg twice daily as needed. Started buspirone. Started mirtazapine. MRSA dialysis line infection: Continue IV vancomycin. Status post insertion of a new right femoral dialysis catheter ESRD on hemodialysis: He is receiving hemodialysis via the new right femoral dialysis catheter that was inserted after 48 hours of negative blood cultures. Nephrology is following Non-STEMI: No active chest complaints. Continue aspirin and atorvastatin Ventricular tachycardia: Nonsustained. Continue metoprolol XL. Cardiology is following Debility: PT recommended SNF. Discussed with son: Okay to proceed.
[2024-11-17 10:24] LABS: Magnesium 2.1 mg/dL (1.6-2.6); Phosphorous 7.9 mg/dL (2.4-5.1)
[2024-11-17] MEDS: ASPIRIN EC 81 MG TABEC PO (11:14)
--- NOTE | 2024-11-17 12:38 | PD.RESPRO ---
Documentation for date of: 11/17/24 Subjective Subjective Interval history: 09/16: no acute overnight events. pt is seen and examined at bedside this moning, son and are at bedside. Pt is awake, alert and less aggitated, mittens are still in place. Pt is able to answer questions and ask for a drink. pt's family at bedside reported that before he came to the hospital he was very independed, loved to garden and fix things around the house. He ambulated without assistence. pt denies chest pain, pressure. Pt has no complaints. Exam Vital Signs Temp Pulse Resp BP Pulse Ox O2 Del Method O2 Flow Rate 97.5 F 94 15 108/90 H 99 Nasal Cannula 2 11/17/24 08:00 11/17/24 09:03 11/17/24 08:00 11/17/24 09:03 11/17/24 08:00 11/17/24 08:00 11/17/24 08:00 Narrative Exam GENERAL:AAOx2 and bale to answer to some questions, agitated, wearing diaper, wrist restraints present NEURO: unable to asses due to Pts mental status HEENT: Atraumatic, Normocephalic. mucous membranes moist. Eyes open, symmetrical, & clear HEART: Normal Heart Sounds LUNGS: Clear to auscultation with no wheezing or crackles. ABDOMEN: soft, non-distended, non-tender, bowel sounds heard, no guarding or rebound tenderness SKIN: No Rash or ecchymoses EXTREMITIES: No edema, tenderness, able to move all 4 extremities, pedal pulses palpated Objective Labs 11/17/24 05:29 11/17/24 05:29 Labs: Laboratory Results - last 24 hr 11/17/24 11/17/24 05:29 09:50 WBC 21.3 H D RBC 4.43 L Hgb 14.0 Hct 40.8 L MCV 92 MCH 31.6 MCHC 34.3 RDW Std Deviation 48.5 H Plt Count 148 D Neut % (Auto) 83 H Lymph % (Auto) 8 L [place]utherford % (Auto) 7 Eos % (Auto) 1 Baso % (Auto) 0 Neut # (Auto) 17.7 H Lymph # (Auto) 1.8 [place]utherford # (Auto) 1.6 H Eos # (Auto) 0.1 Baso # (Auto) 0.1 Immature Gran # (Auto) 0.14 H Absolute Nucleated RBC 0.00 Immature Gran % 1 H Nucleated RBC % 0 Sodium 139 Potassium 4.7 Chloride 102 Carbon Dioxide 20.0 Anion Gap 17 H BUN 82 H Creatinine 8.2 H* D Estim Creat Clear Calc 8.7 L eGFR 6 L* BUN/Creatinine Ratio 10 L Glucose 137 H Calculated Osmolality 304 H Calcium 10.2 Corrected Calcium 10.2 H Phosphorus 7.9 H Magnesium 2.1 Total Bilirubin 0.8 AST 15 ALT 12 Alkaline Phosphatase 154 H Total Protein 7.2 Albumin 5.2 H Globulin 2.0 L Albumin/Globulin Ratio 2.6 H Random Vancomycin 21.7 ABG Interpretation ABG results: 11/03/24 11/11/24 11/13/24 14:12 12:22 21:50 VBG pH 7.39 7.35 7.37 VBG pCO2 43 44 35 L VBG pO2 35 38 29 VBG Base Excess 1 -2 -5 L Quality Measures Quality Measures sepsis Current suspected stage: ruled out Possible source: CLABSI Blood cultures ordered: yes Antibiotic ordered: Yes Advance care planning discussed with:: spouse Assessment & Plan Assessment Current Active Medications: Generic Name Dose Route Start Last Admin Trade Name Freq PRN Reason Stop Dose Admin Acetaminophen 650 mg 11/03/24 19:16 Acetaminophen 325 Mg Tablet PO 12/03/24 19:15 Q6H PRN PAIN SCALE 1-3 (mild Acetaminophen 650 mg 11/03/24 21:16 Acetaminophen Supp 650 Mg Supp [place] 12/03/24 21:29 Q6H PRN Fever > 100.4 Albuterol/Ipratropium 3 ml 11/03/24 19:16 Albuterol/Ipratropium (Duoneb) Rt Dianne 3 Ml Nebu INH 12/03/24 22:59 Q4HRRT PRN SOB or wheezing Aspirin 81 mg 11/17/24 10:30 11/17/24 11:14 Aspirin Ec 81 Mg Tabec PO 12/17/24 10:29 81 mg QDAY TARIK Administration Atorvastatin Calcium 80 mg 11/04/24 21:00 11/16/24 22:30 Atorvastatin Calcium 20 Mg Tablet PO 12/04/24 20:59 Not Given HS TARIK Buspirone HCl 10 mg 11/16/24 14:00 11/17/24 05:09 Buspirone Hcl 5 Mg Tablet PO 12/16/24 13:59 Not Given TID TARIK Heparin Sodium (Porcine) 3,500 unit 11/14/24 10:00 11/14/24 11:37 Heparin Sod Inj 1000 Unit/Ml Vial 10 Ml INDWELLCAT 11/28/24 09:59 3,500 unit X1 PRN Administration DIALYSIS Albumin Human 25 gm in 100 mls @ 100 mls/min 11/05/24 10:19 11/16/24 09:42 Albuminar-25 Ivpb IV 100 mls/min QDAY PRN Administration DIALYSIS Albumin Human 25 gm in 100 mls @ 100 mls/hr 11/16/24 12:32 11/17/24 09:02 Albuminar-25 Ivpb IV 11/19/24 12:31 100 mls/hr QDAY TARIK Administration Levothyroxine Sodium 50 mcg 11/08/24 11:30 11/14/24 05:26 Levothyroxine Sodium 25 Mcg Tablet PO 12/08/24 11:29 Not Given ACBR TARIK Levothyroxine Sodium 25 mcg 11/16/24 13:00 11/17/24 09:03 Levothyroxine Inj 100 Mcg Vial IV 12/14/24 08:59 25 mcg QDAY TARIK Administration Metoprolol Succinate 100 mg 11/14/24 09:00 11/17/24 09:03 Metoprolol Succinate Xl 25 Mg Tabcr PO 12/14/24 08:59 Not Given QDAY TARIK Midodrine 5 mg 11/16/24 12:36 Midodrine 5 Mg Tablet PO 12/16/24 13:59 TID PRN For SBP<100 Mirtazapine 15 mg 11/11/24 21:00 11/16/24 22:30 Mirtazapine 15 Mg Tablet PO 12/11/24 20:59 Not Given HS TARIK Ondansetron HCl 4 mg 11/03/24 14:16 11/03/24 17:26 Ondansetron Inj 2 Mg/Ml Inj 2 Ml IV 12/03/24 14:15 4 mg Q4HR PRN Administration NAUSEA OR VOMITING Pantoprazole Sodium 40 mg 11/05/24 10:45 11/17/24 09:04 Pantoprazole Inj 40 Mg Vial IVP 12/05/24 10:44 40 mg QDAY TARIK Administration Pharmacy Consult 1 each 11/04/24 09:00 Vancomycin Pharmacy To Dose 1 Each Each IV 12/04/24 08:59 QDAY PRN CONSULT Pharmacy Consult 1 each 11/03/24 21:18 Pharmacy Renal Dose Adjustment 1 Ea XX 12/03/24 21:17 PRN PRN CONSULT Quetiapine Fumarate 25 mg 11/14/24 12:32 11/15/24 14:29 Quetiapine Fumarate 25 Mg Tablet PO 12/14/24 20:59 25 mg BID PRN Administration AGITATION Sennosides 1 tab 11/03/24 19:16 Senna Tablet PO 12/03/24 19:15 BID PRN CONSTIPATION Protocol Sevelamer Carbonate 800 mg 11/16/24 09:00 11/17/24 09:04 Sevelamer Carbonate 800 Mg Tablet PO 12/16/24 08:59 800 mg BID TARIK Administration Plan Malik is a 79-year-old male past medical history of past medical history of ESRD on hemodialysis (MWF, sees Dr. Padilla), HFrEF (possibly EF of 30), Previous CVA, possible hypothyroidism currently admitted for sepsis secondary to catheter related bloodstream infection which is showing GPC currently. repeat blood cultures on 11/05 have no growth for more than 24 hours. #Sepsis secondary to # MRSA bacteremia -Patient underwent catheter holiday and hemodialysis catheter was removed and multiple attempts have been made since to replace patient's tunnel catheter since patient's blood cultures have been negative for 5 days however due to patient's agitation and inability to stay still a permanent tunneled catheter have not been placed. Patient have undergone 2 temporary dialysis catheter. -Patient is on vancomycin until 11/19/2024 #PVCs-patient's PVC frequency have decreased to less than5%, will continue metoprolol 100 Mg daily if patient's blood pressure permits then will increase metoprolol when able # NSTEMI type II-likely demand ischemia in the setting of sepsis -Initial troponins0.058 ->peaked at 0.976 and downtrended to 0.900 -Keep potassium above 4 and magnesium above 2 at all times -Patient underwent cardiac catheterization which showed 2 of the 3 severe CAD however no intervention can be done at this time due to patient's current condition therefore we will continue medical management #HFrEF -Echocardiogram during this hospital admission showed ejection fraction of EF of 25 to 30% with dilated cardiomyopathy including dilated LV RV RV and LA. Moderate MR and TR. Grade 2 diastolic dysfunction, moderately reduced RV function. -Per family's decision patient's CODE STATUS have been changed to DNR/DNI therefore they do not wish any further invasive procedures or interventions to be done as patient's current condition is unstable. # Acute encephalopathy #Severe agitation # Dementia -Patient continues to be confused and appears to be agitated therefore often put on restraints using soft mittens. -Patient's home antipsychotics have been on hold as per primary hospitalist team. -Neurologist is consulted and following # End-stage renal disease on hemodialysis Tuesday. -Patient continues to undergo dialysis as per schedule through temporary dialysis catheter. -Plans to reattempt a tunneled dialysis catheter would be at a later time Assessment and plan discussed with my attending physician Dr. Ciara Ireland (PGY-1)- Internal medicine resident Attending Provider Attestation/Addendum I have personally seen and examined the patient separately on the above date of service and discussed the plan of care with the resident. I reviewed the resident Dr. Brennon Ireland consultation progress note and agree with the resident findings and plan in the note above and have also edited the documentation to reflect my findings and plan. Bismark Urbina M.D. Interventional Cardiology
[2024-11-17] MEDS: BusPIRone HCL 5 MG TABLET 10 MG PO ×2 (14:10→21:06)
[2024-11-17] MEDS: MIRTAZAPINE 15 MG TABLET PO (20:44)
[2024-11-17] MEDS: ATORVASTATIN CALCIUM 20 MG TABLET 80 MG PO (20:44)
[2024-11-17] MEDS: Magnesium Sulfate 2 GM Ivpb 2 GM/50 ML BAG IV (22:07)
[2024-11-17] MEDS: QUEtiapine FUMARATE 25 MG TABLET PO (22:08)
[2024-11-18] VITALS (9 sets, daily range): BP systolic 113–151; BP diastolic 60–88; PULSE 63–83; RESP 12–20; TEMP 36–36.4; O2SAT 92–100; BMI 29.7
[2024-11-18] MEDS: BusPIRone HCL 5 MG TABLET 10 MG PO (05:22)
[2024-11-18 05:47] LABS: Basophils # (Auto) 0.1 Thou/mm3 (0.0-0.2); Basophils % (Auto) 0 % (0-2.5); Eosinophils # (Auto) 0.2 Thou/mm3 (0.0-0.5); Eosinophils % (Auto) 1 % (0-10); Hematocrit 38.5 % (41.0-53.0); Immature Granulocytes % (Auto) 1 % (0-0); Immature Granulocytes Auto 0.11 Thou/mm3 (0.00-0.00); Lymphocytes # (Auto) 1.9 Thou/mm3 (1.0-4.8); Lymphocytes % (Auto) 9 % (10-50); Mean Corpuscular HGB Conc 33.8 g/dl (31.0-37.0); Mean Corpuscular Hemoglobin 30.9 pg (25.0-35.0); Mean Corpuscular Volume 91 fL (80-100); Monocytes # (Auto) 1.5 Thou/mm3 (0.0-0.8); Monocytes % (Auto) 7 % (0-12); Neutrophils # (Auto) 18.1 Thou/mm3 (1.8-7.7); Neutrophils % (Auto) 83 % (37-80); Nucleated Red Blood Cell % 0 /100 WBC (0); Platelet Count 186 Thou/mm3 (140-440); RDW Standard Deviation 47.8 fL (35.1-43.9); Red Blood Count 4.21 Miln/mm3 (4.50-5.90); White Blood Count 21.9 Thou/mm3 (3.8-10.6)
[2024-11-18 06:23] LABS: Alanine Aminotransferase 9 U/L (10-49); Albumin, Serum 5.1 gm/dL (3.4-4.8); Albumin/Globulin Ratio 2.7 (1.2-2.2); Alkaline Phosphatase 145 U/L (46-116); Anion Gap 18 (7-16); Aspartate Amino Transferase 10 U/L (0-34); BUN/Creatinine Ratio 11 Ratio (12-20); Bilirubin,Total 0.6 mg/dL (0.3-1.2); Calcium 10.1 mg/dL (8.3-10.6); Calcium (Corrected) 10.1 mg/dL (8.5-10.1); Carbon Dioxide 20.6 mMol/L (20.0-31.0); Chloride 98 mMol/L (98-107); Creatinine (Component) 9.4 mg/dL (0.6-1.3); Estimated Creatinine Clearance 7.5 mL/min (>60); Globulin 1.9 gm/dL (2.3-3.5); Glucose 124 mg/dL (74-106); Magnesium 2.7 mg/dL (1.6-2.6); Osmolality,Calculated 308 (275-295); Phosphorous 8.8 mg/dL (2.4-5.1); Sodium 137 mMol/L (136-145); eGFR 5 See Note
[2024-11-18 06:25] LABS: Blood Urea Nitrogen 107 mg/dL (9-23)
[2024-11-18] MEDS: SEVELAMER CARBONATE 0.8 GM PACKET (NON-FORMULARY) PO (09:53)
[2024-11-18] MEDS: METOPROLOL SUCCINATE XL 25 MG TABCR 100 MG PO (09:54)
[2024-11-18] MEDS: ALBUMIN HUMAN 25% IVPB 25 GM/100 ML BTL IV (09:54)
[2024-11-18] MEDS: ASPIRIN 81 MG CHEW PO (09:56)
[2024-11-18] MEDS: LEVOTHYROXINE INJ 100 mCg VIAL 25 MCG IV (09:57)
[2024-11-18] MEDS: PANTOPRAZOLE INJ 40 MG VIAL IVP (09:57)
--- NOTE | 2024-11-18 11:17 | PD.RESPRO ---
Documentation for date of: 11/18/24 Subjective Subjective Interval history: 11/12/2024: Pt examined at bedside dialysis today. Pt appears to still be agitated was given Ativan overnight. He is kicking his legs in a dialysis bed and it is hard to have him still for dialysis to be proceeded. we will place leg restraints to stabilize patient for dialysis session. He is still unable to answer questions fully at this time and appears to be agitated his BUN/creatinine 76 and 5.3, white count 8.2, hemoglobin 12.5, potassium 4.6, magnesium 2.3, 6 this morning. Blood pressure still appears to be stable however it is 137/51, telemetry reviewed rate appears to be in the 80s, however still has some trigeminy occurring. He is currently on metoprolol 50 mg twice a day. No other complaints at this time. 11/13/2024: Patient examined at bedside today. Patient still appears to be agitated and does not want to be directly examined. He is to get tunneled dialysis catheter today to be done by IR. Goals of care discussion to be held with family today. Will hold on sedating medicines at this time. No other complaints at this time. 11/14/2024: Patient examined at bedside today. Patient still appears to be in bigeminy rate controlled in 90s seen on telemetry. Patient is undergoing dialysis today with new TDC, got 1.5 L removed. Patient still appears to be slightly agitated, however patient was able to pass swallow eval by speech therapy. Will start on recommended diet. Patient's white count today 2.1, hemoglobin 13.2, BUN/creatinine 96 and 7.4 respectively, phosphorus 8.9, magnesium 2.3, potassium 4.9, calcium 9.8. No other complaints this time 11/15/2024: Patient examined at bedside today. Patient still appears to be in bigeminy rate controlled CAD and 80s seen on telemetry. Patient was able to pass swallow eval yesterday, has been intermittently using on dysphagia diet, however has been a bit agitated as well. Has been able to respond to some commands but does not answer all questions. White count 13.6, hemoglobin 14.6, potassium 4.4, phosphorus 8.5, magnesium 2.3, BUN/creatinine 81 7.2. Blood pressure 120/70 and heart rate 83. 11/17/2024: Pt examined at bedside today. Pt still appears to be in bigeminy at this time, rate controlled in 90s. Pt appears more alert today, however is unable to communicate well with his words. Unable to fully understand patient all the time. BUN/Cr today 82 and 8.2, potassium 4.7, phos ~8, WBC count 21.3, no fevers overnight. No other complaints at this time 11/18/2024: Pt examined at bedside today. Pt still appears to be in bigeminy at this time, rate controleld in the 80s. Pt appears to be much more alert today, is making some sense with his words at this time. BUN/Cr today 107 and 9.4, white count 22, hemoglobin 13, potassium 5, phosphorus 3.8, magnesium 2.7, sodium 137, glucose 124. No other complaints at this time Exam Vital Signs Temp Pulse Resp BP Pulse Ox O2 Del Method O2 Flow Rate 96.9 F 80 20 133/70 H 95 Nasal Cannula 2 11/18/24 08:00 11/18/24 09:54 11/18/24 08:00 11/18/24 09:54 11/18/24 08:00 11/18/24 08:00 11/18/24 08:00 Narrative Exam General: AAOx1, awake, able to answer some questions, NAD HEENT: Moist mucous membranes, conjunctiva clear, EOMI, PERRLA, poor dentition Cardiovascular: Possible murmur heard over SNOW, tachycardic Pulmonary: CTAB bilat no cough, no wheezing GI: No tenderness to light or deep palpitation, no guarding, rigidity, rebound tenderness or distension Extremities: No presence of trace or pitting edema in lower extremities bilaterally, dorsalis pedis pulses +2 bilaterally Neuro: AAOx1, no focal motor or sensory deficits in the UE or LE bilat Psych: Slightly cooperative Objective Labs 11/19/24 04:52 11/19/24 04:52 Labs: Laboratory Results - last 24 hr 11/18/24 04:33 WBC 21.9 H RBC 4.21 L Hgb 13.0 L Hct 38.5 L MCV 91 MCH 30.9 MCHC 33.8 RDW Std Deviation 47.8 H Plt Count 186 D Neut % (Auto) 83 H Lymph % (Auto) 9 L [place] % (Auto) 7 Eos % (Auto) 1 Baso % (Auto) 0 Neut # (Auto) 18.1 H Lymph # (Auto) 1.9 [place] # (Auto) 1.5 H Eos # (Auto) 0.2 Baso # (Auto) 0.1 Immature Gran # (Auto) 0.11 H Absolute Nucleated RBC 0.00 Immature Gran % 1 H Nucleated RBC % 0 Sodium 137 Potassium 5.0 Chloride 98 Carbon Dioxide 20.6 Anion Gap 18 H BUN 107 H* Creatinine 9.4 H* D Estim Creat Clear Calc 7.5 L eGFR 5 L* BUN/Creatinine Ratio 11 L Glucose 124 H Calculated Osmolality 308 H Calcium 10.1 Corrected Calcium 10.1 Phosphorus 8.8 H Magnesium 2.7 H Total Bilirubin 0.6 AST 10 ALT 9 L Alkaline Phosphatase 145 H Total Protein 7.0 Albumin 5.1 H Globulin 1.9 L Albumin/Globulin Ratio 2.7 H Random Vancomycin 19.0 ABG Interpretation ABG results: 11/03/24 11/11/24 11/13/24 14:12 12:22 21:50 VBG pH 7.39 7.35 7.37 VBG pCO2 43 44 35 L VBG pO2 35 38 29 VBG Base Excess 1 -2 -5 L Quality Measures Quality Measures sepsis Current suspected stage: sepsis Possible source: CLABSI Blood cultures ordered: yes Antibiotic ordered: Yes Advance care planning discussed with:: patient Assessment & Plan Assessment Current Active Medications: Generic Name Dose Route Start Last Admin Trade Name Freq PRN Reason Stop Dose Admin Acetaminophen 650 mg 11/03/24 19:16 Acetaminophen 325 Mg Tablet PO 12/03/24 19:15 Q6H PRN PAIN SCALE 1-3 (mild Acetaminophen 650 mg 11/03/24 21:16 Acetaminophen Supp 650 Mg Supp [place] 12/03/24 21:29 Q6H PRN Fever > 100.4 Albuterol/Ipratropium 3 ml 11/03/24 19:16 Albuterol/Ipratropium (Duoneb) Rt Dianne 3 Ml Nebu INH 12/03/24 22:59 Q4HRRT PRN SOB or wheezing Aspirin 81 mg 11/18/24 09:00 11/18/24 09:56 Aspirin 81 Mg Chew PO 12/18/24 08:59 81 mg QDAY TARIK Administration Atorvastatin Calcium 80 mg 11/04/24 21:00 11/17/24 20:44 Atorvastatin Calcium 20 Mg Tablet PO 12/04/24 20:59 80 mg HS TARIK Administration Buspirone HCl 10 mg 11/16/24 14:00 11/18/24 05:22 Buspirone Hcl 5 Mg Tablet PO 12/16/24 13:59 10 mg TID TARIK Administration Heparin Sodium (Porcine) 3,500 unit 11/14/24 10:00 11/14/24 11:37 Heparin Sod Inj 1000 Unit/Ml Vial 10 Ml INDWELLCAT 11/28/24 09:59 3,500 unit X1 PRN Administration DIALYSIS Albumin Human 25 gm in 100 mls @ 100 mls/min 11/05/24 10:19 11/16/24 09:42 Albuminar-25 Ivpb IV 100 mls/min QDAY PRN Administration DIALYSIS Albumin Human 25 gm in 100 mls @ 100 mls/hr 11/16/24 12:32 11/18/24 09:54 Albuminar-25 Ivpb IV 11/19/24 12:31 100 mls/hr QDAY TARIK Administration Lactulose 20 gm 11/18/24 14:00 Lactulose Syrup 20 Gm/30 Ml Udc PO 12/18/24 13:59 TID TARIK Protocol Levothyroxine Sodium 50 mcg 11/08/24 11:30 11/14/24 05:26 Levothyroxine Sodium 25 Mcg Tablet PO 12/08/24 11:29 Not Given ACBR TARIK Levothyroxine Sodium 25 mcg 11/16/24 13:00 11/18/24 09:57 Levothyroxine Inj 100 Mcg Vial IV 12/14/24 08:59 25 mcg QDAY TARIK Administration Metoprolol Succinate 100 mg 11/14/24 09:00 11/18/24 09:54 Metoprolol Succinate Xl 25 Mg Tabcr PO 12/14/24 08:59 100 mg QDAY TARIK Administration Midodrine 5 mg 11/16/24 12:36 Midodrine 5 Mg Tablet PO 12/16/24 13:59 TID PRN For SBP<100 Mirtazapine 15 mg 11/11/24 21:00 11/17/24 20:44 Mirtazapine 15 Mg Tablet PO 12/11/24 20:59 15 mg HS TARIK Administration Mupirocin 0 gm 11/18/24 09:42 Mupirocin Oint 2% 15 Gm Tube TOP 11/25/24 08:29 TID TARIK Ondansetron HCl 4 mg 11/03/24 14:16 11/03/24 17:26 Ondansetron Inj 2 Mg/Ml Inj 2 Ml IV 12/03/24 14:15 4 mg Q4HR PRN Administration NAUSEA OR VOMITING Pantoprazole Sodium 40 mg 11/05/24 10:45 11/18/24 09:57 Pantoprazole Inj 40 Mg Vial IVP 12/05/24 10:44 40 mg QDAY TARIK Administration Pharmacy Consult 1 each 11/04/24 09:00 Vancomycin Pharmacy To Dose 1 Each Each IV 12/04/24 08:59 QDAY PRN CONSULT Pharmacy Consult 1 each 11/03/24 21:18 Pharmacy Renal Dose Adjustment 1 Ea XX 12/03/24 21:17 PRN PRN CONSULT Quetiapine Fumarate 25 mg 11/14/24 12:32 11/17/24 22:08 Quetiapine Fumarate 25 Mg Tablet PO 12/14/24 20:59 25 mg BID PRN Administration AGITATION Sennosides 1 tab 11/03/24 19:16 Senna Tablet PO 12/03/24 19:15 BID PRN CONSTIPATION Protocol Sevelamer Carbonate 0.8 gm 11/18/24 09:00 11/18/24 09:53 Sevelamer Carbonate 0.8 Gm Packet (Non-Formulary) PO 12/18/24 08:59 0.8 gm BID TARIK Administration Plan Assessment Malik is a 71-year-old male PMHx of ESRD on HD MWF, HFrEF EF 30%, CVA, hypothyroidism presenting with AMS in setting of CRBSI sepsis. He continued on VANCOMYCIN for MRSA bacteremia. HD cath removed. If blood culture negative tomorrow (48 hours), will proceed with hemodialysis cath insertion. #Sepsis 2/2 catheter site cellulitis (improving) #Catheter site cellulitis #MRSA bacteremia 2/2 CRBSI Met 2/4 SIRS criteria with tachycardia, fever. LA normal, no leukocytosis. HD tunneled cath erythematous and warm suggesting cellulitis. Afebrile, leukocytosis improving. Prelim blood culture showing GPC. Dialysis, significant removed. Continue on Vancomycin. 24-hour blood culture negative. Catheter site cx grew GPC. MRSA nasal swab positive. Repeat blood culture negative Patient will likely finish up antibiotic at [facility] Currently finding SNF facility as patient is close to being medically cleared for discharge Concern for abscess or other infection , WBC 21, however no fevers Pt is unable to communicate much information at this time, so we will continue with broad workup CT CAP showed colon full of stool, possible proctitis pattern, no abscess found Plan: ? Continue vancomycin until 11/19/2024. ? Continue to monitor CBC. - Continue to monitor vitals #Leukocytosis #Acute encephalopathy #Severe agitation, improved. #Suspected underlying dementia vs delirium secondary to metabolic encephalopathy. Likely secondary to metabolic encephalopathy. Unclear what baseline is, currently attending, does not follow command, agitated, requiring multiple medications. Continued on soft restraints. Started scheduled HALOPERIDOL. Head CT was negative. No focal neurological deficit. No indication for stroke workup. Neurology consulted, agreed with ANTIPSYCHOTICS for agitation. Patient still agitated and was unable to have a new TDC inserted QT 420, previous ~370s At this time will hold sedating medicines at this time Goals of care conversation held with family, see notes Speech eval recommended dysphagia 1 diet only patient is awake Spoke with patient point of contact for family in regards to updates for patient Agreeable for SNF at this time, as they prefer possibly [facility] or [facility] rehab centers Will continue with bowel regimen as this may be contributing to patient's agitation and new leukocytosis Plan: ? Resumed Seroquel 25 mg twice daily as needed. - Dysphagia diet as long as patient is awake. - Neurology consulted, appreciate recommendations. - Mirtazapine 15 mg every night. - Started on buspirone 10 mg daily ?Lactulose 20 mg daily ?Enema mineral oil ? Bedside commode #ESRD on HD //. #Hypomagnesemia, resolved. #Hyperphosphatemia. Patient has dialysis Tuesday, Tuesday, Tuesday. Continue with dialysis TDC Bag Cutter Dr Padilla Phosphorous ~8.8 Plan: ? Sevelamer 800 mg daily increased to BID. ? Renally dose meds, avoid overdiuresis and NEPHROTOXINS ? Daily CMP ? Hemodialysis as scheduled by nephrology ? Continue with dialysis with TDC - Started on midodrine 5 mg 3 times daily PRN for hypotension #NSTEMI, likely type II related to demand ischemia, resolved #History of coronary artery disease status post multiple stents and CABG triple bypass #History of myocardial infarction #Nonsustained supraventricular tachycardia #HFrEF with EF of 35 to 40% #Ischemic cardiomyopathy #Hypotension Unsure when patient's CABG was, will follow-up with records and family Patient takes home Plavix as well in addition to aspirin as well ranolazine Some bouts of nonsustained supraventricular tachycardia with trigeminy seen on telemetry Pt continues to have some tachycardia, but has not been giving home metoprolol doses Pt does have MRSA bactermia, will treat as well Upon review of cardiac catheter records [address] [facility], [place] Saphenous vein graft to left circumflex?occluded whenever send HOOK to LAD?patent [place] LAD?moderate to severe disease Saphenous vein graft to RCA patent with good flow [place] left coronary artery severe proximal disease Not a candidate for PCI EF 35 to 40% Ischemic cardiomyopathy We want to uptitrate metoprolol back to 200 mg as patient heart rate and blood pressure will tolerate We spoke with family, we recommend for pt not to have any invasive procedures and they agree We also recommend a goals of conversation to be held with primary team and family At this time of concern with hypotension, we will continue with metoprolol XL 100 mg despite risk of hypotension as we want to control the rate Plan: ? Primary team resume home Lipitor 80 mg ? Continue with home ASA 81 ? Patient is currently on metoprolol XL 100 mg ? Keep magnesium and potassium above 2 and 4 respectively ? Continue with midodrine 5 mg TID as needed for hypotension related to dialysis #Hypothyroidism. TSH 4.6 this visit. Plan: ? Continue home LEVOTHYROXINE 50 mcg ACBR. #Normocytic anemia (stable). Patient has Hb of 10.8 No obvious source of bleeding Plan: - We will monitor closely, may need outpatient workup. #Health Maintenance Disposition: Telemetry. DVT prophylaxis: SCDs. GI prophylaxis: Protonix. Diet: Dysphagia 1. CODE STATUS: DNR/DNI. Patient seen and care discussed with my senior resident, Dr. Uriostegui and my attending physician, Dr. Adele Lau, PGY-1 Attending Provider Attestation/Addendum I reviewed labs, imaging, EKG, home medications and prior available records. Face to face evaluation was performed by me. I have personally examined the patient and discussed assessment and plan with the IM team. I reviewed the resident note and agree with the plan with exceptions as below. Leukocytosis: Uptrending. Possibly due to severe constipation/urinary retention. Had a bowel movement. Continue constipation care. Treatment of infection as below. Trend WBC Acute hypotension: BP is currently stable. Continue midodrine as needed. Monitor BP Acute encephalopathy/hyperactive agitation: Improved. Likely hyperactive delirium in the setting of baseline dementia. Possibly multifactorial in the setting of MRSA infection, pain, sleep deprivation, hunger/thirst, anxiety. Management of infection as below. Delirium precautions. Ordered swallow evaluation and started the patient on diet. Okay to ice chips. Discussed with neurology: Discontinue pramipexole. Started quetiapine 25 mg twice daily as needed. Started buspirone. Started mirtazapine. MRSA dialysis line infection: Continue IV vancomycin. Status post insertion of a new right femoral dialysis catheter ESRD on hemodialysis: He is receiving hemodialysis via the new right femoral dialysis catheter that was inserted after 48 hours of negative blood cultures. Nephrology is following Non-STEMI: No active chest complaints. Continue aspirin and atorvastatin Ventricular tachycardia: Nonsustained. Continue metoprolol XL. Cardiology is following Debility: PT recommended SNF. Discussed with son: Okay to proceed.
--- NOTE | 2024-11-18 12:44 | PD.RESPRO ---
Documentation for date of: 11/18/24 Subjective Subjective Interval history: 11/18: no acute overnight events reported. Pt is seen and examined at bedside. Pt is AOx3. Pt denies chest pain, diziness or palpitations. Family is at bedside and reports Pt is eager to go home. Pt understands he first has to go to rehad for sometime to get his strength back. Pt undergoes dialysis MWF. pt is on metoprolol 50xl daily, primary team has also added midodrine 5mg TID due to soft BP. potassium is 5.0 and magnesium is 2.7. Pt has no complaints. Exam Vital Signs Temp Pulse Resp BP Pulse Ox O2 Del Method O2 Flow Rate 96.9 F 80 20 133/70 H 95 Nasal Cannula 2 11/18/24 08:00 11/18/24 09:54 11/18/24 08:00 11/18/24 09:54 11/18/24 08:00 11/18/24 08:00 11/18/24 08:00 Narrative Exam GENERAL:AAOx3, awake and answers questions, wearing diaper, wrist restraints present NEURO: no neuralgic deficits noted HEENT: Atraumatic, Normocephalic. mucous membranes moist. Eyes open, symmetrical, & clear HEART: Normal Heart Sounds LUNGS: Clear to auscultation with no wheezing or crackles. ABDOMEN: soft, non-distended, non-tender, bowel sounds heard, no guarding or rebound tenderness SKIN: No Rash or ecchymoses EXTREMITIES: No edema, tenderness, able to move all 4 extremities, pedal pulses palpated Objective Labs 11/18/24 04:33 11/18/24 04:33 Labs: Laboratory Results - last 24 hr 11/18/24 04:33 WBC 21.9 H RBC 4.21 L Hgb 13.0 L Hct 38.5 L MCV 91 MCH 30.9 MCHC 33.8 RDW Std Deviation 47.8 H Plt Count 186 D Neut % (Auto) 83 H Lymph % (Auto) 9 L [place] % (Auto) 7 Eos % (Auto) 1 Baso % (Auto) 0 Neut # (Auto) 18.1 H Lymph # (Auto) 1.9 [place] # (Auto) 1.5 H Eos # (Auto) 0.2 Baso # (Auto) 0.1 Immature Gran # (Auto) 0.11 H Absolute Nucleated RBC 0.00 Immature Gran % 1 H Nucleated RBC % 0 Sodium 137 Potassium 5.0 Chloride 98 Carbon Dioxide 20.6 Anion Gap 18 H BUN 107 H* Creatinine 9.4 H* D Estim Creat Clear Calc 7.5 L eGFR 5 L* BUN/Creatinine Ratio 11 L Glucose 124 H Calculated Osmolality 308 H Calcium 10.1 Corrected Calcium 10.1 Phosphorus 8.8 H Magnesium 2.7 H Total Bilirubin 0.6 AST 10 ALT 9 L Alkaline Phosphatase 145 H Total Protein 7.0 Albumin 5.1 H Globulin 1.9 L Albumin/Globulin Ratio 2.7 H Random Vancomycin 19.0 ABG Interpretation ABG results: 11/03/24 11/11/24 11/13/24 14:12 12:22 21:50 VBG pH 7.39 7.35 7.37 VBG pCO2 43 44 35 L VBG pO2 35 38 29 VBG Base Excess 1 -2 -5 L Quality Measures Quality Measures sepsis Current suspected stage: ruled out Possible source: CLABSI Blood cultures ordered: yes Antibiotic ordered: Yes Advance care planning discussed with:: patient and spouse Assessment & Plan Assessment Current Active Medications: Generic Name Dose Route Start Last Admin Trade Name Freq PRN Reason Stop Dose Admin Acetaminophen 650 mg 11/03/24 19:16 Acetaminophen 325 Mg Tablet PO 12/03/24 19:15 Q6H PRN PAIN SCALE 1-3 (mild Acetaminophen 650 mg 11/03/24 21:16 Acetaminophen Supp 650 Mg Supp [place] 12/03/24 21:29 Q6H PRN Fever > 100.4 Albuterol/Ipratropium 3 ml 11/03/24 19:16 Albuterol/Ipratropium (Duoneb) Rt Dianne 3 Ml Nebu INH 12/03/24 22:59 Q4HRRT PRN SOB or wheezing Aspirin 81 mg 11/18/24 09:00 11/18/24 09:56 Aspirin 81 Mg Chew PO 12/18/24 08:59 81 mg QDAY TARIK Administration Atorvastatin Calcium 80 mg 11/04/24 21:00 11/17/24 20:44 Atorvastatin Calcium 20 Mg Tablet PO 12/04/24 20:59 80 mg HS TARIK Administration Buspirone HCl 10 mg 11/16/24 14:00 11/18/24 05:22 Buspirone Hcl 5 Mg Tablet PO 12/16/24 13:59 10 mg TID TARIK Administration Heparin Sodium (Porcine) 3,500 unit 11/14/24 10:00 11/14/24 11:37 Heparin Sod Inj 1000 Unit/Ml Vial 10 Ml INDWELLCAT 11/28/24 09:59 3,500 unit X1 PRN Administration DIALYSIS Albumin Human 25 gm in 100 mls @ 100 mls/min 11/05/24 10:19 11/16/24 09:42 Albuminar-25 Ivpb IV 100 mls/min QDAY PRN Administration DIALYSIS Albumin Human 25 gm in 100 mls @ 100 mls/hr 11/16/24 12:32 11/18/24 09:54 Albuminar-25 Ivpb IV 11/19/24 12:31 100 mls/hr QDAY TARIK Administration Lactulose 20 gm 11/18/24 14:00 Lactulose Syrup 20 Gm/30 Ml Udc PO 12/18/24 13:59 TID TARIK Protocol Levothyroxine Sodium 50 mcg 11/08/24 11:30 11/14/24 05:26 Levothyroxine Sodium 25 Mcg Tablet PO 12/08/24 11:29 Not Given ACBR TARIK Levothyroxine Sodium 25 mcg 11/16/24 13:00 11/18/24 09:57 Levothyroxine Inj 100 Mcg Vial IV 12/14/24 08:59 25 mcg QDAY TARIK Administration Metoprolol Succinate 100 mg 11/14/24 09:00 11/18/24 09:54 Metoprolol Succinate Xl 25 Mg Tabcr PO 12/14/24 08:59 100 mg QDAY TARIK Administration Midodrine 5 mg 11/16/24 12:36 Midodrine 5 Mg Tablet PO 12/16/24 13:59 TID PRN For SBP<100 Mirtazapine 15 mg 11/11/24 21:00 11/17/24 20:44 Mirtazapine 15 Mg Tablet PO 12/11/24 20:59 15 mg HS TARIK Administration Mupirocin 0 gm 11/18/24 09:42 Mupirocin Oint 2% 15 Gm Tube TOP 11/25/24 08:29 TID TARIK Ondansetron HCl 4 mg 11/03/24 14:16 11/03/24 17:26 Ondansetron Inj 2 Mg/Ml Inj 2 Ml IV 12/03/24 14:15 4 mg Q4HR PRN Administration NAUSEA OR VOMITING Pantoprazole Sodium 40 mg 11/05/24 10:45 11/18/24 09:57 Pantoprazole Inj 40 Mg Vial IVP 12/05/24 10:44 40 mg QDAY TARIK Administration Pharmacy Consult 1 each 11/04/24 09:00 Vancomycin Pharmacy To Dose 1 Each Each IV 12/04/24 08:59 QDAY PRN CONSULT Pharmacy Consult 1 each 11/03/24 21:18 Pharmacy Renal Dose Adjustment 1 Ea XX 12/03/24 21:17 PRN PRN CONSULT Quetiapine Fumarate 25 mg 11/14/24 12:32 11/17/24 22:08 Quetiapine Fumarate 25 Mg Tablet PO 12/14/24 20:59 25 mg BID PRN Administration AGITATION Sennosides 1 tab 11/03/24 19:16 Senna Tablet PO 12/03/24 19:15 BID PRN CONSTIPATION Protocol Sevelamer Carbonate 0.8 gm 11/18/24 09:00 11/18/24 09:53 Sevelamer Carbonate 0.8 Gm Packet (Non-Formulary) PO 12/18/24 08:59 0.8 gm BID TARIK Administration Plan Malik is a 79-year-old male past medical history of past medical history of ESRD on hemodialysis (MWF, sees Dr. Padilla), HFrEF (possibly EF of 30), Previous CVA, possible hypothyroidism currently admitted for sepsis secondary to catheter related bloodstream infection which is showing GPC currently. repeat blood cultures on 11/05 have no growth for more than 24 hours. #Sepsis secondary to # MRSA bacteremia -Patient underwent catheter holiday and hemodialysis catheter was removed and multiple attempts have been made since to replace patient's tunnel catheter since patient's blood cultures have been negative for 5 days however due to patient's agitation and inability to stay still a permanent tunneled catheter have not been placed. Patient have undergone 2 temporary dialysis catheter. -Patient is on vancomycin until 11/19/2024 #PVCs-patient's PVC frequency have decreased to less than5%, will continue metoprolol 100 Mg daily if patient's blood pressure permits then will increase metoprolol when able # NSTEMI type II-likely demand ischemia in the setting of sepsis -Initial troponins0.058 ->peaked at 0.976 and downtrended to 0.900 -Keep potassium above 4 and magnesium above 2 at all times -Patient underwent cardiac catheterization which showed 2 of the 3 severe CAD however no intervention can be done at this time due to patient's current condition therefore we will continue medical management #HFrEF -Echocardiogram during this hospital admission showed ejection fraction of EF of 25 to 30% with dilated cardiomyopathy including dilated LV RV RV and LA. Moderate MR and TR. Grade 2 diastolic dysfunction, moderately reduced RV function. -Per family's decision patient's CODE STATUS have been changed to DNR/DNI therefore they do not wish any further invasive procedures or interventions to be done as patient's current condition is unstable. # Acute encephalopathy #Severe agitation # Dementia -Patient less confused and appears to be less agitated however soft mittens are still on -Pt is on - Mirtazapine 15 mg every night and buspirone 10 mg daily, continue management as per primary hospitalist team -Neurologist is consulted and following # End-stage renal disease on hemodialysis Tuesday. -Patient continues to undergo dialysis as per schedule through temporary dialysis catheter. -Plans to reattempt a tunneled dialysis catheter would be at a later time Assessment and plan discussed with my attending physician Dr. Ciara Ireland (PGY-1)- Internal medicine resident Attending Provider Attestation/Addendum I have personally seen and examined the patient separately on the above date of service and discussed the plan of care with the resident. I reviewed the resident Dr. Brennon Ireland consultation progress note and agree with the resident findings and plan in the note above and have also edited the documentation to reflect my findings and plan. Bismark Urbina M.D. Interventional Cardiology
--- NOTE | 2024-11-18 15:19 | PC.NURSE ---
MD Uriostegui made aware tht patient is refusing all PO meds, Patient continuously spits all meds back out at nurse
[2024-11-18] MEDS: LACTULOSE SYRUP 20 GM/30 ML UDC PR ×2 (15:34→22:55)
[2024-11-18] MEDS: bisacodyL 10 MG SUPP PR (15:34)
[2024-11-18] MEDS: GLYCERIN, ADULT 1 EA SUPP 1 EACH PR (15:34)
[2024-11-18] MEDS: MUPIROCIN OINT 2% 15 GM TUBE TOP ×2 (15:35→22:55)
--- NOTE | 2024-11-18 23:52 | VVPN_ITS ---
Telemedicine visit statement This visit was conducted with the use of phone visit was obtained on 11/18/24 at 2352. Documentation for date of: 11/18/24 Subjective Subjective Interval history: Patient is in telemetry, continue to remian confused, redirectable, very low oral intake sleep: not good, still restless, needing restraints. Virtual exam Vital Signs Temp Pulse Resp BP Pulse Ox O2 Del Method O2 Flow Rate 97.0 F 69 13 151/79 H 92 L Nasal Cannula 2 11/18/24 20:00 11/18/24 20:00 11/18/24 20:00 11/18/24 20:00 11/18/24 20:00 11/18/24 20:00 11/18/24 20:00 Objective Labs 11/18/24 04:33 11/18/24 04:33 Labs: Laboratory Results - last 24 hr 11/18/24 04:33 WBC 21.9 H RBC 4.21 L Hgb 13.0 L Hct 38.5 L MCV 91 MCH 30.9 MCHC 33.8 RDW Std Deviation 47.8 H Plt Count 186 D Neut % (Auto) 83 H Lymph % (Auto) 9 L [place] % (Auto) 7 Eos % (Auto) 1 Baso % (Auto) 0 Neut # (Auto) 18.1 H Lymph # (Auto) 1.9 [place] # (Auto) 1.5 H Eos # (Auto) 0.2 Baso # (Auto) 0.1 Immature Gran # (Auto) 0.11 H Absolute Nucleated RBC 0.00 Immature Gran % 1 H Nucleated RBC % 0 Sodium 137 Potassium 5.0 Chloride 98 Carbon Dioxide 20.6 Anion Gap 18 H BUN 107 H* Creatinine 9.4 H* D Estim Creat Clear Calc 7.5 L eGFR 5 L* BUN/Creatinine Ratio 11 L Glucose 124 H Calculated Osmolality 308 H Calcium 10.1 Corrected Calcium 10.1 Phosphorus 8.8 H Magnesium 2.7 H Total Bilirubin 0.6 AST 10 ALT 9 L Alkaline Phosphatase 145 H Total Protein 7.0 Albumin 5.1 H Globulin 1.9 L Albumin/Globulin Ratio 2.7 H Random Vancomycin 19.0 ABG Interpretation ABG results: 11/03/24 11/11/24 11/13/24 14:12 12:22 21:50 VBG pH 7.39 7.35 7.37 VBG pCO2 43 44 35 L VBG pO2 35 38 29 VBG Base Excess 1 -2 -5 L Assessment & Plan Problem List (1) Delirium: Status: Acute Assessment and plan: Secondary to catheter related sepsis/MRSA, on vancomycin with baseline dementia subtle improvement noted in mental status Continue to monitor him closely on current management (2) End stage renal failure on dialysis: Status: Chronic Assessment and plan: On maintenance dialysis.
[2024-11-19] VITALS (11 sets, daily range): BP systolic 102–151; BP diastolic 64–82; PULSE 60–80; RESP 12–20; TEMP 36–36.7; O2SAT 93–100; BMI 30.3
[2024-11-19 05:57] LABS: Basophils % (Auto) 0 % (0-2.5); Eosinophils # (Auto) 0.2 Thou/mm3 (0.0-0.5); Eosinophils % (Auto) 1 % (0-10); Hematocrit 38.8 % (41.0-53.0); Hemoglobin 13.1 g/dL (13.5-16.0); Immature Granulocytes % (Auto) 1 % (0-0); Immature Granulocytes Auto 0.08 Thou/mm3 (0.00-0.00); Lymphocytes # (Auto) 1.9 Thou/mm3 (1.0-4.8); Lymphocytes % (Auto) 12 % (10-50); Mean Corpuscular HGB Conc 33.8 g/dl (31.0-37.0); Mean Corpuscular Volume 92 fL (80-100); Monocytes # (Auto) 1.1 Thou/mm3 (0.0-0.8); Monocytes % (Auto) 7 % (0-12); Neutrophils # (Auto) 12.9 Thou/mm3 (1.8-7.7); Neutrophils % (Auto) 80 % (37-80); Nucleated Red Blood Cell % 0 /100 WBC (0); Platelet Count 227 Thou/mm3 (140-440); RDW Standard Deviation 48.2 fL (35.1-43.9); Red Blood Count 4.23 Miln/mm3 (4.50-5.90); White Blood Count 16.2 Thou/mm3 (3.8-10.6)
[2024-11-19] MEDS: MUPIROCIN OINT 2% 15 GM TUBE TOP ×2 (05:57→22:37)
[2024-11-19] MEDS: DiphenhydrAMINE INJ 50 MG/ML VIAL IVP (05:57)
[2024-11-19 08:02] LABS: Alanine Aminotransferase 10 U/L (10-49); Albumin, Serum 4.9 gm/dL (3.4-4.8); Albumin/Globulin Ratio 2.2 (1.2-2.2); Alkaline Phosphatase 152 U/L (46-116); Anion Gap 19 (7-16); Aspartate Amino Transferase 10 U/L (0-34); BUN/Creatinine Ratio 12 Ratio (12-20); Bilirubin,Total 0.6 mg/dL (0.3-1.2); Calcium 9.9 mg/dL (8.3-10.6); Calcium (Corrected) 9.9 mg/dL (8.5-10.1); Carbon Dioxide 19.7 mMol/L (20.0-31.0); Chloride 97 mMol/L (98-107); Estimated Creatinine Clearance 6.4 mL/min (>60); Globulin 2.2 gm/dL (2.3-3.5); Glucose 104 mg/dL (74-106); Magnesium 2.6 mg/dL (1.6-2.6); Osmolality,Calculated 315 (275-295); Potassium 5.5 mMol/L (3.4-5.1); Sodium 136 mMol/L (136-145); Total Protein 7.1 gm/dL (5.7-8.2); Vancomycin,Random 18.1 mcg/mL; eGFR 4 See Note
[2024-11-19 08:04] LABS: Blood Urea Nitrogen 134 mg/dL (9-23)
[2024-11-19 08:13] LABS: Phosphorous 11.7 mg/dL (2.4-5.1)
[2024-11-19] MEDS: PANTOPRAZOLE INJ 40 MG VIAL IVP (09:18)
[2024-11-19] MEDS: LEVOTHYROXINE INJ 100 mCg VIAL 25 MCG IV (09:18)
[2024-11-19] MEDS: SOD POLYSTYRENE SULFON SUSP 15 GM/60 ML BTL PO (09:18)
[2024-11-19] MEDS: ASPIRIN 81 MG CHEW PO (09:18)
[2024-11-19] MEDS: ALBUMIN HUMAN 25% IVPB 25 GM/100 ML BTL IV (09:18)
[2024-11-19] MEDS: SEVELAMER CARBONATE 0.8 GM PACKET (NON-FORMULARY) PO ×2 (09:19→21:24)
--- NOTE | 2024-11-19 10:03 | PD.RESPRO ---
Documentation for date of: 11/19/24 Subjective Subjective Interval history: 11/19: no acute overnight events reported. Pt is seen and examined at bedside this morning. Pt is minimally cooperative in answering questions. He is not aggitated but somnalent. He denies chest pain, pressure palpitations. He has no complaints other than wanting to know when he will go home. Leukocytosis is downtrending, Pt last dose of vancomycin was today. potassium was 5.5 and Kayexalate 15 mg was given. Magnesium is 2.6. Exam Vital Signs Temp Pulse Resp BP Pulse Ox O2 Del Method O2 Flow Rate 97.0 F 79 15 139/82 H 95 Nasal Cannula 2 11/19/24 08:00 11/19/24 09:19 11/19/24 08:00 11/19/24 09:19 11/19/24 08:00 11/19/24 08:00 11/19/24 04:00 Narrative Exam GENERAL:AAOx3, somnolent but answers questions, wearing diaper, wrist restraints present NEURO: no neuralgic deficits noted HEENT: Atraumatic, Normocephalic. mucous membranes moist. Eyes open, symmetrical, & clear HEART: Normal Heart Sounds LUNGS: Clear to auscultation with no wheezing or crackles. ABDOMEN: soft, non-distended, non-tender, bowel sounds heard, no guarding or rebound tenderness SKIN: No Rash or ecchymoses EXTREMITIES: No edema, tenderness, able to move all 4 extremities, pedal pulses palpated Objective Labs 11/19/24 04:52 11/19/24 04:52 Labs: Laboratory Results - last 24 hr 11/19/24 04:52 WBC 16.2 H D RBC 4.23 L Hgb 13.1 L Hct 38.8 L MCV 92 MCH 31.0 MCHC 33.8 RDW Std Deviation 48.2 H Plt Count 227 D Neut % (Auto) 80 Lymph % (Auto) 12 [place] % (Auto) 7 Eos % (Auto) 1 Baso % (Auto) 0 Neut # (Auto) 12.9 H Lymph # (Auto) 1.9 [place] # (Auto) 1.1 H Eos # (Auto) 0.2 Baso # (Auto) 0.0 Immature Gran # (Auto) 0.08 H Absolute Nucleated RBC 0.00 Immature Gran % 1 H Nucleated RBC % 0 Sodium 136 Potassium 5.5 H D Chloride 97 L Carbon Dioxide 19.7 L Anion Gap 19 H BUN 134 H* Creatinine 11.0 H* D Estim Creat Clear Calc 6.4 L eGFR 4 L* BUN/Creatinine Ratio 12 Glucose 104 Calculated Osmolality 315 H Calcium 9.9 Corrected Calcium 9.9 Phosphorus 11.7 H Magnesium 2.6 Total Bilirubin 0.6 AST 10 ALT 10 Alkaline Phosphatase 152 H Total Protein 7.1 Albumin 4.9 H Globulin 2.2 L Albumin/Globulin Ratio 2.2 Random Vancomycin 18.1 ABG Interpretation ABG results: 11/03/24 11/11/24 11/13/24 14:12 12:22 21:50 VBG pH 7.39 7.35 7.37 VBG pCO2 43 44 35 L VBG pO2 35 38 29 VBG Base Excess 1 -2 -5 L Quality Measures Quality Measures sepsis Current suspected stage: ruled out Possible source: CLABSI Blood cultures ordered: yes Antibiotic ordered: Yes Advance care planning discussed with:: patient and spouse Assessment & Plan Assessment Current Active Medications: Generic Name Dose Route Start Last Admin Trade Name Freq PRN Reason Stop Dose Admin Acetaminophen 650 mg 11/03/24 19:16 Acetaminophen 325 Mg Tablet PO 12/03/24 19:15 Q6H PRN PAIN SCALE 1-3 (mild Acetaminophen 650 mg 11/03/24 21:16 Acetaminophen Supp 650 Mg Supp DC 12/03/24 21:29 Q6H PRN Fever > 100.4 Albuterol/Ipratropium 3 ml 11/03/24 19:16 Albuterol/Ipratropium (Duoneb) Rt Dianne 3 Ml Nebu INH 12/03/24 22:59 Q4HRRT PRN SOB or wheezing Aspirin 81 mg 11/18/24 09:00 11/19/24 09:18 Aspirin 81 Mg Chew PO 12/18/24 08:59 81 mg QDAY TARIK Administration Atorvastatin Calcium 80 mg 11/04/24 21:00 11/18/24 21:53 Atorvastatin Calcium 20 Mg Tablet PO 12/04/24 20:59 Not Given HS TARIK Buspirone HCl 10 mg 11/16/24 14:00 11/19/24 05:32 Buspirone Hcl 5 Mg Tablet PO 12/16/24 13:59 Not Given TID TARIK Heparin Sodium (Porcine) 3,500 unit 11/14/24 10:00 11/14/24 11:37 Heparin Sod Inj 1000 Unit/Ml Vial 10 Ml INDWELLCAT 11/28/24 09:59 3,500 unit X1 PRN Administration DIALYSIS Albumin Human 25 gm in 100 mls @ 100 mls/min 11/05/24 10:19 11/16/24 09:42 Albuminar-25 Ivpb IV 100 mls/min QDAY PRN Administration DIALYSIS Albumin Human 25 gm in 100 mls @ 100 mls/hr 11/16/24 12:32 11/19/24 09:18 Albuminar-25 Ivpb IV 11/19/24 12:31 100 mls/hr QDAY TARIK Administration Lactulose 20 gm 11/18/24 16:00 11/19/24 05:32 Lactulose Syrup 20 Gm/30 Ml Udc DC 12/18/24 15:59 Not Given TID TARIK Protocol Levothyroxine Sodium 50 mcg 11/08/24 11:30 11/14/24 05:26 Levothyroxine Sodium 25 Mcg Tablet PO 12/08/24 11:29 Not Given ACBR TARIK Levothyroxine Sodium 25 mcg 11/16/24 13:00 11/19/24 09:18 Levothyroxine Inj 100 Mcg Vial IV 12/14/24 08:59 25 mcg QDAY TARIK Administration Metoprolol Succinate 100 mg 11/14/24 09:00 11/19/24 09:19 Metoprolol Succinate Xl 25 Mg Tabcr PO 12/14/24 08:59 Not Given QDAY TARIK Midodrine 5 mg 11/16/24 12:36 Midodrine 5 Mg Tablet PO 12/16/24 13:59 TID PRN For SBP<100 Mirtazapine 15 mg 11/11/24 21:00 11/18/24 21:53 Mirtazapine 15 Mg Tablet PO 12/11/24 20:59 Not Given HS TARIK Mupirocin 0 gm 11/18/24 09:42 11/19/24 05:57 Mupirocin Oint 2% 15 Gm Tube TOP 11/25/24 08:29 1 applicatio TID TARIK Administration Ondansetron HCl 4 mg 11/03/24 14:16 11/03/24 17:26 Ondansetron Inj 2 Mg/Ml Inj 2 Ml IV 12/03/24 14:15 4 mg Q4HR PRN Administration NAUSEA OR VOMITING Pantoprazole Sodium 40 mg 11/05/24 10:45 11/19/24 09:18 Pantoprazole Inj 40 Mg Vial IVP 12/05/24 10:44 40 mg QDAY TARIK Administration Pharmacy Consult 1 each 11/04/24 09:00 Vancomycin Pharmacy To Dose 1 Each Each IV 12/04/24 08:59 QDAY PRN CONSULT Pharmacy Consult 1 each 11/03/24 21:18 Pharmacy Renal Dose Adjustment 1 Ea XX 12/03/24 21:17 PRN PRN CONSULT Quetiapine Fumarate 25 mg 11/14/24 12:32 11/17/24 22:08 Quetiapine Fumarate 25 Mg Tablet PO 12/14/24 20:59 25 mg BID PRN Administration AGITATION Sennosides 1 tab 11/03/24 19:16 Senna Tablet PO 12/03/24 19:15 BID PRN CONSTIPATION Protocol Sevelamer Carbonate 0.8 gm 11/18/24 09:00 11/19/24 09:19 Sevelamer Carbonate 0.8 Gm Packet (Non-Formulary) PO 12/18/24 08:59 0.8 gm BID TARIK Administration Plan Malik is a 79-year-old male past medical history of past medical history of ESRD on hemodialysis (MWF, sees Dr. Padilla), HFrEF (possibly EF of 30), Previous CVA, possible hypothyroidism currently admitted for sepsis secondary to catheter related bloodstream infection which is showing GPC currently. repeat blood cultures on 11/05 have no growth for more than 24 hours. #Sepsis secondary to # MRSA bacteremia -Patient underwent catheter holiday and hemodialysis catheter was removed and multiple attempts have been made since to replace patient's tunnel catheter since patient's blood cultures have been negative for 5 days however due to patient's agitation and inability to stay still a permanent tunneled catheter have not been placed. Patient have undergone 2 temporary dialysis catheter. -Patient is on vancomycin until 11/19/2024 #PVCs-patient's PVC frequency have decreased to less than5%, will continue metoprolol 100 Mg daily if patient's blood pressure permits then will increase metoprolol when able # NSTEMI type II-likely demand ischemia in the setting of sepsis -Initial troponins0.058 ->peaked at 0.976 and downtrended to 0.900 -Keep potassium above 4 and magnesium above 2 at all times -Patient underwent cardiac catheterization which showed 2 of the 3 severe CAD however no intervention can be done at this time due to patient's current condition therefore we will continue medical management #HFrEF -Echocardiogram done on 11/05/24 findings consistent with ejection fraction of EF of 25 to 30% with dilated cardiomyopathy including dilated LV RV RV and LA. Moderate MR and TR. Grade 2 diastolic dysfunction, moderately reduced RV function. -Per family's decision patient's CODE STATUS have been changed to DNR/DNI therefore they do not wish any further invasive procedures or interventions to be done as patient's current condition is unstable. # Acute encephalopathy #Severe agitation # Dementia -Patient less confused and appears to be less agitated however soft mittens are still on -Pt is on - Mirtazapine 15 mg every night and buspirone 10 mg daily, continue management as per primary hospitalist team -Neurologist is consulted and following # End-stage renal disease on hemodialysis Tuesday. -Patient continues to undergo dialysis as per schedule -pt underwent permanent tunneled dialysis catheter in right common femoral vein on 11/13/24 Assessment and plan discussed with my attending physician Dr. Ciara Ireland (PGY-1)- Internal medicine resident Attending Provider Attestation/Addendum I have personally seen and examined the patient separately on the above date of service and discussed the plan of care with the resident. I reviewed the resident Dr. Brennon Ireland consultation progress note and agree with the resident findings and plan in the note above and have also edited the documentation to reflect my findings and plan. Patient still continues to have delirium and continues to improve. This morning he was able to answer all the questions and was sitting in the bed. Telemetry reviewed and patient heart rate is well-controlled on low-dose only occasional PVCs and recommend to continue metoprolol XL 100 mg daily. Patient unable to tolerate higher dose of metoprolol even though his previous home dose was metoprolol XL 200 mg once daily due to his probably sepsis and the recent infection. WBC still continues to be elevated at 16,000 but improved from 21,000 previously Patient now has a right femoral dialysis catheter placed as they could not place tunneled dialysis catheter on the right chest. Patient undergoing dialysis. Kidney function elevated along with potassium of 5.5 which is treated aggressively. Patient is DNR/DNI and does not want any further cardiac interventions at the present point of time and as detailed previous notes patient does not have any good targets for revascularization and does have severe [place] coronary artery disease and has 2 out of 3 grafts patent. Continue aspirin statin beta-halima for the history of CAD Patient also has severe systolic dysfunction with an EF of 25 to 30%. Only on metoprolol XL and not on other goal-directed medical therapy because of the blood pressure. Fluid management as per nephrology as patient is on dialysis. Overall patient with guarded prognosis which was discussed with the family previously and are aware of it. Bismark Urbina M.D. Interventional Cardiology
--- NOTE | 2024-11-19 10:40 | PC.SS ---
Update: Patient pending bowel movement prior to discharge. Plan is for patient to transition to SNF.
--- NOTE | 2024-11-19 11:32 | PC.SS ---
DIRECTOR MOTION PICTURE informed by bedside nurse that patient came off mittens today at 1:30 am. DIRECTOR MOTION PICTURE to confirm with SNF if patient needs to be off mittens for duration of 24 hours prior to transitioning to SNF.
--- NOTE | 2024-11-19 11:33 | PC.SS ---
SIGNAL TECHNICIAN notified by [facility] staff, Salma; that patient needs to be off mittens for duration of 24 hours prior to transitioning to SNF. Patient came off mittens at 1:30 am today. SIGNAL TECHNICIAN updated bedside nurse.
--- NOTE | 2024-11-19 11:35 | PC.SS ---
Update: Patient scheduled for dialysis today. Patient had bowel movement today.
--- NOTE | 2024-11-19 13:45 | PD.RESDS ---
Planned Discharge Date 11/19/24 DS: Providers Provider Date of admission: 11/03/24 19:16 Primary care physician: Rosey Morin DO Admitting Provider: Cally Dawson MD Attending Provider on Admission: Aries Angulo MD Consults: 11/03/24 14:16 Consult to Neurology / Tele-Neurology Routine Comment: Altered mental status Consulting Provider: Steve Riley 11/03/24 19:21 Referral Physical Therapy Routine Comment: Physician Instructions: Referral Speech Therapy Routine Comment: 11/03/24 19:32 Consult to Nephrology Routine Comment: ESRD on HD Consulting Provider: Radha Padilla 11/05/24 10:12 Consult to Infectious Diseases Routine Comment: GPC, CRBSI Consulting Provider: Holger Phelps 11/05/24 11:42 Consult to Cardiology Routine Comment: Consulting Provider: Bismark Urbina 11/13/24 14:32 Referral Speech Therapy Routine Comment: 11/13/24 17:06 Referral Registered Dietitian Routine Comment: 11/15/24 11:24 Referral Speech Therapy Routine Comment: Patient choking on water Attending Provider on DC: Nick Lundberg MD Discharging Provider: Nick Lundberg MD DS: Diagnosis Problem List Completed Was Problem List Reviewed/Reconciled?: Yes Hospital Course Hospital Course Hospital course: Patient is a 79 years old male with past medical history of ESRD on hemodialysis (M/W/F), HFrEF (EF 35%), Previous CVA, hypothyroidism and dementia presented to the ED with complaint of altered mental status. On arrival patient had BP of 121/110, pulse 123, RR 19, Temp 104.0 meeting 2/4 SIRS criteria. Sepsis alert was called and patient received IV vancomycin and Zosyn. Chemistry panel showed lactate 1.8, magnesium 1.3, ALP 168, Ammonia <10, Troponin 0.058. UA shows 3+ proteinuria. In the ED stroke alert was called, patient underwent head CT which came back negative for acute hemorrhage, mass effect or midline shift. Teleneurology was consulted. As per the ED physician, they discussed with the Tele neurologist regarding his finding and agreed that patient does not need further workup and management of stroke and the altered mentation was secondary to sepsis. He was admitted to the hospital and was started on cefepime and vancomycin IV. Blood cultures showed MRSA bacteremia. Culture from catheter insertion site grew MRSA. Cefepime was discontinued. TDC was removed and temporary dialysis catheter was placed. Repeat blood culture from 11/05/2024 was negative and new tunneled dialysis catheter was inserted to femoral due to right upper extremity old fistula and unsuccessful placement of TDC on the left side. During hospital stay patient's mentation was not improving significantly requiring multiple administrations of antipsychotics and benzodiazepines along with restraints because patient was pulling on lines and was combative. Neurology was consulted. Primary team had multiple discussions with the family regarding patient's condition and mental status, his CODE STATUS was changed to DNR/DNI in presence of his and 2 sons. Today his mentation has improved however he is not at the baseline, likely due to worsening dementia. Patient completed course of vancomycin. Patient is stable for discharge to SNF today. Start taking buspirone 10 mg 3 times a day, pramipexole 0.25 mg 2 times a day. Take quetiapine 25 mg as needed for agitation up to 2 times a day. Continue home medications as prescribed. Monitor CBC, repeat in 1 week. Follow up with PCP, neurology and nephrology within 2 weeks. Continue hemodialysis as scheduled M/W/F. #Sepsis 2/2 catheter site cellulitis. #Catheter site cellulitis. #MRSA bacteremia 2/2 CRBSI. #Acute encephalopathy. #Severe agitation, improved. #Underlying dementia progression vs delirium secondary to metabolic encephalopathy. #ESRD on HD M/W/F. #Hypomagnesemia, resolved. #Hyperphosphatemia. #NSTEMI type II. #Hx CAD, [place]. #HFrEF with EF 35-40%. #History of CVA. #History of CHF. #Hypothyroidism. #Normocytic anemia. Plan of care discussed with attending Dr. Angulo. Nick Lundberg MD, PGY 2. Disclaimer: This note was dictated by speech recognition. Minor errors in cosmetics supervisor may be present due to voice recognition software. Time Spent with Patient Time attestation: Total time spent providing and/or coordinating discharge services: 40 min Exam Vital Signs Temp Pulse Resp BP Pulse Ox O2 Del Method O2 Flow Rate 97.0 F 76 14 108/70 100 Nasal Cannula 1.5 11/19/24 12:00 11/19/24 12:11/19/24 12:00 11/19/24 12:00 11/19/24 12:00 11/19/24 12:00 11/19/24 12:00 Narrative Exam Gen: Well-developed and well-nourished elderly male. HEENT: NCAT, PERRLA, EOMI, MMM, anicteric conjunctivae. CVS: normal S1 and S2. RRR. No M/R/G. Resp: Decreased breath sounds B/L bases. No rhonchi, rales, crackles or wheezing. Abd: soft, non-tender, non-distended. BS+ in all 4 quadrants. MSK: Good ROM in BUE & BLE. No edema or rash. TDC in right femoral area, appears clean. Neuro: Patient is refusing examination. Able to move all 4 extremities. Discharge Plan Plan Patient Disposition: Xfer Skilled Nsg Fac (SNF) Care Plan Goals: Start taking buspirone 10 mg 3 times a day, pramipexole 0.25 mg 2 times a day. Take quetiapine 25 mg as needed for agitation up to 2 times a day. Continue home medications as prescribed. Monitor CBC and BMP, repeat in 1 week. Follow up with PCP, neurology and nephrology within 2 weeks. Continue hemodialysis as scheduled. Prescriptions/Referrals Prescriptions/Med Rec: New buspirone 10 mg tablet 10 mg PO TID Qty: 90 0RF quetiapine 25 mg tablet 25 mg PO BID PRN (Reason: agitation) Qty: 60 0RF pramipexole 0.25 mg tablet 0.25 mg PO BID Qty: 60 0RF Continued atorvastatin [Lipitor] 80 MG tablet 80 mg PO HS Qty: 0 nitroglycerin [Nitrostat] 0.4 MG tablet, sublingual 0.4 mg SL PRN PRN (Reason: CHEST PAIN) Qty: 0 Levothyroxine * (SYNTHROID *) 50 MCG tablet 50 mcg PO QDAY Qty: 0 clopidogrel [Plavix] 75 mg Tablet 75 mg PO QDAY allopurinol 100 mg tablet 100 mg PO DAILY Patient Comments: TAKE 1 TABLET BY MOUTH ONCE DAILY donepezil 5 mg Tablet 5 mg PO QDAY metoprolol succinate 200 mg tablet extended release 24 hr 200 mg PO QDAY Patient Comments: TAKE 1 TABLET BY MOUTH ONCE DAILY hydralazine 50 mg Tablet 50 mg PO TID ondansetron HCl 4 mg tablet 4 mg PO Q6H PRN (Reason: nausea and vomitting) Patient Comments: TAKE 1 TABLET BY MOUTH EVERY 6 HOURS NEEDED pantoprazole 40 mg Tablet,Delayed Release (Dr/Ec) 40 mg PO BID mirtazapine 30 mg tablet 30 mg PO HS Patient Comments: TAKE 1 TABLET BY MOUTH ONCE DAILY BEFORE BEDTIME ranolazine 1,000 mg tablet extended release 12 hr 1,000 mg PO BID Patient Comments: TAKE 1 TABLET BY MOUTH TWICE DAILY Referrals: Rosey Morin DO [Primary Care Provider] - Patient/Caregiver Discharge Instructions Education Materials: Hemodialysis Print Language: Urdu Stand Alone Forms: Marla Award Info., Patient Portal Info Letter Discharge Order Discharge Orders: Discharge (Routine); Ordered 11/19/24 Ordered By: Nick Lundberg Quality Discharge Quality Measures VTE prophylaxis
[2024-11-19] MEDS: CATHFLO (ALTEPLASE) INJ 4 MG, Sterile Water 4.4 ML INDWELLCAT (13:51)
--- NOTE | 2024-11-19 14:20 | PC.NURSE ---
Unable to start dialysis due to HD catheter on right femoral not working. Unable to aspirate from both port. Dr Padilla made aware. Ordered to alteplase both lumen for 1-1.5 hr. Order carried out. Alteplase instill on arterial 1.7ml and venous port 1.8 ml. Wiil try to re-start HD at around 1530. Pt VS BP 131/73, HR68.
--- NOTE | 2024-11-19 14:21 | ESPR_ITS ---
RE: LUCA DIXON : 1945 DATE OF SERVICE: 11/19/2024 HISTORY OF PRESENT ILLNESS: Briefly, he is a 79-year-old gentleman with hypertension, coronary artery disease status post CABG in 2018, ischemic cardiomyopathy with EF of 35% and ESRD on dialysis every Tuesday, Tuesday, and Tuesday since 01/2023. He was admitted to the hospital on 10/17/2024 with confusion. He was found with dialysis catheter infection with blood culture x2, which grew MRSA. He is currently on IV vancomycin 1 g after each dialysis for the past two weeks now. His TDC was removed and he has a right groin tunneled dialysis catheter. The patient passed his swallowing eval with speech pathologies and is now more awake and alert and somehow carries small conversation. He is supposed to get another dialysis treatment today as this is his dialysis scheduled day. CURRENT MEDICATIONS: 1. Acetaminophen. 2. Albuterol. 3. Ipratropium. 4. Aspirin. 5. Atorvastatin. 6. Bisacodyl. 7. Buspirone 10 mg p.o. daily. 8. Diphenhydramine. PHYSICAL EXAMINATION: General: He is awake, response to simple questions. Vital Signs: Blood pressure of 108/70, heart rate of 76, O2 saturation 100%. HEENT: Anicteric sclerae, normocephalic. Neck: Supple. No JVD. Chest and Lungs: Symmetrical expansion. Clear breath sounds. Cardiac: Without murmur. Abdomen: Soft, nontender. Extremities: No edema. LABORATORY DATA: Hemoglobin 13.1, WBC 16,200, platelet count 227,000. Sodium 136, potassium 5.5, chloride 97, CO2 19.7, BUN 134, creatinine 11, glucose 104, calcium 89.9, phosphorus 11.7, albumin 4.9. ASSESSMENT: 1. End stage renal disease on dialysis every Tuesday, Tuesday, and Tuesday. 2. Altered level of consciousness secondary to sepsis and possibly sun downing syndrome, now improving. 3. Methicillin-resistant Staphylococcus aureus septicemia secondary to infected dialysis catheter. 4. Anemia of chronic kidney disease, now improved. 5. History of coronary artery disease status post coronary artery bypass graft. 6. Ischemic cardiomyopathy with ejection fraction around 25%. 7. Obesity. 8. Weight loss of 40 pounds since admission. 9. Hypertension. PLAN: The patient will be dialyzed again today and tomorrow as BUN is extremely elevated. Continue supportive treatment. DT: 13:09:42 TT: 14:20:00 Ref: [id number] - TID: [id number] MTDD
--- NOTE | 2024-11-19 14:37 | PD.RESPRO ---
Documentation for date of: 11/19/24 Subjective Subjective Interval history: Patient was seen and examined at bedside. No acute overnight events. Patient is pending placement to SNF. His potassium was 5.5 and was given Kayexalate 15 mg. He completed course on vancomycin IV today. Will continue current management and possibly discharge patient tomorrow. Exam Vital Signs Temp Pulse Resp BP Pulse Ox O2 Del Method O2 Flow Rate 96.8 F 76 18 131/73 H 100 Nasal Cannula 1.5 11/19/24 13:18 11/19/24 12:00 11/19/24 13:18 11/19/24 13:18 11/19/24 13:18 11/19/24 12:00 11/19/24 13:18 Narrative Exam Gen: Well-developed and well-nourished elderly male. HEENT: NCAT, PERRLA, EOMI, MMM, anicteric conjunctivae. CVS: normal S1 and S2. RRR. No M/R/G. Resp: Decreased breath sounds B/L bases. No rhonchi, rales, crackles or wheezing. Abd: soft, non-tender, non-distended. BS+ in all 4 quadrants. MSK: Good ROM in BUE & BLE. No edema or rash. TDC in right femoral area, appears clean. Neuro: Patient is refusing examination. Able to move all 4 extremities. Objective Labs 11/20/24 05:00 11/20/24 05:00 Labs: Laboratory Results - last 24 hr 11/19/24 04:52 WBC 16.2 H D RBC 4.23 L Hgb 13.1 L Hct 38.8 L MCV 92 MCH 31.0 MCHC 33.8 RDW Std Deviation 48.2 H Plt Count 227 D Neut % (Auto) 80 Lymph % (Auto) 12 [place] % (Auto) 7 Eos % (Auto) 1 Baso % (Auto) 0 Neut # (Auto) 12.9 H Lymph # (Auto) 1.9 [place] # (Auto) 1.1 H Eos # (Auto) 0.2 Baso # (Auto) 0.0 Immature Gran # (Auto) 0.08 H Absolute Nucleated RBC 0.00 Immature Gran % 1 H Nucleated RBC % 0 Sodium 136 Potassium 5.5 H D Chloride 97 L Carbon Dioxide 19.7 L Anion Gap 19 H BUN 134 H* Creatinine 11.0 H* D Estim Creat Clear Calc 6.4 L eGFR 4 L* BUN/Creatinine Ratio 12 Glucose 104 Calculated Osmolality 315 H Calcium 9.9 Corrected Calcium 9.9 Phosphorus 11.7 H Magnesium 2.6 Total Bilirubin 0.6 AST 10 ALT 10 Alkaline Phosphatase 152 H Total Protein 7.1 Albumin 4.9 H Globulin 2.2 L Albumin/Globulin Ratio 2.2 Random Vancomycin 18.1 ABG Interpretation ABG results: 11/03/24 11/11/24 11/13/24 14:12 12:22 21:50 VBG pH 7.39 7.35 7.37 VBG pCO2 43 44 35 L VBG pO2 35 38 29 VBG Base Excess 1 -2 -5 L Quality Measures Quality Measures VTE prophylaxis Advance care planning discussed with:: patient and child Assessment & Plan Assessment Current Active Medications: Generic Name Dose Route Start Last Admin Trade Name Freq PRN Reason Stop Dose Admin Acetaminophen 650 mg 11/03/24 19:16 Acetaminophen 325 Mg Tablet PO 12/03/24 19:15 Q6H PRN PAIN SCALE 1-3 (mild Acetaminophen 650 mg 11/03/24 21:16 Acetaminophen Supp 650 Mg Supp ID 12/03/24 21:29 Q6H PRN Fever > 100.4 Albuterol/Ipratropium 3 ml 11/03/24 19:16 Albuterol/Ipratropium (Duoneb) Rt Dianne 3 Ml Nebu INH 12/03/24 22:59 Q4HRRT PRN SOB or wheezing Aspirin 81 mg 11/18/24 09:00 11/19/24 09:18 Aspirin 81 Mg Chew PO 12/18/24 08:59 81 mg QDAY TARIK Administration Atorvastatin Calcium 80 mg 11/04/24 21:00 11/18/24 21:53 Atorvastatin Calcium 20 Mg Tablet PO 12/04/24 20:59 Not Given HS TARIK Buspirone HCl 10 mg 11/16/24 14:00 11/19/24 05:32 Buspirone Hcl 5 Mg Tablet PO 12/16/24 13:59 Not Given TID TARIK Heparin Sodium (Porcine) 3,500 unit 11/14/24 10:00 11/14/24 11:37 Heparin Sod Inj 1000 Unit/Ml Vial 10 Ml INDWELLCAT 11/28/24 09:59 3,500 unit X1 PRN Administration DIALYSIS Albumin Human 25 gm in 100 mls @ 100 mls/min 11/05/24 10:19 11/16/24 09:42 Albuminar-25 Ivpb IV 100 mls/min QDAY PRN Administration DIALYSIS Lactulose 20 gm 11/18/24 16:00 11/19/24 05:32 Lactulose Syrup 20 Gm/30 Ml Udc ID 12/18/24 15:59 Not Given TID TARIK Protocol Levothyroxine Sodium 50 mcg 11/08/24 11:30 11/14/24 05:26 Levothyroxine Sodium 25 Mcg Tablet PO 12/08/24 11:29 Not Given ACBR TARIK Levothyroxine Sodium 25 mcg 11/16/24 13:00 11/19/24 09:18 Levothyroxine Inj 100 Mcg Vial IV 12/14/24 08:59 25 mcg QDAY TARIK Administration Metoprolol Succinate 100 mg 11/14/24 09:00 11/19/24 09:19 Metoprolol Succinate Xl 25 Mg Tabcr PO 12/14/24 08:59 Not Given QDAY TARIK Midodrine 5 mg 11/16/24 12:36 Midodrine 5 Mg Tablet PO 12/16/24 13:59 TID PRN For SBP<100 Mirtazapine 15 mg 11/11/24 21:00 11/18/24 21:53 Mirtazapine 15 Mg Tablet PO 12/11/24 20:59 Not Given [facility] Mupirocin 0 gm 11/18/24 09:42 11/19/24 05:57 Mupirocin Oint 2% 15 Gm Tube TOP 11/25/24 08:29 1 applicatio TID TARIK Administration Ondansetron HCl 4 mg 11/03/24 14:16 11/03/24 17:26 Ondansetron Inj 2 Mg/Ml Inj 2 Ml IV 12/03/24 14:15 4 mg Q4HR PRN Administration NAUSEA OR VOMITING Pantoprazole Sodium 40 mg 11/05/24 10:45 11/19/24 09:18 Pantoprazole Inj 40 Mg Vial IVP 12/05/24 10:44 40 mg QDAY TARIK Administration Pharmacy Consult 1 each 11/04/24 09:00 Vancomycin Pharmacy To Dose 1 Each Each IV 12/04/24 08:59 QDAY PRN CONSULT Pharmacy Consult 1 each 11/03/24 21:18 Pharmacy Renal Dose Adjustment 1 Ea XX 12/03/24 21:17 PRN PRN CONSULT Quetiapine Fumarate 25 mg 11/14/24 12:32 11/17/24 22:08 Quetiapine Fumarate 25 Mg Tablet PO 12/14/24 20:59 25 mg BID PRN Administration AGITATION Sennosides 1 tab 11/03/24 19:16 Senna Tablet PO 12/03/24 19:15 BID PRN CONSTIPATION Protocol Sevelamer Carbonate 0.8 gm 11/18/24 09:00 11/19/24 09:19 Sevelamer Carbonate 0.8 Gm Packet (Non-Formulary) PO 12/18/24 08:59 0.8 gm BID TARIK Administration Plan Assessment Malik is a 71-year-old male PMHx of ESRD on HD MWF, HFrEF EF 30%, CVA, hypothyroidism presenting with AMS in setting of CRBSI sepsis. He continued on VANCOMYCIN for MRSA bacteremia. HD cath removed. If blood culture negative tomorrow (48 hours), will proceed with hemodialysis cath insertion. #Sepsis 2/2 catheter site cellulitis (improving) #Catheter site cellulitis #MRSA bacteremia 2/2 CRBSI Met 2/4 SIRS criteria with tachycardia, fever. LA normal, no leukocytosis. HD tunneled cath erythematous and warm suggesting cellulitis. Afebrile, leukocytosis improving. Prelim blood culture showing GPC. Dialysis, significant removed. Continue on Vancomycin. 24-hour blood culture negative. Catheter site cx grew GPC. MRSA nasal swab positive. Repeat blood culture negative Patient will likely finish up antibiotic at SNF Currently finding SNF facility as patient is close to being medically cleared for discharge Concern for abscess or other infection , WBC 21, however no fevers Pt is unable to communicate much information at this time, so we will continue with broad workup CT CAP showed colon full of stool, possible proctitis pattern, no abscess found Plan: ? completed course of vancomycin. ? Continue to monitor CBC. - Continue to monitor vitals. #Leukocytosis #Acute encephalopathy #Severe agitation, improved. #Suspected underlying dementia vs delirium secondary to metabolic encephalopathy. Likely secondary to metabolic encephalopathy. Unclear what baseline is, currently attending, does not follow command, agitated, requiring multiple medications. Continued on soft restraints. Started scheduled HALOPERIDOL. Head CT was negative. No focal neurological deficit. No indication for stroke workup. Neurology consulted, agreed with ANTIPSYCHOTICS for agitation. Patient still agitated and was unable to have a new TDC inserted QT 420, previous ~370s At this time will hold sedating medicines at this time Goals of care conversation held with family, see notes Speech eval recommended dysphagia 1 diet only patient is awake Spoke with patient point of contact for family in regards to updates for patient Agreeable for SNF at this time, as they prefer [facility] or [facility] rehab centers Will continue with bowel regimen as this may be contributing to patient's agitation and new leukocytosis Plan: ? continue Seroquel 25 mg twice daily as needed. - Dysphagia diet as long as patient is awake. - Neurology consulted, appreciate recommendations. - Mirtazapine 15 mg every night. - continue on buspirone 10 mg daily. ? Lactulose 20 mg daily. ? Bedside commode. #ESRD on HD //. #Hypomagnesemia, resolved. #Hyperphosphatemia. Patient has dialysis Tuesday, Tuesday, Tuesday. Continue with dialysis TDC [employer] Dr Padilla Phosphorous ~8.8 Plan: ? Sevelamer 800 mg BID. ? Renally dose meds, avoid overdiuresis and NEPHROTOXINS. ? Daily CMP. ? Hemodialysis as scheduled by nephrology. ? Continue with dialysis with TDC. - continue on midodrine 5 mg 3 times daily PRN for hypotension. #NSTEMI, likely type II related to demand ischemia, resolved #History of coronary artery disease status post multiple stents and CABG triple bypass #History of myocardial infarction #Nonsustained supraventricular tachycardia #HFrEF with EF of 35 to 40% #Ischemic cardiomyopathy #Hypotension Unsure when patient's CABG was, will follow-up with records and family Patient takes home Plavix as well in addition to aspirin as well ranolazine Some bouts of nonsustained supraventricular tachycardia with trigeminy seen on telemetry Pt continues to have some tachycardia, but has not been giving home metoprolol doses Pt does have MRSA bactermia, will treat as well Upon review of cardiac catheter records 2 weeks ago at [facility] Saphenous vein graft to left circumflex?occluded whenever send HOOK to LAD?patent [place] LAD?moderate to severe disease Saphenous vein graft to RCA patent with good flow [place] left coronary artery severe proximal disease Not a candidate for PCI EF 35 to 40% Ischemic cardiomyopathy We want to uptitrate metoprolol back to 200 mg as patient heart rate and blood pressure will tolerate. We spoke with family, we recommend for pt not to have any invasive procedures and they agree. We also recommend a goals of conversation to be held with primary team and family. At this time of concern with hypotension, we will continue with metoprolol XL 100 mg despite risk of hypotension as we want to control the rate. Plan: ? continue Lipitor 80 mg ? Continue with home ASA 81 ? Patient is currently on metoprolol XL 100 mg ? Keep magnesium and potassium above 2 and 4 respectively ? Continue with midodrine 5 mg TID as needed for hypotension related to dialysis #Hypothyroidism. TSH 4.6 this visit. Plan: ? Continue home LEVOTHYROXINE 50 mcg ACBR. #Normocytic anemia (stable). Patient has Hb of 10.8 No obvious source of bleeding Plan: - We will monitor closely, may need outpatient workup. #Health Maintenance Disposition: Telemetry. DVT prophylaxis: SCDs. GI prophylaxis: Protonix. Diet: Dysphagia 1. CODE STATUS: DNR/DNI. Plan of care discussed with attending Dr. Angulo. Nick Lundberg MD, PGY 2. Disclaimer: This note was dictated by speech recognition. Minor errors in investigative reporter may be present due to voice recognition software. Attending Provider Attestation/Addendum I reviewed labs, imaging, EKG, home medications and prior available records. Face to face evaluation was performed by me. I have personally examined the patient and discussed assessment and plan with the IM team. I reviewed the resident note and agree with the plan with exceptions as below. Leukocytosis: Downtrending. Possibly due to severe constipation/urinary retention. Had a bowel movement. Continue constipation care. Treatment of infection as below. Trend WBC Acute hypotension: BP is currently stable. Continue midodrine as needed. Monitor BP Acute encephalopathy/hyperactive agitation: Improved. Likely hyperactive delirium in the setting of baseline dementia. Possibly multifactorial in the setting of MRSA infection, pain, sleep deprivation, hunger/thirst, anxiety. Management of infection as below. Delirium precautions. Ordered swallow evaluation and started the patient on diet. Okay to ice chips. Discontinued mittens Discussed with neurology: Discontinue pramipexole. Started quetiapine 25 mg twice daily as needed. Started buspirone. Started mirtazapine. MRSA dialysis line infection: Continue IV vancomycin. Status post insertion of a new right femoral dialysis catheter ESRD on hemodialysis: He is receiving hemodialysis via the new right femoral dialysis catheter that was inserted after 48 hours of negative blood cultures. Nephrology is following Non-STEMI: No active chest complaints. Continue aspirin and atorvastatin Ventricular tachycardia: Nonsustained. Continue metoprolol XL. Cardiology is following Debility: PT recommended SNF. Discussed with son: Okay to proceed.
--- NOTE | 2024-11-19 15:31 | PC.NURSE ---
After alteplase for 1.5 hr, HD catheter still not working. Unable to aspirate from arterial port, and hard to aspirate from venous port. Dr. Padilla aware that patient was not dialyze today.
[2024-11-19] MEDS: ATORVASTATIN CALCIUM 20 MG TABLET 80 MG PO (21:23)
[2024-11-19] MEDS: MIRTAZAPINE 15 MG TABLET PO (21:23)
[2024-11-19] MEDS: BusPIRone HCL 5 MG TABLET 10 MG PO (21:24)
[2024-11-19] MEDS: QUEtiapine FUMARATE 25 MG TABLET PO (21:24)
[2024-11-19] MEDS: LACTULOSE SYRUP 20 GM/30 ML UDC PR (21:24)
--- NOTE | 2024-11-19 23:46 | ESPR_ITS ---
Documentation for date of: 11/19/24 Subjective Subjective Interval history: Patient was seen in telemetry today with his family at the bedside, continue to remain restless, on restraints as he is intermittently trying to come out of bed. He had better oral intake this morning before the dialysis. He has been resting after he came back from dialysis. Exam - Neurology Vital Signs Temp Pulse Resp BP Pulse Ox O2 Del Method O2 Flow Rate 97.0 F 67 20 102/64 93 L Nasal Cannula 2 11/19/24 20:00 11/19/24 20:39 11/19/24 20:39 11/19/24 20:00 11/19/24 20:39 11/19/24 20:00 11/19/24 20:39 Narrative Exam GENERAL APPEARANCE: Well-developed, obese built white male , restless in bed HEENT: Normocephalic, atraumatic, extraocular movements intact. Pupils: Equal reacting to light NECK: Supple, no JVD or bruits. CARDIOVASULAR: Heart: S1, S2 heard, regular without S3-S4 or murmur no rubs or gallops. LUNGS/CHEST: Clear to auscultation bilaterally. No rails, rhonchi, or wheezing. Normal inspection. ABDOMEN: Soft, nontender, with normal bowel sounds. No pulsatile masses. No rebound, rigidity, or guarding. Normal inspection and palpation. EXTREMITIES: Normal inspection and palpation. No edema, clubbing or cyanosis. SKIN: Warm and dry without rashes. Normal inspection. MUSCULOSKELETAL: No cervical, thoracic, lumbar or midline bony tenderness. Normal inspection. NEURO: Awake, alert, still restless, needing to be on restraints, moves all 4 extremities purposefully no signs of meningeal irritation noted. PSYCHIATRIC: limited Objective Labs 11/19/24 04:52 11/19/24 04:52 Labs: Laboratory Results - last 24 hr 11/19/24 04:52 WBC 16.2 H D RBC 4.23 L Hgb 13.1 L Hct 38.8 L MCV 92 MCH 31.0 MCHC 33.8 RDW Std Deviation 48.2 H Plt Count 227 D Neut % (Auto) 80 Lymph % (Auto) 12 [place] % (Auto) 7 Eos % (Auto) 1 Baso % (Auto) 0 Neut # (Auto) 12.9 H Lymph # (Auto) 1.9 [place] # (Auto) 1.1 H Eos # (Auto) 0.2 Baso # (Auto) 0.0 Immature Gran # (Auto) 0.08 H Absolute Nucleated RBC 0.00 Immature Gran % 1 H Nucleated RBC % 0 Sodium 136 Potassium 5.5 H D Chloride 97 L Carbon Dioxide 19.7 L Anion Gap 19 H BUN 134 H* Creatinine 11.0 H* D Estim Creat Clear Calc 6.4 L eGFR 4 L* BUN/Creatinine Ratio 12 Glucose 104 Calculated Osmolality 315 H Calcium 9.9 Corrected Calcium 9.9 Phosphorus 11.7 H Magnesium 2.6 Total Bilirubin 0.6 AST 10 ALT 10 Alkaline Phosphatase 152 H Total Protein 7.1 Albumin 4.9 H Globulin 2.2 L Albumin/Globulin Ratio 2.2 Random Vancomycin 18.1 ABG Interpretation ABG results: 11/03/24 11/11/24 11/13/24 14:12 12:22 21:50 VBG pH 7.39 7.35 7.37 VBG pCO2 43 44 35 L VBG pO2 35 38 29 VBG Base Excess 1 -2 -5 L Assessment & Plan Assessment and plan (1) Delirium: Status: Acute Assessment and plan: Continue with the current management including Seroquel as needed (2) End stage renal failure on dialysis: Status: Chronic Assessment and plan: Got dialyzed today. (3) Dementia: Status: Chronic Assessment and plan: Progression noted, continue with the memantine Additional Assessment & Plan Additional Plan: Will try low-dose of pramipexole to help with restless legs which is commonly seen in patients with kidney disease
[2024-11-20] VITALS (24 sets, daily range): BP systolic 77–149; BP diastolic 45–93; PULSE 71–109; RESP 11–26; TEMP 36.1–36.4; O2SAT 96–100; BMI 30.3
[2024-11-20 05:42] LABS: Basophils % (Auto) 0 % (0-2.5); Eosinophils # (Auto) 0.2 Thou/mm3 (0.0-0.5); Eosinophils % (Auto) 2 % (0-10); Immature Granulocytes % (Auto) 0 % (0-0); Immature Granulocytes Auto 0.04 Thou/mm3 (0.00-0.00); Lymphocytes # (Auto) 1.2 Thou/mm3 (1.0-4.8); Lymphocytes % (Auto) 12 % (10-50); Mean Corpuscular HGB Conc 34.3 g/dl (31.0-37.0); Mean Corpuscular Hemoglobin 31.1 pg (25.0-35.0); Mean Corpuscular Volume 91 fL (80-100); Monocytes # (Auto) 0.9 Thou/mm3 (0.0-0.8); Monocytes % (Auto) 9 % (0-12); Neutrophils # (Auto) 7.6 Thou/mm3 (1.8-7.7); Neutrophils % (Auto) 77 % (37-80); Nucleated Red Blood Cell % 0 /100 WBC (0); Platelet Count 178 Thou/mm3 (140-440); RDW Standard Deviation 47.7 fL (35.1-43.9); Red Blood Count 3.86 Miln/mm3 (4.50-5.90); White Blood Count 9.9 Thou/mm3 (3.8-10.6)
[2024-11-20] MEDS: LACTULOSE SYRUP 20 GM/30 ML UDC PR ×3 (05:59→21:36)
[2024-11-20] MEDS: MUPIROCIN OINT 2% 15 GM TUBE TOP ×3 (05:59→21:36)
[2024-11-20 06:34] LABS: Alanine Aminotransferase 10 U/L (10-49); Albumin, Serum 4.7 gm/dL (3.4-4.8); Albumin/Globulin Ratio 2.5 (1.2-2.2); Alkaline Phosphatase 141 U/L (46-116); Anion Gap 22 (7-16); Aspartate Amino Transferase < 10 U/L (0-34); BUN/Creatinine Ratio 12 Ratio (12-20); Bilirubin,Total 0.5 mg/dL (0.3-1.2); Calcium 9.7 mg/dL (8.3-10.6); Calcium (Corrected) 9.7 mg/dL (8.5-10.1); Carbon Dioxide 19.5 mMol/L (20.0-31.0); Chloride 96 mMol/L (98-107); Estimated Creatinine Clearance 5.9 mL/min (>60); Globulin 1.9 gm/dL (2.3-3.5); Glucose 103 mg/dL (74-106); Magnesium 2.3 mg/dL (1.6-2.6); Osmolality,Calculated 322 (275-295); Potassium 5.2 mMol/L (3.4-5.1); Sodium 137 mMol/L (136-145); Total Protein 6.6 gm/dL (5.7-8.2); Vancomycin,Random 17.2 mcg/mL; eGFR 4 See Note
[2024-11-20] MEDS: QUEtiapine FUMARATE 25 MG TABLET PO (06:39)
[2024-11-20 06:40] LABS: Blood Urea Nitrogen 148 mg/dL (9-23); Phosphorous 13.6 mg/dL (2.4-5.1)
[2024-11-20 08:00] LABS: Partial Thromboplastin Time 27.6 Seconds (22.0-36.0); Prothrombin Time 11.4 Seconds (9.0-12.2)
[2024-11-20] MEDS: PANTOPRAZOLE INJ 40 MG VIAL IVP (08:55)
[2024-11-20] MEDS: LEVOTHYROXINE INJ 100 mCg VIAL 25 MCG IV (08:55)
--- NOTE | 2024-11-20 09:11 | PC.NURSE ---
Discharge currently on hold pending IR tunnel cath/removal.
--- NOTE | 2024-11-20 09:47 | PD.RESPRO ---
Documentation for date of: 11/20/24 Subjective Subjective Interval history: 11/20: no acute overnight events reported patient seen and examined at bedside this morning. Pt is saturating at 98% on 2L oxygen. Patient is a bit confused he does not know where he is he thinks he is at home patient is only oriented to self he is not agitated and mittens are off for 24 hours now. Patient denies any chest pain or palpitations he does not complain of any pain. Current potassium is 5.2 and magnesium is 2.3. Exam Vital Signs Temp Pulse Resp BP Pulse Ox O2 Del Method O2 Flow Rate 97.0 F 82 19 118/74 96 Nasal Cannula 1 11/20/24 08:00 11/20/24 09:04 11/20/24 08:41 11/20/24 09:04 11/20/24 08:41 11/20/24 08:00 11/20/24 08:41 Narrative Exam GENERAL:AAOx3, somnolent but answers questions, wearing diaper, wrist restraints present NEURO: no neuralgic deficits noted HEENT: Atraumatic, Normocephalic. mucous membranes moist. Eyes open, symmetrical, & clear HEART: Normal Heart Sounds LUNGS: Clear to auscultation with no wheezing or crackles. ABDOMEN: soft, non-distended, non-tender, bowel sounds heard, no guarding or rebound tenderness SKIN: No Rash or ecchymoses EXTREMITIES: No edema, tenderness, able to move all 4 extremities, pedal pulses palpated Objective Labs 11/21/24 04:24 11/21/24 04:24 Labs: Laboratory Results - last 24 hr 11/20/24 05:00 WBC 9.9 D RBC 3.86 L Hgb 12.0 L Hct 35.0 L MCV 91 MCH 31.1 MCHC 34.3 RDW Std Deviation 47.7 H Plt Count 178 D Neut % (Auto) 77 Lymph % (Auto) 12 [place] % (Auto) 9 Eos % (Auto) 2 Baso % (Auto) 0 Neut # (Auto) 7.6 Lymph # (Auto) 1.2 [place] # (Auto) 0.9 H Eos # (Auto) 0.2 Baso # (Auto) 0.0 Immature Gran # (Auto) 0.04 H Absolute Nucleated RBC 0.00 Immature Gran % 0 Nucleated RBC % 0 PT 11.4 INR 1.0 APTT 27.6 Sodium 137 Potassium 5.2 H Chloride 96 L Carbon Dioxide 19.5 L Anion Gap 22 H BUN 148 H* Creatinine 12.0 H* D Estim Creat Clear Calc 5.9 L eGFR 4 L* BUN/Creatinine Ratio 12 Glucose 103 Calculated Osmolality 322 H Calcium 9.7 Corrected Calcium 9.7 Phosphorus 13.6 H Magnesium 2.3 Total Bilirubin 0.5 AST < 10 ALT 10 Alkaline Phosphatase 141 H Total Protein 6.6 Albumin 4.7 Globulin 1.9 L Albumin/Globulin Ratio 2.5 H Random Vancomycin 17.2 ABG Interpretation ABG results: 11/03/24 11/11/24 11/13/24 14:12 12:22 21:50 VBG pH 7.39 7.35 7.37 VBG pCO2 43 44 35 L VBG pO2 35 38 29 VBG Base Excess 1 -2 -5 L Quality Measures Quality Measures VTE prophylaxis Advance care planning discussed with:: spouse Assessment & Plan Assessment Current Active Medications: Generic Name Dose Route Start Last Admin Trade Name Freq PRN Reason Stop Dose Admin Acetaminophen 650 mg 11/03/24 19:16 Acetaminophen 325 Mg Tablet PO 12/03/24 19:15 Q6H PRN PAIN SCALE 1-3 (mild Acetaminophen 650 mg 11/03/24 21:16 Acetaminophen Supp 650 Mg Supp [place] 12/03/24 21:29 Q6H PRN Fever > 100.4 Albuterol/Ipratropium 3 ml 11/03/24 19:16 Albuterol/Ipratropium (Duoneb) Rt Dianne 3 Ml Nebu INH 12/03/24 22:59 Q4HRRT PRN SOB or wheezing Aspirin 81 mg 11/18/24 09:00 11/20/24 09:03 Aspirin 81 Mg Chew PO 12/18/24 08:59 Not Given QDAY TARIK Atorvastatin Calcium 80 mg 11/04/24 21:00 11/19/24 21:23 Atorvastatin Calcium 20 Mg Tablet PO 12/04/24 20:59 80 mg HS TARIK Administration Buspirone HCl 10 mg 11/16/24 14:00 11/20/24 05:57 Buspirone Hcl 5 Mg Tablet PO 12/16/24 13:59 Not Given TID TARIK Heparin Sodium (Porcine) 3,500 unit 11/14/24 10:00 11/14/24 11:37 Heparin Sod Inj 1000 Unit/Ml Vial 10 Ml INDWELLCAT 11/28/24 09:59 3,500 unit X1 PRN Administration DIALYSIS Albumin Human 25 gm in 100 mls @ 100 mls/min 11/05/24 10:19 11/16/24 09:42 Albuminar-25 Ivpb IV 100 mls/min QDAY PRN Administration DIALYSIS Lactulose 20 gm 11/18/24 16:00 11/20/24 05:59 Lactulose Syrup 20 Gm/30 Ml Udc [place] 12/18/24 15:59 20 gm TID TARIK Administration Protocol Levothyroxine Sodium 50 mcg 11/08/24 11:30 11/14/24 05:26 Levothyroxine Sodium 25 Mcg Tablet PO 12/08/24 11:29 Not Given ACBR TARIK Levothyroxine Sodium 25 mcg 11/16/24 13:00 11/20/24 08:55 Levothyroxine Inj 100 Mcg Vial IV 12/14/24 08:59 25 mcg QDAY TARIK Administration Metoprolol Succinate 100 mg 11/14/24 09:00 11/20/24 09:04 Metoprolol Succinate Xl 25 Mg Tabcr PO 12/14/24 08:59 Not Given QDAY TARIK Midodrine 5 mg 11/16/24 12:36 Midodrine 5 Mg Tablet PO 12/16/24 13:59 TID PRN For SBP<100 Mirtazapine 15 mg 11/11/24 21:00 11/19/24 21:23 Mirtazapine 15 Mg Tablet PO 12/11/24 20:59 15 mg HS TARIK Administration Mupirocin 0 gm 11/18/24 09:42 11/20/24 05:59 Mupirocin Oint 2% 15 Gm Tube TOP 11/25/24 08:29 1 applicatio TID TARIK Administration Ondansetron HCl 4 mg 11/03/24 14:16 11/03/24 17:26 Ondansetron Inj 2 Mg/Ml Inj 2 Ml IV 12/03/24 14:15 4 mg Q4HR PRN Administration NAUSEA OR VOMITING Pantoprazole Sodium 40 mg 11/05/24 10:45 11/20/24 08:55 Pantoprazole Inj 40 Mg Vial IVP 12/05/24 10:44 40 mg QDAY TARIK Administration Pharmacy Consult 1 each 11/03/24 21:18 Pharmacy Renal Dose Adjustment 1 Ea XX 12/03/24 21:17 PRN PRN CONSULT Quetiapine Fumarate 25 mg 11/14/24 12:32 11/20/24 06:39 Quetiapine Fumarate 25 Mg Tablet PO 12/14/24 20:59 25 mg BID PRN Administration AGITATION Sennosides 1 tab 11/03/24 19:16 Senna Tablet PO 12/03/24 19:15 BID PRN CONSTIPATION Protocol Sevelamer Carbonate 0.8 gm 11/18/24 09:00 11/20/24 09:04 Sevelamer Carbonate 0.8 Gm Packet (Non-Formulary) PO 12/18/24 08:59 Not Given BID REPLACED BY [facility] Zay Gan is a 79-year-old male past medical history of past medical history of ESRD on hemodialysis (MWF, sees Dr. Padilla), HFrEF (possibly EF of 30), Previous CVA, possible hypothyroidism currently admitted for sepsis secondary to catheter related bloodstream infection which is showing GPC currently. repeat blood cultures on 11/05 have no growth for more than 24 hours. #Sepsis secondary to # MRSA bacteremia -Patient underwent catheter holiday and hemodialysis catheter was removed and multiple attempts have been made since to replace patient's tunnel catheter since patient's blood cultures have been negative for 5 days however due to patient's agitation and inability to stay still a permanent tunneled catheter have not been placed. Patient have undergone 2 temporary dialysis catheter. -Patient is on vancomycin until 11/19/2024 #PVCs-patient's PVC frequency have decreased to less than5%, will continue metoprolol 100 Mg daily if patient's blood pressure permits then will increase metoprolol when able # NSTEMI type II-likely demand ischemia in the setting of sepsis -Initial troponins0.058 ->peaked at 0.976 and downtrended to 0.900 -Keep potassium above 4 and magnesium above 2 at all times -Patient underwent cardiac catheterization which showed 2 of the 3 severe CAD however no intervention can be done at this time due to patient's current condition therefore we will continue medical management #HFrEF -Echocardiogram done on 11/05/24 findings consistent with ejection fraction of EF of 25 to 30% with dilated cardiomyopathy including dilated LV RV RV and LA. Moderate MR and TR. Grade 2 diastolic dysfunction, moderately reduced RV function. -Per family's decision patient's CODE STATUS have been changed to DNR/DNI therefore they do not wish any further invasive procedures or interventions to be done as patient's current condition is unstable. -Patient is currently not on goal-directed medical therapy for heart failure due to patient's soft blood pressure. Currently patient is on metoprolol XL 100mg daily. # Acute encephalopathy #Severe agitation # Dementia -Patient less confused and appears to be less agitated however soft mittens are still on -Pt is on - Mirtazapine 15 mg every night and buspirone 10 mg daily, continue management as per primary hospitalist team -Neurologist is consulted and following # End-stage renal disease on hemodialysis Tuesday. -Patient continues to undergo dialysis as per schedule -pt underwent permanent tunneled dialysis catheter in right common femoral vein on 11/13/24 Assessment and plan discussed with my attending physician Dr. Ciara Ireland (PGY-1)- Internal medicine resident Attending Provider Attestation/Addendum I have personally seen and examined the patient separately on the above date of service and discussed the plan of care with the resident. I reviewed the resident Dr. Brennon Ireland consultation progress note and agree with the resident findings and plan in the note above and have also edited the documentation to reflect my findings and plan. Bismark Urbina M.D. Interventional Cardiology
--- NOTE | 2024-11-20 09:53 | PC.NURSE ---
consulted Dr. Padilla regarding order for dialysis catheter insertion, stated that she wants to attempt tunneled hemodialysis catheter insertion preferrably to left or right IJ, if not possible insert perm cath or temporary dialysis catheter since patient needs dialysis
[2024-11-20] MEDS: fentaNYL CIT INJ 50 mCg/ML AMP 2ML 25 MCG IVP (10:41)
[2024-11-20] MEDS: MIDAZOLAM INJ 1 MG/ML VIAL 2 ML IV (10:41)
[2024-11-20] MEDS: LIDOCAINE INJ PF 1% 30 ML VIAL INFL (11:05)
[2024-11-20] MEDS: HEPARIN SOD INJ 1000 UNIT/ML VIAL 3500 UNIT INDWELLCAT (11:11)
--- NOTE | 2024-11-20 11:35 | PC.NURSE ---
[id number] went to IR for dialysis catheter insertion/exchange, patency noted to current dialysis catheter, dr euceda notified by phone, procedure cancelled. Line sutured by dr pop with local anesthesia, dialysis ports heprinized, report given to Haroon ESTRELLA, patient transferred back to room 271
[2024-11-20] MEDS: LIDOCAINE INJ PF 1% 30 ML VIAL (12:04)
--- NOTE | 2024-11-20 12:49 | PC.NURSE ---
UF off, BP low. Rapid called. Multiple arterial alarms.
[2024-11-20] MEDS: HEPARIN SOD INJ 1000 UNIT/ML VIAL 10 ML 3500 UNIT INDWELLCAT (13:13)
--- NOTE | 2024-11-20 13:28 | PC.SS ---
SENIOR TECHNICAL BUSINESS ANALYST contacted [facility] staff to provide update on patient. SENIOR TECHNICAL BUSINESS ANALYST informed that SNF does not currently possess any male beds at this time.
--- NOTE | 2024-11-20 13:28 | PC.SS ---
ADMINISTRATIVE MANAGER submitted updated clinicals on [facility] to SNF for possible placement. Results are pending.
--- NOTE | 2024-11-20 13:29 | PC.SS ---
MEDICAL PHYSICS TEACHER informed by bedside nurse that rapid response was called on the patient during dialysis due to blood pressure.
--- NOTE | 2024-11-20 13:35 | PC.NURSE ---
Teresa called on pt due to low BP. Explained to teresa team that pt was in desperate need for HD, but unable to dialyze pt. do to his catheter alarming every time he moves. Dr. Padilla call and informed about problem, she stated that she would try to get him transfered to another hospital where they could do his perm. cath.
[2024-11-20] MEDS: BusPIRone HCL 5 MG TABLET 10 MG PO ×2 (13:53→21:36)
--- NOTE | 2024-11-20 16:04 | PD.RESPRO ---
Documentation for date of: 11/20/24 Subjective Subjective Interval history: Patient was seen and examined at bedside. No acute overnight events. Patient was went to hemodialysis today but was unable to complete due to agitation and constant movement. Patient will need jugular TDC placement, therefore transfer was initiated for vascular surgery consult. Will continue current management. Exam Vital Signs Temp Pulse Resp BP Pulse Ox O2 Del Method O2 Flow Rate 97.3 F 83 18 131/57 H 100 Nasal Cannula 2 11/20/24 13:18 11/20/24 13:18 11/20/24 13:18 11/20/24 13:18 11/20/24 11:13 11/20/24 11:13 11/20/24 11:13 Narrative Exam Gen: Well-developed and well-nourished elderly male. HEENT: NCAT, PERRLA, EOMI, MMM, anicteric conjunctivae. CVS: normal S1 and S2. RRR. No M/R/G. Resp: Decreased breath sounds B/L bases. No rhonchi, rales, crackles or wheezing. Abd: soft, non-tender, non-distended. BS+ in all 4 quadrants. MSK: Good ROM in BUE & BLE. No edema or rash. TDC in right femoral area, appears clean. Neuro: Patient is refusing examination. Able to move all 4 extremities. Objective Labs 11/20/24 05:00 11/20/24 05:00 Labs: Laboratory Results - last 24 hr 11/20/24 05:00 WBC 9.9 D RBC 3.86 L Hgb 12.0 L Hct 35.0 L MCV 91 MCH 31.1 MCHC 34.3 RDW Std Deviation 47.7 H Plt Count 178 D Neut % (Auto) 77 Lymph % (Auto) 12 [place] % (Auto) 9 Eos % (Auto) 2 Baso % (Auto) 0 Neut # (Auto) 7.6 Lymph # (Auto) 1.2 [place] # (Auto) 0.9 H Eos # (Auto) 0.2 Baso # (Auto) 0.0 Immature Gran # (Auto) 0.04 H Absolute Nucleated RBC 0.00 Immature Gran % 0 Nucleated RBC % 0 PT 11.4 INR 1.0 APTT 27.6 Sodium 137 Potassium 5.2 H Chloride 96 L Carbon Dioxide 19.5 L Anion Gap 22 H BUN 148 H* Creatinine 12.0 H* D Estim Creat Clear Calc 5.9 L eGFR 4 L* BUN/Creatinine Ratio 12 Glucose 103 Calculated Osmolality 322 H Calcium 9.7 Corrected Calcium 9.7 Phosphorus 13.6 H Magnesium 2.3 Total Bilirubin 0.5 AST < 10 ALT 10 Alkaline Phosphatase 141 H Total Protein 6.6 Albumin 4.7 Globulin 1.9 L Albumin/Globulin Ratio 2.5 H Random Vancomycin 17.2 ABG Interpretation ABG results: 11/03/24 11/11/24 11/13/24 14:12 12:22 21:50 VBG pH 7.39 7.35 7.37 VBG pCO2 43 44 35 L VBG pO2 35 38 29 VBG Base Excess 1 -2 -5 L Quality Measures Quality Measures VTE prophylaxis Advance care planning discussed with:: patient and child Assessment & Plan Assessment Current Active Medications: Generic Name Dose Route Start Last Admin Trade Name Freq PRN Reason Stop Dose Admin Acetaminophen 650 mg 11/03/24 19:16 Acetaminophen 325 Mg Tablet PO 12/03/24 19:15 Q6H PRN PAIN SCALE 1-3 (mild Acetaminophen 650 mg 11/03/24 21:16 Acetaminophen Supp 650 Mg Supp [place] 12/03/24 21:29 Q6H PRN Fever > 100.4 Albuterol/Ipratropium 3 ml 11/03/24 19:16 Albuterol/Ipratropium (Duoneb) Rt Dianne 3 Ml Nebu INH 12/03/24 22:59 Q4HRRT PRN SOB or wheezing Aspirin 81 mg 11/18/24 09:00 11/20/24 09:03 Aspirin 81 Mg Chew PO 12/18/24 08:59 Not Given QDAY TARIK Atorvastatin Calcium 80 mg 11/04/24 21:00 11/19/24 21:23 Atorvastatin Calcium 20 Mg Tablet PO 12/04/24 20:59 80 mg HS TARIK Administration Buspirone HCl 10 mg 11/16/24 14:00 11/20/24 13:53 Buspirone Hcl 5 Mg Tablet PO 12/16/24 13:59 10 mg TID TARIK Administration Heparin Sodium (Porcine) 3,500 unit 11/14/24 10:00 11/20/24 13:13 Heparin Sod Inj 1000 Unit/Ml Vial 10 Ml INDWELLCAT 11/28/24 09:59 3,500 unit X1 PRN Administration DIALYSIS Albumin Human 25 gm in 100 mls @ 100 mls/min 11/05/24 10:19 11/16/24 09:42 Albuminar-25 Ivpb IV 100 mls/min QDAY PRN Administration DIALYSIS Lactulose 20 gm 11/18/24 16:00 11/20/24 13:53 Lactulose Syrup 20 Gm/30 Ml Udc [place] 12/18/24 15:59 20 gm TID TARIK Administration Protocol Levothyroxine Sodium 50 mcg 11/08/24 11:30 11/14/24 05:26 Levothyroxine Sodium 25 Mcg Tablet PO 12/08/24 11:29 Not Given ACBR TARIK Levothyroxine Sodium 25 mcg 11/16/24 13:00 11/20/24 08:55 Levothyroxine Inj 100 Mcg Vial IV 12/14/24 08:59 25 mcg QDAY TARIK Administration Metoprolol Succinate 100 mg 11/14/24 09:00 11/20/24 09:04 Metoprolol Succinate Xl 25 Mg Tabcr PO 12/14/24 08:59 Not Given QDAY TARIK Midodrine 5 mg 11/16/24 12:36 Midodrine 5 Mg Tablet PO 12/16/24 13:59 TID PRN For SBP<100 Mirtazapine 15 mg 11/11/24 21:00 11/19/24 21:23 Mirtazapine 15 Mg Tablet PO 12/11/24 20:59 15 mg HS TARIK Administration Mupirocin 0 gm 11/18/24 09:42 11/20/24 13:54 Mupirocin Oint 2% 15 Gm Tube TOP 11/25/24 08:29 1 applicatio TID TARIK Administration Ondansetron HCl 4 mg 11/03/24 14:16 11/03/24 17:26 Ondansetron Inj 2 Mg/Ml Inj 2 Ml IV 12/03/24 14:15 4 mg Q4HR PRN Administration NAUSEA OR VOMITING Pantoprazole Sodium 40 mg 11/05/24 10:45 11/20/24 08:55 Pantoprazole Inj 40 Mg Vial IVP 12/05/24 10:44 40 mg QDAY TARIK Administration Pharmacy Consult 1 each 11/03/24 21:18 Pharmacy Renal Dose Adjustment 1 Ea XX 12/03/24 21:17 PRN PRN CONSULT Quetiapine Fumarate 25 mg 11/14/24 12:32 11/20/24 06:39 Quetiapine Fumarate 25 Mg Tablet PO 12/14/24 20:59 25 mg BID PRN Administration AGITATION Sennosides 1 tab 11/03/24 19:16 Senna Tablet PO 12/03/24 19:15 BID PRN CONSTIPATION Protocol Sevelamer Carbonate 0.8 gm 11/18/24 09:00 11/20/24 09:04 Sevelamer Carbonate 0.8 Gm Packet (Non-Formulary) PO 12/18/24 08:59 Not Given BID TARIK Plan Assessment Malik is a 71-year-old male PMHx of ESRD on HD MWF, HFrEF EF 30%, CVA, hypothyroidism presenting with AMS in setting of CRBSI sepsis. He continued on VANCOMYCIN for MRSA bacteremia. HD cath removed. If blood culture negative tomorrow (48 hours), will proceed with hemodialysis cath insertion. #Sepsis 2/2 catheter site cellulitis (improving) #Catheter site cellulitis #MRSA bacteremia 2/2 CRBSI Met 2/4 SIRS criteria with tachycardia, fever. LA normal, no leukocytosis. HD tunneled cath erythematous and warm suggesting cellulitis. Afebrile, leukocytosis improving. Prelim blood culture showing GPC. Dialysis, significant removed. Continue on Vancomycin. 24-hour blood culture negative. Catheter site cx grew GPC. MRSA nasal swab positive. Repeat blood culture negative Patient will likely finish up antibiotic at SNF Currently finding SNF facility as patient is close to being medically cleared for discharge Concern for abscess or other infection , WBC 21, however no fevers Pt is unable to communicate much information at this time, so we will continue with broad workup CT CAP showed colon full of stool, possible proctitis pattern, no abscess found Plan: ? completed course of vancomycin. ? Continue to monitor CBC. - Continue to monitor vitals. #Leukocytosis #Acute encephalopathy #Severe agitation, improved. #Suspected underlying dementia vs delirium secondary to metabolic encephalopathy. Likely secondary to metabolic encephalopathy. Unclear what baseline is, currently attending, does not follow command, agitated, requiring multiple medications. Continued on soft restraints. Started scheduled HALOPERIDOL. Head CT was negative. No focal neurological deficit. No indication for stroke workup. Neurology consulted, agreed with ANTIPSYCHOTICS for agitation. Patient still agitated and was unable to have a new TDC inserted QT 420, previous ~370s At this time will hold sedating medicines at this time Goals of care conversation held with family, see notes Speech nakulal recommended dysphagia 1 diet only patient is awake Spoke with patient point of contact for family in regards to updates for patient Agreeable for SNF at this time, as they prefer possibly [facility] or [facility] rehab centers Will continue with bowel regimen as this may be contributing to patient's agitation and new leukocytosis Plan: ? continue Seroquel 25 mg twice daily as needed. - Dysphagia diet as long as patient is awake. - Neurology consulted, appreciate recommendations. - Mirtazapine 15 mg every night. - continue on buspirone 10 mg daily. ? Lactulose 20 mg daily. ? Bedside commode. #ESRD on HD //. #Hypomagnesemia, resolved. #Hyperphosphatemia. Patient has dialysis Tuesday, Tuesday, Tuesday. Continue with dialysis TDC Bottler Dr Padilla Phosphorous ~8.8 Plan: ? Sevelamer 800 mg BID. ? Renally dose meds, avoid overdiuresis and NEPHROTOXINS. ? Daily CMP. ? Hemodialysis as scheduled by nephrology. ? Continue with dialysis with TDC. - continue on midodrine 5 mg 3 times daily PRN for hypotension. #NSTEMI, likely type II related to demand ischemia, resolved #History of coronary artery disease status post multiple stents and CABG triple bypass #History of myocardial infarction #Nonsustained supraventricular tachycardia #HFrEF with EF of 35 to 40% #Ischemic cardiomyopathy #Hypotension Unsure when patient's CABG was, will follow-up with records and family Patient takes home Plavix as well in addition to aspirin as well ranolazine Some bouts of nonsustained supraventricular tachycardia with trigeminy seen on telemetry Pt continues to have some tachycardia, but has not been giving home metoprolol doses Pt does have MRSA bactermia, will treat as well Upon review of cardiac catheter records 2 weeks ago at [facility] Saphenous vein graft to left circumflex?occluded whenever send HOOK to LAD?patent [place] LAD?moderate to severe disease Saphenous vein graft to RCA patent with good flow [place] left coronary artery severe proximal disease Not a candidate for PCI EF 35 to 40% Ischemic cardiomyopathy We want to uptitrate metoprolol back to 200 mg as patient heart rate and blood pressure will tolerate. We spoke with family, we recommend for pt not to have any invasive procedures and they agree. We also recommend a goals of conversation to be held with primary team and family. At this time of concern with hypotension, we will continue with metoprolol XL 100 mg despite risk of hypotension as we want to control the rate. Plan: ? continue Lipitor 80 mg ? Continue with home ASA 81 ? Patient is currently on metoprolol XL 100 mg ? Keep magnesium and potassium above 2 and 4 respectively ? Continue with midodrine 5 mg TID as needed for hypotension related to dialysis #Hypothyroidism. TSH 4.6 this visit. Plan: ? Continue home LEVOTHYROXINE 50 mcg ACBR. #Normocytic anemia (stable). Patient has Hb of 10.8 No obvious source of bleeding Plan: - We will monitor closely, may need outpatient workup. #Health Maintenance Disposition: Telemetry. DVT prophylaxis: SCDs. GI prophylaxis: Protonix. Diet: Dysphagia 1. CODE STATUS: DNR/DNI. Plan of care discussed with attending Dr. Angulo. Nick Lundbreg MD, PGY 2. Disclaimer: This note was dictated by speech recognition. Minor errors in superintendent refuse disposal may be present due to voice recognition software. Attending Provider Attestation/Addendum I reviewed labs, imaging, EKG, home medications and prior available records. Face to face evaluation was performed by me. I have personally examined the patient and discussed assessment and plan with the IM team. I reviewed the resident note and agree with the plan with exceptions as below. Leukocytosis: Downtrending. Possibly due to severe constipation/urinary retention. Had a bowel movement. Continue constipation care. Treatment of infection as below. Trend WBC Acute hypotension: Rapid response was called on 11/20 for acute hypotension during hemodialysis however BP improved after holding it. Possibly due to cuff malfunction. Hemodialysis catheter malfunction: Rapid response was called on 11/20 as the dialysis line is not functioning well. Patient is being agitated and moving in his bed which is putting a pressure on the dialysis line. Per dialysis nurse, he was unable to complete several sessions. His BUN has been increasing. Discussed with nephrology: Contacted IR who is not able to perform subclavian dialysis line. Discussed with nephrology: Will plan to transfer the patient to [facility] for vascular surgery service to insert out subclavian dialysis line. Acute encephalopathy/hyperactive agitation: Improved. Likely hyperactive delirium in the setting of baseline dementia. Possibly multifactorial in the setting of MRSA infection, pain, sleep deprivation, hunger/thirst, anxiety. Management of infection as below. Delirium precautions. Ordered swallow evaluation and started the patient on diet. Okay to ice chips. Discontinued mittens Discussed with neurology: Discontinue pramipexole. Started quetiapine 25 mg twice daily as needed. Started buspirone. Started mirtazapine. MRSA dialysis line infection: Finished IV vancomycin. Status post insertion of a new right femoral dialysis catheter ESRD on hemodialysis: He is receiving hemodialysis via the new right femoral dialysis catheter that was inserted after 48 hours of negative blood cultures. Nephrology is following Non-STEMI: No active chest complaints. Continue aspirin and atorvastatin Ventricular tachycardia: Nonsustained. Continue metoprolol XL. Cardiology is following Debility: PT recommended SNF. Discussed with son: Okay to proceed.
--- NOTE | 2024-11-20 16:29 | PD.EVENT ---
Documentation for date of: 11/20/24 Event Note Event Note: Rapid response was called for acute hypotension and dialysis line malfunction. Patient was seen and evaluated at the bedside. Acute hypotension: Rapid response was called on 11/20 for acute hypotension during hemodialysis however BP improved after holding it. Possibly due to cuff malfunction. Hemodialysis catheter malfunction: Per hemodialysis nurse, dialysis line is not functioning well. Patient is moving in his bed which is putting a pressure on the dialysis line. Per dialysis nurse, he was unable to complete several sessions. His BUN has been increasing. Discussed with nephrology: Contacted IR who is not able to perform subclavian dialysis line. Discussed with nephrology: Will plan to transfer the patient to [facility] for vascular surgery service to insert out subclavian dialysis line. Case was discussed with high school social science teacher. Will start working on the transfer process.
--- NOTE | 2024-11-20 17:12 | PC.SS ---
Rounding Note: Plan is to initiate transfer on behalf of the patient for vascular services.
--- NOTE | 2024-11-20 19:05 | PC.NURSE ---
2:1 sitter called out for patient trying to pull out lines and being combative. Called Dr Angel for new mitten restraints. Applied mittens.
[2024-11-20] MEDS: SEVELAMER CARBONATE 0.8 GM PACKET (NON-FORMULARY) PO (21:35)
[2024-11-20] MEDS: ATORVASTATIN CALCIUM 20 MG TABLET 80 MG PO (21:35)
[2024-11-20] MEDS: MIRTAZAPINE 15 MG TABLET PO (21:36)
--- NOTE | 2024-11-20 22:34 | PD.VPROG1 ---
Telemedicine visit statement This visit was conducted with the use of interactive audio and video telecommunications system that permits real time communication between the patient and the provider. Patient's verbal consent for virtual visit was obtained on 11/20/24 at 2234. Documentation for date of: 11/20/24 Subjective Subjective Interval history: Patient is in telemetry, continue to remian confused, redirectable, very low oral intake sleep: not good, still restless, needing restraints. Virtual exam Vital Signs Temp Pulse Resp BP Pulse Ox O2 Del Method O2 Flow Rate 97.5 F 83 17 123/71 97 Room Air 2 11/20/24 20:00 11/20/24 20:00 11/20/24 20:00 11/20/24 20:00 11/20/24 20:00 11/20/24 20:00 11/20/24 11:13 Objective Labs 11/20/24 05:00 11/20/24 05:00 Labs: Laboratory Results - last 24 hr 11/20/24 05:00 WBC 9.9 D RBC 3.86 L Hgb 12.0 L Hct 35.0 L MCV 91 MCH 31.1 MCHC 34.3 RDW Std Deviation 47.7 H Plt Count 178 D Neut % (Auto) 77 Lymph % (Auto) 12 [place] % (Auto) 9 Eos % (Auto) 2 Baso % (Auto) 0 Neut # (Auto) 7.6 Lymph # (Auto) 1.2 [place] # (Auto) 0.9 H Eos # (Auto) 0.2 Baso # (Auto) 0.0 Immature Gran # (Auto) 0.04 H Absolute Nucleated RBC 0.00 Immature Gran % 0 Nucleated RBC % 0 PT 11.4 INR 1.0 APTT 27.6 Sodium 137 Potassium 5.2 H Chloride 96 L Carbon Dioxide 19.5 L Anion Gap 22 H BUN 148 H* Creatinine 12.0 H* D Estim Creat Clear Calc 5.9 L eGFR 4 L* BUN/Creatinine Ratio 12 Glucose 103 Calculated Osmolality 322 H Calcium 9.7 Corrected Calcium 9.7 Phosphorus 13.6 H Magnesium 2.3 Total Bilirubin 0.5 AST < 10 ALT 10 Alkaline Phosphatase 141 H Total Protein 6.6 Albumin 4.7 Globulin 1.9 L Albumin/Globulin Ratio 2.5 H Random Vancomycin 17.2 ABG Interpretation ABG results: 11/03/24 11/11/24 11/13/24 14:12 12:22 21:50 VBG pH 7.39 7.35 7.37 VBG pCO2 43 44 35 L VBG pO2 35 38 29 VBG Base Excess 1 -2 -5 L Assessment & Plan Problem List (1) Delirium: Status: Acute Assessment and plan: with baseline dementia more confusion lately could be from missing dialysis too. Needs to be back on the restraints Continue to monitor him closely on current management (2) End stage renal failure on dialysis: Status: Chronic Assessment and plan: Dialysis access needs to be redone as it is clogged and he did not have dialysis since Tuesday.
[2024-11-21] VITALS (9 sets, daily range): BP systolic 96–145; BP diastolic 55–87; PULSE 76–118; RESP 16–30; TEMP 35.7–36.3; O2SAT 95–100; BMI 30.3
[2024-11-21] MEDS: LACTULOSE SYRUP 20 GM/30 ML UDC PR ×2 (05:27→14:05)
[2024-11-21] MEDS: MIDODRINE 5 MG TABLET PO (05:28)
[2024-11-21] MEDS: MUPIROCIN OINT 2% 15 GM TUBE TOP ×2 (05:28→14:09)
[2024-11-21] MEDS: BusPIRone HCL 5 MG TABLET 10 MG PO ×2 (05:28→14:05)
[2024-11-21 05:39] LABS: Basophils % (Auto) 0 % (0-2.5); Eosinophils # (Auto) 0.2 Thou/mm3 (0.0-0.5); Eosinophils % (Auto) 2 % (0-10); Hematocrit 33.3 % (41.0-53.0); Hemoglobin 11.6 g/dL (13.5-16.0); Immature Granulocytes % (Auto) 1 % (0-0); Immature Granulocytes Auto 0.04 Thou/mm3 (0.00-0.00); Lymphocytes # (Auto) 1.2 Thou/mm3 (1.0-4.8); Lymphocytes % (Auto) 13 % (10-50); Mean Corpuscular HGB Conc 34.8 g/dl (31.0-37.0); Mean Corpuscular Hemoglobin 31.3 pg (25.0-35.0); Mean Corpuscular Volume 90 fL (80-100); Monocytes % (Auto) 11 % (0-12); Neutrophils # (Auto) 6.4 Thou/mm3 (1.8-7.7); Neutrophils % (Auto) 73 % (37-80); Nucleated Red Blood Cell % 0 /100 WBC (0); Platelet Count 173 Thou/mm3 (140-440); RDW Standard Deviation 46.6 fL (35.1-43.9); Red Blood Count 3.71 Miln/mm3 (4.50-5.90); White Blood Count 8.8 Thou/mm3 (3.8-10.6)
[2024-11-21 06:27] LABS: Alanine Aminotransferase 10 U/L (10-49); Albumin, Serum 4.7 gm/dL (3.4-4.8); Albumin/Globulin Ratio 2.6 (1.2-2.2); Alkaline Phosphatase 136 U/L (46-116); Anion Gap 22 (7-16); Aspartate Amino Transferase 20 U/L (0-34); BUN/Creatinine Ratio 11 Ratio (12-20); Bilirubin,Total 0.5 mg/dL (0.3-1.2); Calcium 9.6 mg/dL (8.3-10.6); Calcium (Corrected) 9.6 mg/dL (8.5-10.1); Carbon Dioxide 16.9 mMol/L (20.0-31.0); Chloride 98 mMol/L (98-107); Estimated Creatinine Clearance 5.8 mL/min (>60); Globulin 1.8 gm/dL (2.3-3.5); Glucose 92 mg/dL (74-106); Osmolality,Calculated 316 (275-295); Potassium 5.4 mMol/L (3.4-5.1); Sodium 137 mMol/L (136-145); Total Protein 6.5 gm/dL (5.7-8.2); eGFR 4 See Note
[2024-11-21 06:38] LABS: Blood Urea Nitrogen 133 mg/dL (9-23); Creatinine (Component) 12.3 mg/dL (0.6-1.3); Phosphorous 12.9 mg/dL (2.4-5.1)
[2024-11-21] MEDS: SEVELAMER CARBONATE 0.8 GM PACKET (NON-FORMULARY) PO (08:05)
[2024-11-21] MEDS: ASPIRIN 81 MG CHEW PO (08:05)
[2024-11-21] MEDS: LEVOTHYROXINE INJ 100 mCg VIAL 25 MCG IV (08:05)
[2024-11-21] MEDS: PANTOPRAZOLE INJ 40 MG VIAL IVP (08:05)
--- NOTE | 2024-11-21 09:16 | PC.CM ---
Addendum entered by Liane Cavazos RN 11/21/24 19:02: Patient needs vascular surgery for subclavian dialysis line placement. I sent referral to [facility]. Patient declined by [facility] stating they are at capacity. Please reach out to other facilities. Packet started and left on transfer nurse desk We will need to work on getting authorization once we have an accepting facility. Addendum entered by Liane Cavazos RN 11/21/24 14:46: I reached out to [facility] and they stated they did not receive a request for transfer or any paperwork . I faxed over information and initiated a transfer vascular needing subclavian dialysis line placed. Original Note: 0900 I reviewed notes and see patient needs to have a subclavian dialysis line placed. We are unable to do procedure at our hospital. Per notes from yesterday it looks like we are trying to transfer to [facility] for vascular surgery service to insert out subclavian dialysis line.
--- NOTE | 2024-11-21 09:59 | ESPR_ITS ---
Documentation for date of: 11/21/24 Subjective Subjective Interval history: 11/21: no acute overnight events reported however Pt's mittens are placed back on as Pt is actively trying to pull lines. Patient is alert and oriented to self and can name his son and . Patient asking if he can use the bedside commode as he does not want to go in his diaper. Patient was unable to complete his dialysis the last couple of days due to malfunctioning of his femoral tendon will catheter. Decision has been made to transfer the patient for a vascular surgeon. Transfer is pending. Telemetry is reviewed patient is in sinus rhythm and patient denies any chest pain, pressure, palpitations. Potassium is 4.7 and magnesium is 2.1. Patient has no other complaints. Exam Vital Signs Temp Pulse Resp BP Pulse Ox O2 Del Method O2 Flow Rate 97 F 82 30 H 109/80 98 Room Air 2 11/21/24 04:00 11/21/24 08:05 11/21/24 04:00 11/21/24 08:05 11/21/24 04:00 11/21/24 04:00 11/20/24 11:13 Narrative Exam GENERAL:awake and oriented x2 answers questions, wearing diaper, wrist restraints present NEURO: no neuralgic deficits noted HEENT: Atraumatic, Normocephalic. mucous membranes moist. Eyes open, symmetrical, & clear HEART: Normal Heart Sounds LUNGS: Clear to auscultation with no wheezing or crackles. ABDOMEN: soft, non-distended, non-tender, bowel sounds heard, no guarding or rebound tenderness SKIN: No Rash or ecchymoses EXTREMITIES: No edema, tenderness, able to move all 4 extremities, pedal pulses palpated Objective Labs 11/22/24 04:25 11/22/24 04:25 Labs: Laboratory Results - last 24 hr 11/21/24 04:24 WBC 8.8 RBC 3.71 L Hgb 11.6 L Hct 33.3 L MCV 90 MCH 31.3 MCHC 34.8 RDW Std Deviation 46.6 H Plt Count 173 Neut % (Auto) 73 Lymph % (Auto) 13 [place] % (Auto) 11 Eos % (Auto) 2 Baso % (Auto) 0 Neut # (Auto) 6.4 Lymph # (Auto) 1.2 [place] # (Auto) 1.0 H Eos # (Auto) 0.2 Baso # (Auto) 0.0 Immature Gran # (Auto) 0.04 H Absolute Nucleated RBC 0.00 Immature Gran % 1 H Nucleated RBC % 0 Sodium 137 Potassium 5.4 H Chloride 98 Carbon Dioxide 16.9 L Anion Gap 22 H BUN 133 H* Creatinine 12.3 H* Estim Creat Clear Calc 5.8 L eGFR 4 L* BUN/Creatinine Ratio 11 L Glucose 92 Calculated Osmolality 316 H Calcium 9.6 Corrected Calcium 9.6 Phosphorus 12.9 H Total Bilirubin 0.5 AST 20 ALT 10 Alkaline Phosphatase 136 H Total Protein 6.5 Albumin 4.7 Globulin 1.8 L Albumin/Globulin Ratio 2.6 H ABG Interpretation ABG results: 11/03/24 11/11/24 11/13/24 14:12 12:22 21:50 VBG pH 7.39 7.35 7.37 VBG pCO2 43 44 35 L VBG pO2 35 38 29 VBG Base Excess 1 -2 -5 L Quality Measures Quality Measures VTE prophylaxis Advance care planning discussed with:: spouse Assessment & Plan Assessment Current Active Medications: Generic Name Dose Route Start Last Admin Trade Name Freq PRN Reason Stop Dose Admin Acetaminophen 650 mg 11/03/24 19:16 Acetaminophen 325 Mg Tablet PO 12/03/24 19:15 Q6H PRN PAIN SCALE 1-3 (mild Acetaminophen 650 mg 11/03/24 21:16 Acetaminophen Supp 650 Mg Supp [place] 12/03/24 21:29 Q6H PRN Fever > 100.4 Albuterol/Ipratropium 3 ml 11/03/24 19:16 Albuterol/Ipratropium (Duoneb) Rt Dianne 3 Ml Nebu INH 12/03/24 22:59 Q4HRRT PRN SOB or wheezing Aspirin 81 mg 11/18/24 09:00 11/21/24 08:05 Aspirin 81 Mg Chew PO 12/18/24 08:59 81 mg QDAY TARIK Administration Atorvastatin Calcium 80 mg 11/04/24 21:00 11/20/24 21:35 Atorvastatin Calcium 20 Mg Tablet PO 12/04/24 20:59 80 mg HS TARIK Administration Buspirone HCl 10 mg 11/16/24 14:00 11/21/24 05:28 Buspirone Hcl 5 Mg Tablet PO 12/16/24 13:59 10 mg TID TARIK Administration Heparin Sodium (Porcine) 3,500 unit 11/14/24 10:00 11/20/24 13:13 Heparin Sod Inj 1000 Unit/Ml Vial 10 Ml INDWELLCAT 11/28/24 09:59 3,500 unit X1 PRN Administration DIALYSIS Albumin Human 25 gm in 100 mls @ 100 mls/min 11/05/24 10:19 11/16/24 09:42 Albuminar-25 Ivpb IV 100 mls/min QDAY PRN Administration DIALYSIS Lactulose 20 gm 11/18/24 16:00 11/21/24 05:27 Lactulose Syrup 20 Gm/30 Ml Udc [place] 12/18/24 15:59 20 gm TID TARIK Administration Protocol Levothyroxine Sodium 50 mcg 11/08/24 11:30 11/14/24 05:26 Levothyroxine Sodium 25 Mcg Tablet PO 12/08/24 11:29 Not Given ACBR TARIK Levothyroxine Sodium 25 mcg 11/16/24 13:00 11/21/24 08:05 Levothyroxine Inj 100 Mcg Vial IV 12/14/24 08:59 25 mcg QDAY TARIK Administration Metoprolol Succinate 100 mg 11/14/24 09:00 11/21/24 08:05 Metoprolol Succinate Xl 25 Mg Tabcr PO 12/14/24 08:59 Not Given QDAY TARIK Midodrine 5 mg 11/16/24 12:36 11/21/24 05:28 Midodrine 5 Mg Tablet PO 12/16/24 13:59 5 mg TID PRN Administration For SBP<100 Mirtazapine 15 mg 11/11/24 21:00 11/20/24 21:36 Mirtazapine 15 Mg Tablet PO 12/11/24 20:59 15 mg HS TARIK Administration Mupirocin 0 gm 11/18/24 09:42 11/21/24 05:28 Mupirocin Oint 2% 15 Gm Tube TOP 11/25/24 08:29 1 applicatio TID TARIK Administration Ondansetron HCl 4 mg 11/03/24 14:16 11/03/24 17:26 Ondansetron Inj 2 Mg/Ml Inj 2 Ml IV 12/03/24 14:15 4 mg Q4HR PRN Administration NAUSEA OR VOMITING Pantoprazole Sodium 40 mg 11/05/24 10:45 11/21/24 08:05 Pantoprazole Inj 40 Mg Vial IVP 12/05/24 10:44 40 mg QDAY TARIK Administration Pharmacy Consult 1 each 11/03/24 21:18 Pharmacy Renal Dose Adjustment 1 Ea XX 12/03/24 21:17 PRN PRN CONSULT Quetiapine Fumarate 25 mg 11/14/24 12:32 11/20/24 06:39 Quetiapine Fumarate 25 Mg Tablet PO 12/14/24 20:59 25 mg BID PRN Administration AGITATION Sennosides 1 tab 11/03/24 19:16 Senna Tablet PO 12/03/24 19:15 BID PRN CONSTIPATION Protocol Sevelamer Carbonate 0.8 gm 11/18/24 09:00 11/21/24 08:05 Sevelamer Carbonate 0.8 Gm Packet (Non-Formulary) PO 12/18/24 08:59 0.8 gm BID TARIK Administration Plan Malik is a 79-year-old male past medical history of past medical history of ESRD on hemodialysis (MWF, sees Dr. Padilla), HFrEF (possibly EF of 30), Previous CVA, possible hypothyroidism currently admitted for sepsis secondary to catheter related bloodstream infection which is showing GPC currently. repeat blood cultures on 11/05 have no growth for more than 24 hours. #Sepsis secondary to # MRSA bacteremia -Patient underwent catheter holiday and hemodialysis catheter was removed and multiple attempts have been made since to replace patient's tunnel catheter since patient's blood cultures have been negative for 5 days however due to patient's agitation and inability to stay still a permanent tunneled catheter have not been placed. Patient have undergone 2 temporary dialysis catheter. -Patient is on vancomycin until 11/19/2024 #PVCs-patient's PVC frequency have decreased to less than5%, will continue metoprolol 100 Mg daily if patient's blood pressure permits then will increase metoprolol when able # NSTEMI type II-likely demand ischemia in the setting of sepsis -Initial troponins0.058 ->peaked at 0.976 and downtrended to 0.900 -Keep potassium above 4 and magnesium above 2 at all times -Patient underwent cardiac catheterization which showed 2 of the 3 severe CAD however no intervention can be done at this time due to patient's current condition therefore we will continue medical management #HFrEF -Echocardiogram done on 11/05/24 findings consistent with ejection fraction of EF of 25 to 30% with dilated cardiomyopathy including dilated LV RV RV and LA. Moderate MR and TR. Grade 2 diastolic dysfunction, moderately reduced RV function. -Per family's decision patient's CODE STATUS have been changed to DNR/DNI therefore they do not wish any further invasive procedures or interventions to be done as patient's current condition is unstable. -Patient is currently not on goal-directed medical therapy for heart failure due to patient's soft blood pressure. Currently patient is on metoprolol XL 100mg daily. # Acute encephalopathy #Severe agitation # Dementia -Patient less confused and appears to be less agitated however soft mittens are still on -Pt is on - Mirtazapine 15 mg every night and buspirone 10 mg daily, continue management as per primary hospitalist team -Neurologist is consulted and following # End-stage renal disease on hemodialysis Tuesday. -Patient continues to undergo dialysis as per schedule -pt underwent permanent tunneled dialysis catheter in right common femoral vein on 11/13/24 Assessment and plan discussed with my attending physician Dr. Ciara Ireland (PGY-1)- Internal medicine resident Attending Provider Attestation/Addendum I have personally seen and examined the patient separately on the above date of service and discussed the plan of care with the resident. I reviewed the resident Dr. Brennon Ireland consultation progress note and agree with the resident findings and plan in the note above and have also edited the documentation to reflect my findings and plan. Bismark Urbina M.D. Interventional Cardiology
[2024-11-21] MEDS: SOD POLYSTYRENE SULFON SUSP 15 GM/60 ML BTL PO (10:29)
[2024-11-21] MEDS: SEVELAMER CARBONATE 0.8 GM PACKET (NON-FORMULARY) 1.6 GM PO ×2 (12:22→16:38)
--- NOTE | 2024-11-21 14:24 | ESPR_ITS ---
Documentation for date of: 11/21/24 Subjective Subjective Interval history: Patient was seen and examined at bedside. Overnight mittens were placed due to agitation. Patient is more awake and talkative today. He reports no complaints. His phosphate was 12.9 today and his sevelamer was increased to 1600 mg 3 times daily. Potassium was 5.4 and he was given Kayexalate 15 mg p.o. x 1. Pending transfer for tunneled dialysis catheter placement by vascular surgery. Exam Vital Signs Temp Pulse Resp BP Pulse Ox O2 Del Method O2 Flow Rate 96.8 F 82 16 145/86 H 99 Room Air 2 11/21/24 12:00 11/21/24 12:00 11/21/24 12:00 11/21/24 12:11/21/24 12:11/21/24 12:11/20/24 11:13 Narrative Exam Gen: Well-developed and well-nourished elderly male. HEENT: NCAT, PERRLA, EOMI, MMM, anicteric conjunctivae. CVS: normal S1 and S2. RRR. No M/R/G. Resp: Decreased breath sounds B/L bases. No rhonchi, rales, crackles or wheezing. Abd: soft, non-tender, non-distended. BS+ in all 4 quadrants. MSK: Good ROM in BUE & BLE. No edema or rash. TDC in right femoral area, appears clean. Neuro: Patient is refusing examination. Able to move all 4 extremities. Objective Labs 11/21/24 04:24 11/21/24 04:24 Labs: Laboratory Results - last 24 hr 11/21/24 04:24 WBC 8.8 RBC 3.71 L Hgb 11.6 L Hct 33.3 L MCV 90 MCH 31.3 MCHC 34.8 RDW Std Deviation 46.6 H Plt Count 173 Neut % (Auto) 73 Lymph % (Auto) 13 [place] % (Auto) 11 Eos % (Auto) 2 Baso % (Auto) 0 Neut # (Auto) 6.4 Lymph # (Auto) 1.2 [place] # (Auto) 1.0 H Eos # (Auto) 0.2 Baso # (Auto) 0.0 Immature Gran # (Auto) 0.04 H Absolute Nucleated RBC 0.00 Immature Gran % 1 H Nucleated RBC % 0 Sodium 137 Potassium 5.4 H Chloride 98 Carbon Dioxide 16.9 L Anion Gap 22 H BUN 133 H* Creatinine 12.3 H* Estim Creat Clear Calc 5.8 L eGFR 4 L* BUN/Creatinine Ratio 11 L Glucose 92 Calculated Osmolality 316 H Calcium 9.6 Corrected Calcium 9.6 Phosphorus 12.9 H Total Bilirubin 0.5 AST 20 ALT 10 Alkaline Phosphatase 136 H Total Protein 6.5 Albumin 4.7 Globulin 1.8 L Albumin/Globulin Ratio 2.6 H ABG Interpretation ABG results: 11/03/24 11/11/24 11/13/24 14:12 12:22 21:50 VBG pH 7.39 7.35 7.37 VBG pCO2 43 44 35 L VBG pO2 35 38 29 VBG Base Excess 1 -2 -5 L Quality Measures Quality Measures VTE prophylaxis Advance care planning discussed with:: patient and child Assessment & Plan Assessment Current Active Medications: Generic Name Dose Route Start Last Admin Trade Name Freq PRN Reason Stop Dose Admin Acetaminophen 650 mg 11/03/24 19:16 Acetaminophen 325 Mg Tablet PO 12/03/24 19:15 Q6H PRN PAIN SCALE 1-3 (mild Acetaminophen 650 mg 11/03/24 21:16 Acetaminophen Supp 650 Mg Supp MA 12/03/24 21:29 Q6H PRN Fever > 100.4 Albuterol/Ipratropium 3 ml 11/03/24 19:16 Albuterol/Ipratropium (Duoneb) Rt Dianne 3 Ml Nebu INH 12/03/24 22:59 Q4HRRT PRN SOB or wheezing Aspirin 81 mg 11/18/24 09:00 11/21/24 08:05 Aspirin 81 Mg Chew PO 12/18/24 08:59 81 mg QDAY TARIK Administration Atorvastatin Calcium 80 mg 11/04/24 21:00 11/20/24 21:35 Atorvastatin Calcium 20 Mg Tablet PO 12/04/24 20:59 80 mg HS TARIK Administration Buspirone HCl 10 mg 11/16/24 14:00 11/21/24 14:05 Buspirone Hcl 5 Mg Tablet PO 12/16/24 13:59 10 mg TID TARIK Administration Heparin Sodium (Porcine) 3,500 unit 11/14/24 10:00 11/20/24 13:13 Heparin Sod Inj 1000 Unit/Ml Vial 10 Ml INDWELLCAT 11/28/24 09:59 3,500 unit X1 PRN Administration DIALYSIS Albumin Human 25 gm in 100 mls @ 100 mls/min 11/05/24 10:19 11/16/24 09:42 Albuminar-25 Ivpb IV 100 mls/min QDAY PRN Administration DIALYSIS Lactulose 20 gm 11/18/24 16:00 11/21/24 14:05 Lactulose Syrup 20 Gm/30 Ml Udc MA 12/18/24 15:59 20 gm TID TARIK Administration Protocol Levothyroxine Sodium 50 mcg 11/08/24 11:30 11/14/24 05:26 Levothyroxine Sodium 25 Mcg Tablet PO 12/08/24 11:29 Not Given ACBR TARIK Levothyroxine Sodium 25 mcg 11/16/24 13:00 11/21/24 08:05 Levothyroxine Inj 100 Mcg Vial IV 12/14/24 08:59 25 mcg QDAY TARIK Administration Metoprolol Succinate 100 mg 11/14/24 09:00 11/21/24 08:05 Metoprolol Succinate Xl 25 Mg Tabcr PO 12/14/24 08:59 Not Given QDAY TARIK Midodrine 5 mg 11/16/24 12:36 11/21/24 05:28 Midodrine 5 Mg Tablet PO 12/16/24 13:59 5 mg TID PRN Administration For SBP<100 Mirtazapine 15 mg 11/11/24 21:00 11/20/24 21:36 Mirtazapine 15 Mg Tablet PO 12/11/24 20:59 15 mg HS TARIK Administration Mupirocin 0 gm 11/18/24 09:42 11/21/24 14:09 Mupirocin Oint 2% 15 Gm Tube TOP 11/25/24 08:29 1 applicatio TID TARIK Administration Ondansetron HCl 4 mg 11/03/24 14:16 11/03/24 17:26 Ondansetron Inj 2 Mg/Ml Inj 2 Ml IV 12/03/24 14:15 4 mg Q4HR PRN Administration NAUSEA OR VOMITING Pantoprazole Sodium 40 mg 11/05/24 10:45 11/21/24 08:05 Pantoprazole Inj 40 Mg Vial IVP 12/05/24 10:44 40 mg QDAY TARIK Administration Pharmacy Consult 1 each 11/03/24 21:18 Pharmacy Renal Dose Adjustment 1 Ea XX 12/03/24 21:17 PRN PRN CONSULT Quetiapine Fumarate 25 mg 11/14/24 12:32 11/20/24 06:39 Quetiapine Fumarate 25 Mg Tablet PO 12/14/24 20:59 25 mg BID PRN Administration AGITATION Sennosides 1 tab 11/03/24 19:16 Senna Tablet PO 12/03/24 19:15 BID PRN CONSTIPATION Protocol Sevelamer Carbonate 1.6 gm 11/21/24 12:00 11/21/24 12:22 Sevelamer Carbonate 0.8 Gm Packet (Non-Formulary) PO 12/21/24 11:59 1.6 gm TIDWM TARIK Administration Plan Patient is a 71 years old male with PMHx of ESRD on HD MWF, HFrEF EF 30%, CVA, hypothyroidism presenting with AMS in setting of CRBSI sepsis. He continued on VANCOMYCIN for MRSA bacteremia. HD cath removed. If blood culture negative tomorrow (48 hours), will proceed with hemodialysis cath insertion. #Sepsis 2/2 catheter site cellulitis (improving) #Catheter site cellulitis #MRSA bacteremia 2/2 CRBSI Met 2/4 SIRS criteria with tachycardia, fever. LA normal, no leukocytosis. HD tunneled cath erythematous and warm suggesting cellulitis. Afebrile, leukocytosis improving. Prelim blood culture showing GPC. Dialysis, significant removed. Continue on Vancomycin. 24-hour blood culture negative. Catheter site cx grew GPC. MRSA nasal swab positive. Repeat blood culture negative Patient will likely finish up antibiotic at SNF Currently finding SNF facility as patient is close to being medically cleared for discharge Concern for abscess or other infection , WBC 21, however no fevers Pt is unable to communicate much information at this time, so we will continue with broad workup CT CAP showed colon full of stool, possible proctitis pattern, no abscess found Plan: ? completed course of vancomycin. ? Continue to monitor CBC. - Continue to monitor vitals. #Leukocytosis #Acute encephalopathy #Severe agitation, improved. #Suspected underlying dementia vs delirium secondary to metabolic encephalopathy. Likely secondary to metabolic encephalopathy. Unclear what baseline is, currently attending, does not follow command, agitated, requiring multiple medications. Continued on soft restraints. Started scheduled HALOPERIDOL. Head CT was negative. No focal neurological deficit. No indication for stroke workup. Neurology consulted, agreed with ANTIPSYCHOTICS for agitation. Patient still agitated and was unable to have a new TDC inserted QT 420, previous ~370s At this time will hold sedating medicines at this time Goals of care conversation held with family, see notes Speech eval recommended dysphagia 1 diet only patient is awake Spoke with patient point of contact for family in regards to updates for patient Agreeable for SNF at this time, as they prefer possibly [facility] or [facility] rehab centers Will continue with bowel regimen as this may be contributing to patient's agitation and new leukocytosis Plan: ? continue Seroquel 25 mg twice daily as needed. - Dysphagia diet as long as patient is awake. - Neurology consulted, appreciate recommendations. - Mirtazapine 15 mg every night. - continue on buspirone 10 mg daily. ? Lactulose 20 mg daily. ? Bedside commode. #ESRD on HD //. #Hypomagnesemia, resolved. #Hyperphosphatemia. #Hyperkalemia. Patient has dialysis Tuesday, Tuesday, Tuesday. Continue with dialysis TDC Historical Archeologist Dr Padilla Phosphorous ~8.8 Plan: ? Sevelamer 800 mg BID increased to 1600 mg TID. - Kayexilate 15 mg x1. ? Renally dose meds, avoid overdiuresis and NEPHROTOXINS. ? Daily CMP. ? Hemodialysis as scheduled by nephrology. ? Continue with dialysis with TDC. - continue on midodrine 5 mg 3 times daily PRN for hypotension. #NSTEMI, likely type II related to demand ischemia, resolved #History of coronary artery disease status post multiple stents and CABG triple bypass #History of myocardial infarction #Nonsustained supraventricular tachycardia #HFrEF with EF of 35 to 40% #Ischemic cardiomyopathy #Hypotension Unsure when patient's CABG was, will follow-up with records and family Patient takes home Plavix as well in addition to aspirin as well ranolazine Some bouts of nonsustained supraventricular tachycardia with trigeminy seen on telemetry Pt continues to have some tachycardia, but has not been giving home metoprolol doses Pt does have MRSA bactermia, will treat as well Upon review of cardiac catheter records 2 weeks ago at [facility]: Saphenous vein graft to left circumflex?occluded whenever send HOOK to LAD?patent [place] LAD?moderate to severe disease Saphenous vein graft to RCA patent with good flow [place] left coronary artery severe proximal disease Not a candidate for PCI EF 35 to 40% Ischemic cardiomyopathy We want to uptitrate metoprolol back to 200 mg as patient heart rate and blood pressure will tolerate. We spoke with family, we recommend for pt not to have any invasive procedures and they agree. We also recommend a goals of conversation to be held with primary team and family. At this time of concern with hypotension, we will continue with metoprolol XL 100 mg despite risk of hypotension as we want to control the rate. Plan: ? continue Lipitor 80 mg ? Continue with home ASA 81 ? Patient is currently on metoprolol XL 100 mg ? Keep magnesium and potassium above 2 and 4 respectively ? Continue with midodrine 5 mg TID as needed for hypotension related to dialysis #Hypothyroidism. TSH 4.6 this visit. Plan: ? Continue home LEVOTHYROXINE 50 mcg ACBR. #Normocytic anemia (stable). Patient has Hb of 10.8 No obvious source of bleeding Plan: - We will monitor closely, may need outpatient workup. Health Maintenance: Disposition: Telemetry. DVT prophylaxis: SCDs. GI prophylaxis: Protonix. Diet: Dysphagia 2. CODE STATUS: DNR/DNI. Plan of care discussed with attending Dr. Angulo. Nick Lundberg MD, PGY 2. Disclaimer: This note was dictated by speech recognition. Minor errors in manager registration may be present due to voice recognition software. Attending Provider Attestation/Addendum I reviewed labs, imaging, EKG, home medications and prior available records. Face to face evaluation was performed by me. I have personally examined the patient and discussed assessment and plan with the IM team. I reviewed the resident note and agree with the plan with exceptions as below. Leukocytosis: Downtrending. Possibly due to severe constipation/urinary retention. Had a bowel movement. Continue constipation care. Treatment of infection as below. Trend WBC Acute hypotension: Rapid response was called on 11/20 for acute hypotension during hemodialysis however BP improved after holding it. Possibly due to cuff malfunction. Hemodialysis catheter malfunction: Rapid response was called on 11/20 as the dialysis line is not functioning well. Patient is being agitated and moving in his bed which is putting a pressure on the dialysis line. Per dialysis nurse, he was unable to complete several sessions. His BUN has been increasing. Discussed with nephrology: Contacted IR who is not able to perform subclavian dialysis line. Discussed with nephrology: Will plan to transfer the patient to [facility] for vascular surgery service to insert out subclavian dialysis line. Acute encephalopathy/hyperactive agitation: Improved. Likely hyperactive delirium in the setting of baseline dementia. Possibly multifactorial in the setting of MRSA infection, pain, sleep deprivation, hunger/thirst, anxiety. Management of infection as below. Delirium precautions. Ordered swallow evaluation and started the patient on diet. Okay to ice chips. Discontinued mittens Discussed with neurology: Discontinue pramipexole. Started quetiapine 25 mg twice daily as needed. Started buspirone. Started mirtazapine. MRSA dialysis line infection: Finished IV vancomycin. Status post insertion of a new right femoral dialysis catheter ESRD on hemodialysis: He is receiving hemodialysis via the new right femoral dialysis catheter that was inserted after 48 hours of negative blood cultures. Nephrology is following. He is unable to complete his dialysis sessions as he continues to move. Will plan to change to the line to a subclavian line by vascular surgery. He is pending transfer. Continue to monitor potassium level. Increased sevelamer given his hyperphosphatemia Non-STEMI: No active chest complaints. Continue aspirin and atorvastatin Ventricular tachycardia: Nonsustained. Continue metoprolol XL. Cardiology is following Debility: PT recommended SNF. Discussed with son: Okay to proceed once he is medically cleared
--- NOTE | 2024-11-21 14:33 | EKG_ITS ---
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 : 1945 Requested By: Mian Uriostegui Order Number: [id number] Reading MD: Mian Uriostegui Measurements Intervals Anthon Rate: 86 P: KS: QRS: 46 QRSD: 114 T: -30 QT: 355 QTc: 426 Interpretive Statements SUPRAVENTRICULAR RHYTHM MODERATE INTRAVENTRICULAR CONDUCTION DELAY MODERATE T-WAVE ABNORMALITY, CONSIDER INFERIOR ISCHEMIA Compared to ECG 11/12/2024 15:17:23 Supraventricular rhythm now present Intraventricular conduction delay now present T-wave abnormality now present Possible ischemia now present Sinus rhythm no longer present Ventricular premature complex(es) no longer present Left-axis deviation no longer present Left ventricular hypertrophy no longer present ST (T wave) deviation no longer present /store/S0/[id number]/[id number].pdf
--- NOTE | 2024-11-21 16:06 | ESPR_ITS ---
RE: LUCA DIXON : 1945 DATE OF SERVICE: 11/21/2024 HISTORY OF PRESENT ILLNESS: Briefly, he is a 79-year-old gentleman with hypertension, coronary artery disease status post CABG in 2018, ischemic cardiomyopathy with EF of 35% and ESRD on dialysis every Tuesday, Tuesday, Tuesday since 01/2023. He was admitted to the hospital on 10/17/2024 with confusion. He was found with dialysis catheter infection with blood culture x2 growing MRSA. He is on IV vancomycin after each dialysis treatment. His tunneled dialysis catheter was removed and it was replaced by a right groin tunneled dialysis catheter. For the past two days, we could not maintain a good flow with the catheter on his groin. We ordered a dialysis catheter placement on either subclavian or internal jugular veins; however, Dr. Motta is not confident on doing those central lines either on IJ or subclavian. The patient has a poorly functioning right groin catheter. The patient has not dialyzed for the past 5 days now. CURRENT MEDICATIONS: 1. Acetaminophen. 2. Albuterol. 3. Aspirin 81 mg daily 4. Atorvastatin 80 mg at bedtime. 5. Buspirone 10 mg p.o. b.i.d. 6. Fentanyl p.r.n. 7. Lactulose 20 grams t.i.d. 8. Levothyroxine 25 mcg daily 9. Metoprolol succinate 100 mg p.o. times 1. 10. Midazolam p.r.n. 11. Protonix 40 mg IV daily 12. Zofran 4 mg IV every 8 p.r.n. 13. Mupirocin ointment. PHYSICAL EXAMINATION: General: He is more awake, alert, oriented, carrying a conversation. Vital Signs: Blood pressure of 145/86. Heart rate of 82. HEENT: Anicteric sclerae. Normocephalic. Neck: Supple. JVD. Chest and Lungs: Symmetric expansion. Clear breath sounds. Cardiac: Without murmur. Abdomen: Soft, nontender. Extremities: No edema. LABORATORY DATA: Hemoglobin 11.6, WBC 8800, platelet count 173,000. Sodium 137, potassium 5.4, chloride 90, CO2 of 16.9, BUN 130, creatinine 12.3, calcium 9.6, phosphorus 12.9. ASSESSMENT: 1. End-stage renal disease, on dialysis every Tuesday, Tuesday, and Tuesday. 2. Altered level of consciousness secondary to sepsis and possibly syndrome, now improved. 3. Methicillin-resistant Staphylococcus aureus septicemia secondary to infected dialysis catheter, received vancomycin for three weeks. 4. Anemia of chronic kidney disease. 5. History of coronary artery disease status post coronary artery bypass grafting. 6. Ischemic cardiomyopathy with ejection fraction around 25%. 7. Obesity. 8. Recent weight loss secondary to hospitalization. 9. Hypertension. PLAN: I have discussed the situation with DR Angulo and we have decided to transfer the patient to [facility] for Vascular Surgery Services. The patient will need either subclavian or an IJ, so we can proceed with dialysis treatment. It is impossible for him to have a femoral catheter as he is kind of obese with abdominal obesity and a groin catheter is being constricted by his abdominal fat thereby, there is very poor blood flow. We will continue to arrange for a transfer and this actually being done by the social worker delinquency prevention. DT: 14:44:29 TT: 15:30:00 Ref: [id number] - TID: [id number] MTDD
[2024-11-21] MEDS: Milk Of Magnesia Susp 30 ML UDC PO (16:37)
--- NOTE | 2024-11-21 16:45 | PC.PT ---
Patient will be dc from PT services, secondary to patient is not following commands. Pls refer patient back to PT when patient is able to participate with PT.
[2024-11-21 17:21] LABS: Albumin, Serum 4.6 gm/dL (3.4-4.8); Anion Gap 19 (7-16); BUN/Creatinine Ratio 12 Ratio (12-20); Calcium 9.8 mg/dL (8.3-10.6); Calcium (Corrected) 9.8 mg/dL (8.5-10.1); Carbon Dioxide 18.5 mMol/L (20.0-31.0); Chloride 98 mMol/L (98-107); Estimated Creatinine Clearance 5.6 mL/min (>60); Glucose 104 mg/dL (74-106); Magnesium 2.1 mg/dL (1.6-2.6); Osmolality,Calculated 317 (275-295); Potassium 4.7 mMol/L (3.4-5.1); Sodium 135 mMol/L (136-145); eGFR 4 See Note
[2024-11-21 17:34] LABS: Blood Urea Nitrogen 145 mg/dL (9-23)
[2024-11-21 17:36] LABS: Creatinine (Component) 12.6 mg/dL (0.6-1.3)
[2024-11-21] MEDS: Magnesium Sulfate 2 GM Ivpb 2 GM/50 ML BAG IV (17:47)
--- NOTE | 2024-11-21 22:41 | PD.NEUROPROG ---
Documentation for date of: 11/21/24 Subjective Subjective Interval history: Patient was seen in telemetry today with his family at the bedside, continue to remain intermittently confused, restless, on restraints as he is trying to come out of bed. Continue to have very poor oral intake Exam - Neurology Vital Signs Temp Pulse Resp BP Pulse Ox O2 Del Method O2 Flow Rate 97.4 F 76 16 114/55 L 97 Room Air 2 11/21/24 20:00 11/21/24 20:00 11/21/24 20:00 11/21/24 20:00 11/21/24 20:00 11/21/24 20:00 11/20/24 11:13 Narrative Exam GENERAL APPEARANCE: Well-developed, obese built white male , restless in bed HEENT: Normocephalic, atraumatic, extraocular movements intact. Pupils: Equal reacting to light NECK: Supple, no JVD or bruits. CARDIOVASULAR: Heart: S1, S2 heard, regular without S3-S4 or murmur no rubs or gallops. LUNGS/CHEST: Clear to auscultation bilaterally. No rails, rhonchi, or wheezing. Normal inspection. ABDOMEN: Soft, nontender, with normal bowel sounds. No pulsatile masses. No rebound, rigidity, or guarding. Normal inspection and palpation. EXTREMITIES: Normal inspection and palpation. No edema, clubbing or cyanosis. SKIN: Warm and dry without rashes. Normal inspection. MUSCULOSKELETAL: No cervical, thoracic, lumbar or midline bony tenderness. Normal inspection. NEURO: Awake, alert, still restless, needing to be on restraints, moves all 4 extremities purposefully no signs of meningeal irritation noted. PSYCHIATRIC: limited Objective Labs 11/22/24 04:25 11/21/24 16:27 Labs: Laboratory Results - last 24 hr 11/21/24 11/21/24 04:24 16:27 WBC 8.8 RBC 3.71 L Hgb 11.6 L Hct 33.3 L MCV 90 MCH 31.3 MCHC 34.8 RDW Std Deviation 46.6 H Plt Count 173 Neut % (Auto) 73 Lymph % (Auto) 13 [place] % (Auto) 11 Eos % (Auto) 2 Baso % (Auto) 0 Neut # (Auto) 6.4 Lymph # (Auto) 1.2 [place] # (Auto) 1.0 H Eos # (Auto) 0.2 Baso # (Auto) 0.0 Immature Gran # (Auto) 0.04 H Absolute Nucleated RBC 0.00 Immature Gran % 1 H Nucleated RBC % 0 Sodium 137 135 L Potassium 5.4 H 4.7 D Chloride 98 98 Carbon Dioxide 16.9 L 18.5 L Anion Gap 22 H 19 H BUN 133 H* 145 H* Creatinine 12.3 H* 12.6 H* Estim Creat Clear Calc 5.8 L 5.6 L eGFR 4 L* 4 L* BUN/Creatinine Ratio 11 L 12 Glucose 92 104 Calculated Osmolality 316 H 317 H Calcium 9.6 9.8 Corrected Calcium 9.6 9.8 Phosphorus 12.9 H 13.0 H Magnesium 2.1 Total Bilirubin 0.5 AST 20 ALT 10 Alkaline Phosphatase 136 H Total Protein 6.5 Albumin 4.7 4.6 Globulin 1.8 L Albumin/Globulin Ratio 2.6 H ABG Interpretation ABG results: 11/03/24 11/11/24 11/13/24 14:12 12:22 21:50 VBG pH 7.39 7.35 7.37 VBG pCO2 43 44 35 L VBG pO2 35 38 29 VBG Base Excess 1 -2 -5 L Assessment & Plan Assessment and plan (1) Delirium: Status: Acute Assessment and plan: Continue with the current management including Seroquel as needed (2) End stage renal failure on dialysis: Status: Chronic Assessment and plan: Waiting for dialysis access, possible transfer to [facility] to get it done (3) Dementia: Status: Chronic Assessment and plan: Progression noted, continue with the memantine Additional Assessment & Plan Additional Plan: Will try low-dose of pramipexole to help with restless legs which is commonly seen in patients with kidney disease
[2024-11-22] VITALS (10 sets, daily range): BP systolic 123–129; BP diastolic 63–80; PULSE 63–80; RESP 17–96; TEMP 36.1–36.3; O2SAT 96–99; BMI 30.7
[2024-11-22] MEDS: QUEtiapine FUMARATE 25 MG TABLET PO ×3 (01:27→21:05)
[2024-11-22] MEDS: LACTULOSE SYRUP 20 GM/30 ML UDC PR ×3 (05:57→21:02)
[2024-11-22] MEDS: ACETAMINOPHEN 325 MG TABLET 650 MG PO (05:57)
[2024-11-22] MEDS: MUPIROCIN OINT 2% 15 GM TUBE TOP ×3 (05:58→21:27)
[2024-11-22] MEDS: BusPIRone HCL 5 MG TABLET 10 MG PO ×3 (05:58→21:01)
[2024-11-22 06:05] LABS: Basophils % (Auto) 0 % (0-2.5); Eosinophils # (Auto) 0.2 Thou/mm3 (0.0-0.5); Eosinophils % (Auto) 2 % (0-10); Hematocrit 32.6 % (41.0-53.0); Hemoglobin 11.3 g/dL (13.5-16.0); Immature Granulocytes % (Auto) 0 % (0-0); Immature Granulocytes Auto 0.03 Thou/mm3 (0.00-0.00); Lymphocytes # (Auto) 1.3 Thou/mm3 (1.0-4.8); Lymphocytes % (Auto) 16 % (10-50); Mean Corpuscular HGB Conc 34.7 g/dl (31.0-37.0); Mean Corpuscular Hemoglobin 30.9 pg (25.0-35.0); Mean Corpuscular Volume 89 fL (80-100); Monocytes % (Auto) 12 % (0-12); Neutrophils # (Auto) 5.7 Thou/mm3 (1.8-7.7); Neutrophils % (Auto) 70 % (37-80); Nucleated Red Blood Cell % 0 /100 WBC (0); Platelet Count 189 Thou/mm3 (140-440); Red Blood Count 3.66 Miln/mm3 (4.50-5.90); White Blood Count 8.1 Thou/mm3 (3.8-10.6)
[2024-11-22 06:40] LABS: Alanine Aminotransferase 10 U/L (10-49); Albumin, Serum 4.5 gm/dL (3.4-4.8); Albumin/Globulin Ratio 2.5 (1.2-2.2); Alkaline Phosphatase 135 U/L (46-116); Anion Gap 24 (7-16); Aspartate Amino Transferase 14 U/L (0-34); BUN/Creatinine Ratio 12 Ratio (12-20); Bilirubin,Total 0.4 mg/dL (0.3-1.2); Calcium 9.7 mg/dL (8.3-10.6); Calcium (Corrected) 9.7 mg/dL (8.5-10.1); Carbon Dioxide 18.2 mMol/L (20.0-31.0); Chloride 95 mMol/L (98-107); Estimated Creatinine Clearance 5.7 mL/min (>60); Globulin 1.8 gm/dL (2.3-3.5); Glucose 100 mg/dL (74-106); Osmolality,Calculated 321 (275-295); Potassium 4.6 mMol/L (3.4-5.1); Sodium 137 mMol/L (136-145); Total Protein 6.3 gm/dL (5.7-8.2); eGFR 4 See Note
[2024-11-22 07:04] LABS: Blood Urea Nitrogen 147 mg/dL (9-23)
[2024-11-22 07:05] LABS: Creatinine (Component) 12.6 mg/dL (0.6-1.3); Phosphorous 11.9 mg/dL (2.4-5.1)
--- NOTE | 2024-11-22 07:36 | PD.IMPROG ---
Documentation for date of: 11/22/24 Subjective Subjective Interval history: Patient seen and examined at the bedside. No new cardiac in place. Telemetry reviewed and heart rate well-controlled between 80s and 90s. PVCs less than 5%. Patient could not take the metoprolol XL as it could not be crushed and changed to metoprolol tartrate 50 mg twice daily which we recommend to continue for now. He is still on midodrine as needed as needed during the dialysis days. Patient is still pending transfer to tertiary [facility] for tunneled dialysis catheter as it could not be accessed here by IR. Rest of the labs and vitals reviewed and appear to be stable. Keep potassium greater than 4 and magnesium greater than 2.0. Exam Vital Signs Temp Pulse Resp BP Pulse Ox O2 Del Method O2 Flow Rate 97.1 F 69 18 125/80 99 Room Air 2 11/22/24 04:00 11/22/24 04:54 11/22/24 04:54 11/22/24 04:00 11/22/24 04:54 11/22/24 04:00 11/20/24 11:13 Narrative Exam General: Alert and oriented x 2. Confused and intermittently agitated, In no acute distress. Eyes: Pupils are equal and reactive to light bilaterally. HEENT: Atraumatic, normocephalic. No JVD noted. Mucosa moist. Cardiovascular: Normal S1 and S2. Normal rate and regular rhythm. No murmurs appreciated. No peripheral pitting edema noted. Respiratory: No respiratory distress. Lungs are clear to auscultation bilaterally but decreased at bases. No wheezing or crackles heard. Abdomen: Soft, nontender, nondistended. Skin: No rash. Warm to touch. Musculoskeletal: No gross injuries. Able to move all 4 extremities. Neuro: Alert and oriented x 2. Confused and intermittently agitated. noo focal neuro deficits. Psych: Normal affect and mood Objective Labs 11/22/24 04:25 11/22/24 04:25 Labs: Laboratory Results - last 24 hr 11/21/24 11/22/24 16:27 04:25 WBC 8.1 RBC 3.66 L Hgb 11.3 L Hct 32.6 L MCV 89 MCH 30.9 MCHC 34.7 RDW Std Deviation 46.0 H Plt Count 189 Neut % (Auto) 70 Lymph % (Auto) 16 [place] % (Auto) 12 Eos % (Auto) 2 Baso % (Auto) 0 Neut # (Auto) 5.7 Lymph # (Auto) 1.3 [place] # (Auto) 1.0 H Eos # (Auto) 0.2 Baso # (Auto) 0.0 Immature Gran # (Auto) 0.03 H Absolute Nucleated RBC 0.00 Immature Gran % 0 Nucleated RBC % 0 Sodium 135 L 137 Potassium 4.7 D 4.6 Chloride 98 95 L Carbon Dioxide 18.5 L 18.2 L Anion Gap 19 H 24 H BUN 145 H* 147 H* Creatinine 12.6 H* 12.6 H* Estim Creat Clear Calc 5.6 L 5.7 L eGFR 4 L* 4 L* BUN/Creatinine Ratio 12 12 Glucose 104 100 Calculated Osmolality 317 H 321 H Calcium 9.8 9.7 Corrected Calcium 9.8 9.7 Phosphorus 13.0 H 11.9 H Magnesium 2.1 Total Bilirubin 0.4 AST 14 ALT 10 Alkaline Phosphatase 135 H Total Protein 6.3 Albumin 4.6 4.5 Globulin 1.8 L Albumin/Globulin Ratio 2.5 H ABG Interpretation ABG results: 11/03/24 11/11/24 11/13/24 14:12 12:22 21:50 VBG pH 7.39 7.35 7.37 VBG pCO2 43 44 35 L VBG pO2 35 38 29 VBG Base Excess 1 -2 -5 L Assessment & Plan A&P Narrative A 79-year-old male with a past medical history of CAD status post CABG x 3, residual severe [place] disease and 100% occluded SVG to LCx, patent HOOK to LAD and SVG to RCA, moderate to severe systolic congestive heart failure with an EF of around 35%, stroke or previous CVA, hypothyroidism, end-stage renal disease on hemodialysis, gout, mild cognitive disturbance with cirrhosis dementia presented to the emergency department for altered mental status in the setting of possible cellulitis and infection of the left-sided tunneled dialysis catheter. Patient has been having recurrent tunneled dialysis catheter infection and he has been able to do some ADLs by himself with he is normal but has more altered mental status and agitated when he has the infection. Patient has significant cardiac history with the initial heart attack at the age of 48 and since then has been following multiple director of emergency nursing including Dr. Camacho as well as Dr. Caballero in [place]. Patient had previously stents as well as CABG done many years ago. Recently he was seen by his primary director of emergency nursing Dr. Martin last month and then he had an elective left heart cardiac catheterization on 10/23/2023 which did show patent and large SVG to RCA graft,'s patent small HOOK to LAD graft but 100% occluded SVG to LCx. Patient did have severe [place] disease including LCx, AV delay still RCA but there were no good targets to intervene and hence medical management was recommended. The emergency department patient had a temperature of 104 and was tachycardic at 123 and blood pressure was 120/100 mmHg. Troponin was elevated at 0.058 and the repeat troponins continued to increase to 0.35, 0.6 and eventually peaked at 0.976. EKG showed normal sinus rhythm with no acute ST-T changes suggestive ischemia. CT head was negative. Patient was eventually diagnosed with sepsis secondary to GPC bacteremia from possible catheter related bloodstream infection. Cardiology consulted for elevated troponins. Assessment and plan: 1. Elevated troponins-NSTEMI type II in the setting of supply/demand mismatch from the sepsis and 2. Sepsis secondary to MRSA bacteremia from catheter related bloodstream infection 3. CAD status post CABG x 3 and multiple PCI and initial heart attack at 48 4. Severe systolic congestive heart failure with an EF of around 25% 5. NSVT 6. ESRD on HD 7. Hypertension 8. Altered mental status mostly secondary to the acute infection and possible underlying dementia. 9. Difficult vascular access and right femoral Vas-Cath placed for dialysis 10. DNR and DNI Patient will continue to have rising troponins which peaked at 0.976 and have trended down. EKG showed normal sinus rhythm without any acute ST-T changes. Patient unable to provide any history but as per the family he did not have any kind of chest pain or chest pressure and basically he was altered which happens every time he is infected. As noted above patient did have a recent echocardiogram as well as cardiac catheterization at [facility] October 2024 which were reviewed by me and showed that patient does have 2/3 of the grafts patent, severe [place] vessel disease which they were unable to intervene due to lack of targets. EF was around 35%. Repeat echo here showed EF is now down to 25% The troponin elevation is mostly secondary to type II NSTEMI with supply/demand mismatch and recommend only recent medical management with aspirin, Plavix, high intensity statin and beta-halima. No need of any heparin drip During this admission patient's CODE STATUS was changed to DNR and DNI as per the family and they did not want any additional interventions as they did speak to their primary director of emergency nursing in [place] previously Dr. Caballero who recommended the same. Family has been talking to the primary doctors and primary director of emergency nursing previously and given his recurrent admissions with altered mental status they have finally decided on his goals of care. Review of the telemetry showed that the patient is having frequent PVCs with NSVT and recommended to start metoprolol XL 50 mg once daily. At home is actually on 200 Mg per day and continue to uptitrate metoprolol XL based on the blood pressure as the patient is also septic at the present point of time. Recommend to keep potassium greater than 4 magnesium greater than 2.0 at all times. Metoprolol XL uptitrated to 100 mg once daily and PVCs are less than 5%. Patient blood pressure is soft and cannot increase the metoprolol back to his home dosage. Change metoprolol tartrate 50 mg twice daily as he the XL could not be crushed. Recommend to continue to monitor on telemetry. Echo reviewed by me 11/08/2024 showed moderately dilated LV with mild LVH and global LV systolic function is severely decreased with an estimated EF of 25 to 30%. Grade 2 diastolic dysfunction. Moderately reduced RV function. Mildly dilated RV, moderately dilated LA and RA. Moderate MR and TR. Overall picture of dilated cardiomyopathy. There was no clear evidence of any valvular vegetations. Regarding CHF patient repeat echo showed the EF is as low as 25% with severe systolic congestive heart failure. Patient also has a history of ESRD and HD and further fluid management as per nephrology team more on board. Strict input output Daily weights and 2 g sodium diet. Patient needs to be on goal-directed medical therapy given the severe systolic congestive heart failure which can be started later as the blood pressure is around 100 210 mmHg and at x 90 mmHg with the metoprolol and the dialysis. Patient will need to be on Entresto and spironolactone. His altered mental status is mostly secondary to the acute infection which led to the sepsis with GPC bacteremia from catheter related bloodstream infection from the left-sided tunneled dialysis catheter. Treated with IV antibiotics and primary team managing the same. Left tunneled dialysis catheter was removed and multiple attempts were made to do a right sided tunneled dialysis catheter but unfortunately could not be placed by IR and patient only transferred to a tertiary [facility] for placement of the right secondary dialysis catheter. Patient now has left femoral dialysis catheter in place with which HD has been performed. Management of rest of the medical conditions as per primary team and other consultants. Thank you for the consult and allowing me to participate in the care of the patient. Cardiology will continue to follow. Bismark Urbina M.D. Interventional Cardiology Time Spent With Patient Time: Total time spent is greater than 50% in coordination of care (as documented) at patient's floor/unit and/or counseling patient:
[2024-11-22] MEDS: PANTOPRAZOLE INJ 40 MG VIAL IVP (09:55)
[2024-11-22] MEDS: ASPIRIN 81 MG CHEW PO (09:55)
[2024-11-22] MEDS: LEVOTHYROXINE INJ 100 mCg VIAL 25 MCG IV (10:03)
[2024-11-22] MEDS: METOPROLOL TARTRATE 25 MG TABLET 50 MG PO ×2 (10:15→21:03)
--- NOTE | 2024-11-22 10:45 | PCS.ST ---
Swallow Re-Eval ordered. Refusing food. See treatment note for details. Compliant with advanced textures. Recommend upgrade to Dysphagia 3.
--- NOTE | 2024-11-22 11:05 | PC.SS ---
[employer] received phone call from patient's spouse ([phone]) requesting update on the patient. Per spouse, patient transitioned to Med/Surg without sposue receiving notification. Spouse requesting to talk with resident team. [employer] attempted phone contact with attending team no response. [employer] will follow up with team to inform of spouse request for follow up phone call.
[2024-11-22] MEDS: SEVELAMER CARBONATE 0.8 GM PACKET (NON-FORMULARY) 1.6 GM PO ×2 (12:55→17:23)
--- NOTE | 2024-11-22 13:37 | PC.NURSE ---
Saw Dr. Bailey came to the floor to see Pt. Updated him about Dr. Serrano Put the gonzáles. Per Dr. Bailey he will come later to check on pt.
--- NOTE | 2024-11-22 14:12 | PC.CC ---
Addendum entered by Bashir Sanchez RN 11/22/24 17:34: 1733 TBA faxed to [facility]. Addendum entered by Bashir Sanchez RN 11/22/24 17:07: 1701 received call from Luda at [facility]. She stated the pt is accepted. Accepting Dr. is Ivonne Yepez. Accepting IR is Efren Meléndez. Now waiting for bed and she also wants me to work on TBA. Addendum entered by Bashir Sanchez RN 11/22/24 14:18: 1416 Called [facility], spoke to Luda and initiated the transfer. Original Note: 1410 clinicals sent to [facility]. 1405 Due to working on multiple inpatient transfers, I was unable to work on the transfer. Pt needs to be transferred for subclavian dialysis catheter.
[2024-11-22 14:28] LABS: Magnesium 2.4 mg/dL (1.6-2.6)
--- NOTE | 2024-11-22 14:39 | ESPR_ITS ---
Documentation for date of: 11/22/24 Subjective Subjective Interval history: 11/22/2024: Pt examined at bedside today. Telemetry reviewed, pt continues to be rate in the 90s. Pt appears to be awake and able to answer some questions. Still pending transfer for patient for TDC placement in subclavian at other facility by possible vascular surgery. WBC 8.1, Hgb 11.3, Na 137, Potassium 4.6, Bicarb 18, BUN/Cr 147 and 12.6 respectively, phos 11.9. No other complaints at this time. Exam Vital Signs Temp Pulse Resp BP Pulse Ox O2 Del Method O2 Flow Rate 97 F 78 18 125/75 96 Room Air 2 11/22/24 08:00 11/22/24 10:15 11/22/24 09:41 11/22/24 10:15 11/22/24 09:41 11/22/24 08:00 11/20/24 11:13 Narrative Exam General: AAOx1, awake, able to answer some questions, NAD HEENT: Moist mucous membranes, conjunctiva clear, EOMI, PERRLA, poor dentition Cardiovascular: Possible murmur heard over SNOW, tachycardic Pulmonary: CTAB bilat no cough, no wheezing GI: No tenderness to light or deep palpitation, no guarding, rigidity, rebound tenderness or distension Extremities: No presence of trace or pitting edema in lower extremities bilaterally, dorsalis pedis pulses +2 bilaterally Neuro: AAOx1, no focal motor or sensory deficits in the UE or LE bilat Psych: Slightly cooperative Objective Labs 11/22/24 04:25 11/22/24 04:25 Labs: Laboratory Results - last 24 hr 11/21/24 11/22/24 11/22/24 16:27 04:25 04:50 WBC 8.1 RBC 3.66 L Hgb 11.3 L Hct 32.6 L MCV 89 MCH 30.9 MCHC 34.7 RDW Std Deviation 46.0 H Plt Count 189 Neut % (Auto) 70 Lymph % (Auto) 16 [place] % (Auto) 12 Eos % (Auto) 2 Baso % (Auto) 0 Neut # (Auto) 5.7 Lymph # (Auto) 1.3 [place] # (Auto) 1.0 H Eos # (Auto) 0.2 Baso # (Auto) 0.0 Immature Gran # (Auto) 0.03 H Absolute Nucleated RBC 0.00 Immature Gran % 0 Nucleated RBC % 0 Sodium 135 L 137 Potassium 4.7 D 4.6 Chloride 98 95 L Carbon Dioxide 18.5 L 18.2 L Anion Gap 19 H 24 H BUN 145 H* 147 H* Creatinine 12.6 H* 12.6 H* Estim Creat Clear Calc 5.6 L 5.7 L eGFR 4 L* 4 L* BUN/Creatinine Ratio 12 12 Glucose 104 100 Calculated Osmolality 317 H 321 H Calcium 9.8 9.7 Corrected Calcium 9.8 9.7 Phosphorus 13.0 H 11.9 H Magnesium 2.1 2.4 Total Bilirubin 0.4 AST 14 ALT 10 Alkaline Phosphatase 135 H Total Protein 6.3 Albumin 4.6 4.5 Globulin 1.8 L Albumin/Globulin Ratio 2.5 H ABG Interpretation ABG results: 11/03/24 11/11/24 11/13/24 14:12 12:22 21:50 VBG pH 7.39 7.35 7.37 VBG pCO2 43 44 35 L VBG pO2 35 38 29 VBG Base Excess 1 -2 -5 L Quality Measures Quality Measures VTE prophylaxis Advance care planning discussed with:: patient Assessment & Plan Assessment Current Active Medications: Generic Name Dose Route Start Last Admin Trade Name Freq PRN Reason Stop Dose Admin Acetaminophen 650 mg 11/03/24 19:16 11/22/24 05:57 Acetaminophen 325 Mg Tablet PO 12/03/24 19:15 650 mg Q6H PRN Administration PAIN SCALE 1-3 (mild Acetaminophen 650 mg 11/03/24 21:16 Acetaminophen Supp 650 Mg Supp FL 12/03/24 21:29 Q6H PRN Fever > 100.4 Albuterol/Ipratropium 3 ml 11/03/24 19:16 Albuterol/Ipratropium (Duoneb) Rt Dianne 3 Ml Nebu INH 12/03/24 22:59 Q4HRRT PRN SOB or wheezing Aspirin 81 mg 11/18/24 09:00 11/22/24 09:55 Aspirin 81 Mg Chew PO 12/18/24 08:59 81 mg QDAY TARIK Administration Atorvastatin Calcium 80 mg 11/04/24 21:00 11/21/24 21:20 Atorvastatin Calcium 20 Mg Tablet PO 12/04/24 20:59 Not Given HS TARIK Bisacodyl 5 mg 11/22/24 07:00 Bisacodyl 5 Mg Tabec PO 12/22/24 06:59 QDAY PRN CONSTIPATION Protocol Buspirone HCl 10 mg 11/16/24 14:00 11/22/24 13:25 Buspirone Hcl 5 Mg Tablet PO 12/16/24 13:59 10 mg TID TARIK Administration Heparin Sodium (Porcine) 3,500 unit 11/14/24 10:00 11/20/24 13:13 Heparin Sod Inj 1000 Unit/Ml Vial 10 Ml INDWELLCAT 11/28/24 09:59 3,500 unit X1 PRN Administration DIALYSIS Albumin Human 25 gm in 100 mls @ 100 mls/min 11/05/24 10:19 11/16/24 09:42 Albuminar-25 Ivpb IV 100 mls/min QDAY PRN Administration DIALYSIS Lactulose 20 gm 11/18/24 16:00 11/22/24 13:21 Lactulose Syrup 20 Gm/30 Ml Udc FL 12/18/24 15:59 20 gm TID TARIK Administration Protocol Levothyroxine Sodium 50 mcg 11/23/24 06:00 Levothyroxine Sodium 25 Mcg Tablet PO 12/23/24 05:59 ACBR TARIK Metoprolol Tartrate 50 mg 11/22/24 10:15 11/22/24 10:15 Metoprolol Tartrate 25 Mg Tablet PO 12/22/24 10:14 50 mg BID TARIK Administration Midodrine 5 mg 11/21/24 16:00 Midodrine 5 Mg Tablet PO 12/16/24 13:59 TID PRN For SBP <95 Mirtazapine 15 mg 11/11/24 21:00 11/21/24 21:21 Mirtazapine 15 Mg Tablet PO 12/11/24 20:59 Not Given HS TARIK Mupirocin 0 gm 11/18/24 09:42 11/22/24 05:58 Mupirocin Oint 2% 15 Gm Tube TOP 11/25/24 08:29 1 applicatio TID TARIK Administration Ondansetron HCl 4 mg 11/03/24 14:16 11/03/24 17:26 Ondansetron Inj 2 Mg/Ml Inj 2 Ml IV 12/03/24 14:15 4 mg Q4HR PRN Administration NAUSEA OR VOMITING Pantoprazole Sodium 40 mg 11/05/24 10:45 11/22/24 09:55 Pantoprazole Inj 40 Mg Vial IVP 12/05/24 10:44 40 mg QDAY TARIK Administration Quetiapine Fumarate 25 mg 11/22/24 10:11 Quetiapine Fumarate 25 Mg Tablet PO 12/14/24 12:31 Q6H PRN AGITATION Sevelamer Carbonate 1.6 gm 11/22/24 12:00 11/22/24 12:55 Sevelamer Carbonate 0.8 Gm Packet (Non-Formulary) PO 12/22/24 11:59 1.6 gm TIDWM TARIK Administration Plan Patient is a 71 years old male with PMHx of ESRD on HD MWF, HFrEF EF 30%, CVA, hypothyroidism presenting with AMS in setting of CRBSI sepsis. He continued on VANCOMYCIN for MRSA bacteremia. HD cath removed. If blood culture negative tomorrow (48 hours), will proceed with hemodialysis cath insertion. #Sepsis 2/2 catheter site cellulitis (improving) #Catheter site cellulitis #MRSA bacteremia 2/2 CRBSI Met 2/4 SIRS criteria with tachycardia, fever. LA normal, no leukocytosis. HD tunneled cath erythematous and warm suggesting cellulitis. Afebrile, leukocytosis improving. Prelim blood culture showing GPC. Dialysis, significant removed. Continue on Vancomycin. 24-hour blood culture negative. Catheter site cx grew GPC. MRSA nasal swab positive. Repeat blood culture negative Patient will likely finish up antibiotic at SNF Currently finding SNF facility as patient is close to being medically cleared for discharge Concern for abscess or other infection , WBC 21, however no fevers Pt is unable to communicate much information at this time, so we will continue with broad workup CT CAP showed colon full of stool, possible proctitis pattern, no abscess found Plan: ? completed course of vancomycin. ? Continue to monitor CBC. - Continue to monitor vitals. #Leukocytosis #Acute encephalopathy #Severe agitation, improved. #Suspected underlying dementia vs delirium secondary to metabolic encephalopathy. Likely secondary to metabolic encephalopathy. Unclear what baseline is, currently attending, does not follow command, agitated, requiring multiple medications. Continued on soft restraints. Started scheduled HALOPERIDOL. Head CT was negative. No focal neurological deficit. No indication for stroke workup. Neurology consulted, agreed with ANTIPSYCHOTICS for agitation. Patient still agitated and was unable to have a new TDC inserted QT 420, previous ~370s At this time will hold sedating medicines at this time Goals of care conversation held with family, see notes Speech eval recommended dysphagia 1 diet only patient is awake Spoke with patient point of contact for family in regards to updates for patient Agreeable for SNF at this time, as they prefer possibly [facility] or [facility] rehab centers Will continue with bowel regimen as this may be contributing to patient's agitation and new leukocytosis Plan: ? continue Seroquel 25 mg twice daily as needed. - Dysphagia diet as long as patient is awake. - Neurology consulted, appreciate recommendations. - Mirtazapine 15 mg every night. - continue on buspirone 10 mg daily. ? Lactulose 20 mg daily. ? Bedside commode. #ESRD on HD //. #Hypomagnesemia, resolved. #Hyperphosphatemia. #Hyperkalemia. Patient has dialysis Tuesday, Tuesday, Tuesday. Continue with dialysis TDC [employer] Team Leader Dr Padilla Phosphorous 11.9 today Pending transfer for TDC in [facility] to be put in by Vascular surgery Plan: ? Sevelamer 800 mg BID increased to 1600 mg TID. - Kayexilate 15 mg x1. ? Renally dose meds, avoid overdiuresis and NEPHROTOXINS. ? Daily CMP. ? Hemodialysis as scheduled by nephrology. ? Continue with dialysis with TDC. - continue on midodrine 5 mg 3 times daily PRN for hypotension. #NSTEMI, likely type II related to demand ischemia, resolved #History of coronary artery disease status post multiple stents and CABG triple bypass #History of myocardial infarction #Nonsustained supraventricular tachycardia #HFrEF with EF of 35 to 40% #Ischemic cardiomyopathy #Hypotension Unsure when patient's CABG was, will follow-up with records and family Patient takes home Plavix as well in addition to aspirin as well ranolazine Some bouts of nonsustained supraventricular tachycardia with trigeminy seen on telemetry Pt continues to have some tachycardia, but has not been giving home metoprolol doses Pt does have MRSA bactermia, will treat as well Upon review of cardiac catheter records 2 weeks ago at [facility]: Saphenous vein graft to left circumflex?occluded whenever send HOOK to LAD?patent [place] LAD?moderate to severe disease Saphenous vein graft to RCA patent with good flow [place] left coronary artery severe proximal disease Not a candidate for PCI EF 35 to 40% Ischemic cardiomyopathy We want to uptitrate metoprolol back to 200 mg as patient heart rate and blood pressure will tolerate. We spoke with family, we recommend for pt not to have any invasive procedures and they agree. We also recommend a goals of conversation to be held with primary team and family. At this time of concern with hypotension, we will continue with metoprolol XL 100 mg despite risk of hypotension as we want to control the rate. Plan: ? continue Lipitor 80 mg ? Continue with home ASA 81 ? Patient is currently on metoprolol XL 100 mg ? Keep magnesium and potassium above 2 and 4 respectively ? Continue with midodrine 5 mg TID as needed for hypotension related to dialysis #Hypothyroidism. TSH 4.6 this visit. Plan: ? Continue home LEVOTHYROXINE 50 mcg ACBR. #Normocytic anemia (stable). Patient has Hb of 10.8 No obvious source of bleeding Plan: - We will monitor closely, may need outpatient workup. Health Maintenance: Disposition: Telemetry. DVT prophylaxis: SCDs. GI prophylaxis: Protonix. Diet: Dysphagia 2. CODE STATUS: DNR/DNI. Patient seen and care discussed with my senior resident, Dr. Uriostegui, and my attending physician, Dr. Adele Lau, PGY-1 Attending Provider Attestation/Addendum I reviewed labs, imaging, EKG, home medications and prior available records. Face to face evaluation was performed by me. I have personally examined the patient and discussed assessment and plan with the IM team. I reviewed the resident note and agree with the plan with exceptions as below. Leukocytosis: Downtrending. Possibly due to severe constipation/urinary retention. Had a bowel movement. Continue constipation care. Treatment of infection as below. Trend WBC Acute hypotension: Rapid response was called on 11/20 for acute hypotension during hemodialysis however BP improved after holding it. Possibly due to cuff malfunction. Hemodialysis catheter malfunction: Rapid response was called on 11/20 as the dialysis line is not functioning well. Patient is being agitated and moving in his bed which is putting a pressure on the dialysis line. Per dialysis nurse, he was unable to complete several sessions. His BUN has been increasing. Discussed with nephrology: Contacted IR who is not able to perform subclavian dialysis line. Discussed with nephrology: Will plan to transfer the patient to [facility] for vascular surgery service to insert out subclavian dialysis line. Discussed with transfer nurse on 11/22: Cannot transfer to [facility] given the lack of bed availability. Will try contacting other hospitals. Continue to monitor potassium level in the meantime. Acute encephalopathy/hyperactive agitation: Improved. Likely hyperactive delirium in the setting of baseline dementia. Possibly multifactorial in the setting of MRSA infection, pain, uremia from incomplete dialysis, sleep deprivation, hunger/thirst, anxiety. Management of infection as below. Delirium precautions. Try to discontinue mittens which has been a challenge as patient keeps playing with his lines. Increased Seroquel to 25 mg every 6 hours. Discussed with neurology: Discontinued pramipexole. Started quetiapine as needed. Started buspirone. Started mirtazapine. MRSA dialysis line infection: Finished IV vancomycin. Status post insertion of a new right femoral dialysis catheter ESRD on hemodialysis: He is receiving hemodialysis via the new right femoral dialysis catheter that was inserted after 48 hours of negative blood cultures. Nephrology is following. He is unable to complete his dialysis sessions as he continues to move. Will plan to change to the line to a subclavian line by vascular surgery. He is pending transfer. Continue to monitor potassium level. Increased sevelamer given his hyperphosphatemia Non-STEMI: No active chest complaints. Continue aspirin and atorvastatin Ventricular tachycardia: Nonsustained. Continue metoprolol. Changed to metoprolol tartrate 50 mg twice daily. Cardiology is following Debility: PT recommended SNF. Discussed with son: Okay to proceed once he is medically cleared Please update the son and point of contact Jean on a daily basis
--- NOTE | 2024-11-22 15:43 | PC.SS ---
SS update: patient is pending [facility] transfer.
[2024-11-22] MEDS: MIRTAZAPINE 15 MG TABLET PO (20:58)
[2024-11-22] MEDS: ATORVASTATIN CALCIUM 20 MG TABLET 80 MG PO (20:58)
--- NOTE | 2024-11-22 21:27 | PD.NEUROPROG ---
Documentation for date of: 11/22/24 Subjective Subjective Interval history: Patient was seen in telemetry today with his family at the bedside, doing much better today, still on restraints in his upper extremities. He is oral intake has gotten a little better. Has Exam - Neurology Vital Signs Temp Pulse Resp BP Pulse Ox O2 Del Method O2 Flow Rate 96.9 F 63 18 129/63 99 Room Air 2 11/22/24 20:00 11/22/24 21:03 11/22/24 20:00 11/22/24 21:03 11/22/24 20:00 11/22/24 20:00 11/20/24 11:13 Narrative Exam GENERAL APPEARANCE: Well-developed, obese built white male , in no acute distress. He has a small to ensure HEENT: Normocephalic, atraumatic, extraocular movements intact. Pupils: Equal reacting to light NECK: Supple, no JVD or bruits. CARDIOVASULAR: Heart: S1, S2 heard, regular without S3-S4 or murmur no rubs or gallops. LUNGS/CHEST: Clear to auscultation bilaterally. No rails, rhonchi, or wheezing. Normal inspection. ABDOMEN: Soft, nontender, with normal bowel sounds. No pulsatile masses. No rebound, rigidity, or guarding. Normal inspection and palpation. EXTREMITIES: Normal inspection and palpation. No edema, clubbing or cyanosis. SKIN: Warm and dry without rashes. Normal inspection. MUSCULOSKELETAL: No cervical, thoracic, lumbar or midline bony tenderness. Normal inspection. NEURO: Awake, alert, answering questions appropriately, moves both upper and lower extremities. Gait: Not tested. PSYCHIATRIC: Normal mood and affect. Objective Labs 11/22/24 04:25 11/22/24 04:25 Labs: Laboratory Results - last 24 hr 11/22/24 11/22/24 04:25 04:50 WBC 8.1 RBC 3.66 L Hgb 11.3 L Hct 32.6 L MCV 89 MCH 30.9 MCHC 34.7 RDW Std Deviation 46.0 H Plt Count 189 Neut % (Auto) 70 Lymph % (Auto) 16 [place] % (Auto) 12 Eos % (Auto) 2 Baso % (Auto) 0 Neut # (Auto) 5.7 Lymph # (Auto) 1.3 [place] # (Auto) 1.0 H Eos # (Auto) 0.2 Baso # (Auto) 0.0 Immature Gran # (Auto) 0.03 H Absolute Nucleated RBC 0.00 Immature Gran % 0 Nucleated RBC % 0 Sodium 137 Potassium 4.6 Chloride 95 L Carbon Dioxide 18.2 L Anion Gap 24 H BUN 147 H* Creatinine 12.6 H* Estim Creat Clear Calc 5.7 L eGFR 4 L* BUN/Creatinine Ratio 12 Glucose 100 Calculated Osmolality 321 H Calcium 9.7 Corrected Calcium 9.7 Phosphorus 11.9 H Magnesium 2.4 Total Bilirubin 0.4 AST 14 ALT 10 Alkaline Phosphatase 135 H Total Protein 6.3 Albumin 4.5 Globulin 1.8 L Albumin/Globulin Ratio 2.5 H ABG Interpretation ABG results: 11/03/24 11/11/24 11/13/24 14:12 12:22 21:50 VBG pH 7.39 7.35 7.37 VBG pCO2 43 44 35 L VBG pO2 35 38 29 VBG Base Excess 1 -2 -5 L Assessment & Plan Assessment and plan (1) Delirium: Status: Acute Assessment and plan: Continue with the current management including Seroquel as needed (2) End stage renal failure on dialysis: Status: Chronic Assessment and plan: Waiting for dialysis access, possible transfer to [facility] to get it done (3) Dementia: Status: Chronic Assessment and plan: Progression noted, continue with the memantine Additional Assessment & Plan Additional Plan: Will try low-dose of pramipexole to help with restless legs which is commonly seen in patients with kidney disease
[2024-11-23] VITALS (10 sets, daily range): BP systolic 108–164; BP diastolic 61–80; PULSE 61–84; RESP 16–97; TEMP 36.1–36.9; O2SAT 95–99; BMI 30.7
--- NOTE | 2024-11-23 00:51 | ESPR_ITS ---
RE: LUCA DIXON : 1945 DATE OF SERVICE: 11/22/2024 HISTORY OF PRESENT ILLNESS: Briefly, he is a 79-year-old gentleman with hypertension, coronary artery disease status post CABG in 2018, ischemic cardiomyopathy with EF of 35% and ESRD on dialysis every Tuesday, Tuesday and Tuesday since 01/2023, who was admitted to the hospital on 10/17/2024 with confusion. He was found with dialysis catheter infection with blood culture x2 growing MRSA. He continues to be on IV vancomycin after each dialysis treatment. His tunneled dialysis catheter was removed and it was replaced by a right groin tunnel dialysis catheter. The right groin tunnel dialysis catheter has very poor blood flow during dialysis. We requested for subclavian or internal jugular vein catheter placement; however, Dr. Paez felt that both IJs are clotted and he would not put any catheter on the subclavian veins. The patient has not had dialysis for the past 6 days now. CURRENT MEDICATIONS: 1. Acetaminophen. 2. Albuterol. 3. Aspirin. 4. Atorvastatin. 5. Buspirone. 6. Fentanyl. 7. Lactulose. 8. Levothyroxine. 9. Metoprolol. 10. Midazolam. 11. Protonix. 12. Zofran. 13. Mupirocin ointment. PHYSICAL EXAMINATION: Vital Signs: Blood pressure of 129/63, respiratory rate of 18, heart rate of 63. HEENT: Anicteric sclerae. Normocephalic. Neck: Supple. . Chest and Lungs: Symmetric expansion. Clear breath sounds. Cardiac: Without murmur. Abdomen: Soft, nontender. Extremities: No edema. LABORATORY DATA: Hemoglobin 11.6, WBC 8,100, platelet count 189,000. Sodium 137, potassium 4.6, chloride 95, CO2 of 18.2, BUN 147 creatinine 12.6, glucose 100, phosphorus 11.9, calcium 9.7. ASSESSMENT: 1. End-stage renal disease, on dialysis every Tuesday, Tuesday and Tuesday. 2. Malfunctioning dialysis catheter. 3. Altered level of consciousness secondary to sepsis and possibly syndrome, now improved. 4. MRSA septicemia secondary to infected dialysis catheter. 5. Anemia of chronic disease. 6. History of coronary artery disease, status post CABG. 7. Ischemic cardiomyopathy with EF is only 25%. 8. Obesity. 9. Recent weight loss while in the hospital. 10. Hypertension. PLAN: The patient was accepted by [facility] vascular surgeon. Once there is bed available the patient will be transferred over to the [facility] and they will put either subclavian or Internal jugular vein dialysis catheter for dialysis use. Once everything is done then the patient will be transferred back to [place]. Dialysis will resume once we have a working dialysis catheter in place. DT: 23:04:45 TT: 23:55:00 Ref: [id number] - TID: [id number] MTDD
[2024-11-23] MEDS: DiphenhydrAMINE INJ 50 MG/ML VIAL IVP (01:57)
[2024-11-23] MEDS: LACTULOSE SYRUP 20 GM/30 ML UDC PR ×2 (06:00→15:01)
[2024-11-23] MEDS: LEVOTHYROXINE SODIUM 25 MCG TABLET 50 MCG PO (06:00)
[2024-11-23] MEDS: BusPIRone HCL 5 MG TABLET 10 MG PO ×2 (06:00→15:01)
[2024-11-23] MEDS: MUPIROCIN OINT 2% 15 GM TUBE TOP ×2 (06:05→15:15)
[2024-11-23 07:01] LABS: Basophils % (Auto) 0 % (0-2.5); Eosinophils # (Auto) 0.3 Thou/mm3 (0.0-0.5); Eosinophils % (Auto) 3 % (0-10); Hematocrit 34.2 % (41.0-53.0); Hemoglobin 11.9 g/dL (13.5-16.0); Immature Granulocytes % (Auto) 0 % (0-0); Immature Granulocytes Auto 0.04 Thou/mm3 (0.00-0.00); Lymphocytes # (Auto) 1.2 Thou/mm3 (1.0-4.8); Lymphocytes % (Auto) 13 % (10-50); Mean Corpuscular HGB Conc 34.8 g/dl (31.0-37.0); Mean Corpuscular Hemoglobin 30.7 pg (25.0-35.0); Mean Corpuscular Volume 88 fL (80-100); Monocytes # (Auto) 0.9 Thou/mm3 (0.0-0.8); Monocytes % (Auto) 10 % (0-12); Neutrophils # (Auto) 6.6 Thou/mm3 (1.8-7.7); Neutrophils % (Auto) 73 % (37-80); Nucleated Red Blood Cell % 0 /100 WBC (0); Platelet Count 183 Thou/mm3 (140-440); RDW Standard Deviation 45.4 fL (35.1-43.9); Red Blood Count 3.87 Miln/mm3 (4.50-5.90)
[2024-11-23 07:45] LABS: Alanine Aminotransferase 12 U/L (10-49); Albumin, Serum 4.6 gm/dL (3.4-4.8); Albumin/Globulin Ratio 2.7 (1.2-2.2); Alkaline Phosphatase 140 U/L (46-116); Anion Gap 21 (7-16); Aspartate Amino Transferase 17 U/L (0-34); BUN/Creatinine Ratio 11 Ratio (12-20); Bilirubin,Total 0.4 mg/dL (0.3-1.2); Calcium 9.5 mg/dL (8.3-10.6); Calcium (Corrected) 9.5 mg/dL (8.5-10.1); Carbon Dioxide 19.4 mMol/L (20.0-31.0); Chloride 96 mMol/L (98-107); Estimated Creatinine Clearance 5.4 mL/min (>60); Globulin 1.7 gm/dL (2.3-3.5); Glucose 82 mg/dL (74-106); Magnesium 2.5 mg/dL (1.6-2.6); Osmolality,Calculated 319 (275-295); Potassium 4.8 mMol/L (3.4-5.1); Sodium 136 mMol/L (136-145); Total Protein 6.3 gm/dL (5.7-8.2); eGFR 3 See Note
[2024-11-23 07:49] LABS: Blood Urea Nitrogen 149 mg/dL (9-23)
[2024-11-23 07:50] LABS: Creatinine (Component) 13.2 mg/dL (0.6-1.3); Phosphorous 12.3 mg/dL (2.4-5.1)
[2024-11-23] MEDS: SEVELAMER CARBONATE 0.8 GM PACKET (NON-FORMULARY) 1.6 GM PO ×3 (10:06→18:06)
[2024-11-23] MEDS: PANTOPRAZOLE INJ 40 MG VIAL IVP (10:06)
[2024-11-23] MEDS: ASPIRIN 81 MG CHEW PO (10:06)
[2024-11-23] MEDS: METOPROLOL TARTRATE 25 MG TABLET 50 MG PO (10:06)
[2024-11-23] MEDS: QUEtiapine FUMARATE 25 MG TABLET PO ×2 (10:09→16:10)
--- NOTE | 2024-11-23 10:10 | PC.CC ---
Spoke with Luda at [facility] Transfer Unit. Update, currently patient is accepted as off yesterday and is still pending a bed at this time. [facility] will reach out when a bed is available.
--- NOTE | 2024-11-23 17:10 | ESPR_ITS ---
Documentation for date of: 11/23/24 Subjective Subjective Interval history: Patient seen and examined at the bedside. No new cardiac in place. Telemetry reviewed and heart rate well-controlled between 80s and 90s. PVCs less than 5%. Patient could not take the metoprolol XL as it could not be crushed and changed to metoprolol tartrate 50 mg twice daily which we recommend to continue for now. He is still on midodrine as needed as needed during the dialysis days. Patient is still pending transfer to tertiary care center for tunneled dialysis catheter as it could not be accessed here by IR. Rest of the labs and vitals reviewed and appear to be stable. Keep potassium greater than 4 and magnesium greater than 2.0. 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 Patient was found to have be hypotensive by the EMS and was brought to the emergency department for further evaluation. I did speak to the patient, daughter as well as son-in-law as he lives in the same house and patient never had lost consciousness and did not have any syncope. Patient was dizzy and came to that but would not get out and complained of dizziness and was about to lose his balance and fall down when the son-in-law caught him. Patient denies any chest pain chest pressure or palpitations or any recent shocks from his ICD. Does have some leg swelling and unable to lie down flat at the present moment. Denies any kind of fever or chills nausea or vomiting. Patient does complain of significant abdominal discomfort from constipation and has been unable to pass bowel movements for the past few days. Patient also did not make enough urine since coming to the emergency department and this morning. Patient is a long-term patient of Dr. Truong Jaime from [place] and he has been following him for more than 25 years. Patient was initially diagnosed with congestive heart failure 25 years ago and was diagnosed with nonischemic cardiomyopathy. Patient was medically managed but patient continued to progress and and eventually did receive a [employer]-D in 2012 with a battery replacement in 2019. Patient was doing very well until October 2024 and he did present to the emergency department for CHF exacerbation and was found to have moderate to severe aortic stenosis by echo but mostly had low-flow low gradient severe aortic stenosis. Patient did develop a right heart cardiac catheterization as part of the evaluation and was noted to have moderate to severe stenosis of the proximal to mid LAD with around 70% stenosis. Patient did not have any chest pain or chest pressure at that point of time. Patient did follow-up with Dr. Jaime in his office and all the treatment options were discussed but patient was a high risk for surgery or any kind of procedures. He was offered cardiac transplant evaluation few years ago but the patient only wanted medical treatment. Patient being treated medically for his nonischemic cardiomyopathy with severe systolic congestive heart failure, severe aortic stenosis as well as moderate to severe CAD with 80% stenosis of the proximal to mid LAD. 1. Dizziness secondary to hypotension 2. Acute on chronic severe systolic congestive heart failure with an EF of 10 to 15% in October 2023 3. Severe aortic stenosis diagnosed in October [id number] low gradient V- max 3.8 and mean 35 mmHg 4. Moderate to severe single-vessel CAD involving the proximal to mid LAD with 70 to 80% stenosis 5. Severe dilated cardiomyopathy with last normal LV dimension of 7.5 cm s/p [employer]-D placement in 2012 and battery change in 2019 6. Acute on chronic kidney disease stage III 7. Abdominal pain mostly secondary to constipation as patient did not have any bowel movements 8. Type 2 diabetes mellitus 9. Hyperlipidemia 10. History of left foot toe amputation and also bilateral foot ulcers Patient presented with dizziness but there was no evidence of any syncope as noted in the detailed history. Patient was hypotensive which could be secondary on admission and at home is on goal-directed medical therapy with Entresto, metoprolol as well as aggressive diuresis. Did speak to his primary top precipitator operator with whom he follows regularly and even in the last week and patient blood pressure at baseline actually lysing the 80s and he is able to walk around without blood pressure. Recommend to hold beta-halima and Entresto for now. Patient did receive IV fluids at least 2 L on admission and he has severe systolic congestive heart failure with an EF of 10 to 15% and severe dilated cardiomyopathy as noted before and is fluid overloaded at the present point of time and will recommend IV Lasix 80 mg IV x 1 and increase it to Lasix 80 mg IV once daily. Strict input output. Daily weights. Continue to monitor the renal function closely with renal panel every day. Patient also complaining of abdominal pain and primary team performing an ultrasound. Patient does complain of constipation did not have a bowel movement in will order 1 dose of magnesium citrate oral. Further management of the constipation as per the primary team. Patient denies any Chest pain chest pressure and troponins are negative at 0.06 x 2. EKG shows paced rhythm with wide QRS complex similar to before. Regarding his severe systolic congestive heart failure, severe aortic stenosis which is low-flow low gradient as noted above. Repeat echocardiogram has been ordered here which will follow. Also patient has severe dilated cardiomyopathy with moderate to severe stenosis of the proximal to mid LAD a all of which are being medically managed at the present point of time as patient did not want to undergo any procedures as per his primary top precipitator operator Dr. Jaime in [place]. Patient to follow-up with outpatient with his primary top precipitator operator once he is discharged from here regarding further management of the same. 11/22/2024: Patient is feeling much better and shortness of breath is improved. Overnight patient did have urinary obstruction and had 2.5 L of urinary output once a Clemens's was placed. Patient is diuresed well with IV Lasix 80 mg IV and his blood pressure was systolics in the 60s and 70s and hence patient was started on dobutamine drip 2.5 mics per KG per minute. Patient diuresing well and is a total of 2.5 L output since the morning. Continue to aggressively diurese with IV Lasix and dobutamine drip with a goal MAP of 60 mmHg. Kidney function stable and actually BUN decreased to 39 and creatinine is 2.0 which is closer to his baseline. Patient is possibly at least 10 pounds above his normal weight as per the daughter. Patient is feeling much better and his abdominal distention and pain have improved since passing 2 bowel movements after the bowel regimen. Patient placed on Colace and senna which she recommend to continue as outpatient too. Echocardiogram completed today and showed again the EF of 10 to 15% with severe aortic stenosis with a V-max of 4.0 m/s, mean gradient of 36 mmHg, valve area of 0.5 cm?. Severely dilated LV at 7.8 cm, severely dilated LA, normal RV function, moderate PAH with RVSP of 60 mmHg, moderate TR, mild RA dilatation, mild MR and IVC dilated. No significant change from the recent echo at [facility] a month ago Total critical care time spent was 45 minutes. Due to a high probability of clinically significant, life threatening deterioration and I personally spent this critical care time directly and personally managing the patient. This critical care time included obtaining a history; examining the patient;ordering and review of studies; arranging urgent treatment with development of a management plan; evaluation of patient's response to treatment; frequent reassessment; and, discussions with other providers. It was exclusive of separately billable procedures and treating other patients and teaching time. Bismark Urbina MD Interventional Cardiology Objective Labs 11/23/24 06:35 11/23/24 06:35 Labs: Laboratory Results - last 24 hr 11/23/24 06:35 WBC 9.0 RBC 3.87 L Hgb 11.9 L Hct 34.2 L MCV 88 MCH 30.7 MCHC 34.8 RDW Std Deviation 45.4 H Plt Count 183 Neut % (Auto) 73 Lymph % (Auto) 13 Cache % (Auto) 10 Eos % (Auto) 3 Baso % (Auto) 0 Neut # (Auto) 6.6 Lymph # (Auto) 1.2 Cache # (Auto) 0.9 H Eos # (Auto) 0.3 Baso # (Auto) 0.0 Immature Gran # (Auto) 0.04 H Absolute Nucleated RBC 0.00 Immature Gran % 0 Nucleated RBC % 0 Sodium 136 Potassium 4.8 Chloride 96 L Carbon Dioxide 19.4 L Anion Gap 21 H BUN 149 H* Creatinine 13.2 H* D Estim Creat Clear Calc 5.4 L eGFR 3 L* BUN/Creatinine Ratio 11 L Glucose 82 Calculated Osmolality 319 H Calcium 9.5 Corrected Calcium 9.5 Phosphorus 12.3 H Magnesium 2.5 Total Bilirubin 0.4 AST 17 ALT 12 Alkaline Phosphatase 140 H Total Protein 6.3 Albumin 4.6 Globulin 1.7 L Albumin/Globulin Ratio 2.7 H ABG Interpretation ABG results: 11/03/24 11/11/24 11/13/24 14:12 12:22 21:50 VBG pH 7.39 7.35 7.37 VBG pCO2 43 44 35 L VBG pO2 35 38 29 VBG Base Excess 1 -2 -5 L Assessment & Plan A&P Narrative A 79-year-old male with a past medical history of CAD status post CABG x 3, residual severe sokaogon disease and 100% occluded SVG to LCx, patent HOOK to LAD and SVG to RCA, moderate to severe systolic congestive heart failure with an EF of around 35%, stroke or previous CVA, hypothyroidism, end-stage renal disease on hemodialysis, gout, mild cognitive disturbance with cirrhosis dementia presented to the emergency department for altered mental status in the setting of possible cellulitis and infection of the left-sided tunneled dialysis catheter. Patient has been having recurrent tunneled dialysis catheter infection and he has been able to do some ADLs by himself with he is normal but has more altered mental status and agitated when he has the infection. Patient has significant cardiac history with the initial heart attack at the age of 48 and since then has been following multiple top precipitator operator including Dr. Camacho as well as Dr. Caballero in [place]. Patient had previously stents as well as CABG done many years ago. Recently he was seen by his primary top precipitator operator Dr. Martin last month and then he had an elective left heart cardiac catheterization on 10/23/2023 which did show patent and large SVG to RCA graft,'s patent small HOOK to LAD graft but 100% occluded SVG to LCx. Patient did have severe sokaogon disease including LCx, AV delay still RCA but there were no good targets to intervene and hence medical management was recommended. The emergency department patient had a temperature of 104 and was tachycardic at 123 and blood pressure was 120/100 mmHg. Troponin was elevated at 0.058 and the repeat troponins continued to increase to 0.35, 0.6 and eventually peaked at 0.976. EKG showed normal sinus rhythm with no acute ST-T changes suggestive ischemia. CT head was negative. Patient was eventually diagnosed with sepsis secondary to GPC bacteremia from possible catheter related bloodstream infection. Cardiology consulted for elevated troponins. Assessment and plan: 1. Elevated troponins-NSTEMI type II in the setting of supply/demand mismatch from the sepsis and 2. Sepsis secondary to MRSA bacteremia from catheter related bloodstream infection 3. CAD status post CABG x 3 and multiple PCI and initial heart attack at 48 4. Severe systolic congestive heart failure with an EF of around 25% 5. NSVT 6. ESRD on HD 7. Hypertension 8. Altered mental status mostly secondary to the acute infection and possible underlying dementia. 9. Difficult vascular access and right femoral Vas-Cath placed for dialysis 10. DNR and DNI Patient will continue to have rising troponins which peaked at 0.976 and have trended down. EKG showed normal sinus rhythm without any acute ST-T changes. Patient unable to provide any history but as per the family he did not have any kind of chest pain or chest pressure and basically he was altered which happens every time he is infected. As noted above patient did have a recent echocardiogram as well as cardiac catheterization at [facility] October 2024 which were reviewed by me and showed that patient does have 2/3 of the grafts patent, severe sokaogon vessel disease which they were unable to intervene due to lack of targets. EF was around 35%. Repeat echo here showed EF is now down to 25% The troponin elevation is mostly secondary to type II NSTEMI with supply/demand mismatch and recommend only recent medical management with aspirin, Plavix, high intensity statin and beta-halima. No need of any heparin drip During this admission patient's CODE STATUS was changed to DNR and DNI as per the family and they did not want any additional interventions as they did speak to their primary top precipitator operator in [place] previously Dr. Caballero who recommended the same. Family has been talking to the primary doctors and primary top precipitator operator previously and given his recurrent admissions with altered mental status they have finally decided on his goals of care. Review of the telemetry showed that the patient is having frequent PVCs with NSVT and recommended to start metoprolol XL 50 mg once daily. At home is actually on 200 Mg per day and continue to uptitrate metoprolol XL based on the blood pressure as the patient is also septic at the present point of time. Recommend to keep potassium greater than 4 magnesium greater than 2.0 at all times. Metoprolol XL uptitrated to 100 mg once daily and PVCs are less than 5%. Patient blood pressure is soft and cannot increase the metoprolol back to his home dosage. Change metoprolol tartrate 50 mg twice daily as he the XL could not be crushed. Recommend to continue to monitor on telemetry. Echo reviewed by me 11/08/2024 showed moderately dilated LV with mild LVH and global LV systolic function is severely decreased with an estimated EF of 25 to 30%. Grade 2 diastolic dysfunction. Moderately reduced RV function. Mildly dilated RV, moderately dilated LA and RA. Moderate MR and TR. Overall picture of dilated cardiomyopathy. There was no clear evidence of any valvular vegetations. Regarding CHF patient repeat echo showed the EF is as low as 25% with severe systolic congestive heart failure. Patient also has a history of ESRD and HD and further fluid management as per nephrology team more on board. Strict input output Daily weights and 2 g sodium diet. Patient needs to be on goal-directed medical therapy given the severe systolic congestive heart failure which can be started later as the blood pressure is around 100 210 mmHg and at x 90 mmHg with the metoprolol and the dialysis. Patient will need to be on Entresto and spironolactone. His altered mental status is mostly secondary to the acute infection which led to the sepsis with GPC bacteremia from catheter related bloodstream infection from the left-sided tunneled dialysis catheter. Treated with IV antibiotics and primary team managing the same. Left tunneled dialysis catheter was removed and multiple attempts were made to do a right sided tunneled dialysis catheter but unfortunately could not be placed by IR and patient only transferred to a tertiary Medical Center for placement of the right secondary dialysis catheter. Patient now has left femoral dialysis catheter in place with which HD has been performed. Management of rest of the medical conditions as per primary team and other consultants. Thank you for the consult and allowing me to participate in the care of the patient. Cardiology will continue to follow. Bismark Jaime Anumandla M.D. Interventional Cardiology Time Spent With Patient Time: Total time spent is greater than 50% in coordination of care (as documented) at patient's floor/unit and/or counseling patient:
--- NOTE | 2024-11-23 17:30 | ESPR_ITS ---
<Statement entered by Nick Lundberg MD - 11/24/24 15:37> Senior Resident Attestation: I supervised/discussed management plan with international relations teacher physician Dr. Lau, and was involved in the care of this patient. I personally saw and examined the patient and discussed the assessment and plan with the entire medicine team, including my attending. I agree with the assessment and plan as documented. Patient's care was discussed with attending physician, Dr. Hansen. Nick Lundberg MD PGY-2. Documentation for date of: 11/23/24 Subjective Subjective Interval history: 11/22/2024: Pt examined at bedside today. Telemetry reviewed, pt continues to be rate in the 90s. Pt appears to be awake and able to answer some questions. Still pending transfer for patient for TDC placement in subclavian at other facility by possible vascular surgery. WBC 8.1, Hgb 11.3, Na 137, Potassium 4.6, Bicarb 18, BUN/Cr 147 and 12.6 respectively, phos 11.9. No other complaints at this time. 11/23/2024: Pt examined at bedside today. Telemetry reviewed, pt continues to be rate controlled at this time. Pt is sleeping at this time, no restraints present. Still pending transfer for TDC placement at other facility. White count 9, hemoglobin 9.9, BUN/creatinine 149 and 13.2 respectively, phosphorus 12.3, magnesium 2.5, potassium 4.8, sodium 136. Exam Vital Signs Temp Pulse Resp BP Pulse Ox O2 Del Method O2 Flow Rate 97.7 F 81 19 164/80 H 98 Room Air 2 11/23/24 16:11/23/24 16:11/23/24 16:11/23/24 16:11/23/24 16:11/23/24 16:11/20/24 11:13 Narrative Exam General: AAOx1, sleeping, NAD HEENT: Moist mucous membranes, conjunctiva clear, EOMI, PERRLA, poor dentition Cardiovascular: Possible murmur heard over SNOW, tachycardic Pulmonary: CTAB bilat no cough, no wheezing GI: No tenderness to light or deep palpitation, no guarding, rigidity, rebound tenderness or distension Extremities: No presence of trace or pitting edema in lower extremities bilaterally, dorsalis pedis pulses +2 bilaterally Neuro: AAOx1, no focal motor or sensory deficits in the UE or LE bilat Objective Labs 11/23/24 06:35 11/23/24 06:35 Labs: Laboratory Results - last 24 hr 11/23/24 06:35 WBC 9.0 RBC 3.87 L Hgb 11.9 L Hct 34.2 L MCV 88 MCH 30.7 MCHC 34.8 RDW Std Deviation 45.4 H Plt Count 183 Neut % (Auto) 73 Lymph % (Auto) 13 [place] % (Auto) 10 Eos % (Auto) 3 Baso % (Auto) 0 Neut # (Auto) 6.6 Lymph # (Auto) 1.2 [place] # (Auto) 0.9 H Eos # (Auto) 0.3 Baso # (Auto) 0.0 Immature Gran # (Auto) 0.04 H Absolute Nucleated RBC 0.00 Immature Gran % 0 Nucleated RBC % 0 Sodium 136 Potassium 4.8 Chloride 96 L Carbon Dioxide 19.4 L Anion Gap 21 H BUN 149 H* Creatinine 13.2 H* D Estim Creat Clear Calc 5.4 L eGFR 3 L* BUN/Creatinine Ratio 11 L Glucose 82 Calculated Osmolality 319 H Calcium 9.5 Corrected Calcium 9.5 Phosphorus 12.3 H Magnesium 2.5 Total Bilirubin 0.4 AST 17 ALT 12 Alkaline Phosphatase 140 H Total Protein 6.3 Albumin 4.6 Globulin 1.7 L Albumin/Globulin Ratio 2.7 H ABG Interpretation ABG results: 11/03/24 11/11/24 11/13/24 14:12 12:22 21:50 VBG pH 7.39 7.35 7.37 VBG pCO2 43 44 35 L VBG pO2 35 38 29 VBG Base Excess 1 -2 -5 L Quality Measures Quality Measures VTE prophylaxis Advance care planning discussed with:: patient Assessment & Plan Assessment Current Active Medications: Generic Name Dose Route Start Last Admin Trade Name Freq PRN Reason Stop Dose Admin Acetaminophen 650 mg 11/03/24 19:16 11/22/24 05:57 Acetaminophen 325 Mg Tablet PO 12/03/24 19:15 650 mg Q6H PRN Administration PAIN SCALE 1-3 (mild Acetaminophen 650 mg 11/03/24 21:16 Acetaminophen Supp 650 Mg Supp SC 12/03/24 21:29 Q6H PRN Fever > 100.4 Albuterol/Ipratropium 3 ml 11/03/24 19:16 Albuterol/Ipratropium (Duoneb) Rt Dianne 3 Ml Nebu INH 12/03/24 22:59 Q4HRRT PRN SOB or wheezing Aspirin 81 mg 11/18/24 09:00 11/23/24 10:06 Aspirin 81 Mg Chew PO 12/18/24 08:59 81 mg QDAY TARIK Administration Atorvastatin Calcium 80 mg 11/04/24 21:00 11/22/24 20:58 Atorvastatin Calcium 20 Mg Tablet PO 12/04/24 20:59 80 mg HS TARIK Administration Bisacodyl 5 mg 11/22/24 07:00 Bisacodyl 5 Mg Tabec PO 12/22/24 06:59 QDAY PRN CONSTIPATION Protocol Buspirone HCl 10 mg 11/16/24 14:00 11/23/24 15:01 Buspirone Hcl 5 Mg Tablet PO 12/16/24 13:59 10 mg TID TARIK Administration Heparin Sodium (Porcine) 3,500 unit 11/14/24 10:00 11/20/24 13:13 Heparin Sod Inj 1000 Unit/Ml Vial 10 Ml INDWELLCAT 11/28/24 09:59 3,500 unit X1 PRN Administration DIALYSIS Albumin Human 25 gm in 100 mls @ 100 mls/min 11/05/24 10:19 11/16/24 09:42 Albuminar-25 Ivpb IV 100 mls/min QDAY PRN Administration DIALYSIS Lactulose 20 gm 11/18/24 16:00 11/23/24 15:01 Lactulose Syrup 20 Gm/30 Ml Udc SC 12/18/24 15:59 20 gm TID TARIK Administration Protocol Levothyroxine Sodium 50 mcg 11/23/24 06:00 11/23/24 06:00 Levothyroxine Sodium 25 Mcg Tablet PO 12/23/24 05:59 50 mcg ACBR TARIK Administration Metoprolol Tartrate 50 mg 11/22/24 10:15 11/23/24 10:06 Metoprolol Tartrate 25 Mg Tablet PO 12/22/24 10:14 50 mg BID TARIK Administration Midodrine 5 mg 11/21/24 16:00 Midodrine 5 Mg Tablet PO 12/16/24 13:59 TID PRN For SBP <95 Mirtazapine 15 mg 11/11/24 21:00 11/22/24 20:58 Mirtazapine 15 Mg Tablet PO 12/11/24 20:59 15 mg HS TARIK Administration Mupirocin 0 gm 11/18/24 09:42 11/23/24 15:15 Mupirocin Oint 2% 15 Gm Tube TOP 11/25/24 08:29 1 applicatio TID TARIK Administration Ondansetron HCl 4 mg 11/03/24 14:16 11/03/24 17:26 Ondansetron Inj 2 Mg/Ml Inj 2 Ml IV 12/03/24 14:15 4 mg Q4HR PRN Administration NAUSEA OR VOMITING Pantoprazole Sodium 40 mg 11/05/24 10:45 11/23/24 10:06 Pantoprazole Inj 40 Mg Vial IVP 12/05/24 10:44 40 mg QDAY TARIK Administration Quetiapine Fumarate 25 mg 11/22/24 10:11 11/23/24 16:10 Quetiapine Fumarate 25 Mg Tablet PO 12/14/24 12:31 25 mg Q6H PRN Administration AGITATION Sevelamer Carbonate 1.6 gm 11/22/24 12:00 11/23/24 13:02 Sevelamer Carbonate 0.8 Gm Packet (Non-Formulary) PO 12/22/24 11:59 1.6 gm TIDWM TARIK Administration Plan Patient is a 71 years old male with PMHx of ESRD on HD MWF, HFrEF EF 30%, CVA, hypothyroidism presenting with AMS in setting of CRBSI sepsis. He continued on VANCOMYCIN for MRSA bacteremia. HD cath removed. If blood culture negative tomorrow (48 hours), will proceed with hemodialysis cath insertion. #Sepsis 2/2 catheter site cellulitis (improving) #Catheter site cellulitis #MRSA bacteremia 2/2 CRBSI Met 2/4 SIRS criteria with tachycardia, fever. LA normal, no leukocytosis. HD tunneled cath erythematous and warm suggesting cellulitis. Afebrile, leukocytosis improving. Prelim blood culture showing GPC. Dialysis, significant removed. Continue on Vancomycin. 24-hour blood culture negative. Catheter site cx grew GPC. MRSA nasal swab positive. Repeat blood culture negative Patient will likely finish up antibiotic at [facility] Currently finding [facility] facility as patient is close to being medically cleared for discharge Concern for abscess or other infection , WBC 21, however no fevers Pt is unable to communicate much information at this time, so we will continue with broad workup CT CAP showed colon full of stool, possible proctitis pattern, no abscess found Plan: ? completed course of vancomycin. ? Continue to monitor CBC. - Continue to monitor vitals. #Leukocytosis #Acute encephalopathy #Severe agitation, improved. #Suspected underlying dementia vs delirium secondary to metabolic encephalopathy. Likely secondary to metabolic encephalopathy. Unclear what baseline is, currently attending, does not follow command, agitated, requiring multiple medications. Continued on soft restraints. Started scheduled HALOPERIDOL. Head CT was negative. No focal neurological deficit. No indication for stroke workup. Neurology consulted, agreed with ANTIPSYCHOTICS for agitation. Patient still agitated and was unable to have a new TDC inserted QT 420, previous ~370s At this time will hold sedating medicines at this time Goals of care conversation held with family, see notes Speech eval recommended dysphagia 1 diet only patient is awake Spoke with patient point of contact for family in regards to updates for patient Agreeable for SNF at this time, as they prefer possibly [facility] or [facility] rehab centers Will continue with bowel regimen as this may be contributing to patient's agitation and new leukocytosis Plan: ? continue Seroquel 25 mg twice daily as needed. - Dysphagia diet as long as patient is awake. - Neurology consulted, appreciate recommendations. - Mirtazapine 15 mg every night. - continue on buspirone 10 mg daily. ? Lactulose 20 mg daily. ? Bedside commode. #ESRD on HD //. #Hypomagnesemia, resolved. #Hyperphosphatemia. #Hyperkalemia. Patient has dialysis Tuesday, Tuesday, Tuesday. Continue with dialysis TDC Egg Producer Dr Padilla Phosphorous 11.9 today Pending transfer for TDC in [facility] to be put in by Vascular surgery Spoke with press room supervisor, patient cannot have dialysis as patient's line does not work Phosphorus worsening including other renal function labs Plan: ? Sevelamer 1600 mg TID ? Renally dose meds, avoid overdiuresis and NEPHROTOXINS. ? Daily CMP. ? Hemodialysis as scheduled by nephrology. ? Continue with dialysis with TDC. - continue on midodrine 5 mg 3 times daily PRN for hypotension. #NSTEMI, likely type II related to demand ischemia, resolved #History of coronary artery disease status post multiple stents and CABG triple bypass #History of myocardial infarction #Nonsustained supraventricular tachycardia #HFrEF with EF of 35 to 40% #Ischemic cardiomyopathy #Hypotension Unsure when patient's CABG was, will follow-up with records and family Patient takes home Plavix as well in addition to aspirin as well ranolazine Some bouts of nonsustained supraventricular tachycardia with trigeminy seen on telemetry Pt continues to have some tachycardia, but has not been giving home metoprolol doses Pt does have MRSA bactermia, will treat as well Upon review of cardiac catheter records 2 weeks ago at [facility]: Saphenous vein graft to left circumflex?occluded whenever send HOOK to LAD?patent [place] LAD?moderate to severe disease Saphenous vein graft to RCA patent with good flow [place] left coronary artery severe proximal disease Not a candidate for PCI EF 35 to 40% Ischemic cardiomyopathy We want to uptitrate metoprolol back to 200 mg as patient heart rate and blood pressure will tolerate. We spoke with family, we recommend for pt not to have any invasive procedures and they agree. We also recommend a goals of conversation to be held with primary team and family. At this time of concern with hypotension, we will continue with metoprolol XL 100 mg despite risk of hypotension as we want to control the rate. Plan: ? continue Lipitor 80 mg ? Continue with home ASA 81 ? Patient is currently on metoprolol XL 100 mg ? Keep magnesium and potassium above 2 and 4 respectively ? Continue with midodrine 5 mg TID as needed for hypotension related to dialysis #Hypothyroidism. TSH 4.6 this visit. Plan: ? Continue home LEVOTHYROXINE 50 mcg ACBR. #Normocytic anemia (stable). Patient has Hb of 10.8 No obvious source of bleeding Plan: - We will monitor closely, may need outpatient workup. Health Maintenance: Disposition: Telemetry. DVT prophylaxis: SCDs. GI prophylaxis: Protonix. Diet: Dysphagia 2. CODE STATUS: DNR/DNI. Patient seen and care discussed with my senior resident, Dr. Lundberg, and my attending physician, Dr. Tyrone Lau, PGY-1 Attending Provider Attestation/Addendum I reviewed labs, imaging, EKG, home medications and prior available records. Face to face evaluation was performed by me. I have personally examined the patient and discussed assessment and plan with the IM team. I reviewed the resident note and agree with the plan with exceptions as below. Leukocytosis: Downtrending. Possibly due to severe constipation/urinary retention. Had a bowel movement. Continue constipation care. Treatment of infection as below. Trend WBC Acute hypotension: Rapid response was called on 11/20 for acute hypotension during hemodialysis however BP improved after holding it. Possibly due to cuff malfunction. Hemodialysis catheter malfunction: Rapid response was called on 11/20 as the dialysis line is not functioning well. Patient is being agitated and moving in his bed which is putting a pressure on the dialysis line. Per dialysis nurse, he was unable to complete several sessions. His BUN has been increasing. Discussed with nephrology: Contacted IR who is not able to perform subclavian dialysis line. Discussed with nephrology: Will plan to transfer the patient to [facility] for vascular surgery service to insert out subclavian dialysis line. Discussed with transfer nurse on 11/22: Cannot transfer to [facility] given the lack of bed availability. Will try contacting other hospitals. Continue to monitor potassium level in the meantime. Acute encephalopathy/hyperactive agitation: Improved. Likely hyperactive delirium in the setting of baseline dementia. Possibly multifactorial in the setting of MRSA infection, pain, uremia from incomplete dialysis, sleep deprivation, hunger/thirst, anxiety. Management of infection as below. Delirium precautions. Try to discontinue mittens which has been a challenge as patient keeps playing with his lines. Increased Seroquel to 25 mg every 6 hours. Discussed with neurology: Discontinued pramipexole. Started quetiapine as needed. Started buspirone. Started mirtazapine. MRSA dialysis line infection: Finished IV vancomycin. Status post insertion of a new right femoral dialysis catheter ESRD on hemodialysis: He is receiving hemodialysis via the new right femoral dialysis catheter that was inserted after 48 hours of negative blood cultures. Nephrology is following. He is unable to complete his dialysis sessions as he continues to move. Will plan to change to the line to a subclavian line by vascular surgery. He is pending transfer. Continue to monitor potassium level. Increased sevelamer given his hyperphosphatemia Non-STEMI: No active chest complaints. Continue aspirin and atorvastatin Ventricular tachycardia: Nonsustained. Continue metoprolol. Changed to metoprolol tartrate 50 mg twice daily. Cardiology is following Debility: PT recommended SNF. Discussed with son: Okay to proceed once he is medically cleared Please update the son and point of contact Jean on a daily basis
[2024-11-23] MEDS: DiphenhydrAMINE INJ 50 MG/ML VIAL 25 MG IVP (18:14)
--- NOTE | 2024-11-24 00:15 | ESPR_ITS ---
RE: LUCA DIXON : 1945 DATE OF SERVICE: 11/23/2024 HISTORY OF PRESENT ILLNESS: Briefly, he is a 79-year-old gentleman with hypertension, coronary artery disease, status post CABG in 2018, ischemic cardiomyopathy with EF of 35% and ESRD on dialysis every Tuesday, Tuesday, Tuesday since 01/2023, who was admitted to the hospital on 10/17/2024 with confusion and was found with MRSA septicemia from Lyme sepsis. The patient was started on vancomycin and continues to be on vancomycin IV every treatment. The patient had the infected catheter removed and was provided with right groin tunneled dialysis catheter. However, since Tuesday, dialysis catheter has not been working very well. I was told that both IJs were clotted and subclavian tunneled catheter seems not to be an option. He is currently asleep waiting to be transferred. CURRENT MEDICATIONS: 1. Acetaminophen. 2. Albuterol. 3. Aspirin. 4. Atorvastatin. 5. Buspirone. 6. Fentanyl. 7. Lactulose. 8. Levothyroxine. 9. Metoprolol. 10. Midazolam. 11. Protonix. 12. Zofran. 13. Mupirocin ointment. PHYSICAL EXAMINATION: General: Asleep did not bother him. LABORATORY DATA: Hemoglobin 11.9, platelet count 183,000. Sodium 136, potassium 4.8, chloride 96, CO2 19.4, BUN 149, creatinine 13.2, glucose 82, calcium 9.5, phosphorus 12.3. ASSESSMENT: 1. End-stage renal disease. 2. Malfunctioning dialysis catheter. 3. Altered level of consciousness. 4. Methicillin-resistant Staphylococcus aureus septicemia secondary to infected dialysis catheter. 5. Anemia of chronic disease. 6. History of coronary artery bypass grafting. 7. Ischemic cardiomyopathy with ejection fraction of 25%. 8. Obesity. 9. Recent weight loss of 40 pounds while in the hospital. 10. Hyponatremia. PLAN: We are still waiting for his transfer to [facility]. If there is any institution that would also accept him, maybe we should also try another institution given that [facility] has no bed available at the moment. DT: 22:29:13 TT: 00:07:00 Ref: [id number] - TID: [id number] [facility]
--- NOTE | 2024-11-24 07:24 | PD.RESDS ---
Planned Discharge Date 11/23/24 DS: Providers Provider Date of admission: 11/03/24 19:16 Primary care physician: Rosey Morin DO Admitting Provider: Cally Dawson MD Attending Provider on Admission: Aries Angulo MD Consults: 11/03/24 14:16 Consult to Neurology / Tele-Neurology Routine Comment: Altered mental status Consulting Provider: Steve Riley 11/03/24 19:21 Referral Physical Therapy Routine Comment: Physician Instructions: Referral Speech Therapy Routine Comment: 11/03/24 19:32 Consult to Nephrology Routine Comment: ESRD on HD Consulting Provider: Radha Padilla 11/05/24 10:12 Consult to Infectious Diseases Routine Comment: GPC, CRBSI Consulting Provider: Holger Phelps 11/05/24 11:42 Consult to Cardiology Routine Comment: Consulting Provider: Bismark Urbina 11/13/24 14:32 Referral Speech Therapy Routine Comment: 11/13/24 17:06 Referral Registered Dietitian Routine Comment: 11/15/24 11:24 Referral Speech Therapy Routine Comment: Patient choking on water 11/20/24 14:37 Referral - Air Sampling And Monitoring Stat Service Needed for Transfer: Vascular Surgery 11/22/24 10:19 Referral Speech Therapy Stat Comment: re- evaluate swallow pls, pt refusing solids 11/22/24 15:05 Referral Speech Therapy Routine Comment: Repeat swallow eval please Attending Provider on DC: Nick Lundberg MD Discharging Provider: Nick Lundberg MD DS: Diagnosis Problem List Completed Was Problem List Reviewed/Reconciled?: Yes Hospital Course Hospital Course Hospital course: Patient is a 79 years old male with past medical history of ESRD on hemodialysis (M/W/F), HFrEF (EF 35%), Previous CVA, hypothyroidism and dementia presented to the ED with complaint of altered mental status. On arrival patient had BP of 121/110, pulse 123, RR 19, Temp 104.0 meeting 2/4 SIRS criteria. Sepsis alert was called and patient received IV vancomycin and Zosyn. Chemistry panel showed lactate 1.8, magnesium 1.3, ALP 168, Ammonia <10, Troponin 0.058. UA shows 3+ proteinuria. In the ED stroke alert was called, patient underwent head CT which came back negative for acute hemorrhage, mass effect or midline shift. Teleneurology was consulted. As per the ED physician, they discussed with the Tele neurologist regarding his finding and agreed that patient does not need further workup and management of stroke and the altered mentation was secondary to sepsis. He was admitted to the hospital and was started on cefepime and vancomycin IV. Blood cultures showed MRSA bacteremia. Culture from catheter insertion site grew MRSA. Cefepime was discontinued. TDC was removed and temporary dialysis catheter was placed. Neurology was consulted. Primary team had multiple discussions with the family regarding patient's condition and mental status, his CODE STATUS was changed to DNR/DNI in presence of his and 2 sons. Repeat blood culture from 11/05/2024 was negative and new tunneled dialysis catheter was inserted to femoral due to right upper extremity old fistula and unsuccessful placement of TDC on the left side. During hospital stay patient's mentation was not improving significantly requiring multiple administrations of antipsychotics and benzodiazepines along with restraints because patient was pulling on lines and was combative. Due to constant movements patient wasn't able to complete any dialysis session and decision was made to transfer patient to place TDC in more secure area. Patient was accepted to [facility] [place] vascular [place] TDC placement. #Sepsis 2/2 catheter site cellulitis, improving. #Catheter site cellulitis. #MRSA bacteremia 2/2 CRBSI. #Acute encephalopathy. #Severe agitation, improved. #Suspected underlying dementia vs delirium secondary to metabolic encephalopathy. #ESRD on HD M//. #Hypomagnesemia, resolved. #Hyperphosphatemia. #NSTEMI type II. #Hx CAD, [place]. #HFrEF with EF 35-40%. #History of CVA. #History of CHF. #Hypothyroidism. #Normocytic anemia. Plan of care discussed with attending Dr. Hansen. Nick Lundberg MD, PGY 2. Disclaimer: This note was dictated by speech recognition. Minor errors in paint dipper may be present due to voice recognition software. Time Spent with Patient Time attestation: Total time spent providing and/or coordinating discharge services: Exam Vital Signs Temp Pulse Resp BP Pulse Ox O2 Del Method O2 Flow Rate 98.0 F 84 16 115/72 95 Room Air 2 11/23/24 21:10 11/23/24 22:45 11/23/24 21:10 11/23/24 22:45 11/23/24 21:10 11/23/24 21:10 11/20/24 11:13 Narrative Exam Gen: Well-developed and well-nourished elderly male. HEENT: NCAT, PERRLA, EOMI, MMM, anicteric conjunctivae. CVS: normal S1 and S2. RRR. No M/R/G. Resp: Decreased breath sounds B/L bases. No rhonchi, rales, crackles or wheezing. Abd: soft, non-tender, non-distended. BS+ in all 4 quadrants. MSK: Good ROM in BUE & BLE. No edema or rash. TDC in right femoral area, appears clean. Neuro: Patient is refusing examination. Able to move all 4 extremities. Discharge Plan Plan Patient Disposition: Xfer Other Facility Pt Being Transferred to: [facility] Service Needed for Transfer: Vascular Surgery Disposition Comment: TDC placement Prescriptions/Referrals Prescriptions/Med Rec: New buspirone 10 mg tablet 10 mg PO TID Qty: 90 0RF quetiapine 25 mg tablet 25 mg PO BID PRN (Reason: agitation) Qty: 60 0RF pramipexole 0.25 mg tablet 0.25 mg PO BID Qty: 60 0RF Continued atorvastatin [Lipitor] 80 MG tablet 80 mg PO HS Qty: 0 nitroglycerin [Nitrostat] 0.4 MG tablet, sublingual 0.4 mg SL PRN PRN (Reason: CHEST PAIN) Qty: 0 Levothyroxine * (SYNTHROID *) 50 MCG tablet 50 mcg PO QDAY Qty: 0 clopidogrel [Plavix] 75 mg Tablet 75 mg PO QDAY allopurinol 100 mg tablet 100 mg PO DAILY Patient Comments: TAKE 1 TABLET BY MOUTH ONCE DAILY donepezil 5 mg Tablet 5 mg PO QDAY metoprolol succinate 200 mg tablet extended release 24 hr 200 mg PO QDAY Patient Comments: TAKE 1 TABLET BY MOUTH ONCE DAILY hydralazine 50 mg Tablet 50 mg PO TID ondansetron HCl 4 mg tablet 4 mg PO Q6H PRN (Reason: nausea and vomitting) Patient Comments: TAKE 1 TABLET BY MOUTH EVERY 6 HOURS NEEDED pantoprazole 40 mg Tablet,Delayed Release (Dr/Ec) 40 mg PO BID mirtazapine 30 mg tablet 30 mg PO HS Patient Comments: TAKE 1 TABLET BY MOUTH ONCE DAILY BEFORE BEDTIME ranolazine 1,000 mg tablet extended release 12 hr 1,000 mg PO BID Patient Comments: TAKE 1 TABLET BY MOUTH TWICE DAILY Referrals: Rosey Morin DO [Primary Care Provider] - Patient/Caregiver Discharge Instructions Education Materials: Hemodialysis Print Language: Burundian Stand Alone Forms: Marla Award Info., Patient Portal Info Letter Discharge Order Discharge Orders: Discharge (Routine); Ordered 11/23/24 Ordered By: Derrick Blanc Quality Discharge Quality Measures VTE prophylaxis
== END 2024-11-23 21:18 | disposition other institution (70) | DRG 280 ==
LOC: SERX 17:10 → SERHOLD 19:58 → S2NX 21:50 → S3NX 11-21 23:32
PROVIDERS: Internal Medicine Nephrology; Radiology Diagnostic Radiology; Student in an Organized Health Care Education/Training Program; Admitting Provider Student in an Organized Health Care Education/Training Program; Emergency Provider Emergency Medicine; PCP Internal Medicine; Visit Provider Student in an Organized Health Care Education/Training Program
DX: T80.211A Bloodstream infection due to central venous catheter, initial encounter (principal); A41.02 Sepsis due to Methicillin resistant Staphylococcus aureus; I21.A1 Myocardial infarction type 2; G93.41 Metabolic encephalopathy; N18.6 End stage renal disease; I13.2 Hypertensive heart and chronic kidney disease with heart failure and with stage 5 chronic kidney disease, or end stage renal disease; L03.90 Cellulitis, unspecified; I25.810 Atherosclerosis of coronary artery bypass graft(s) without angina pectoris; I47.20 Ventricular tachycardia, unspecified; E87.1 Hypo-osmolality and hyponatremia; I50.42 Chronic combined systolic (congestive) and diastolic (congestive) heart failure; D63.1 Anemia in chronic kidney disease; F03.A0 Unspecified dementia, mild, without behavioral disturbance, psychotic disturbance, mood disturbance, and anxiety; I25.5 Ischemic cardiomyopathy; E78.5 Hyperlipidemia, unspecified; E66.9 Obesity, unspecified; E83.42 Hypomagnesemia; E03.9 Hypothyroidism, unspecified; E83.39 Other disorders of phosphorus metabolism; Z78.1 Physical restraint status; I25.2 Old myocardial infarction; I95.3 Hypotension of hemodialysis; E87.5 Hyperkalemia; K74.60 Unspecified cirrhosis of liver; K59.00 Constipation, unspecified; Z86.73 Personal history of transient ischemic attack (TIA), and cerebral infarction without residual deficits; Z79.899 Other long term (current) drug therapy; Z99.2 Dependence on renal dialysis; Z79.02 Long term (current) use of antithrombotics/antiplatelets; Z88.0 Allergy status to penicillin; Z66 Do not resuscitate; Z95.5 Presence of coronary angioplasty implant and graft; Z68.30 Body mass index [BMI] 30.0-30.9, adult; Z87.440 Personal history of urinary (tract) infections; Z87.891 Personal history of nicotine dependence; Z79.82 Long term (current) use of aspirin; Z53.9 Procedure and treatment not carried out, unspecified reason; Y71.2 Prosthetic and other implants, materials and accessory cardiovascular devices associated with adverse incidents
CPT/HCPCS: 36415; 36600; 70450; 71045; 71260; 74018; 74177; 76937; 77001; 80053; 80061; 80069; 80074; 80202; 80307; 80320; 81001; 82140; 82803; 83036; 83605; 83735; 84100; 84145; 84443; 84484; 85014; 85018; 85025; 85610; 85730; 86706; 87040; 87070; 87075; 87077; 87081; 87086; 87186; 87205; 87400; 87811; 92526; 92610; 93005; 93306; 94664; 96365; 96366; 96375; 96376; 97162; 99152; 99291; 99292; A4216; A4649; C1752; C1769; C1894; J0689; J0692; J1200; J1630; J1642; J1643; J1650; J2060; J2185; J2250; J2270; J2358; J2405; J2470; J2997; J3010; J3370; J3371; J3475; J3490; J7030; J7040; J7050; P9047; Q9967; A9270; G0480; J2359